=== PATIENT | female | born 1960 | race Caucasian/White ===

== ENCOUNTER 2023-07-31 13:15 | Outpatient (OUT) | payer OTHER, SELFPAY | END 2023-07-31 13:16 | disposition home or self-care (01) | LOC: LAB 13:20 | PROVIDERS: PCP Family Medicine; Visit Provider Family Medicine | DX: Z51.81 Encounter for therapeutic drug level monitoring (principal) | CPT/HCPCS: 36415; 80165 ==

== ENCOUNTER 2023-10-20 09:46 | Outpatient (OUT) | payer OTHER, SELFPAY ==
--- NOTE | 2023-10-20 09:54 | VEIN_ITS ---
Patient Name: EMMA ROE MR#: [id number] : 1960 Exam Date: 10/20/2023 Ordering Doctor: DR DELL CARR M.D. RADIOLOGY REPORT PROCEDURE: VC EXT VENOUS REFLUX ANNA MARIE LMTD COMPARISON: None. INDICATIONS: Pain due to varicose veins of bilateral legs I83.813 TECHNIQUE: Duplex imaging of the lower extremity to assess the deep and superficial venous system for the presence of deep or superficial venous incompetence and to document the location and severity of disease. The study includes evaluation of the great saphenous vein (GSV), anterior accessory saphenous vein (AASV) and small saphenous vein (SSV). Patient scanned in reverse Trendelenburg and standing. FINDINGS: RIGHT LOWER EXTREMITY: Saphenofemoral Junction Reflux: Yes 8.6mm 1.4 sec GSV: Diam (mm) Reflux/ Time (sec) Proximal Thigh 5.9 Yes 0.9 Mid Thigh 2.7 Yes 1.0 Distal Thigh 3.8 Yes 2.0 Prox Calf 2.7 Yes 0.4 Mid Calf 0.9 Yes 0.6 Saphenopopliteal Junction Reflux: 1.7mm No SSV: Proximal Calf 2.1 Yes 0.4 Mid Calf 2.8 Yes 0.5 AASV: Not present Thrombi: No acute or chronic thrombus. Compressibility: Normal. Flow: Mild deep venous reflux. Preforator: Mid lateral lower leg 3.4 mm with 4.6s reflux. Tech Note: Posterior accessory GSV prox thigh measures 6.2 mm with 1.4s reflux. Incompetent varicose vein off of accessory vein posterior proximal thigh measures 6.0 mm with 4.2s reflux. Varicose vein proximal lateral lower leg measures 4.3 mm with 4.6s reflux. Varicose vein distal lateral thigh measures 4.2 mm with 4.4s reflux. LEFT LOWER EXTREMITY: Saphenofemoral Junction Reflux: Yes 7.1 mm 0.8 sec GSV: Diam (mm) Reflux/Time (sec) Proximal Thigh 2.9 Yes 1.8 Mid Thigh 2.5 Yes 1.7 Distal Thigh 3.2 Yes 1.5 Prox Calf 2.9 Yes 4.9 Mid Calf 1.8 Yes 0.6 Saphenopopliteal Junction Relux: 1.2 mm Yes 0.8 SSV: Proximal Calf 2.8 No Mid Calf N/A AASV: Proximal Thigh 2.8 Yes 0.5 Mid Thigh 1.8 Yes 0.6 Distal Thigh Thrombi: Chronic thrombus in SSV from prox to distal lower leg approximately 5.0 cm from popliteal. Compressibility: Non compressible SSV. Flow: Mild deep venous relux. Core Stacker: Distal medial lower leg 2.7 mm with 3.4s reflux. Tech Note: No significant varicose veins. CONCLUSION: 1. Duplicated right great saphenous vein , both great saphenous veins demonstrate moderate venous insufficiency with dilatation and saphenofemoral junction reflux 2. Severe venous reflux left great saphenous vein with saphenofemoral junction dilatation and reflux 3. Bilateral incompetent varicose veins right greater than left Dictated by: Dell Carr MD on 10/20/2023 at 11:08 Approved by: Dell Carr MD on 10/20/2023 at 11:13
--- NOTE | 2023-10-20 09:54 | VEIN_ITS ---
Patient Name: EMMA ROE MR#: [id number] : 1960 Exam Date: 10/20/2023 Ordering Doctor: DR DELL CARR M.D. RADIOLOGY REPORT PROCEDURE: [facility] - OFFICE VISIT INITIAL COMPARISON: None. PROGRESS NOTES: 63-year-old female who presents with a 38 year history of lower extremity pain swelling and varicose veins which began with her 1st . Patient's symptoms have progressively gotten worse resulting in leg swelling muscle cramps, right significantly worse than left. The patient describes the pain as aching and heaviness rating the pain as a 4 on a scale of 1-10. Patient's symptoms are exacerbated by prolonged sitting and standing and are partially relieved by rest, exercise, leg elevation, support stockings and over the counter Tylenol. The patient has a medical history significant for spontaneous right leg thrombophlebitis in 2020. The patient has had previous treatments in [place] approximately 20 years ago with sclerotherapy. The patient has worn compression stockings for approximately 15 years. The patient is now retired but does exercise by walking 2-3 miles every day. The patient denies any signs and symptoms to suggest arterial ischemia. The patient describes a family history significant for high cholesterol and hypertension in her father, Parkinson's stroke in her mother. Varicose veins in her mother, sister and paternal grandmother. . The patient has never smoked. No illicit drug use. Patient does not drink alcohol. Past medical history significant for anxiety, depression, hip pain, back pain, mitral valve prolapse. The patient does have a history of superficial right leg thrombophlebitis but no deep vein thrombus or pulmonary embolus. See separate history and physical for medication list. No recent treatment for varicose or spider veins. Nursing notes were reviewed. After history and physical exam I discussed at length the pathophysiology of venous hypertension and possible treatments, therapies and strategies available. We discussed at length the importance of elevating the lower extremities above the level of the heart, increased physical activity and compression stocking use. We discussed surgical interventions including ligation and stripping and phlebectomy. Discussed intravenous laser ablation micro foam chemical ablation and injection sclerotherapy. Risks benefits and alternatives were discussed. The patient's questions were answered Ultrasound venous reflux study performed the same day was discussed at length with the patient. The report demonstrates duplication of the right great saphenous vein at the takeoff with venous insufficiency dilatation and saphenofemoral junction reflux in both right great saphenous veins. Severe left great saphenous vein reflux without dilatation however there is left saphenofemoral junction reflux. Bilateral incompetent varicose veins, right greater than left. Mild bilateral deep vein reflux PHYSICAL EXAM: The right leg demonstrates moderate diffuse varicose reticular and spider veins most significant along the posterior thigh, lateral thigh, lateral knee and lateral lower leg. Mild subcutaneous edema below the leg. No active ulceration . Minimal hemosiderin stain The left leg demonstrates few scattered varicose veins. Moderate reticular and spider veins. No subcutaneous edema, active ulceration or hemosiderin staining Both thighs, legs and feet were symmetrically warm to the touch. Good posterior tibial and dorsalis pedis pulses were present bilaterally. VEIN/VC Facility EST Comprehensive IMPRESSION: 1. 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 Moderate right and mild left lower extremity incompetent varicose veins 3. Mild right lower extremity subcutaneous edema and hemosiderin staining 4. No definite flow significant arterial disease 5. CEAP: C4a, Ep, As, Pr PLAN: 1. Endovenous laser ablation both right great saphenous veins and left great saphenous vein 2. Micro foam chemical ablation of incompetent varicose veins 3. Long-term use of the thigh or knee high 20-30 compression stockings 4. Elevated legs and continued physical activity for symptomatic relief Nurse notes, history and physical were reviewed and confirmed, see attached forms. The nurse was present throughout the physical exam and consultation Dictated by: Dell Carr MD on 10/20/2023 at 12:26 Approved by: Dell Carr MD on 10/20/2023 at 12:33
== END 2023-10-20 09:47 | disposition home or self-care (01) ==
LOC: VC 09:47
PROVIDERS: PCP Radiology Diagnostic Radiology; Visit Provider Radiology Diagnostic Radiology
DX: I83.813 Varicose veins of bilateral lower extremities with pain (principal)
CPT/HCPCS: 93970; G0463

== ENCOUNTER 2023-10-21 13:20 | Outpatient (OUT) | payer OTHER, SELFPAY ==
--- OUTSIDE RECORDS SUMMARY | 2023-10-21 13:24 | XMS_ITS | CCD ---
Author Organization [facility] Care Team Providers Care Office Assistant Receptionist Name Role Phone Jessica Oneil Unavailable Dat Bautista Consulting Unavailable VISCI, DR TERESA Attending Unavailable VISCI, DR TERESA Admitting Unavailable ONEIL, DR JESSICA Rosales Primary Care Unavailable VISCI, DR TERESA Consulting Unavailable ONEIL, DR JESSICA Rosales Attending Unavailable ONEIL, DR JESSICA Rosales Consulting Unavailable ONEIL, DR JESSICA Rosales Primary Care Unavailable ONEIL, DR JESSICA Rosales Admitting Unavailable VAISHNAVISHILOH PEDROZA Attending Unavailab le BRII LA Attending Unavailable VAISHNAVI-SHILOH SMITH Attending Unavailab le VAISHNAVI-NOSSESHILOH Cabrera Attending Unavailab le Allergies Allergy Classification Reported Allergen(s) Allergy Type Date of Onset Reaction(s) Facility (1 source) FLUoxetine Drug Allergy 03-07-20 14 [facility] Repository (1 source) Oxytetracycline Drug Allergy 03-07-20 14 [facility] Repository (4 sources) FLUoxetine Drug Allergy Comment:[employer] Other (4 sources) venlafaxine Drug Allergy Comment:[employer] Other (4 sources) Allergies Reconciled Propensity to adverse reactions 03-15-20 21 Unknown [facility] Other Medications Current Medications Medication Drug Class(es) Dates Sig (Normalized) Sig (Original) ALPRAZolam 0.25 mg oral tablet (5 sources) Benzodiazepine take 1 tablet by mouth every twelve hours ARIPiprazole 20 mg oral tablet (10 sources) Atypical Antipsychotic take 1 tablet by mouth every twenty-four hours take 1 tablet by mouth every twe nty-four hours calcium carbonate 1250 mg or al tablet (5 sources) take 1 tablet by mouth every twe lve hours take 1 tablet by mouth every twe lve hours Calcium 500 MG 1 tablet with meals Orally Twice a day Active ciprofloxacin 3 mg/ml ophtha lmic solution (4 sources) Quinolone Antimicrobial Start: 01-24-2023 Start: 01-24-2023 Ciprofloxacin HCl 0.3 % 1 application into the lower eyelid of affected eye Ophthalmic tid for 5 day(s) Jan, Active montelukast 10 mg oral table t (5 sources) Leukotriene Receptor Antagonist take 1 tablet by mouth once daily Multi Adult Gummies - (5 sources) Multi Adult Vitaly ies - as directed Orally Active divalproex sodium 500 mg delayed release oral tablet (5 sources) Mood Stabilizer, Anti-epileptic Agent take 1 tablet by mouth every twenty-four hours Problems Problem Classification Problem Date Documented Da te Episodic/Chronic Other aftercare (1 source) Encounter for therapeutic drug level monitoring Episodic Other connective tissue disease (4 sources) Pain in right foot; Translations: [Pain in right foot] Episodic Other ear and sense organ disorders (4 sources) Impacted cerumen; Translations: [Impacted cerumen, unspecified ear] Episodic Other non-traumatic joint disorders (4 sources) Arthralgia of the pelvic region and thigh; Translations: [Pain in unspecified hip] Episodic Other nutritional; endocrine; and metabolic disorders (4 sources) Body mass index 25-29 - overweight; Translations: [Body mass index (BMI) 28.0-28.9, adult] Episodic Other nutritional; endocrine; and metabolic disorders (4 sources) Overweight; Translations: [Overweight] Episodic Other screening for suspected conditions (not mental disorders or infectious disease) (4 sources) Encounter for screening mammogram for malignant neoplasm of breast; Translations: [ENC SCR MAMMO MALIG NEOPLASM BREAST] Onset: 10-14-2022 Episodic Other upper respiratory disease (4 sources) Seasonal allergic rhinitis; Translations: [Other seasonal allergic rhinitis] Chronic Residual codes; unclassified (1 source) Family history of malignant neoplasm of breast; Translations: [FAMILY HX MALIG NEOPLASM OF BREAST] Onset: 10-17-2022 Episodic Residual codes; unclassified (1 source) Family history of malignant neoplasm of trachea, bronchus and lung; Translations: [FAM HX MALIG NEOPLSM TRACH BRON LNG] Onset: 10-17-2022 Episodic Spondylosis; intervertebral disc disorders; other back problems (4 sources) Backache; Translations: [Dorsalgia, unspecified] Episodic Superficial injury; contusion (2 sources) Corneal abrasion; Translations: [Corneal abrasion, right] Episodic Varicose veins of lower extremity (4 sources) Varicose veins of bilateral lower limbs; Translations: [Asymptomatic varicose veins of bilateral lower extremities] Episodic Results Test Name Value Interpretation Reference Range Facility MG MAMM SCREEN 3D ANNA MARIE CADon 10-14-2022 MG MAMM SCREEN 3D ANNA MARIE CAD Patient: EMMA ROE Exam Date: 10/14/2022 : 1960 Gender:F Ordering : DR BRII LA Admission #: [id number] Family : DR JESSICA ONEIL M.D. Order #: [id number] CLICK HERE TO VIEW EXAM RADIOLOGY REPORT PROCEDURE: MAMMOGRAM SCREENING 3D BILATERAL CAD COMPARISON: MG MAMM SCREEN 3D ANNA MARIE CAD, 10/09/2021. MG MAMM SCREEN ANNA MARIE W CAD, 05/05/2020. MG MAMM SCREEN ANNA MARIE W CAD, 04/22/2019. DIGITIZED_MAMMO, 08/11/2008. INDICATIONS: Screening mammography Calculator Name NCI Breast Cancer Risk Assessment Tool 5 Year Breast Cancer Risk 1.30% Lifetime Breast Cancer Risk 6.40% Personal Breast Cancer No Personal Ovarian Cancer No Treatments None Family Cancers Grandmother-paternal with breast cancer at age 70; Aunt-maternal with lung cancer at age 70. LOCATION: [facility] BREAST COMPOSITION: Heterogeneously dense,which may obscure small masses. FINDINGS: DIAGNOSTIC CATEGORY 1--NEGATIVE. RIGHT BREAST: No significant suspicious finding. No significant change has occurred. LEFT BREAST: No significant suspicious finding. No significant change has occurred. RECOMMENDATIONS: ROUTINE MAMMOGRAM AND CLINICAL EVALUATION IN 12 MONTHS. PLEASE NOTE: A NORMAL MAMMOGRAM DOES NOT EXCLUDE THE POSSIBILITY OF BREAST CANCER. A CLINICALLY SUSPICIOUS PALPABLE LUMP SHOULD BE BIOPSIED. Dictated by: Dat Bautista M.D. on 10/14/2022 at 12:58 Approved by: Dat Bautista M.D. on 10/14/2022 at 13:11 Normal [facility] CBC AUTO DIFFon 07-11-2022 BASO # 0.0 103/ul Normal 0.0-0.1 [facility] Comment on above: Performed By: #### C BC #### [facility] [address] [place] [address] Dr. Oskar Devine Basophils/100 WBC (Bld) 0.8 % Normal 0.2-2.0 [facility] Comment on above: Performed By: #### C BC #### [facility] [address] [place] [address] Dr. Oskar Devine EO # 0.1 103/ul Normal 0.0-0.7 [facility] Comment on above: Performed By: #### C BC #### [facility] [address] [place] [address] Dr. Oskar Devine Eosinophils/100 WBC (Bld) 1.8 % Normal 0.9-7.0 [facility] Comment on above: Performed By: #### C BC #### [facility] [address] [place] [address] Dr. Oskar Devine Erythrocyte distribution width (RBC) [Ratio] 14.2 % Normal 11.0-15.0 [facility] Comment on above: Performed By: #### C BC #### [facility] [address] [place] [address] Dr. Oskar Devine Hematocrit (Bld) [Volume fraction] 44.4 % Normal 36.0-48.0 [facility] Comment on above: Performed By: #### C BC #### [facility] [address] [place] [address] Dr. Oskar Devine Hemoglobin (Bld) [Mass/Vol] 13.4 g/dL Normal 12.0-16.0 [facility] Comment on above: Performed By: #### C BC #### [facility] [address] [place] [address] Dr. Oskar Devine IG # 0.01 10e3/ul Normal 0.00-0.03 [facility] Comment on above: Performed By: #### C BC #### [facility] [address] [place] [address] Dr. Oskar Devine IG % 0.2 % Normal 0.0-0.5 [facility] Comment on above: Performed By: #### C BC #### [facility] [address] [place] [address] Dr. Oskar Devine LYMPH # 2.5 103/ul Normal 1.2-3.8 [facility] Comment on above: Performed By: #### C BC #### [facility] [address] [place] [address] Dr. Oskar Devine Lymphocytes/100 WBC (Bld) 49.9 % Normal 20.5-60.0 [facility] Comment on above: Performed By: #### C BC #### [facility] [address] [place] [address] Dr. Oskar Devine MANUAL DIFF REQ NO Normal [facility] Comment on above: Performed By: #### C BC #### [facility] [address] [place] [address] Dr. Oskra Devine MCH (RBC) [Entitic mass] 29.0 pg Normal 26.7-34.0 [facility] Comment on above: Performed By: #### C BC #### [facility] [address] [place] [address] Dr. Oskar Devine MCHC (RBC) [Mass/Vol] 30.2 g/dL Normal 29.9-35.2 [facility] Comment on above: Performed By: #### C BC #### [facility] [address] [place] [address] Dr. Oskar Devine MCV (RBC) [Entitic vol] 96.1 fL Normal 81.0-99.0 [facility] Comment on above: Performed By: #### C BC #### [facility] [address] [place] [address] Dr. Oskar Devine MONO # 0.4 103/ul Normal 0.3-0.8 [facility] Comment on above: Performed By: #### C BC #### [facility] [address] [place] [address] Dr. Oskar Devine Monocytes/100 WBC (Bld) 7.3 % Normal 1.7-12.0 [facility] Comment on above: Performed By: #### C BC #### [facility] [address] [place] [address] Dr. Oskar Devine NEUT # 2.0 103/ul Normal 1.4-6.5 [facility] Comment on above: Performed By: #### C BC #### [facility] [address] [place] [address] Dr. Oskar Devine Neutrophils/100 WBC (Bld) 40.0 % Critically low 43.0-75.0 [facility] Comment on above: Performed By: #### C BC #### [facility] [address] [place] [address] Dr. Oskar Devine Platelet mean volume (Bld) [Entitic vol] 11.1 fL Normal 9.5-13.5 [facility] Comment on above: Performed By: #### C BC #### [facility] [address] [place] [address] Dr. Oskar Devine PLT 211 103/ul Normal 150-450 [facility] Comment on above: Performed By: #### C BC #### [facility] [address] [place] [address] Dr. Oskar Devine RBC 4.62 106/ul Normal 4.20-5.40 [facility] Comment on above: Performed By: #### C BC #### [facility] [address] [place] [address] Dr. Oskar Devine WBC 5.1 103/ul Normal 4.0-11.0 [facility] Comment on above: Performed By: #### C BC #### [facility] [address] [place] [address] Dr. Oskar Devine LIPID PROFILEon 07-11-2022 CHOL-HDL RATIO NORM SEE BELOW Normal [facility] Comment on above: Result Comment: 3.3 - 4.4 LOW RISK 4.4 - 7.1 AVERAGE RISK 7.1 - 11.0 MODERATE RISK >11.0 HIGH RISK Performed By: #### C MP, LIPID, TSH #### [facility] [address] [place] [address] Dr. Oskar Devine Cholesterol [Mass/Vol] 249 mg/dL Critically high <=200 [facility] Comment on above: Performed By: #### C MP, LIPID, TSH #### [facility] [address] [address] [address] Oskar Devine Cholesterol in HDL [Mass/Vol] 54 mg/dL Normal 40-60 [facility] Comment on above: Performed By: #### C MP, LIPID, TSH #### [facility] [address] [address] [address] Oskar Devine Cholesterol in LDL [Mass/Vol] 166.8 mg/dL Normal [facility] Comment on above: Performed By: #### C MP, LIPID, TSH #### [facility] [address] [address] [address] Oskar Devine Cholesterol.total/Ch olesterol in HDL [Mass ratio] 4.6 {ratio} Normal [facility] Comment on above: Performed By: #### C MP, LIPID, TSH #### [facility] [address] [address] [address] Oskar Devine HDL NORMAL > or = 60 mg/dl - LO W CARDIOVASCULAR RISK <40 mg/dl - HIGH CARDIOVASCULAR RISK Normal [facility] Comment on above: Performed By: #### C MP, LIPID, TSH #### [facility] [address] [address] [address] Oskar Devine LDL CALC NORMAL SEE BELOW Normal [facility] Comment on above: Result Comment: <100 mg/dl OPTIMAL 100 - 129 mg/dl NEAR OR ABOVE OPTIMAL 130 - 159 mg/dl BORDERLINE HIGH 160 - 189 mg/dl HIGH >190 mg/dl VERY HIGH Performed By: #### C MP, LIPID, TSH #### [facility] [address] [address] [address] Oskar Devine Triglyceride [Mass/Vol] 141 mg/dL Normal <=150 [facility] Comment on above: Performed By: #### C MP, LIPID, TSH #### [facility] [address] [address] [address] Oskar Devine VLDL CALC 28.2 mg/dL Normal [facility] Comment on above: Performed By: #### C MP, LIPID, TSH #### [facility] [address] [address] [address] Oskar Devine PROF 14(COMP METB)on 023 Albumin [Mass/Vol] 3.7 g/dL Normal 3.4-5.0 [facility] Comment on above: Performed By: #### C MP, LIPID, TSH #### [facility] [address] [address] [address] Oskar Devine Albumin/Globulin [Mass ratio] 1.1 {ratio} Normal [facility] Comment on above: Performed By: #### C MP, LIPID, TSH #### [facility] [address] [address] [address] Oskar Devine ALP [Catalytic activity/Vol] 59 U/L Normal 46-116 [facility] Comment on above: Performed By: #### C MP, LIPID, TSH #### [facility] [address] [address] [address] Oskar Devine ALT [Catalytic activity/Vol] 23 U/L Normal 14-59 [facility] Comment on above: Performed By: #### C MP, LIPID, TSH #### [facility] [address] [address] [address] Oskar Devine Anion gap [Moles/Vol] 10.9 mmol/L Normal [facility] Comment on above: Performed By: #### C MP, LIPID, TSH #### [facility] [address] [address] [address] Oskar Devine AST [Catalytic activity/Vol] 20 U/L Normal 15-37 [facility] Comment on above: Performed By: #### C MP, LIPID, TSH #### [facility] [address] [address] [address] Oskar Devine Bilirubin [Mass/Vol] 0.6 mg/dL Normal 0.2-1.0 [facility] Comment on above: Performed By: #### C MP, LIPID, TSH #### [facility] [address] [address] [address] Oskar Devine Calcium [Mass/Vol] 9.2 mg/dL Normal 8.5-10.1 [facility] Comment on above: Performed By: #### C MP, LIPID, TSH #### [facility] [address] [address] [address] Oskar Devine Chloride [Moles/Vol] 104 mmol/L Normal 98-107 [facility] Comment on above: Performed By: #### C MP, LIPID, TSH #### [facility] [address] [address] [address] Oskar Devine CO2 [Moles/Vol] 33.4 mmol/L Critically high 21.0-32.0 [facility] Comment on above: Performed By: #### C MP, LIPID, TSH #### [facility] [address] [address] [address] Oskar Devine Creatinine [Mass/Vol] 0.75 mg/dL Normal 0.55-1.02 [facility] Comment on above: Performed By: #### C MP, LIPID, TSH #### [facility] [address] [place] [address] Dr. Oskar Devine EGFR-AF LEBANESE >60 Normal >=60 [facility] Comment on above: Performed By: #### C MP, LIPID, TSH #### [facility] [address] [place] [address] Dr. Oskar Devine EGFR-NON AF LEBANESE >60 Normal >=60 [facility] Comment on above: Performed By: #### C MP, LIPID, TSH #### [facility] [address] [place] [address] Dr. Oskar Devine Globulin (S) [Mass/Vol] 3.4 g/dL Normal [facility] Comment on above: Performed By: #### C MP, LIPID, TSH #### [facility] [address] [address] [address] Oskar Devine Glucose [Mass/Vol] 95 mg/dL Normal 74-106 [facility] Comment on above: Performed By: #### C MP, LIPID, TSH #### [facility] [address] [place] [address] Dr. Oskar Devine Potassium [Moles/Vol] 4.3 mmol/L Normal 3.5-5.1 [facility] Comment on above: Performed By: #### C MP, LIPID, TSH #### [facility] [address] [address] [address] Oskar Devine Protein [Mass/Vol] 7.1 g/dL Normal 6.4-8.2 [facility] Comment on above: Performed By: #### C MP, LIPID, TSH #### [facility] [address] [address] [address] Oskar Devine Sodium [Moles/Vol] 144 mmol/L Normal 136-145 [facility] Comment on above: Performed By: #### C MP, LIPID, TSH #### [facility] [address] [address] [address] Oskar Devine Urea nitrogen [Mass/Vol] 17.0 mg/dL Normal 7.0-18.0 [facility] Comment on above: Performed By: #### C MP, LIPID, TSH #### [facility] [address] [address] [address] Oskar Devine Urea nitrogen/Creatinine [Mass ratio] 22.7 mg/mg Normal [facility] Comment on above: Performed By: #### C MP, LIPID, TSH #### [facility] [address] [address] [address] Oskar Devine TSHon 07-11-2022 TSH 1.679 uIU/mL Normal 0.358-3.740 [facility] Comment on above: Performed By: #### C MP, LIPID, TSH #### [facility] [address] [address] [address] Oskar Devine Coding Summary.on 07-30-2021 Coding Summary. CD:[id number] Gh 0bWw+PGhlYWQ+HL0ZGDFmA 04zkOQhfO8VX9fZIP3OZLE UUFJVXX0HEA3wgSL4XBvzA 2VybiAv SbezlQStTY61TKe5IYG4jJ enUJvufD1noZHlS1z8KiJv LG10nS91MGdpORImUwZ8Wt ZpbjsgbWFy S4klLbMcdJYtOxm+PHRhYm xlIHdpZHRoPScxMDAlJyBz iAosNB8uQo3mAMTfTNHhyC xhcHNlOiBj q6hfMUBsPWdwWV5urApwU1 EyxTF8YZMgy6n0Ua71rRX+ ZFQyWQS4dMbhZOwrr650Vf Dgi0hgAJP9 xGAuFHugQMI4O28xz0O1QT KaRWStRZE1oFW3pL8ogEyl xqdgE9QwmVJsDdS3PPU6uQ DhtM4fwFwy jsygnG2bBkq+M80HLR5AJF HKRS6NAix0W6RaAnusqXH+ CK60FQJeUN01eUCdnVYyf2 cfxWk8GhWi JBWiUWS8yRprWFgzw5GlOH PjY25jxUZsh1Y0GRXduYkj kIMgTvPiqSC1pC1gVDozgp gvu9rycdeb Vbnfh8euxe76uR59N81nOD kxUZEzJHG0YXHdNHPzjVmv xm7xcY4iRr2+OHovx6kdg9 kizLb4SnQv FKVoyeBhrCpmMPV9b9OdBy 72K8QpqMvli2OxPcz2tp92 jSTdp6R2uNS2OZpvTJYciZ 9mSMmmMsX5 PRXcPuNcnX86iLYuNTqxAd 4zyApohLfwNT0kZRLmlznm LUTwkZ2cRGBxfJNjoPgcRJ 4wNTBpbjtm z264PcVbAAB2DKJcbQGdK4 RqsW6cPgBiDKHaOSMjL4Le eLPiXAhfL468JRlaYdP6HZ UnzbTvK8Kg VPKktBjdTvP9m8O6Kg3Ll6 FskzdeGZY5OZojVMEmSsJ7 XpSqUhM4Q6UqDon0VILafY zuKC2oM7Ss JTSohrydkoohkOP3BTIqAS VhmT37qAPbWOuaVo1pe6A5 o850KBNqTMPpeJ15Xi6nbD ogMTBwdCBU nX9enxfqy9affxwdJxYbXL YdCIz9VXl8NPSyzKfcAsDm JWV5RzQ1OON2bQXbwB6juM uypnoqhD0s Oyc+O99wzB7oVNH5HFJ8om ewERVfycUsEX41VC47X8Qx PjwvdGFibGU+PGRpdiBzdH wvLF3tThQm o9gay2JpAKgiI0PjUMUsXY clKfq2TPEdSWG9oPO1lQ7d RMJyWIoul9S1cRQ3D6Ttad Cksv1bn0qb SMFyBXcrH27npWNvo7C1AX WmmVW4YBKouFjfTfGmbD91 Oyc+PLPeiXduy0ScNmjme7 gex8wwiBr4 QsXhNWYrpvZxbNyfZBG0d7 UeBf25S44xQOqpLMRoELJf IUQkIIClqRfiev6kzF0gJn 8+PGNvbCB3 kKH4cD6lYIFoBdR5DAjxO2 83RqSkwNQfYerid6kds0ta lCe1OsRzOUGpoeVglJewZO Z8i3HhLf90 L25fUAujUZWbPAScZREmOG YtxHtexp2ejE3mTx0+PC9j o0kouk27fN78fIY+PHRkIH F8pXuwXHjy IDOauW5uQMxkWfJ6LSEsTn BtsW40rWOxHUqiHz8vqBvd aFasBP9cDYNhndnap741Tv Mjc4qvERWv jUGxFGvpQXF0A53pa5C1UU ZgUUVvZYX9rSF2wG3gmTka bjogbGVmdDsgdmVydGljYW hjRAjeK687 IHRvcDsnPlBhdGllbnQgTm DjTLr7G5ThDtk1MMHmlRga RP7ngXJyCGhfNc8smRnfpO kzOD6dIJWw jqqai819FmEiw7mtINTtaO FqJEchCKH0A80nw0H8NMQh ACEtBVP6wFN8dF6ypZalic ogbGVmdDsg icYsjQohFSlyJDxqK537PT RvcDsnPkJpcnRoIERhdGU6 EL95UW14xIGkp7L9bRK1L9 BhZGRpbmct xgptqDE6ETDwTBJkpV28Tx 3caQynUp6aGLOzMPG3QIHc pOIjW2CeqQ3kYpPjOCVeLL LsL7WxlOPg DUrcQ398FPikMcS4DRPrez PaH8ZkMBItwJvgTwL1s6V4 Sg5DR4N2FC01KB00kTFqp2 K7oZP4P7Mo OXHarbodydnurWX4EWIgHP ZrsE97Ny6yuGbrKn1uCWKh GQR7KCXwmCIcI6IibD0yRh AjMDAwMDAw V7GvoALcNMstC027RYniHo G0KELkeoHfV9YqRKNrhCvg FoX6c2C6Zm2ILNa4LI96EH 25bLEbo1Q2 iNK9F5UvOJJiapqekobgnG V8XTXmBCFrdQ97Zk8qmQkd Mq1hKSXyNXG2XVSmxYLrG0 EgpY6lWeXt MQJuDCDoR6VniHTeDKlgC6 39TCecRtF4XZCpjsFhX6Wf UTCdoAqsZqD7g7X6Ma1GAC GdIA26GAZ0 oCT9TV11OT14E7PjUdbgcT FibGU+PHRhYmxlIHdpZHRo NMlvFZJwQjHjsCloWM3zRi 9yZGVyLWNv cIihvTUkZbKuw8tySODcNQ wvKD2brIeaS7MajNT6LXCy k6o6Kk32N06iF6CaxEW+PG DnqUB8eQQ2 xY2wCoVvMoY3GMmeM531Qm ImyZBqPltyh0pih3rhdGv5 LjM5OWXzehFqcZyhWCD4n7 GyIy61B49h IHdpZHRoPSIxNSUiIHZhbG opus3tlB6pLx0+PGNvbCB3 zVL6oW1nAbMlNzK9EZudS9 49InRvcCIv Vysch2thr3ktsRw9XfEeBE LczrSiuUbkBNY0b8YxVl94 G6JhyQldi6PaQjd5du55iW Uju4S7aYK9 M8HhLAHyhathvAHvlCztQC 9zSRWiywilMQCryS7wAWFu J2b3LjInErB9CDidR8Voql N6ZYFadWPx NSbcRQU6C02la0N5EPMjAC GbGEL2tFX8eP4bkSkdiybg bGVmdDsgdmVydGljYWwtYW hgJ675ZNTg rBroRTAmqW8kKFQktNOkeI azRW8eOQMyfszlEhYZHIBB RkVSLCBERUJPUkEgQTwvdG Q+PHRkIHN0 uYhjYTchBJNcpS7aNLVaD0 e4FlIkQzG8YZxqS1MtQXSy flyzDm52eK9kVpOhFmO7ZS phL3AbcwL1 WLBuqVEmFAgaMFU0B28sr4 I6QOFiFEIvOLM1oMA6gP7p bGlnbjogbGVmdDsgdmVydG ljYWwtYWxp T415WGGxpAxiNeAdEwU1Fx N1YfF4W2ZgMmg7INItfWhs DC1wmPPgFSoxRb3kwMmstF ynJD2hJRVf xhguRMZftC2zBDKqwGLuuM qsNR5sCTHfqbeqp265ArIw UUK5GLBekJFiB9WvfO6qXi AjMDAwMDAw V4WzeNFqNBerX732LGckHz N9ECYioqWoZ4WbNAIueTux QwN4b8K3Gn50ZSLCLJJtlz wvdGQ+PHRk KOP9yQwdBIhaTCAcyK0yLK GgC5o8RyLcAdV4GLmoW8Mu BIQxernjFm38xP7vViLtBr O8BOotM1Ro cmU4VBXftFAfBRgoJYW7F9 1pe2U6SGIyUJBuDSP2eHP8 nT6coNgmkkoojBCznUijib VydGljYWwt FLkzP746QYVtvIcaNhPmpI FsZTwvdGQ+NNYnQUS9tTyj JZaeWUZnzD5bMMXrI8g3Sr MwZwZ6HHkm Y4OcFAPdjxlnWb48lO8mHe ExNaF9ABcwD2XjpsR2OXQc vNOhNTlgOSK4K65iz7U8RK MwMDAwMDA7 bSS9jE9oqGtbifmjhLMmlS lvtkPjsJekRMkhUBdgQ910 IRUytDjaNa17jVZntPlyph L7K2CsIiwl dHI+PY98ZSHrTU94iQVubD Yio2vdmUq4IcMrPCBlGGH7 gNteDPkms3PeXERtW00lcT Ozj7I5MYJz fStreTYcJvOljUU8gY5mBS toaikla6bhfnqnPkssx1qx ez64dB86B31hPZpmCQGbBW IzMCUiIHZh dQekoa8hnR9bRy3+PGNvbC S1xJC3eT0hIjThQeA0FFtn Z795NnDwmQZlMprhw6qul7 zdpPn7JiFe GPFhywRrdWilWJM7x7UwQg 06J96pBJauBWGdCLPgBTEv WTKwfTqzze5xpZ8qIr6+PC 1do3mjxa38 bM68qIE+PKJtDYZ2jYvbGM wkVQIldK1iAZyzQyG3OAZm ZiWiiB26yOQwIAzbTx2ueP ymhFiyDE1l PZMytcehr861FpVwd0xlNV GyiYElVXroULO4D51vq6N7 OTLaWCVtWCT8oPB2hB7yzY lnbjogbGVm dDsgdmVydGljYWwtYWxpZ2 55TDUyzLxhSjXevNOvO2zl feFJBK3cNvoqbXZ+PHRkIH D1mDpgOJvr ZVUrlH1qZOIdM9q5MhMvUy C5ASwtX5JfrqQ2AORkvKJs RFAotTGYzM7dkurgs5fvcg ogIzAwMDAw OZv6CGx9NQTvkZihWyQfWW Q7ZoX8FFA8yEHpmR8khCuu adivuR7gSzt+RklOOjwvdG Q+PHRkIHN0 vBvmYMllBCUlrH9oZOOzC6 x1WgQvHoD6DHruF2UvjsU8 ZWQrrZHiTFUorJBZpA8acr dvk3hwutdp AhPxIBNmBLo6CQm5PXEgtD ktDrEyIHT5PnS6IDO9uGGs lC1hoKmvzutnsL4oJma+TV JOOjwvdGQ+ CFVjJIH3fXozXRmrEXZqwA 4bYECzM4c8DpIoQbT2XPko S8IzvqE1BXBhpYVoHNVufZ WUeB3gczbd c0tsfuqiIjDdBJQjOZj7DU p1TNQqtXdrZsMrCAH6GfR8 STW6bTRnoR2knJllabpjbJ 9wOyc+UGF5 GXC6FR20NA31I7NzIpccjW FibGU+PHRhYmxlIHdpZHRo DUnbUTEtVuKezIkoTD9qMt 9yZGVyLWNv bGxh (more content not included)... Normal [facility] Consent for Treatmenton Consent for Treatment [id number]#[id number] 0CD:127 Normal [facility] Heart and Vascular Office/Cl inic Noteon 07-25-2021 Heart and Vascular Office/Clinic Note Chief Complaint 3 month follow up Venous US History of Present Illness This is a 61-year-old lady with history of below-knee DVT and superficial thrombophlebitis. She completed at least 3 months of Xarelto. She is doing well. Repeat ultrasound shows no evidence of reflux in the veins and no DVT. She is feeling good . I discussed with her strategies to stay active and prevent DVT in the future. Her hypercoagulability testing is negative. Review of Systems ROS - Clinical Support Cardiopulmonary Symptoms: None General Symptoms: None Pain Symptoms: No Constitutional: no fever, no chills, no sweats, no weakness Skin: no Jaundice, no rash, no lesions, nopetechiae ENMT: no ear pain, no sore throat, no congestion, no hoarseness Respiratory: no shortness of breath, no cough, no orthopnea, no wheezing Cardiovascular: no chest pain, no palpitations, no edema Gastrointestinal: no nausea, no vomiting, no diarrhea, no GI bleeding Genitourinary: no dysuria, no hematuria, no discharge, no pain Musculoskeletal: no back pain, no trauma Neurologic: no headache, no dizziness, no numbness, no weakness Psychiatric: no sleeping problems, no irritability, no mood swings/depression. Heme/Lymph: no bleeding tendency, no bruising tendency, no petechiae, no swollen nodes Allergy/Immunologic: no seasonal allergies, no food allergies, no recurrent infections, no impaired immunity Additional ROS info: Except as noted in the above Review of Systems and in the History of Present Illness all other systems have been reviewed and are negative or noncontributory. Physical Exam Vitals & Measurements HR: 64(Peripheral) RR: 16 BP: 116/80 SpO2: 100% HT: 157.0 cm HT: 157 cm WT: 69.5 kg WT: 69.5 kg BMI: 28.2 General: alert, no acute distress Skin: warm, dry Head: no trauma, normocephalic Neck: Trachea midline, no adenopathy, no tenderness Eye: normal conjunctiva, sclera clear Cardiovascular: regular rate and rhythm, normal peripheral perfusion Respiratory: Lungs CTA, respirations non labored Chest wall: no deformity. Gastrointestinal: soft, non distended, no tenderness, no guarding. Back: No tenderness, Normal ROM, Normal alignment. Extremities: no edema,no deformity, no trauma Neurological: oriented x 4, LOC appropriate for age, motor strength equal & normal bilaterally, sensation equal & normal bilaterally, speech normal Psychiatric: cooperative, affect appropriate for age, normal judgement, normal psychiatric thoughts. Assessment/Plan 1. DVT (deep venous thrombosis) (I82.409: Acute embolism and thrombosis of unspecified deep veins of unspecified lower extremity) I discussed with her that she can stop anticoagulation and use compression stockings. Encourage her to stay active and walk. I also encouraged her to avoid sitting in 1 position for times. 2. Superficial thrombophlebitis (I80.9: Phlebitis and thrombophlebitis of unspecified site) I discussed with her that she can stop anticoagulation and use compression stockings. Encourage her to stay active and walk. I also encouraged her to avoid sitting in 1 position for times. Follow-up No qualifying data available Problem List/Past Medical History Ongoing No qualifying data Historical No qualifying data Medications Abilify 20 mg oral tablet Abilify [address] 500 mg Tab-EC Tylenol 325 mg Tab, 325 mg= 1 tab(s), Oral, q4hr, PRN Xarelto 20 mg oral tablet, 20 mg, Oral, Daily Allergies Effexor XR (Unknown) PROzac (Unknown) Social History Alcohol Current, 1-2 times per week, 06/04/2021 Tobacco Never (less than 100 in lifetime) Tobacco Use:., 06/04/2021 [facility] Comment on above: Result Comment: Elec tronically Signed By: Ihsan SCHUMACHER, Teresa Kitchen\.br\Date and Time Signed: 07/25/21 10:08 EST Progress Note-Nurseon 2021 Progress Note-Nurse [id number]#1. 00CD:127 [facility] Coding Summary.on 07-20-2021 Coding Summary. CD:[id number] Gh 0bWw+PGhlYWQ+HJ9HTRTjP 87jaNWhyM0TR2yKMA2MVBP VHADFMC0NLX5egNK2WSeqD 2VybiAv UxjpyOCnRG19XRn1WFH1uG utIOcxbA1rnLMoK7i6BiKp CQ35kP96KZqjSLHwPxH8Kg ZpbjsgbWFy L3rsLkTseCCrYsp+PHRhYm xlIHdpZHRoPScxMDAlJyBz xHiyQT1dHd0vBRXaFAYoyB xhcHNlOiBj j6zmYQSpWPrrLL2gfWepO5 FxwLF8NGGzs7d0Cs15sDT+ VTYkPAQ8vLlhJCkwd913Oc Idd6gcADB9 dIXiRDcmDSZ8T64up0W0IA UuKAAkZXG0hEB9kB8wwAoz dcvnT2BhlDGlQpR2SDA5rD FvdM1vhKzp owvwdD1qXrf+P44NPR4CAF LWHE4UQhr6G7QdPnzckMW+ PM01FPSlPR89pJXqtZWrf8 lefLq2PsKy KIVlIVV5kCnnQIzht7IkIP EiX03zyZRho7T5HNPedWhb zPFuTeSzjOC0rP9bOBdbwr kpa9zopizu Ltdmd1fbgn00bZ05C41uEA maAQWkQBI3UDWoGCImbNof dj9hyD9lUu3+XBqez5fdl8 aewGe7HxPe SKEtdmFfxHeuDFE4g9BpTf 02E6ZlxTuhl1YyOdl1do56 dBJdw3U4pLE0NFhlZOPqgU 0oEKqhSsY4 OGRpUkUifC24lCHvTJcpNj 3heParrZdqFL5lYSFccree HUMqyM1dSCQdbMEndDnmIE 4wNTBpbjtm n655JyApQVI0NSGtvQJiB6 YjzD8aPpZnNYIeSIWwP0Ks oPYnHHvmC903SCffTkC6IB DspxGnI2Ym PFCmjYijCqP5r4E8Og0Pv0 XaxcjuVJN1DEanNMCmYyK6 TtDyZsC2G1LeGki5IWFkfK qzAI6eK4Ek CZKbljlkoaxxeZD4OTHdZS PbxW63oQQxTUlnEm2xh9U6 g041LPRiAXXklX09Wq6bmL ogMTBwdCBU lV6aabmgz4ltkhnuQuTtAN TgEUo2CQl4QCHfwQtvRrUq GST1WkK6PIM7oOEfjX6exN afykwrvX9w Oyc+D82lsO3rYFC4SRU7gg vkMVTdtjMiTH33AK21Q3De PjwvdGFibGU+PGRpdiBzdH bxWH3uNeWz u1bij6YoBMdpD5RzDZHmPA ifDso0MHFpTXB4dBO4dM8m KVIgEXvbv6D0nGY7G5Turv Nxqx9zk1yx GWFkEFnoY93guVZam3F7FO IahTU8DLUmyZodPiYajZ98 Oyc+NMCjeWklq4FtIwnds1 ztw0ghkDl5 LyMvRPMjfeEdzEdfKEG4j6 FtYb45W50dFLoaJQQaQYSb VRQsSWCffVjyas6qfI8hHx 8+PGNvbCB3 pWD0hY9pZKFtZcD9HBvoS4 34EiTikSGqAbkmc9lzi6lv aSe1ZbXvFXEhsgImnOquII J1x7EzCq95 G53wAMgsTFPyKMKsAVLrBL ZzjXsgbg2eyF3uBv3+PC9j b6gydn85oR95iEY+PHRkIH J5fWkjDPep NBZiyB5jEQywNzG9DPWgEk JovO58kVEvHXhwSv0xwKjk rXymAE3kLKFnxpwyo375Ca Vab6qzHDMl pMFkGGojSSE8P53vn5L9LP KmIWDeNAD2iHE8tB9qzPpl bjogbGVmdDsgdmVydGljYW gcLGbgY968 IHRvcDsnPlBhdGllbnQgTm BgNBw6L7TpHih5UGHklEow MX5zrPOdPOgyBb1vcUjvzR kbQO1jFFTj hkqhq121LqJxf9wbDOGgzH QlKCxeRSV1A32jj1G7BPEx YAUqAUY6gBW9kG4opVrbkp ogbGVmdDsg dqXujYekGSlwSJxaH927RD RvcDsnPkJpcnRoIERhdGU6 TD71QM96oCSvf6K5eMC7T7 BhZGRpbmct tapsiEW0QLGcSOXypY14Kr 3bhQoyJt5uYQPsCBM3PUQn aIVvO1FguZ8vXrLqRJKaJU MxA3IorCSb CYxhE889KFtfLpX4COPgql CeB1EiNWIhyQqtTkK8p5H9 Qe1MS1A2NY21RP13sXFlf9 V5mSN3Q9Ux NPMlcmnbhmztcCX0JYJsWS BvrT48Vo5fxQkdOf8nZDPv CCQ4HQSonEZtE2GwsE3mYn AjMDAwMDAw Q4AbdLByZNgaO787HSwxQs B4WZNdcqGsB7HzCOQumNhx KtJ3n0S4Ac1JSQl7DU37CR 93jGEuy6T5 zJG0J6BnEOSawenesuxpyG N4EHIyXBKszQ50Tn3taCct Fz8rIHFxNXY0JHTosWDfF7 TucD9eIcJo XEXwUQNbX4ZkgUFhOGbcL6 59DNevErN7PGFryjCsQ5Ts CDAzoZcaPlM9p6F9Mu0TLZ HpVV55LAX9 rZT7GF22IH17H1GyNmxgkW FibGU+PHRhYmxlIHdpZHRo KJsuVGUbBcWycDdtUF1aQu 9yZGVyLWNv vJetgXJmOsPzs1zaPHDnCN lqRS3glLlrK6YaeGL9WTDf y8z3Od60S31pU8MbiDE+PG ZhbQR1cSW3 aQ3rOiTeQhB2KEtoZ787Kh OlkRPbPwatj8lbs2hwpYk7 NuU7PVRnreJlcBbpIJF7y6 JsRl02R75i IHdpZHRoPSIxNSUiIHZhbG lxhu5fuJ1dRa7+PGNvbCB3 vXA1uW2qBkXlJjR4ZUfiI2 49InRvcCIv Nzvgf6tht6kdiQx3SmGzUC EarsPxkCroJIU9i6BgCw21 B8AeoClul9JiIpd6ni65mP Kyz2K1pPJ0 H4YrJUTweavbdFLymGhuAQ 9vUHSfrxbbMDPeuS7eYINs C7x9JxGmWfB2XPmjD7Eaqs V5LOSmiMZm GGldSGJ3H07mb7I7FOJaKG TfIZO5eEF3eE7luSpvojym bGVmdDsgdmVydGljYWwtYW ahW070OKFm dYhjEWWgrZ8qHIAiaYNliF jjQN5rGGHhuyruZdGIHYTD RkVSLCBERUJPUkEgQTwvdG Q+PHRkIHN0 lHhdIPfnUHCzxY0lZWYaL4 h1HaUjFdF5KCwiA6ZcKKSr yrtaXr85tY1tPmViYoB3UF scA3XtaiL2 YSCizFMuNPxeZRN0N86am9 L0FNKdZMDgVHH6bGN1fH1m bGlnbjogbGVmdDsgdmVydG ljYWwtYWxp O798OGMbmXkpExXwDbP1Qx Z4FtQ5W5HuQzi2YIMnjOee CY5dgJEuNPhtBp4pgPlcsM tyKT5eBXXl ascpQLHrrE3cNODdlMAnfY fmRS8zUBIeuwdti012OsIy EWL3ULFdcCXhB1ZemY8gYy AjMDAwMDAw K0MquDXzYNgbT032RBqxBy B0ZDPqfnJiF7YlHZLjjEec BjP1v8Z4Dh00PIKVQXAzoq wvdGQ+PHRk MEE7nElmUJeuFYYsaB6hOV TmC1s6LoQnBpA8BXktU7Gq UZKfsuopOz11aU5vOxLtFy L0XYonU3Yj bpL5LXQrxTAyUYltVHN2C9 6xn8X2SKUwANFnPVR8tEF0 iU1qjLdunictsDJysXjhwl VydGljYWwt WLjvV228ARNzhUgvCjNggU FsZTwvdGQ+OPZpZMP7lFcj SKfpIZIkgB4tIMEqP3k2Rm XtJhY4HFfa Y6FnLUGnzkqiPr01lI7bSx ZrDiW7MBsaY3BytgV2UJTf cYVgADuaAVE5D43fm7Z5ZS MwMDAwMDA7 mPP8dJ8nwHphznrwbKCvxT vxnjBlrTqqWWauUQumX640 AVSocBpbIb74jVVtcUnomc I1Z6HtGpro dHI+AF77KMYcHN15lMCmnT Znu0eibVm6MfBaUPCyCLA1 bNufADnks7GyOOEjO00ahF Xpv2A2RTNv oWiwhACvDrChfYY1dB0kOJ zqlllti7noiygsJlymz4dn lw50sQ09Z74pMQjaVBXnBZ IzMCUiIHZh cVzrbl7wxA1cRa9+PGNvbC F5zHA4yA6cTpRqRvX0APny W804ZdTidNBaRltci5dsv8 ulgRl9UgAj BPUuxzMmsPpwGLS9g2OvAl 58X79bQLijKIInCYDkYIEv FBTdoVqsai7puF3sCr3+PC 0jj2pomx59 kT00lAT+WCZjNQI6mUvoWY sdXSEjmP2aGOngKtR1UBQa MvPwoE11mZOmRZtvGe6paK bugNjdBQ5j HTHmeobgu517OjQhn5vcVD OkpLRcCIdbLTJ5Z79ry6C7 AWWmMLZbOHV9aYC2xB1ldC lnbjogbGVm dDsgdmVydGljYWwtYWxpZ2 68XJSphUzvBuPynVVhE1ps puDGNB8fJzdxuCU+PHRkIH X5aZtxGSnh XDSkgX6oPBXbX1w6NsYsZm A0MEjtK3WghvZ8OCThyGDr INJeqHWGjG8epqhci5ammy ogIzAwMDAw WIq6CAt0NDHiqSyuRjUvWU Z6SpM5CBH7nYQhcK2hzMqr rvnppZ0qAdd+RklOOjwvdG Q+PHRkIHN0 qQwpHObqOEFzsH8nYPThO6 p0CmXwPtA2KJreH9YaifT3 WNMlzCMpNYKtnUTOnN9bho dij8erdqce DrCiOWBkPGr7SSe1EUJqmK jrTiFoHFS7PfC5DZB9fMRx tR9ghItvpwofgT8nAil+TV JOOjwvdGQ+ NMGvWJN3iBxxBFqwKHYsiO 9gXBWhT3v1LmRzWlS8SGey D4UbvdO3RYGuwPLfVLNkuB BUlG8fhfmo a7xyydzxWnCzSFOrGEl7DE v8NTNgeIfiJwGdJKW4CrP7 EBS6aFUqlA2rbHfrvjyruG 9wOyc+UGF5 VYL0UR37XU28D5CgSjbdmC FibGU+PHRhYmxlIHdpZHRo SNulIBJoRqTxaWzzSL7oYo 9yZGVyLWNv bGxh (more content not included)... Normal [facility] Consent for Treatmenton Consent for Treatment [id number]#1.0 0CD:127 Normal [facility] RAD - MISCon 07-18-2021 RAD - MISC [id number]#1. 00CD:127 Normal [facility] RAD - Ultrasound Impressiono n 07-18-2021 RAD - Ultrasound Impression [id number]#1. 00CD:127 Normal [facility] US LE Venous Duplex Insuffic iency Bilaton 07-18-2021 US LE Venous Duplex Insufficiency Bilat Exam Date/Time: 07/18/2021 10:37 EST Reason for Exam: Acute embolism and thrombosis of unspecified deep veins of unspecified lower extremity;Other (please specify) Report IMPRESSION: RIGHT LEG-DEEP VEINS. NEGATIVE FOR DEEP VENOUS THROMBOSIS. RIGHT LEG-SUPERFICIAL VEINS. GREATER SAPHENOUS VEIN AND SMALL SAPHENOUS VEIN NEGATIVE FOR VALVULAR INCOMPETENCY. LEFT LEG-DEEP VEINS. NEGATIVE FOR DEEP VENOUS THROMBOSIS. LEFT LEG SUPERFICIAL VEINS. GREATER SAPHENOUS VEIN AND SMALL SAPHENOUS VEIN NEGATIVE FOR VALVULAR INCOMPETENCY. CLINICAL HISTORY: Acute embolism and thrombosis of unspecified deep veins of unspecified lower extremity. COMMENT: On the right, the greater saphenous vein, common femoral vein, femoral vein, deep femoral vein, and popliteal vein demonstrate spontaneous phasic venous flow with augmentation, competence, non-pulsatility, and compressibility every 2 cm. The posterior tibial and peroneal right deep calf veins compress. On the left, the greater saphenous vein, common femoral vein, femoral vein, deep femoral vein, and popliteal vein demonstrate spontaneous phasic venous flow with augmentation, competence, non-pulsatility, and compressibility every 2 cm. The posterior tibial and peroneal left deep calf veins compress. The right and left greater saphenous and small saphenous vein measurements are detailed below. FINAL REPORT Dictated: 07/18/2021 2:07 pm Chalino Gonzalez M.D. Signed (Electronic Signature): 07/18/2021 2:07 pm Signed by: Chalino Gonzalez M.D. Transcribed by: ESMER Technologist: NI, Technical Comments Patient Position Erect CFV Reflux (sec): None. DFV Reflux (sec): None. FV Prox Reflux (sec): None. FV Mid Reflux (sec): None. FV Dist Reflux (sec): None. Pop V Reflux (sec): None. Right Greater Saphenous: Saphenofemoral Junction (at/near): Diameter 0.5 Depth: Intrafascial Reflux (sec): None. Technical Comments Prox thigh: Diameter 0.2 Depth: Intrafascial Reflux (sec): None. Mid thigh: Diameter 0.3 Depth: Intrafascial Reflux (sec): None. Distal thigh: Diameter 0.4 Depth: Intrafascial Reflux (sec): None. At Knee Diameter 0.3 Depth: Intrafascial Reflux (sec): None. Proximal lower leg: Diameter 0.2 Depth: Intrafascial Reflux (sec): None. Mid lower leg: Diameter 0.2 Depth: Intrafascial Reflux (sec): None. Accessory Saphenous: Diameter none Right Small Saphenous: Connects to: Distal Thigh Junction/Proximal Calf Diameter 0.2 Depth: Intrafascial Reflux (sec): None. Mid calf: Diameter .0.2 Depth: Intrafascial Reflux (sec): None. Patient Position Erect CFV Reflux (sec): None. DFV Reflux (sec): None. FV Prox Reflux (sec): None. FV Mid Reflux (sec): None. FV Dist Reflux (sec): None. Pop V Reflux (sec): None. Left Greater Saphenous: Saphenofemoral Junction (at/near): Diameter 0.5 Depth: Intrafascial Reflux (sec): None. Prox thigh: Diameter 0.3 Depth: Intrafascial Reflux (sec): None. Mid thigh: Diameter 0.3 Depth: Intrafascial Reflux (sec): None. Distal thigh: Diameter 0.3 Depth: Intrafascial Reflux (sec): None. At Knee Diameter 0.3 Depth: Intrafascial Reflux (sec): None. Proximal lower leg: Diameter 0.2 Depth: Intrafascial Reflux (sec): None. Mid lower leg: Diameter 0.2 Depth: Intrafascial Reflux (sec): None. Accessory Saphenous: Diameter none Left Small Saphenous: Connects to: Distal Thigh Junction/Proximal Calf Diameter 0.2 Depth: Intrafascial Reflux (sec): None. Mid calf: Diameter 0.2 Depth: Intrafascial Reflux (sec): None. Normal [facility] WILLIAM ABS Ig G,M,Aon 2 WILLIAM IgG <9 Invalid Interpretation Code [facility] Comment on above: Performed By: #### 2 [id number], [id number], [id number], [id number], 4836209, 0871910, 35608200, 26600685, 38922479, 22404553, 89999439, 10082405, 6017001, 20012693, 58461518, 85126577, 32835593, 1782799, 72846390, 83720358, [id number] ####[facility] [id number] [place] [address] WILLIAM IgM 11 Invalid Interpretation Code [facility] Comment on above: Performed By: #### 2 [id number], [id number], [id number], 7619094, 50338724, 0098709, 1516500, 44336013, 76835999, 79590266, 48105124, 66229975, 13210924, 5403924, 33147072, 49438971, 10967117, 36248897, 8593074, 13678326, 66485987, 8870159 ####[facility] [id number] [place] [address] Prescriptions/Work Noteson 0 07-04-2021 Prescriptions/Work Notes [id number]#1. 00CD:127 Normal [facility] Formson 06-28-2021 Forms [id number]#1. 00CD:127 Normal [facility] Coding Summary.on 06-06-2021 Coding Summary. CD:[id number] Gh 0bWw+PGhlYWQ+OH8YWJCcB 59amTNdsC0AS2xKIX2LGSQ KSIGCMG0IWT5wwTH7LBmaP 2VybiAv ImxcoYNiIS61KWp7GLN2fO pfHIlvtA6kaKXiD8w5RqNb EU95nI35ZFwdVXCuYmU3Js ZpbjsgbWFy U6pdThZacHSsKds+PHRhYm xlIHdpZHRoPScxMDAlJyBz fIowBT9sQl4xPDFzZDJkuF xhcHNlOiBj t7mpQUCxSWjuJZ6xoXrtS3 MixRD7MTQon3s3Mh30qEX+ KIDoUBZ0eFirHWlyj244Ob Rgb6doYJE4 bPYiUQfbLXS0W20xm4I8IK DjCUNfXMW6hZG7bW4teDtm huqwI4TabIYbPxZ9ECY8dI XetD8lkEeq wopgnZ6rVqb+A94DHW7BBY FSZI1DWer6Y6LzCfbtzRW+ RI08UWCiBA40xDKqdVTey5 ggiHv5LnUt UEOhVKY7xQggWHeed0NiBW KmV61gdFUnu5X6GGOykCqz hGWrWpVrmVW6vA8tDKnimv tfc0ldfdpe Dmzpd2lfnz66gF78A93pCD acLAYePKS2TPWhSRPriLpv pe6dfW1uNt6+BOeie4bxr7 oawYn9UfTj IXJbpmUhkCdjGBB5e4YyQs 35F0LytNlbl8NzDip9wj29 yGKpq9V7dGG1AAapGPWziJ 3bIWrjXlN4 WASlYdHhwV68vNZcMZydRh 8pySxhhOmoHU3iYXJhiibf HOYqpF7tPLUdjYCylYbfLK 4wNTBpbjtm d104LbBfAMA7LWMqvGQzB1 UsdW6sYaWfIDXtXHWuJ6Fv fNLmGVpxR650EMgoSbQ3DJ VyfcQlQ6Hd GGIuaOcuBmF4a3H9Tb7Ek5 HkchuwQRM5ROamLKVdPrGe TrPoQtS8E2FcLwx7SICzpC udAI7lR4Ga OQLhdydfjuoqkJH7FEOoQH WhtM94oUEkLOnlUh1qe0H1 t026NHDkKJIyqM32Zi7yxG ogMTBwdCBU kH3zihffx3iyfblcSgCsOJ EdZHs8CHj6YSXixNzpEjOz TQQ4PoS1GNZ4nCXlxO0xwN axbvonuX4u Oyc+L99myG5uVWX7RYA8vb rlGGKdymUoUQ97IU05Z5Ks PjwvdGFibGU+PGRpdiBzdH alVO1pReOh o9xmz3IwNDbeF3LzBKShVK unJjk8NGIaDEO1fSA8fV0x TUZtHQhaf6E0kED6J2Vxdc Tnga4wp9pc ABRwCNnbI78obZOzy3J5RG BdiDE0GSAdcZdkJiHpwF68 Oyc+VMEjaPreh0MoAynht3 xvk6cnuYi4 WcCxGPRmteWhlBvuGLG6i2 IrFy92J24pVLsqKNXsGFEz XKExZVDklQsekl0qoP5iUc 8+PGNvbCB3 tBF2vA7hSYHqOkB5IFflT9 53OoIyuNYtKmrpf2fmx3rj eBw0CgYyWWZfvnVrxPhlFC Y4g3EnQz74 M34xCTxqLVQeZHBvGIMbXF HqiSrfzn4whL7oBa6+PC9j b4gsuu30sD82vZM+PHRkIH V7mIhoHJpd FGFrqY8hOXrmYgB7AFLgTt OthU37cUIpDMwxEq5ouRfv hCzvHD3hYOVitslcy601Jz Qlz4xnEPQl bLArPVccBRL8E00zz6D9BK IrBUBlMER7cEB7sK0vvTyh bjogbGVmdDsgdmVydGljYW seFKdmL705 IHRvcDsnPlBhdGllbnQgTm PhBVl3D6QtZgq6QDOoqHll XI4tyYZcFQpcNp9jdMkfuB vxYM4dEPQz upsmn368BmDct4jdLOVdiO GkMRriGUB3A84ku0N5UGYl YCYrUPT5jOW3jU7buKpwvf ogbGVmdDsg nnDpcUwyRXozWDhsN262KC RvcDsnPkJpcnRoIERhdGU6 NR87WP57qNXmr7O4uWY9H4 BhZGRpbmct tkcxpEZ9KCTpXOSaoU60Hd 6rfUhgXd7zPNMtLUF7WYTo dFRsD8TsmL0sGiOwJXRxFH MpA3NgzUDb AKmbJ193BDhcCgA3XAWtmg GgU7YgVRWcxPdzLkA8t9J4 Pq3PO2I8WY22MF19bSHsu1 J3cQM4T6Ka MNXttsdpbdaclIH8ACBkFB KemL61Dj3rbQqjPf6dOMPt BXZ0KREvhJQpV2VyqB7mDm AjMDAwMDAw P8EgyZFhHLkvC862OKfwFx S8YOInksCbH0OkIIYyrZwo FkB9b7E2Dv9PTWd1NW67UZ 13mSDyi7O6 uXT9P4KqQHOovyjqzxwbfP U7NKTgCYGdhX67Ht0geOpk Xh3rZEAuSUC0MATekHWsX8 YddO0gVwVp KCVtXZXoL0MttUAfCEudW1 18BIzrAgO7TMXxsgBvD4No YEPflRveJpR3k4Q2Ch8DUC KcHD71CGS7 tRY7XA65OC57K0CiVnadiP FibGU+PHRhYmxlIHdpZHRo VFgaHYVfAxTrpNvoKR8uJr 9yZGVyLWNv wDjwrYPhDiFtq8mmJTHgDC aaGC2mdGueE4TvoJW2UEHd u6r8Zw24Y05nS8CcaXW+PG UzzGN3jVT8 vC7jNfBjOyF4UDwgW725Xb ObtOIwDufot2uzj0aacNx4 GyN9WFLxxpXqxVjxWJB0r1 OvKv01K38h IHdpZHRoPSIxNSUiIHZhbG jjfy4xtH1bHy7+PGNvbCB3 qDJ8bR4fYzIdYbY1SNziU8 49InRvcCIv Wbtjd8gws3dywFw0MgAiGK BwtrDthMzeDZL6b5RoAp37 S0DudEulm3AjDwi3gd25vP Flo5M4yBI9 G1DvGIKvgmovxOJkeFprEL 1vMRIptytgXCDnzP4vGYCs Y4u6QtKmWoA7VDzoR5Gpwb Z5GCRyxVLg QVrhSQW8M31wr7Y0XPWxGS WjHRK6zRJ5rJ9wpSqcmypf bGVmdDsgdmVydGljYWwtYW ymH640FZMx oPolEPKwyG3kADPdiJZxpX dnNY1pFHClpmqhAmYRFWDP RkVSLCBERUJPUkEgQTwvdG Q+PHRkIHN0 rOvwGBpwVOTybF0eGRWnK9 e4EtCyFgE6LLywG2CzIWZe hmjgAl19gN3rZaLrMxP3QF jgF9TuszJ0 WNGahYMqEZphKQE3H12yo5 D3QBAxDVMcOXZ9cXE3wN9i bGlnbjogbGVmdDsgdmVydG ljYWwtYWxp R007KSQzsTygDeKgIwH5Jw X7QwV0Y1ZcVwe9AOAlcAbo DN4akEEjQCizRs9stPiwpA umAH6iGYBt hlpkAXPhpI9uZQAlyZAqmM tuAV6zROSdlzcsf613GeLi NSM2NVBvvEPzR8QbpR4vCf AjMDAwMDAw G4ZkpZJtOIbiS311HHyoZb C6ASKbssBeF2TdVQYexFoz JtS6d0Z5Mi00GQGRBXXwsj wvdGQ+PHRk ABQ8nSktJDjoMYGhiW3kXQ HnF5d5YjJkAwG5EViaE7Aq KNKwlzwcHb28sT3iJmNgOy P5CNofQ5Uo mbX8MDTifYGiHIeqTKK4L9 8vx6R7VYByRFGxUGI7jNB2 cP0rfGzjjqxccWVugOzfan VydGljYWwt ANxwR586HNFueZobYpKsfD FsZTwvdGQ+AOCaGRJ7sJdf LWlkNRSsnT8xKUUpR6x6Jd WjGrI0OYla J8HbQECimewoNi38cC6bLs KcOgF3AFgbK4YrsnI2CECh bIMfLOyiBAY3A96wk1C1MM MwMDAwMDA7 zVD2dK9yrCjmbjkcaIAgbR roslHgcFttGYnhSJarS084 SGVvkTybGd88yZVqzMuogh M1Q7PyHvix dHI+YE23XFIlNR98vGZjxO Yxp6eszRk2OoTmFHIwBXW5 nDhqZEdzi3OwHKHcM60rzC Yms5N0EEIf vHokhYByBmWxtCM2aN9nMW uufjqra8fzreecBrnkx7eb ty71uG67B56hYFvpMVZgJM IzMCUiIHZh eQwupz7vqZ0oMz9+PGNvbC U0cIK6mK4rPlSpYuJ7TDsm R278FmKrgYLfUpgpi6umy5 vucBq7NmRb WHQwexOqcVrgXRX2i6ZoGn 87D75dFGqiEHNlDRGaNQZc TZMhlRvlwu9hyQ3aXf1+PC 4lh2acah63 qX34lXR+ZIEzJSE6xHhxIZ aqWQItkI1fGMpgKgN6ZFWb PjGqsJ08cUQoVIlfOj8byL gtrIwqYQ3r TSZcrngdn168IwPgd8ctGA PoxJWdAEibMSF2W54ar2A6 OVKjVOUwLQU5kJF8nA2bvU lnbjogbGVm dDsgdmVydGljYWwtYWxpZ2 12OBDxkGoiJeXxzQAmL2vt foCBDO0vJclyuPH+PHRkIH I3yVmpTFbv MPWylP2oGJEbJ8h8VnUaMi K8PBrqU5WetmA0ZRMddSWu HCDuhWTAdY4mlahlj1bmpz ogIzAwMDAw FGh7DPl2ZUXxfVkiIqRgJD G4CuU2HAX3dOXkbJ4bvEom zkbktF5xOvu+RklOOjwvdG Q+PHRkIHN0 kZlmDYtoUTSntO5mBTUyQ9 n8MhPmHdO5GEanT0BhxbK4 SKOteRAyKQHioQSPxV8pgb khg0fdclgg MkQzAUWqCWn6YZr1VCUbsQ iuAzCuJWJ9MfU0KHC4sMZa fB9qzPxsninfbS6vAzq+TV JOOjwvdGQ+ ZOFxYEB7wXhrTBqjIJUwwS 8cEXOtX8h0ApDnUhD3OOfl M5EvcfS1XEPnvDUwJRPzyY QXjY3pouck y3gobnboBrKiTPQuSBn6CD m4KXEsbAvgCvJrFVC5ZtM2 IJD5pOVweC5iaJcxizbtvR 9wOyc+UGF5 KOR2WS89JH11E5QnLeaclM FibGU+PHRhYmxlIHdpZHRo IOnpBFEqBhMocKgpHF8nZt 9yZGVyLWNv bGxh (more content not included)... Normal [facility] Progress Note-Nurseon 2020 Progress Note-Nurse [id number]#1. 00CD:127 Normal [facility] Consent for Treatmenton 05-17 Consent for Treatment [id number]#1.0 0CD:127 Normal [facility] Heart and Vascular Office/Cl inic Noteon 06-04-2021 Heart and Vascular Office/Clinic Note Chief Complaint Follow up Bloodwork - hypercoagulability testing History of Present Illness 61 F with varicose veins and DVT presented today to review her hypercoagulable testing. Her testing is unremarkable for any of the tested hypercoagulable disorders. Review of Systems ROS - Clinical Support Cardiopulmonary Symptoms: None General Symptoms: None Pain Symptoms: No Physical Exam Vitals & Measurements HR: 75(Peripheral) BP: 120/83 SpO2: 99% HT: 157 cm HT: 157.0 cm WT: 68.7 kg WT: 68.7 kg BMI: 27.87 NAD AOX3 unlabored breathing atraumatic head supple neck Assessment/Plan 61F with DVT and negative hypercoagulable testing 1. DVT of lower limb, acute (I82.409: Acute embolism and thrombosis of unspecified deep veins of unspecified lower extremity) cont AC f/u with Dr. Champagne for her varicose veins disorder Follow-up No qualifying data available Problem List/Past Medical History Ongoing No qualifying data Historical No qualifying data Medications Abilify 20 mg oral tablet Abilify [address] 500 mg Tab-EC Eliquis 5 mg oral tablet, 5 mg= 1 tab(s), Oral, BID Tylenol 325 mg Tab, 325 mg= 1 tab(s), Oral, q4hr, PRN Allergies Effexor XR (Unknown) PROzac (Unknown) Social History Alcohol Current, 1-2 times per week, 06/04/2021 Tobacco Never (less than 100 in lifetime) Tobacco Use:., 06/04/2021 [facility] Comment on above: Result Comment: Elec tronically Signed By: Stephani SCHUMACHER, Annemarie Blum.br\Date and Time Signed: 06/04/21 09:48 EST [facility] 05-03-2021 [facility] [id number]#1. 00CD:127 [facility] Coding Summary.on 04-30-2021 Coding Summary. CD:[id number] Gh 0bWw+PGhlYWQ+LI1RUVVcT 84seFAynE5ZS0fOZJ3OPBT WDBUXCU6PLE5xkWL9IGgsK 2VybiAv WscpcTMjML22BPb8EZU1oS rtUStgrD6paLFrG0o4MjDc TM39wL76UEtdJUTqRbA1Dk ZpbjsgbWFy T7paZxUwhGVpZoq+PHRhYm xlIHdpZHRoPScxMDAlJyBz tCdaTO3iTd6qEHUfSVMoqK xhcHNlOiBj q9bvBOUvAWmaGZ5bcNpiS1 IfqVO7XTCho0q4Zj64kJZ+ CXRfSKB8cXzzASalf919Dh Ema0zxCMB6 nMYiNOdoNZX7R43ll0U3EN ZpUUEoJNA9jST3gD4dvDhh ebrwK2AxdOGrLfU5DUD1sC YhnV8niUst fnpldX5vGeb+F20VFE2RFM IORC0FGse6C8ByDvbexDD+ XB22HUEcXJ02cTHepARvc4 oyqCh0SiXg DXZmMCV7jXsnERivv3UmEC WhF55uyMEpc7B3QSAuhTfo xZWbKuJqsNO8cE5vMHbzib ipq4tedrca Keekp9ljpm76vE52S01wQC aaTHSrCCA3WUTiKFWwnUbj jt0yqN4mFy7+WWdbi7dhv8 dehQl1EkKo GCLumuHcjVdlZLQ1k6TsRn 95Z0YpbUxup0KeYhv2js99 tAFut5M0sST2WApdNNGgnE 8dZHofEpZ1 URKzUhTqpW22fWDoQSqrMb 1jrOnjmRvtHK8pZRWsvlsj FASjtB2vMYRsdLOrrRydFO 4wNTBpbjtm d742VoAfHLQ0UBKvmHUzQ0 ZwjR2cHeXaMLCrURCoE4Rk dPDlFYefM079RBsiGrC2UK TgkrIhA4Qm TYDxcRacZuO1h2H4Tm2Hs3 GorgoeJQC3ANozYYYgKoM3 LmYyNgV5J0EjJkj9MHDfpF lvCL8zF6Iy KDEjjojsaqjlmPM4IVXoCY LzcU98lCXoTQzrUk9af1M0 u727ZEEdSPCeaR80Bp9fnU ogMTBwdCBU bY6agphhh6pphohiWiQoOX EbQCc8HJu0XHSccAtmBtNp LRJ0ThF0TJH0pPCqaB3wpE kqzlyomO2l Oyc+B21aoH7hEKT3EGC1bg msYQVdjmXyKG45IK78T9Fr PjwvdGFibGU+PGRpdiBzdH klEP0tEnKo o5nvh4DvIUomP8HdDHZkSP zdOlq0FJHfIQD1pGX0lT2w ETRgWGits7Y3zFG2D3Ftfd Uttv3yz3hh EYQwDGxqO58yeBEem5C2MW AkgKI2UDPjgNhfCjFnyU89 Oyc+ZBCmhNnac7XnJqfbq3 gse2mwmLi5 XnHgPVNoujSwwGcaEQX8n6 ZpFh10M19fRBpgKNNqMTOp SMDjSXYidOqymz8jmK4zWt 8+PGNvbCB3 nFV6dG8bCQCpOuC9ESvpO8 31NwMvfVOsImmqo9fdt7bl nWd5JiFtEQJhhbSwlFjaTI A5q0RkOg84 W29gUAbyLXBwTRTeONSqNY QhlLfiwp6tyV1kTu5+PC9j k1dyhq17kS87vAB+PHRkIH G5fXnjWLtt BLShcW4pKSzhKuY6MTBzIt KrdL24zBAgTQwyYj0wjZyi gTsyYD9dMALmpoozx028Fi Oud1thNYFf lUAlBPmtZLM1A35og4C8XM CpBDOxDAZ6aMP9kA3sqLbq bjogbGVmdDsgdmVydGljYW etXKafU593 IHRvcDsnPlBhdGllbnQgTm BhMHb3Z4DhXvs4LTZzfEsf ZH6ymXHhMFxaUt4kdClgpR pcUR9tYPYj rwksu248NkPuc4bkAXTndB XzQHukSHE0Z75yg8C4EHDd VLWuGQB1mJZ8yC5gyXsyzc ogbGVmdDsg edDtaQtpXNkoKPqcB151IN RvcDsnPkJpcnRoIERhdGU6 PZ39AS72mYAdu0Q7qJW9G2 BhZGRpbmct ojvpiMT7SIXjBESblM81Rg 5cuBbxNz4dHKYyJYS5LSBc nWJhG7XevU4jOcBcTHZiFM KvY4MhnGDx MLpiS040OUyeVkE6QKWgkl KgX1MxCFRpzXlcLgD4c7B4 Xs5DD6P4TF03ER25hHVzv8 D3fZW9J9Ki QHEiigyokjiodKY2TVYeZT KuhK53Cc6nrHiqLm1kEXQu CIX3TACqaLAnD1VmeT8uLo AjMDAwMDAw P6LnlMYgSYqrI588SIogEz H7BDTxwqWjN5LtYWHhfWxx ZvC8u6E8Eh8ODTb0AO98VS 00zTCmi5F8 aVY5H8PmPFIkwfprfmzqrA T7QVLoEQVhwU98Sf6cxGmp Da6hRBByTDY9XGTtkSEvW2 QmrD4kIwIj XGGyIRHbQ9JnvYOtGEgbP3 49EHmoTuC0ZOZpnsEpX6Yg AITglRsjEzJ3l1H2Hd1TAI FhXK37XRN7 tYX2ON67QZ38T4JzJnmcfY FibGU+PHRhYmxlIHdpZHRo IZutXHFgRaHzvSgzVY6oNe 9yZGVyLWNv dHzigQRsBmMat2kqJXXqXA ooFZ7bnCbnW8OhuAO5FDDb z4g1Ps20Z98mQ6AcoRL+PG OvwVQ7tDU4 iT1eMkBuYeS0EMxuE247Oo CozKPhNqcje3euj9xkkEj0 DeM1NIFbagYooYmuLLD0s0 CuRh13N94d IHdpZHRoPSIxNSUiIHZhbG mrxm2irW0cZv4+PGNvbCB3 dFV9jC5nYuTrOhJ9PBebF6 49InRvcCIv Fetjk1nhg8qzePp9IcZeNF XtgpUnhGdsUKY7m2QeXv91 Z2NxdLuin7PkGgi5vr60jS Lgy5G0gOY1 E9HyWRDggrngtRYfjFetYP 0rECAzlestZDLztD8eEQKy G0p9VmOwFsC0HTabJ7Pkdf T2PPWeuOZv EWejAJH9J31mp0I8SDJoXI OlPXU2oUF6pE6qgQfuzerp bGVmdDsgdmVydGljYWwtYW wyF271MZIc xLiaYJUyvF2gXJBnyQFmqM jiMM1eDEWvvyciLqJLOTLF RkVSLCBERUJPUkEgQTwvdG Q+PHRkIHN0 yNebFKecGJQyzC5mLDFhG9 i0BqWgBjB4IMrsG8KhJSLi gwgwEu97bZ3mWyToBhE1XR pbQ8ThddH5 XQPxiVIwEKkdVEZ5Y74fk2 Z6UIFoSPXeDJR2kJC5lB7x bGlnbjogbGVmdDsgdmVydG ljYWwtYWxp R959XXOnmVluUrXbRpD8Rj P5NaA5V5FgQbx8APOtnPra UN2twBFeYKdtEv3lvJjzpO mfTT4qKZGw wopoLKDmaJ1vOWWpnVCeuV clHU8zKAEvpofkt717FdKj SDQ4WCUboTYzV1GdzE5uUq AjMDAwMDAw Z6TcsOCeBOxkY055QPunYo T2XRPstoQhC2FsPGInvKpy IaX6w6M4Ob42RGDNQVNrpz wvdGQ+PHRk POZ1gRucTUguPGTvrP3wFE OoR1a2AjYxRmK4SBatM9Zd ZBSfykkpWa07dV7gLoLaDw F2ZPbwI5Xl baT5MOYwbRQhQXcwBMF8X7 9yv2L8CVZlPUDyDOK7tTT4 fO3jeBuvzfaulNFhyInahd VydGljYWwt RCuvA256DCHwsDbuOhKceU FsZTwvdGQ+RSQtCIE3jTmq TWewNIQepV8vQZUoD0c8Eo WvLeJ0RQly C3NjQMJtpamfGp57bK8gIp QeXbC3FBkfM9PcgzI8ZKUw bEFsQHjcXCG0T18pm6W0GB MwMDAwMDA7 cKO9aS8ohEkhfpcxgTFecB fwhbZqtLkxFBpqQAcdM114 SAJtxLmbBu92qBXphSjyda K8G7KxBgwk dHI+TV16UFPjLR75tSLoyU Amg9gvwKs1XaCeAVNnONZ5 hRnkAEywr1CvKLAbJ18mpK Urx5U9AZTe gRbzdLJhXxWteIH2xH2kOV yciimvd6rpdzdiFhyhm0ws lv61kJ42E18vKDbeTVIjPS IzMCUiIHZh vRxmzu7ntL6hBy9+PGNvbC Q2oSV1nO4xIwUiHrM1QInk J862EwUvdIRyVahoi1djh4 siuVh4BqZb IZLrehZnsAewOSK5w0EeVc 33W33lHVgiNUAwOOCcNWDq KNBzePggbh8boD6jEu5+PC 8af4iamw44 mN39xEN+PEUjSKD6iJyvUC yvARTlnE5wPSalRsT1LTOu RtYonM44nBUiORiaCa1rfU evnTomDU9p UNUekxtvc805IpFxb9ygKX YvaGWvCBgcVFH4J06zg9A8 EXLlHOTmVXH4aXK4cX5mhI lnbjogbGVm dDsgdmVydGljYWwtYWxpZ2 39KJOnhEryRzZypNWjI4ek okVPHE5pGsyweOD+PHRkIH B6xDmwUIrv ELVddG1sEIIiT0v4JaLvHv G4FEhnU9MsnvK8LDDyaDXe VQYrsQNQnJ0gfpxlv6wjpy ogIzAwMDAw QPr0YVl3YBLejXmkAtIzUQ U1CgE5ECK0jPWqqO3heBrf sulnlD7yDfh+RklOOjwvdG Q+PHRkIHN0 xMggPYqzOIRcjB2vAFDsC7 t8HfAcGpW2QGatW4JhebL0 WQJsiLQmRGPdzGFOdM7ptj zvv8kohprm QhByWXFaIMo8EZk0SQDhgE drLuJvPOM3RbD8PWQ5vQDn lO9xxMbpwyfhrZ8fTxo+TV JOOjwvdGQ+ EKBxVEJ8wCjyCBfbYJFvhJ 0hMXRuD5w1AaUvNnH4VYhx Z9YjsyB9OVEesLVwRQNeyF QWuK3cplyi h0rjzkowPyDmLWZzDJi7IB b1OPMlqTddSuEhNGJ4RjO8 MOY4pHGggF5aiIhwcnmdvO 9wOyc+UGF5 LXW6VD94HS91G8GjMclyuQ FibGU+PHRhYmxlIHdpZHRo XHmfTOOfKrDcaRxyKG2nKe 9yZGVyLWNv bGxh (more content not included)... Normal [facility] .VIPER VENOM MIXING STUDYon 04-28-2021 dRVVT w 1:1 PNP Coag (PPP) [Time] 41.5 second(s) High 0.0-40.4 [facility] Comment on above: Result Comment: Perf ormed at: [facility] [address] [id number] MD Manpreet Hidalgo Performed By: #### 2 [id number], 6135056, 851119722, 31515834, 5976346, 26500988, 5204811, 1993956, 32829432, 12306774, 71619366, 76451793, 96735706, 91450491, 4635774, 57863448, 87464977, 13697468, 34338569, 9633473, 35607704, 53999842, 7872450 ####[facility] [address] [place] [address] WILLIAM ABS Ig G,M,Aon 11-13-202 1 Cardiolipin IgA IA Qn (S) <9 Invalid Interpretation Code 0-11 [facility] Comment on above: Result Comment: Nega tive: <12 Indeterminate: 12 - 20 Low-Med Positive: >20 - 80 High Positive: >80 Performed at: [facility] [id number] PhD Yelitza Fink Performed By: #### 2 501474438, 7284841, 183719325, 13392935, 0823088, 07344826, 6254546, 6919584, 17025238, 47386167, 08621585, 27303091, 06096673, 26236258, 7746243, 24473922, 26504942, 60555640, 93610733, 4776254, 12983430, 61528740, 8737741 ####[facility] [address] [place] [address] AT IIIon 04-28-2021 Antithrombin actual/normal Chromogenic method (PPP) [Rel catalytic activity/Vol] 126 % Invalid Interpretation Code 75-135 [facility] Comment on above: Result Comment: Dire ct Xa inhibitor anticoagulants such as rivaroxaban, apixaban and edoxaban will lead to spuriously elevated antithrombin activity levels possibly masking a deficiency. Performed By: #### 2 349999079, 1554805, 883802511, 86533797, 4215226, 34938283, 6770143, 6361038, 83194916, 17498341, 83761221, 32036320, 60948270, 42760787, 7202801, 74169072, 50374847, 89867973, 84150313, 3709976, 62022640, 52662039, 3899238 ####[address] [place] [address] Antithrombin Ag actual/normal IA (PPP) [Relative mass conc] 110 % Invalid Interpretation Code 72-124 [facility] Comment on above: Result Comment: This test was developed and its performance characteristics determined by [employer]. It has not been cleared or approved by the Food and Drug Administration. Performed at: [facility] [id number] MD Manpreet Hidalgo Performed By: #### 2 259757779, 2297603, 571788868, 17068691, 4943054, 80114698, 0932426, 9501717, 52618377, 84283785, 67333082, 30921356, 99298365, 71860919, 2074773, 87510925, 91003384, 89044112, 58397094, 0680213, 47782737, 53952792, 8527979 ####[facility] [address] [place] [address] Antiphospholipid Syndromeon 04-28-2021 aPTT Coag (PPP) [Time] 24.9 second(s) Invalid Interpretation Code 22.9-30.2 [facility] Comment on above: Performed By: #### 2 780662552, 0887505, 927215594, 75959447, 7653363, 72697793, 0380900, 4078395, 68590598, 79202966, 37159949, 54184858, 84287998, 96116801, 6016755, 34932942, 37894196, 49330385, 85311240, 4242841, 22495841, 65725442, 8966432 ####[facility] [address] [place] [address] aPTT W excess hexagonal phase phospholipid Coag (PPP) [Time] 0 second(s) Invalid Interpretation Code 0-11 [facility] Comment on above: Performed By: #### 2 931038463, 2010123, 991386677, 55194746, 8617823, 67789331, 2977793, 0378980, 30500488, 90393052, 42195567, 36907600, 96023028, 63343275, 3092860, 38138811, 76453085, 76850002, 61609035, 3186936, 41872932, 71700247, 1479436 ####[facility] [address] [place] [address] Beta 2 glycoprotein 1 IgG Qn (S) <9 Invalid Interpretation Code 0-20 [facility] Comment on above: Result Comment: The reference interval reflects a 3SD or 99th percentile interval, which is thought to represent a potentially clinically significant result in accordance with the International Consensus Statement on the classification criteria for definitive antiphospholipid syndrome (APS). J Thromb Haem 2006;4:295-306. Performed By: #### 2 620526804, 0094895, 517191807, 56286472, 2689833, 83155336, 2216792, 9798699, 95889846, 44516979, 35236997, 20434358, 78620293, 23771651, 3556981, 63023836, 09040393, 06779967, 13534091, 7286425, 23163438, 30830319, 9294081 ####[facility] [address] [place] [address] Beta 2 glycoprotein 1 IgM Qn (S) <9 Invalid Interpretation Code 0-32 [facility] Comment on above: Result Comment: The reference interval reflects a 3SD or 99th percentile interval, which is thought to represent a potentially clinically significant result in accordance with the International Consensus Statement on the classification criteria for definitive antiphospholipid syndrome (APS). J Thromb Haem 2006;4:295-306. Performed By: #### 2 045805470, 0076837, 832994453, 41741454, 2949299, 37019578, 5105638, 5215448, 56524126, 84110857, 95598698, 29078902, 90235726, 46101108, 6001903, 11282363, 68868299, 34237412, 92430803, 9319358, 35573921, 30623481, 7673819 ####[facility] [address] [place] [address] Cardiolipin IgG IA Qn (S) <9 Invalid Interpretation Code 0-14 [facility] Comment on above: Result Comment: Nega tive: <15 Indeterminate: 15 - 20 Low-Med Positive: >20 - 80 High Positive: >80 Performed By: #### 2 376901649, 4974290, 463263909, 44383954, 9343990, 25728299, 0926870, 8043919, 33892987, 76287822, 89155990, 18795761, 10151741, 01653546, 8664518, 01976708, 43255466, 12369903, 62377470, 5064643, 23996133, 80861433, 7367512 ####[facility] [address] [place] [address] Cardiolipin IgM IA Qn (S) 11 MPL unit/mL Invalid Interpretation Code 0-12 [facility] Comment on above: Result Comment: Nega tive: <13 Indeterminate: 13 - 20 Low-Med Positive: >20 - 80 High Positive: >80 Performed By: #### 2 232390340, 7038704, 185497415, 78302582, 8742485, 08517604, 2182453, 0833452, 85423019, 86505035, 50030624, 32704204, 88160797, 73744787, 5481235, 62482261, 94564482, 05197018, 71906439, 7171689, 99583126, 99158359, 2716894 ####[facility] [address] [place] [address] INR Coag (PPP) [Relative time] 1.0 {INR} Invalid Interpretation Code 0.9-1.2 [facility] Comment on above: Result Comment: Refe rence interval is for non-anticoagulated patients. Suggested INR therapeutic range for Vitamin K antagonist therapy: Standard Dose (moderate intensity therapeutic range): 2.0 - 3.0 Higher intensity therapeutic range 2.5 - 3.5 Performed By: #### 2 540990492, 0078263, 896451251, 27903313, 5839317, 45573991, 1379116, 4559138, 15708004, 07908884, 87563643, 05499507, 46605358, 11631237, 4085775, 49508157, 16156210, 04631916, 28652837, 6421623, 26738160, 01815723, 0691421 ####[address] [place] [address] Pathologist interpretation (Unsp spec) [Interp] Comment Invalid Interpretation Code [facility] Comment on above: Result Comment: Plea se refer to the Coag Studies Interp Report. Performed at: [facility] [address] [id number] MD Manpreet Hidalgo Performed at: [facility] [id number] PhD Yelitza Fink Performed By: #### 2 041082690, 0856117, 125508421, 30938522, 4139932, 00588991, 4677174, 1388974, 71436768, 07525480, 12261100, 83410848, 37910868, 91811558, 4224791, 77236648, 96935904, 49080004, 20843240, 5200089, 16213722, 29644763, 3455245 ####[address] [place] [address] PT Coag (PPP) [Time] 10.7 second(s) Invalid Interpretation Code 9.1-12.0 [facility] Comment on above: Performed By: #### 2 203091534, 3481484, 262311593, 27520954, 7936294, 33587792, 8120756, 7393564, 86207367, 71536344, 44471610, 34448722, 30663734, 21650585, 9644143, 82287474, 64819106, 24313286, 67637264, 5630012, 84997677, 74239099, 0818785 ####[address] [place] [address] Thrombin time Coag (PPP) [Time] 18.8 second(s) Invalid Interpretation Code 0.0-23.0 [facility] Comment on above: Performed By: #### 2 496540993, 0935098, 349385699, 58194642, 2046816, 61132887, 9427810, 0834891, 54296135, 91648566, 99021675, 80491029, 07208780, 20565368, 5977604, 90427714, 30867373, 40034072, 42567911, 4703503, 30431783, 94430023, 6148565 ####[facility] [address] [place] [address] Factor II Activityon 021 Prothrombin activity actual/normal Coag (PPP) [Relative time] 118 % Invalid Interpretation Code 50-154 [facility] Comment on above: Result Comment: Perf ormed at: [facility] [address] [id number] MD Manpreet Hidalgo Performed By: #### 2 779668222, 1966865, 176155266, 69761761, 1934989, 98646030, 0232390, 7320081, 44828816, 53026455, 75779235, 13857179, 82570937, 66343923, 5882557, 42961621, 85970113, 22754327, 16491396, 9515802, 98220429, 46299999, 5463718 ####[facility] [address] [place] [address] Factor II, DNA Analysison F2 gene targeted mutation analysis [employer] (Bld/Tiss) Comment Invalid Interpretation Code [facility] Comment on above: Result Comment: NEGA TIVE No mutation identified. Comment: A point mutation ([id number]) in the factor II (prothrombin) gene is the second most common cause of inherited thrombophilia. The incidence of this mutation in the [place] population is about 2% and in the population it is approximately 0.5%. This mutation is rare in the and population. Being heterozygous for a prothrombin mutation increases the risk for developing venous thrombosis about 2 to 3 times above the general population risk. Being homozygous for the prothrombin gene mutation increases the relative risk for venous thrombosis further, although it is not yet known how much further the risk is increased. In women heterozygous for the prothrombin gene mutation, the use of estrogen containing oral contraceptives increases the relative risk of venous thrombosis about 16 times and the risk of developing cerebral thrombosis is also significantly increased. In the prothrombin gene mutation increases risk for venous thrombosis and may increase risk for stillbirth, placental abruption, pre-eclampsia and growth restriction. If the patient possesses two or more congenital or acquired thrombophilic risk factors, the risk for thrombosis may rise to more than the sum of the risk ratios for the individual mutations. This assay detects only the prothrombin F94095H mutation and does not measure genetic abnormalities elsewhere in the genome. Other thrombotic risk factors may be pursued through systematic clinical laboratory analysis. These factors include the R506Q (Leiden) mutation in the Factor V gene, plasma homocysteine levels, as well as testing for deficiencies of antithrombin III, protein C and protein S. Genetic Counselors are available for health care providers to discuss results at [phone] Methodology: DNA analysis of the Factor II gene was performed by PCR amplification followed by restriction analysis. The diagnostic sensitivity is >99% for both. All the tests must be combined with clinical information for the most accurate interpretation. Molecular-based testing is highly accurate, but as in any laboratory test, diagnostic errors may occur. This test was developed and its performance characteristics determined by [employer]. It has not been cleared or approved by the Food and Drug Administration. Braydent SR, et al. Blood. 1996; 88:7509-6261. Isael EA. Circulation. 2004; 110:e15-e18. Dione I, et al. Arterioscler Thromb Vasc Biol. 1999; 19:700-703. Corinna Marmolejo, PhD, [employer]AC[employer] Mile Hopper, PhD, [employer] Nino Fischer, PhD, [employer] Jose D Bernard, PhD, [employer] Fiona Arreola, PhD, [employer] Carri Escobar, PhD, FACMG Performed at: [facility] [address] [facility], [place] [phone] [facility] Aileen Curtis Performed By: #### 2 022789885, 6184073, 858974192, 40265475, 9462622, 45613980, 0837906, 8166351, 85375861, 78292190, 94106956, 60008786, 01617826, 67668625, 8761185, 65044690, 72192459, 34712491, 69218198, 7428630, 22116566, 17847663, 3281225 ####[facility] [address] [place] [address] Factor IX Activityon Coagulation factor IX activity actual/normal Coag (PPP) [Relative time] 95 % Invalid Interpretation Code 60-530 [facility] Comment on above: Result Comment: Perf ormed at: [facility] [address] [id number] MD Manpreet Hidalgo Performed By: #### 2 755269820, 9903123, 648259518, 48397919, 5367207, 24844621, 4324560, 2386510, 33008056, 09362376, 72651413, 78047035, 12462525, 22609588, 8543530, 53726212, 87653024, 51450218, 39798978, 5936019, 85228479, 54325403, 8076657 ####[facility] [address] [place] [address] Factor V Leidenon 04-28-2021 F5 gene targeted mutation analysis [employer] (Bld/Tiss) Comment Invalid Interpretation Code [facility] Comment on above: Result Comment: Resu lt: Negative (no mutation found) Factor V Leiden is a specific mutation (R506Q) in the factor V gene that is associated with an increased risk of venous thrombosis. Factor V Leiden is more resistant to inactivation by activated protein C. As a result, factor V persists in the circulation leading to a mild hyper- coagulable state. The Leiden mutation accounts for 90% - 95% of APC resistance. Factor V Leiden has been reported in patients with deep vein thrombosis, pulmonary embolus, central retinal vein occlusion, cerebral sinus thrombosis and hepatic vein thrombosis. Other risk factors to be considered in the workup for venous thrombosis include the L36698K mutation in the factor II (prothrombin) gene, protein S and C deficiency, and antithrombin deficiencies. Anticardiolipin antibody and lupus anticoagulant analysis may be appropriate for certain patients, as well as homocysteine levels. Contact your local [facility] for information on how to order additional testing if desired. Genetic counselors are available for health care providers to discuss results at [phone] Methodology: DNA analysis of the Factor V gene was performed by allele-specific PCR. The diagnostic sensitivity and specificity is >99% for both. Molecular-based testing is highly accurate, but as in any laboratory test, diagnostic errors may occur. All test results must be combined with clinical information for the most accurate interpretation. This test was developed and its performance characteristics determined by [facility]. It has not been cleared or approved by the Food and Drug Administration. References: Kaylynn Cabrera (1996). Clin Lab Med 16:169-186. Corinna Marmolejo, PhD, [employer]AC[employer] Mile Hopper, PhD, [employer] Nino Fischer, PhD, [employer] Jose D Bernard, PhD, [employer] Fiona Arreola, PhD, [employer] Carri Escobar, PhD, FACMG Performed at: [facility] [address] [facility], [place] [id number] [facility] Aileen Curtis Performed By: #### 2 313884949, 2638255, 167612165, 32200238, 1302924, 14832900, 7151598, 7231537, 02199492, 48666741, 63722194, 93644096, 11391588, 09017292, 3656825, 47407288, 99353461, 71968332, 37330389, 8454196, 10997063, 65225544, 2356401 ####[address] [place] [address] Factor VII Activityon 2020 Coagulation factor VII activity actual/normal Coag (PPP) [Relative time] 124 % Invalid Interpretation Code 51-186 [facility] Comment on above: Result Comment: Perf ormed at: [address] [id number] [id number] MD Manpreet Hidalgo Performed By: #### 2 668030687, 0310448, 807057844, 23986345, 9136034, 55045564, 6077340, 4291714, 43820216, 05812097, 71325703, 39101511, 55766581, 82206272, 0502729, 87353023, 31660540, 26777819, 50031702, 2657726, 97339410, 53001885, 7610241 ####[facility] [address] [place] [address] Factor VIII Activityon 04-28 Coagulation factor VIII activity actual/normal Coag (PPP) [Relative time] 140 % Invalid Interpretation Code 56-140 [facility] Comment on above: Result Comment: Perf ormed at: [address] [id number] [id number] MD Manpreet Hidalgo Performed By: #### 2 441366412, 7761430, 421856453, 06600608, 5905401, 12272859, 7715754, 4342557, 29612115, 09095170, 51829760, 48873894, 63849677, 02725340, 6254164, 79531760, 22248116, 38705915, 94045014, 4500664, 30355372, 56375303, 9819239 ####[facility] [address] [place] [address] Factor XI Activityon 021 Coagulation factor XI activity actual/normal Coag (PPP) [Relative time] 112 % Invalid Interpretation Code 60-150 [facility] Comment on above: Result Comment: Perf ormed at: [address] [id number] [id number] MD Manpreet Hidalgo Performed By: #### 2 217632408, 1546172, 243082420, 76667195, 8490043, 92831262, 9990349, 6994811, 27910096, 79472040, 25288580, 87318230, 23078414, 51872370, 0474689, 05906523, 54001448, 00610128, 40901426, 7093771, 85707226, 35556774, 5909578 ####[facility] [address] [place] [address] Homocyst(e)ine, P/son 2020 Homocysteine [Moles/Vol] 7.2 mcmol/mL Invalid Interpretation Code 0.0-14.5 [facility] Comment on above: Result Comment: Perf ormed at: [address] [id number] [id number] PhD Yelitza Fink Performed By: #### 2 071846011, 1758023, 140814896, 36619022, 7906723, 48816775, 3546382, 9167211, 47951614, 79576536, 40425119, 53858024, 23963151, 16481178, 9092940, 53078531, 63784872, 52808628, 01923977, 5311307, 38626189, 39684802, 7814921 ####[facility] [address] [place] [address] Lupus Anticoagon 04-28-2021 Lupus anticoagulant two screening tests W Reflex Coag (PPP) [Interp] Comment: Invalid Interpretation Code [facility] Comment on above: Result Comment: No l upus anticoagulant was detected. These results are consistent with specific inhibitors to one or more common pathway factors (X, V, II or fibrinogen). The extended thrombin time corrected on addition of a heparin neutralizer, consistent with the presence of heparin in the sample. Heparin acts as a non-specific inhibitor. Performed at: [address] [id number] [id number] MD Manpreet Hidalgo Performed By: #### 2 699710348, 3146600, 116910027, 09903461, 9251222, 28595752, 3397886, 6288086, 93657199, 46037717, 40305484, 80331757, 61266281, 32210527, 0875919, 32040013, 98779797, 59194454, 48810336, 7645734, 36555486, 92441056, 6646876 ####[facility] [address] [place] [address] aPTT.lupus sensitive Coag (PPP) [Time] 31.8 second(s) Invalid Interpretation Code 0.0-51.9 [facility] Comment on above: Performed By: #### 2 154273569, 0013388, 679495398, 27484040, 1001719, 09163198, 1977980, 1687459, 70683296, 18739657, 34494832, 05866055, 87475078, 63624036, 5365974, 79121421, 61557526, 86640761, 00380703, 3191353, 36960070, 49511785, 7219414 ####[facility] [address] [place] [address] dRVVT Coag (PPP) [Time] 48.9 second(s) High 0.0-47.0 [facility] Comment on above: Result Comment: Perf ormed at: [facility] [id number] [id number] MD Manpreet Hidalgo Performed By: #### 2 803024857, 7538629, 799875447, 93770089, 3745625, 60124358, 6891669, 0538801, 47067890, 41573011, 49861230, 45305070, 36427141, 45769343, 9709900, 95437989, 02771169, 20133306, 76298385, 1798563, 32055806, 71159373, 3571388 ####[facility] [address] [place] [address] Protein C Antigenon 04-28-20 21 Protein C Ag actual/normal IA (PPP) [Relative mass conc] 115 % Invalid Interpretation Code 60-150 [facility] Comment on above: Result Comment: Perf ormed at: [facility] [address] [place], [place] [id number] MD Manpreet Hidalgo Performed By: #### 2 306762123, 4940278, 953909994, 14769850, 4781394, 79691840, 9670533, 7847350, 79135162, 02992252, 76773886, 18637791, 42612320, 63228218, 8634879, 71997215, 15918915, 84541406, 47455119, 1264108, 05316759, 49250894, 9621215 ####[address] [place] [address] Protein S-antigenon 04-28-20 21 Protein S Ag actual/normal IA (PPP) [Relative mass conc] 117 % Invalid Interpretation Code 60-150 [facility] Comment on above: Result Comment: This test was developed and its performance characteristics determined by [employer] [facility] [employer]. It has not been cleared or approved by the Food and Drug Administration. Performed By: #### 2 [id number], [id number], [id number], 23514245, 4868727, 81001035, 3597608, 4765094, 28820703, 54630259, 13843557, 69739337, 45650813, 77495712, 3236271, 96819729, 30317539, 43015924, 24653282, 2521847, 70738537, 10840593, 3609846 ####[address] [place] [address] Protein S Free Ag actual/normal IA (PPP) [Relative mass conc] 135 % Invalid Interpretation Code 61-136 [facility] Comment on above: Result Comment: Perf ormed at: [facility] [address] [id number] MD Manpreet Hidalgo Performed By: #### 2 [id number], [id number], [id number], 21876429, 5165211, 71373432, 2603808, 6176866, 98569699, 01972586, 58649767, 38625852, 58648259, 66277492, 0185181, 95783857, 21512976, 63592058, 84839001, 1433687, 17352021, 91888334, 4241705 ####[facility] [address] [place] [address] dRVVT CONFIRMon 04-28-2021 dRVVT/dRVVT.excess phospholipid Coag (PPP) [Ratio] 1.2 ratio Invalid Interpretation Code 0.8-1.2 [facility] Comment on above: Result Comment: Perf ormed at: [facility] [id number] MD Manpreet Hidalgo Performed By: #### 2 [id number], 2990566, 007426164, 08181377, 8984591, 47877695, 9948066, 7585420, 73610518, 27892217, 20962387, 35750686, 29823909, 99555426, 3387395, 55367136, 98631963, 79477039, 27241593, 5235734, 88951214, 80610990, 3901854 ####[facility] [address] [place] [address] Orders Officeon 04-26-2021 Orders Office [id number]#1. 00CD:127 Normal [facility] Progress Note-Nurseon 2020 Progress Note-Nurse [id number] 04 [id number]#1. 00CD:127 Normal [facility] Coding Summary.on 04-25-2021 Coding Summary. CD:[id number] Gh 0bWw+PGhlYWQ+UF3FOLZvG 48ouSPfgJ9SX4hEKD5OHHJ BEOWWCL9PPQ9ozKY9MIigC 2VybiAv AhfisFEsWP30BLw6VPD2hF bkTWajiT5epQSvJ7a1ViKm UM34tA23YFpaGBMlQdA1Wo ZpbjsgbWFy T0jnMjAugZYwOoq+PHRhYm xlIHdpZHRoPScxMDAlJyBz pTuwKE4kQl4vQQAfEENibT xhcHNlOiBj l9skGXOsLTplNI3vcGsmJ7 ChiWP2FIWfd3u9Qg08xRY+ YOEfRJB3nJkcZYdbq514Kq Zyl6wuRMK2 eSRhTUhfLIV8R18xh7T6KQ CqIMBlDOH7jKP7hE9lnFyd jbvcS2EmfQDfPiO2SJW9hI RnoP6mtLga waaokK2zLfw+L38YBP0OUA YXCK9OCda8D2GmLypezJN+ FW87IRYaME32dPScbFDyz7 bmkSe7MxFo BCVnEWQ5xVgxDLegw5LuXN HzT54suNEuh7A2FTFayStn sTTrBpIucCO0zB6uDTodru myf2cibdhr Ddvxy6fvyw12pR48W71sOJ hkIMMcVOE0CFBzCGNdoQkc ze4bkY3oSp1+XLmku5gaz3 ytlLp9VxZn DPDgqxJelNcdCPC1a1CbOv 42S6BovCgxx1UpHpq0th29 xYWcz5V7rRJ8DXdhCPYmzJ 6mCLspIzE4 EHLzZcCrlF12xQWiJQpgVr 4foOpbkShsWB2wLMXujzom TVLriX5tZQUcvWVwbQhuJX 4wNTBpbjtm p001TaEuKYE5ZCSksATrL4 MopZ2uCxLePODbXUUyJ6Ab bJAeEEvxJ588ROjfXiX3ZE JxflLzE6Uw CTKgvTczRqS4b0M8Iv6Tu3 BgtnymQCQ8UBnyMOHaKuSx OcBrCzR8H6FvSto8GNFkfB hsQR2nM1Fg PQYymhzfbhtmyCG3XTHsCV BozQ41lEKpXPdlJe8gz2H2 v289YUSlBHEaaA29Gw9aoD ogMTBwdCBU kP6qvmtfg2gndwxxCuXhPL PmCXu6EIz7WFCjiVadSsTn HXH5WbI8JMZ9mNPjgT7enK kpguclcD0g Oyc+V72szD4nYHF8JZU2pz twFIAvuaNdBX37GK74E4Uo PjwvdGFibGU+PGRpdiBzdH viVY3iAkMj r0kcq8FaWCrvQ3AyKEGnVA alNwh8MVSlKAN1rPC7bU0x OHFtLOcnv2J8iNX1M6Neyb Mhnv2fq9zq TCFoWOcfY14zbLHyf6Y6XL IwfUD6UAZmpKrkZaKusK53 Oyc+HHSfpIfqw2BnStubf7 fyn3nkdVu5 NyVyVWForkZhhGwvIMV6d4 BfZc99O20oMEhkTLLlUNGn BIMaYXAigUkjuk5oeI5iUu 8+PGNvbCB3 lTA7jQ9xLYPrGsX9DZweB1 42NvNmsXRyRkexw4gow6cv gBp7AlSgUVLfcuSiaYzhGT U5x5KjCm49 W43tSAxqCWDzQBCtSRUxHG IhmTctsc5zaA0iFl9+PC9j c7kwnm08wX28vWX+PHRkIH C8fVkyMDyd LXGabF0uSIeoCtS5QKVcFa ZfoE09yWQoFPalMq3coNps lHysRY7gMZWxfcjmq221Ip Eow3xqTJBr fYCdMSrtAEC4K81mg0Q6NO LsYDNcGUO0uTD1sL8xxJtu bjogbGVmdDsgdmVydGljYW eiYBllG245 IHRvcDsnPlBhdGllbnQgTm KdQIo7C1QyLkr9ZLGnkMnr FM3noPNsLSzbOf9dhHlzwV jcOZ9zQILe bmfbj758RzHlg7owMSYjgX McUTuzTEH7Y33yp2T6JOQb XOEcTTL3aWW6rL0nlBzwnl ogbGVmdDsg vkZktZenQYoxCGfdD621AK RvcDsnPkJpcnRoIERhdGU6 SN41KY48mHGvk4A1eKZ3E6 BhZGRpbmct izffsHL6PYLhFLNqjC48Ne 7beGxvAw2vVRSnIOT6OEEt tSObO3AbdN0yLyNwZBNlFI WpE5BboSSs XIoqZ769LVslErR5TIYymc WbU4UwZNTduAdeTwF3r5I2 Oi2YZ2E9CY38VD07jZNqk7 A2jNR9E5Fa DSBzziiozlggqXN6XDUwOC IsxF12Dm1feTayYn5oLXFw LNX8IKZekCZgH9FngO1aFh AjMDAwMDAw P2IpxCAbGUxtU532BHynLv U0LHHoxvVrU8AwDSFvoQfl EiQ3d3J9Eb9TILt4SJ99NZ 83qTMmi0U5 pTD6A2EnLXZbxonqstrvfK T2XHRmRFNubE07By0qzPek Ww2aLRShXUY5PIBhvUQcV3 OscC0rXvDi NCEhTEWgQ6SelWWtCJvlN7 57KUbfEhV5BPFbxwTuL4Xa DHEitMqtGxF2q9P6Xl8MFL AyQL62AEI8 dQG8BH00KC09U7MnLvgleB FibGU+PHRhYmxlIHdpZHRo YWboOBAuVhNixYwkUP6mMf 9yZGVyLWNv gStroQLjAzVgp4ioSVPpLP cyMY0nkAgjX6DavIW8MPWl a9d1Pp77O15iE8EohPD+PG IfnMB1hDD4 dU9hSsSiNtP1MBrhI918Rp RjbSHxLapfw4huh7ipyMf8 QcV3MLPnygOtaFsmTQH3u7 HlQk55T88x IHdpZHRoPSIxNSUiIHZhbG vjuq0cfY9eCy1+PGNvbCB3 oWN0cB0uTeBpAbV8CUhqS4 49InRvcCIv Jjktv1vva6guhKs1VcUtOF DjqnNooTthLTM1a1IuOh28 W8TgyXhle0GkKbj8nt47qJ Lrv0U5dCA4 G2HdOJEwxjchzTTqjRcvAN 7cNILymajgNTZabW8fGRNt Y1i6NyIpPoG6HStiL5Eoxu I4DVObbQRo CMxeOSV0O26bz4M6DOVmFK FxPGI2nMW9eU2wjOoyvfgc bGVmdDsgdmVydGljYWwtYW rjK495TNAb mObjNLOojS4lSOIlrLRmyQ nmVD4tWTWdfrezErVTHGJW RkVSLCBERUJPUkEgQTwvdG Q+PHRkIHN0 mHrcXFlvKGXcfJ6wVTSmN7 y2BdFfJqI9UNwyV0HbQECf ocepHl96dT0iGdNiBhS9PM onD3XnvvR5 XFWpfPKuETzyIDQ5F29dr0 O1FGQpUSHvRHD1lYC5bQ5j bGlnbjogbGVmdDsgdmVydG ljYWwtYWxp Y503CQXelCmkUyDnGfG4Ho C8XbJ2S1UmCkd4WNXnsZzm UO4ptQOkKBauIt9jfPctwW kuWR2tXSVf wyelJYTtlH2sOIFrjDFvqD bjOS0pHQMtkrocf041VyHh NGG6OMDqrVMtK6XawX9kNz AjMDAwMDAw J6RvfOMmQOvpI661OTxpGl K8GHPilpUfY8AqDLZzoDzm SxD0v5B5Uv43RYNDGNLslq wvdGQ+PHRk IXJ9hWgnIYppGLHygH7jRA TcN2n4KwQxPxR3HAxkW1Vi TGBaippvTu94wM0wMeHxNg J2KHlzO5Ob tcD5KDPxoUXhWQkbLMK5M7 0nk3I8RLLjCAXvMRK3qOP7 vC9odQmzuuqqiAPwaOhcpq VydGljYWwt JQshM279GFUvaAlqVgGynC FsZTwvdGQ+DUYiGDN4iVcr BKpbDDHfgQ5dRCRnA0m9Ec NkAhZ8TWon S9VnFMDqyopzIi79nK2uXy MqCzG3KUilL7ValsM0AKJa aZTvNAusISO0C73nv5S3ZH MwMDAwMDA7 aWX5uQ8rtDrhtzytwBSbiC rjrtLavRzdMKjrQBzuT582 BEHvoZbzYv58nWKnrSmdtm P4D3VtFuza dHI+FB24BOZgJC39aPYilB Pgq5nvcIc5IoNeKZYjJAQ6 gWtyJQcsu0WtGZGvA28huW Dzs5T5PGIy dTqjyYVvBpVlkQJ7bI9mFJ dvzqahw4zqcjjdSzrrp4zg jx07aD68G01sDOgsSYOjXW IzMCUiIHZh uItiix6oiZ6zDh4+PGNvbC B7jZK2fO9sDfJlYvX4FRji R511HeQiuMLsAzero7qfu9 iwcKq9EbDd CESoseAiaIbnGOZ0t8QhYh 11Y04eZOcxTHRrHEQkIYMv GQJphTlahg5okE9vSl0+PC 4pm7yzlc58 rH78pPT+HSIeGUL5wObpTE xvCXCriL1oGTkqOrI6FDNg IaNdaO22gECwMSpqWz7liK iatBjyIC0l VFQvdfbii714LzEkj6stMW MtpAQpZCqjRXW6X65mo9E7 RULdTUWxLER0mUG1bR2nbZ lnbjogbGVm dDsgdmVydGljYWwtYWxpZ2 31UIJleAklRyYhgXTrU5tp ftOMOB9cOvyzlGF+PHRkIH P0lMgmXYtn QFMeqZ4eZXFcY7d2CxZlSq K0NZlwE6AjanI2TALfdTIx UUTteQBIoI3tzqijr1gohy ogIzAwMDAw RZb4GXb4ZBVrvVslIqZqFX J9GvW6WBQ1aSZobI6tqKmf xzhuuF6eMjg+RklOOjwvdG Q+PHRkIHN0 uUulUYmiQXLefO2yCIPtC6 q2PwNdTkU8NWqwW6IknjZ2 YZTwxKNbGQZnuLZYqY8mmq lqe1zzxltf QsRxITJoFPv1YCf9OPPfdF ebJgGnFKQ6AnZ6SUT9eXTf fO6fgKgilspewU4cQwj+TV JOOjwvdGQ+ OTZlYUS3kEfjPCtlOGMzwJ 2gXFJaI8q3CfAjQsW1LNnm V3LdjoH2DZNbaXZyYPPuzY GEnM9zxyln l4kgroxvDtJoACRrWCb8ST n8JHQudVzwPuRuDDS2NoH0 OID8oEAndS8auMnkhdoqdH 9wOyc+UGF5 BEF8YJ18QK87S6YpCvxrhN FibGU+PHRhYmxlIHdpZHRo EVgaWJQhPrIglUdiMG2eHv 9yZGVyLWNv bGxh (more content not included)... Normal [facility] Outside EDon 04-25-2021 Outside ED [id number]#1.0 0CD:127 Normal [facility] Outside Radiologyon 04-25-20 21 Outside Radiology [id number]#1.0 0CD:127 Normal [facility] Auto Diffon 04-23-2021 Basophils/100 WBC (Bld) 0.7 % Normal 0.0-2.0 [facility] Comment on above: Order Comment: Order Added by Discern Expert. Performed By: #### 2 [id number], 1811198, 114834900, 37803918, 2362726, 72815667, 4406274, 4749661, 49226291, 44546652, 50691132, 23578285, 99053092, 63768823, 1318567, 48277519, 60842666, 75635596, 86655292, 9984042, 04899027, 56901634, 4371201 ####[address] [address] Basophils/Leukocytes Auto (Bld) [Pure # fraction] 0.0 E9/L Normal 0.0-0.2 [facility] Comment on above: Order Comment: Order Added by Discern Expert. Performed By: #### 2 [id number], 7881551, 303596633, 20272639, 7889459, 29977480, 4888383, 6404781, 25074105, 08773696, 56837755, 67264957, 19338591, 97280683, 5183286, 44641148, 60883012, 69760628, 92118502, 7554952, 32588338, 50228090, 8330788 ####[facility] [address] [place] [address] Eosinophils/100 WBC (Bld) 0.9 % Normal 0.0-8.0 [facility] Comment on above: Order Comment: Order Added by Discern Expert. Performed By: #### 2 [id number], 6348456, 929949589, 17812589, 9091236, 41231839, 6249822, 2167378, 79376449, 56813142, 30474087, 46204882, 39421698, 65940653, 4092434, 45290062, 42734850, 40233762, 36957056, 4667770, 75166140, 64818075, 7309859 ####[address] [place] [address] Eosinophils/Leukocyt es Auto (Bld) [Pure # fraction] 0.1 E9/L Normal 0.0-0.5 [facility] Comment on above: Order Comment: Order Added by Discern Expert. Performed By: #### 2 444147268, 2497181, 006073309, 94951192, 4529392, 53199887, 7832813, 1425477, 28184291, 37431808, 48354533, 99853618, 73567041, 44957519, 1075858, 19868661, 45461982, 11488933, 50679456, 9580443, 20577313, 48286998, 7323591 ####[address] [place] [address] Lymphocytes/100 WBC (Bld) 39.7 % Normal 14.0-50.0 [facility] Comment on above: Order Comment: Order Added by Discern Expert. Performed By: #### 2 310674882, 0849154, 255916647, 38485734, 5307808, 57576287, 1594714, 6928793, 24207760, 74004702, 65563714, 76975321, 81327534, 91393372, 0213897, 51368499, 88219506, 42128937, 27213332, 9566763, 50140507, 56547929, 3324485 ####[facility] [address] [place] [address] Lymphocytes/Leukocyt es Auto (Bld) [Pure # fraction] 2.3 E9/L Normal 1.0-4.0 [facility] Comment on above: Order Comment: Order Added by Discern Expert. Performed By: #### 2 312229025, 6823848, 751897928, 20212399, 3573604, 76335539, 0697604, 6396611, 67144354, 47369394, 14638825, 63027458, 48041847, 17310435, 4827282, 65604992, 04073856, 07242197, 77796182, 2296626, 17760694, 20136868, 6017602 ####[address] [place] [address] Monocytes/100 WBC (Bld) 3.1 % Low 4.0-14.0 [facility] Comment on above: Order Comment: Order Added by Discern Expert. Performed By: #### 2 012371956, 2416965, 142233509, 18718228, 7236122, 02395628, 0794522, 8776735, 00039686, 02372687, 23448146, 67167701, 23643546, 66150433, 1436142, 47358904, 04450953, 90703758, 11277191, 0161065, 79524686, 02715924, 0802046 ####[address] [place] [address] Monocytes/Leukocytes Auto (Bld) [Pure # fraction] 0.2 E9/L Normal 0.2-1.0 [facility] Comment on above: Order Comment: Order Added by Discern Expert. Performed By: #### 2 798947648, 2553181, 848625742, 57285148, 9909761, 48750550, 1272564, 9835074, 85385798, 02917117, 00692401, 71751664, 33074924, 63710197, 2326993, 45636852, 29534182, 68033947, 23601899, 7348912, 90241943, 19066267, 6731956 ####[facility] [address] [place] [address] Neutrophils/100 WBC (Bld) 55.6 % Normal 36.0-75.0 [facility] Comment on above: Order Comment: Order Added by Discern Expert. Performed By: #### 2 675585166, 2618692, 500643972, 14517653, 0248433, 13918418, 8736788, 8989129, 79491038, 60965297, 39216919, 23958689, 84450601, 45106893, 1864489, 05565694, 80552097, 98006278, 75152983, 5585505, 10536385, 88912221, 5914623 ####[address] [place] [address] Neutrophils/Leukocyt es Auto (Bld) [Pure # fraction] 3.2 E9/L Normal 2.0-7.5 [facility] Comment on above: Order Comment: Order Added by Discern Expert. Performed By: #### 2 415019649, 3456566, 080980898, 59192380, 7043770, 83009287, 5408785, 3393970, 45242494, 37358265, 02957912, 81182571, 77123338, 20510324, 8787781, 80904191, 09660032, 32155627, 34765387, 5002087, 82300804, 90137527, 5897401 ####[address] [place] [address] CBC w/ Auto Diffon 1 Erythrocyte distribution width (RBC) [Ratio] 13.0 % Normal 10.9-14.2 [facility] Comment on above: Performed By: #### 2 097977460, 4428916, 673463323, 99465977, 1881528, 22015673, 8180867, 4225584, 34811476, 51031382, 07051524, 16736113, 80253326, 27600029, 7165470, 83673051, 38002776, 56784565, 55235490, 6092523, 13268477, 68546052, 9400058 ####[facility] [address] [place] [address] Hematocrit (Bld) [Volume fraction] 40.4 % Normal 34.0-46.0 [facility] Comment on above: Performed By: #### 2 688386556, 9370213, 935198953, 43455268, 1424417, 34104669, 9473975, 5140205, 62128150, 04753334, 73558033, 79753013, 53752991, 16790422, 2914951, 04736779, 45222517, 79376326, 26883798, 6219416, 98208753, 20086968, 9719038 ####[facility] [address] [place] [address] Hemoglobin (Bld) [Mass/Vol] 13.3 g/dL Normal 12.0-16.0 [facility] Comment on above: Performed By: #### 2 246695191, 7651151, 202308855, 68520918, 7970300, 22487454, 2814438, 4019180, 99157846, 13151320, 19161103, 67476792, 46901921, 53310537, 8442042, 80961030, 03296002, 28708369, 72326597, 5705695, 96516166, 62809956, 6103828 ####[address] [place] [address] MCH (RBC) [Entitic mass] 29.4 pg Normal 27.0-34.0 [facility] Comment on above: Performed By: #### 2 731481891, 2218860, 944353145, 22479726, 3061127, 30936131, 8846589, 9012717, 56444810, 95869621, 62284521, 64571658, 13944764, 69719500, 6006618, 57015801, 94842320, 83661302, 36951963, 6935788, 19551110, 80056193, 5623814 ####[facility] [address] [place] [address] MCHC (RBC) [Mass/Vol] 32.8 g/dL Normal 31.4-36.0 [facility] Comment on above: Performed By: #### 2 347563982, 3258638, 072842412, 21819993, 3792912, 27777987, 3309873, 1400350, 41419271, 73696834, 85176750, 88273995, 08510510, 85934306, 7635476, 91116891, 08443029, 55524624, 64632459, 0640666, 70363189, 16564492, 9911087 ####[address] [address] MCV (RBC) [Entitic vol] 89.5 fL Normal 80.0-100.0 [facility] Comment on above: Performed By: #### 2 382742130, 9351226, 652088188, 21093577, 0896542, 26824686, 4674185, 1213129, 35182928, 83676359, 29626688, 52486105, 56178867, 07651577, 4293161, 20870629, 53536308, 88925945, 60094733, 7495025, 21531238, 80674471, 7929679 ####[facility] [address] [place] [address] Platelet mean volume (Bld) [Entitic vol] 8.9 fL Normal 6.4-10.8 [facility] Comment on above: Performed By: #### 2 935925161, 7200058, 037422753, 67283648, 4518946, 90224683, 2729391, 5187424, 23160671, 24474922, 26742007, 63686203, 27101968, 36263795, 2388362, 80194462, 50899601, 34954930, 64201407, 4901952, 63099235, 65574257, 6456306 ####[address] [place] [address] Platelets (Bld) [#/Vol] 229.0 E9/L Normal 150.0-500.0 [facility] Comment on above: Performed By: #### 2 495097127, 4994157, 280156143, 06827883, 6949763, 53762931, 6238713, 6842085, 81433315, 72695525, 87098649, 96858686, 22937615, 79195141, 6188169, 28757388, 29295158, 08225757, 72213767, 8566068, 40351226, 30800316, 3017670 ####[address] [address] RBC (Bld) [#/Vol] 4.5 E12/L Normal 4.3-5.9 [facility] Comment on above: Performed By: #### 2 162705473, 5741395, 551981028, 83465153, 7078748, 14048007, 2134634, 6007135, 99952802, 33720903, 71577957, 36998137, 85817618, 36456897, 7502752, 28552883, 19885997, 08111404, 16744559, 9265663, 04792459, 15237315, 0516832 ####[address] [place] [address] WBC corrected for nucl RBC Auto (Bld) [#/Vol] 5.8 E9/L Normal 4.0-11.0 [facility] Comment on above: Performed By: #### 2 591976046, 7001781, 069309772, 86442084, 1806138, 90111103, 2649712, 0804435, 97689546, 70528378, 74547307, 21790931, 41872419, 44265818, 1128190, 89496778, 22198028, 17099571, 07108513, 8312253, 35716305, 31973894, 7386268 ####[facility] [address] [place] [address] CMPon 04-23-2021 Albumin [Mass/Vol] 4.1 g/dL Normal 3.3-5.0 [facility] Comment on above: Performed By: #### 2 474290994, 4333597, 774832079, 48225434, 8086197, 34575610, 0055054, 9306010, 36521730, 00174733, 77800263, 40799684, 69898764, 54023681, 8434346, 42519544, 08077667, 39887335, 47770381, 9314782, 74067467, 64356379, 8861745 ####[facility] [address] [place] [address] Albumin/Globulin (S) [Mass conc ratio] 1.4 Normal 1.1-2.2 [facility] Comment on above: Performed By: #### 2 228637793, 4360000, 739475670, 89407255, 5377375, 47999718, 6513631, 5179186, 92113405, 08529888, 07884902, 34232529, 13973966, 41337981, 1818074, 70041196, 36987346, 30476973, 46205831, 2627444, 09170933, 76468247, 6416403 ####[address] [place] [address] ALP [Catalytic activity/Vol] 44 Int._Unit/L Normal 21-98 [facility] Comment on above: Performed By: #### 2 461098482, 9899156, 138570106, 07778616, 6842369, 86902861, 8872367, 3030683, 34807984, 58824699, 45075509, 83840422, 94271280, 56721205, 1825419, 43969609, 44627923, 98139470, 17212240, 9429401, 27063377, 43818652, 9328515 ####[address] [place] [address] ALT No additional P-5'-P [Catalytic activity/Vol] 16 Int._Unit/L Normal 6-46 [facility] Comment on above: Performed By: #### 2 935801392, 1482341, 050649191, 66366733, 4899820, 93912093, 1704211, 4349909, 08772076, 04047168, 07960926, 56136762, 39998490, 96386737, 2168747, 04284837, 04943959, 63701011, 43199224, 2256869, 75522191, 79486074, 5935320 ####[address] [address] Anion gap [Moles/Vol] 14 mmol/L Normal 6-16 [facility] Comment on above: Performed By: #### 2 036783231, 6292412, 999662612, 58881104, 1941021, 69256842, 4036136, 6740947, 49217083, 76480007, 35198383, 29726122, 43589370, 84903500, 2289044, 79678616, 72722221, 52106703, 83432272, 0677666, 90390671, 99015478, 0493919 ####[address] [place] [address] AST [Catalytic activity/Vol] 23 Int._Unit/L Normal 5-43 [facility] Comment on above: Performed By: #### 2 634213219, 3005516, 481114786, 37418693, 3675291, 69588720, 5680907, 1359252, 44040140, 06948833, 49418756, 08167380, 13533950, 51506659, 0117784, 36182156, 48231465, 44857757, 06264881, 8274322, 99531882, 51341724, 4636735 ####[address] [place] [address] Bilirubin [Mass/Vol] 0.9 mg/dL Normal 0.0-1.1 [facility] Comment on above: Performed By: #### 2 [id number], 0761951, 363183980, 83591237, 8712718, 39775836, 3625690, 0237381, 56015572, 21971129, 47078980, 75073403, 44377156, 91545200, 3525767, 69599062, 39663271, 26445729, 69470196, 6779699, 89250477, 36759009, 9841807 ####[address] [address] Calcium [Mass/Vol] 9.3 mg/dL Normal 8.9-11.1 [facility] Comment on above: Performed By: #### 2 [id number], 7616249, 761713758, 82443211, 1797147, 51339825, 6302982, 1175185, 02731187, 51632565, 58370017, 07886574, 74154305, 33178758, 5204179, 64927567, 08833400, 96347282, 00939984, 7740145, 32775865, 46834961, 0864774 ####[facility] [address] [place] [address] Chloride [Moles/Vol] 98 mmol/L Low 101-111 [facility] Comment on above: Performed By: #### 2 [id number], 0301475, 136186635, 10504496, 9808754, 62082575, 8446734, 5685129, 82246795, 81875320, 79220283, 83266560, 63520891, 72643864, 5479990, 64748872, 29654122, 89880865, 28026894, 4393560, 18962975, 99553130, 3008649 ####[address] [place] [address] CO2 [Moles/Vol] 27 mmol/L Normal 21-31 [facility] Comment on above: Performed By: #### 2 [id number], 7964264, 919869134, 73337988, 3800320, 05752557, 0416186, 6495179, 78031824, 22464863, 51239459, 03987286, 56963586, 14036176, 7015771, 39781217, 47670792, 28768802, 03647610, 2310304, 91075391, 71037913, 1413575 ####[facility] [address] [place] [address] Creatinine [Mass/Vol] 0.8 mg/dL Normal 0.5-1.3 [facility] Comment on above: Performed By: #### 2 [id number], 8364853, 194598359, 00475881, 8513334, 08468789, 6407336, 7646779, 09226333, 63720014, 79214551, 15386825, 59026484, 61054987, 6526007, 40235617, 17742559, 87962812, 33930517, 2754783, 11401673, 03903164, 4837429 ####[facility] [address] [place] [address] Globulin (S) [Mass/Vol] 3.0 g/dL Normal 1.4-4.0 [facility] Comment on above: Performed By: #### 2 171446950, 3323441, 091203936, 98512637, 5281623, 16636458, 0127246, 2271028, 30320321, 80546262, 28127819, 62378737, 59555893, 40350962, 9845286, 18227910, 32857915, 76186294, 64702211, 4799382, 52713820, 96520406, 3636491 ####[facility] [address] [place] [address] Glucose [Mass/Vol] 187 mg/dL Normal 55-199 [facility] Comment on above: Result Comment: If t his glucose result represents a fasting glucose, interpretation should refer to the following reference range: 55-99 mg/dL Performed By: #### 2 701503237, 9845191, 334774004, 05362912, 4966321, 41781294, 6868608, 2391149, 33922305, 37088849, 13375290, 77526708, 45474022, 05666534, 1249105, 79314219, 85612760, 42222991, 81596931, 5385518, 05144778, 96381398, 4338819 ####[facility] [address] [place] [address] Potassium [Moles/Vol] 3.4 mmol/L Low 3.5-5.3 [facility] Comment on above: Performed By: #### 2 853112558, 5450435, 599734421, 49510024, 7323804, 05474888, 4021966, 5101776, 62120719, 97846835, 79841819, 40328480, 08427023, 35188082, 5044813, 72746118, 85806306, 33441190, 65377797, 7097911, 61870838, 45667111, 9206603 ####[facility] [address] [place] [address] Protein [Mass/Vol] 7.1 g/dL Normal 6.0-7.8 [facility] Comment on above: Performed By: #### 2 858869688, 8438346, 367747859, 52526948, 4861586, 63623019, 2838359, 0663257, 61187984, 53026192, 94957080, 13017713, 14847766, 77822228, 1386425, 70611178, 93634740, 19707919, 04272019, 1470645, 30215604, 35078978, 0297025 ####[facility] [address] [place] [address] Sodium [Moles/Vol] 136 mmol/L Normal 135-145 [facility] Comment on above: Performed By: #### 2 958830667, 6427198, 533262988, 06587948, 0592208, 73196904, 2599986, 5668051, 53972483, 47021717, 22495622, 09970232, 50518803, 98763464, 7844772, 74634187, 91226117, 08433050, 64101937, 2200506, 16966335, 10512434, 2195007 ####[facility] [address] [place] [address] Urea nitrogen [Mass/Vol] 10 mg/dL Normal 5-21 [facility] Comment on above: Performed By: #### 2 294535868, 5101620, 626192034, 66940387, 7867088, 28666442, 7857413, 6877675, 23356827, 99451092, 10162734, 05655190, 54618658, 26669483, 0956308, 35140952, 70079332, 82080311, 98851575, 4526596, 74437922, 44639305, 6837693 ####[facility] [place] [address] Urea nitrogen/Creatinine [Mass ratio] 12 No Units Normal 10-20 [facility] Comment on above: Performed By: #### 2 154978693, 4691471, 409219659, 09420664, 2648486, 70015128, 5902444, 6426205, 42613581, 08281030, 49378949, 37436219, 39517963, 25128824, 0025357, 21964359, 01673105, 56283919, 06892880, 3059660, 65922469, 55423494, 7801126 ####[facility] [address] [place] [address] Consent for Treatmenton 11- Consent for Treatment [id number] 0CD:127 Normal [facility] Consent for Treatment [id number] 0CD:127 Normal [facility] Fibrinogenon 04-23-2021 Fibrinogen Coag (PPP) [Mass/Vol] 266 mg/dL Normal 200-393 [facility] Comment on above: Performed By: #### 2 426480670, 5291850, 208064915, 40561571, 8755331, 81277050, 5017573, 9392923, 64654960, 73957576, 77033598, 15163780, 86533530, 73666996, 2634719, 29640690, 00286909, 03602667, 22876836, 6416713, 61552827, 03202893, 7646491 ####[facility] [address] [place] [address] Heart and Vascular Office/Cl inic Noteon 04-23-2021 Heart and Vascular Office/Clinic Note History of Present Illness This is a 61-year-old lady with history of bilateral lower extremity varicose veins worse on the right side. She was initially having appointment with us for the varicose veins and pain. She then developed below-knee DVT and superficial thrombophlebitis. She is on Eliquis 5 mg twice daily. She uses compression therapy. Never had hypercoagulability testing. She never had a venous duplex ultrasound recently. Review of Systems Constitutional: no fever, no chills, no sweats, no weakness Skin: no Jaundice, no rash, no lesions, nopetechiae ENMT: no ear pain, no sore throat, no congestion, no hoarseness Respiratory: no shortness of breath, no cough, no orthopnea, no wheezing Cardiovascular: no chest pain, no palpitations, no edema Gastrointestinal: no nausea, no vomiting, no diarrhea, no GI bleeding Genitourinary: no dysuria, no hematuria, no discharge, no pain Musculoskeletal: no back pain, no trauma Neurologic: no headache, no dizziness, no numbness, no weakness Psychiatric: no sleeping problems, no irritability, no mood swings/depression. Heme/Lymph: no bleeding tendency, no bruising tendency, no petechiae, no swollen nodes Allergy/Immunologic: no seasonal allergies, no food allergies, no recurrent infections, no impaired immunity Additional ROS info: Except as noted in the above Review of Systems and in the History of Present Illness all other systems have been reviewed and are negative or noncontributory. Physical Exam General: alert, no acute distress Skin: warm, dry Head: no trauma, normocephalic Neck: Trachea midline, no adenopathy, no tenderness Eye: normal conjunctiva, sclera clear Cardiovascular: regular rate and rhythm, normal peripheral perfusion Respiratory: Lungs CTA, respirations non labored Chest wall: no deformity. Gastrointestinal: soft, non distended, no tenderness, no guarding. Back: No tenderness, Normal ROM, Normal alignment. Extremities: no edema,no deformity, no trauma Neurological: oriented x 4, LOC appropriate for age, motor strength equal & normal bilaterally, sensation equal & normal bilaterally, speech normal Psychiatric: cooperative, affect appropriate for age, normal judgement, normal psychiatric thoughts. Assessment/Plan 1. DVT of lower limb, acute (I82.409: Acute embolism and thrombosis of unspecified deep veins of unspecified lower extremity) We recommend continue Eliquis for 3 months. We recommend venous reflux ultrasound compression therapy. I also recommend hypercoagulability testing. 2. Varicose vein of leg (I83.90: Asymptomatic varicose veins of unspecified lower extremity) We recommend continue Eliquis for 3 months. We recommend venous reflux ultrasound compression therapy. I also recommend hypercoagulability testing. 3. Superficial thrombosis of leg (I82.819: Embolism and thrombosis of superficial veins of unspecified lower extremity) We recommend continue Eliquis for 3 months. We recommend venous reflux ultrasound compression therapy. I also recommend hypercoagulability testing. Follow-up No qualifying data available Problem List/Past Medical History Ongoing No qualifying data Historical No qualifying data Medications No active medications Allergies No active allergies Normal [facility] Comment on above: Result Comment: Elec tronically Signed By: Ihsan SCHUMACHER, Teresa FOlga\.br\Date and Time Signed: 04/23/21 12:14 EST LDHon 04-23-2021 LDH [Catalytic activity/Vol] 153 Int._Unit/L Normal 93-218 [facility] Comment on above: Performed By: #### 2 [id number], 7348074, [id number], 94256534, 0358317, 47134158, 8570334, 4232081, 58429760, 91629001, 61607074, 82498840, 24125134, 79920943, 1300502, 54253431, 01304259, 93890842, 15703246, 9126263, 46738602, 09837763, 0492937 ####[facility] [address] [place] [address] PT & PTTon 04-23-2021 aPTT Coag (PPP) [Time] 34.5 second(s) Normal 25.1-36.5 [facility] Comment on above: Result Comment: Hepa rin therapeutic range (represented by Anti-Factor Xa activity of 0.2 - 0.4 U/mL) corresponds to PTT of 56.6 - 109.0 sec. Performed By: #### 2 [id number], 9588590, 854809231, 01166363, 2280722, 89935349, 7662318, 7256148, 31100382, 85054305, 10931539, 85066182, 14131041, 14160051, 4031045, 12991846, 86808715, 89005464, 75670041, 9218351, 67307940, 51808191, 6399477 ####[facility] [address] [place] [address] INR Coag (PPP) [Relative time] 1.1 {INR} Invalid Interpretation Code [facility] Comment on above: Result Comment: INR results are specifically intended to assess patients stabilized on long-term Anticoagulation therapy suggested INR?s ?Less Intensive Anticoagulation? 2.0 ? 3.0 Conventional Range 3.0 ? 4.5 Performed By: #### 2 [id number], 9145928, 824615118, 16934340, 1233023, 89694519, 4388814, 6157142, 38012709, 00024612, 33256238, 01376924, 92876559, 34252823, 3349484, 88377707, 84784772, 34083525, 85924171, 1964529, 50452482, 73174142, 3917682 ####[facility] [address] [place] [address] PT Coag (PPP) [Time] 12.6 second(s) Normal 10.2-12.9 [facility] Comment on above: Performed By: #### 2 [id number], 2031280, 781959194, 51471679, 7402618, 71554589, 0532438, 1195691, 64653528, 75016854, 04516685, 04854552, 40062448, 01071748, 1354261, 10340558, 88402104, 91849929, 70258491, 5175433, 80429126, 38999881, 8999955 ####[facility] [address] [place] [address] eGFRon 04-23-2021 GFR/1.73 sq M.predicted among blacks MDRD (S/P/Bld) [Vol rate/Area] mL/min/{1.73_m2} Normal >=59 [facility] Comment on above: Order Comment: Order added by Discern Expert. Result Comment: eGFR is race adjusted. AA=. Performed By: #### 2 [id number], 4039465, 589366525, 18593403, 3905476, 60812057, 8583744, 6459313, 64051584, 96065157, 49155851, 82536912, 38895499, 08835049, 5969056, 56811503, 32083461, 17658944, 38685899, 3698100, 81435075, 56442408, 8037149 ####[facility] [address] [place] [address] GFR/1.73 sq M.predicted among non-blacks MDRD (S/P/Bld) [Vol rate/Area] mL/min/{1.73_m2} Normal >=59 [facility] Comment on above: Order Comment: Order added by Discern Expert. Result Comment: Dry Cell Sealer jessica kidney disease could be indicated at eGFR's of less than 60 mL/min/1.73m2. Kidney failure is indicated at less than 15 mL/min/1.73m2. Performed By: #### 2 [id number], 6732354, 362247460, 91358758, 6683613, 00235113, 5781561, 9718745, 64746343, 92621758, 71788316, 86977254, 13257271, 28146973, 2197865, 85805929, 42986814, 41762835, 22070801, 4152736, 71165407, 96196981, 3792293 ####[facility] [address] [place] [address] Vital Signs Date Time Vital Sign Value Performing Clinician Facility 07-09-2022 10:30-0500 Body height 158.75 cm Jessica Oneil Other [facility] Other 07-09-2022 10:30-0500 Body mass index (BMI) [Ratio] 28.43 kg/m2 Jessica Oneil Other [facility] Other 07-09-2022 10:30-0500 Body weight 71.67 kg Jessica Oneil Other [facility] Other 07-09-2022 10:30-0500 Diastolic blood pressure 84 mm[Hg] Jessica Oneil Other [facility] Other 07-09-2022 10:30-0500 SaO2% (BldA) [Mass fraction] 98 % Jessica Oneil Other [facility] Other 07-09-2022 10:30-0500 Systolic blood pressure 126 mm[Hg] Jessica Oneil Other [facility] Other Encounters Encounter Date Encounter Type Care Provider Facility Start: 09-08-2023 End: 09-08-2023 ambulatory SHILOH M VAISHNAVI-NOSSEK Not Available Start: 07-17-2023 End: 07-17-2023 ambulatory Jessica Oneil Other [facility] Start: 07-17-2023 Telephone encounter Jessica Oneil [facility] Start: 07-10-2023 End: 07-10-2023 ambulatory Jessica Oneil Other [facility] Other Start: 07-10-2023 Encounter for genera l adult medical examination without abnormal findings Jessica Oneil [facility] Start: 07-10-2023 Periodic preventive med est patient 40-64yrs Jessica Oneil [facility] Start: 06-26-2023 End: 06-26-2023 ambulatory BRII Argueta NIKKII Not Available Start: 06-25-2023 End: 06-25-2023 ambulatory SHILOH M VAISHNAVI-NOSSEK Not Available Start: 04-30-2023 End: 04-30-2023 ambulatory SHILOH M VAISHNAVI-NOSSEK Not Available Start: 02-25-2023 End: 02-25-2023 ambulatory Jessica Oneil Other [facility] Other Start: 02-25-2023 Telephone encounter Jessica Oneil [facility] Start: 01-24-2023 End: 01-24-2023 ambulatory Jessica Oneil Other [facility] Other Start: 01-24-2023 Telephone encounter Jessica Oneil [facility] Start: 10-14-2022 End: 10-15-2022 ambulatory Dat Jarrettjosé miguel Facility:[facility] Start: 07-12-2022 Encounter for genera l adult medical examination without abnormal findings DR JESSICA ONEIL [facility] Start: 07-11-2022 End: 07-12-[address] JESSICA ONEIL Facility:[facility] Start: 07-11-2022 End: 07-12-2022 Encounter for general adult medical examination without abnormal findings DR JESSICA ONEIL Facility:[facility] Start: 07-09-2022 End: 07-09-2022 ambulatory Jessica Oneil Other [facility] Other Start: 07-09-2022 Encounter for genera l adult medical examination without abnormal findings Jessica Oneil [facility] Start: 07-09-2022 Periodic preventive med est patient 40-64yrs Jessica Oneil [facility] Immunizations Immunization Date Immunization Notes Care Provider Cash juárez 02-14-2013 tetanus toxoid, reduced diphtheria toxoid, and acellular pertussis vaccine, adsorbed Jessica Oneil Other [facility] Other Payers Date Payer Category Payer Unknown [id number] 2022 Medicaid [id number] 2018 Unknown [id number] 1960 Unknown [id number] 2.16.84 [id number] 1960 Unknown [id number] 2.16.84 [id number] 1960 Unknown [id number] 2.16.84 [id number] 1960 Unknown [id number] 2.16.84 [id number] 1960 Unknown [id number] 2.16.84 [id number] 1960 Unknown [id number]. [id number] Social History Date Type Detail Facility Unknown if ever smoked [facility] Other Sex Assigned At Sex Assigned At Bir th [facility] Other Evaluation note 07-17-2023 Note Date & Type Note Facility 07-17-2023 Evaluation note Encounter Date Diagnosis Assessment Notes Jul, Medication monitoring encounter (ICD-10 - Z51.81) [facility] Other Evaluation note 07-10-2023 Note Date & Type Note Facility 07-10-2023 Evaluation note Encounter Date Diagnosis Assessment Notes Jun, Well adult exam (ICD-10 - Z00.00) We have discussed the necessity of following up with PCP regularly as well as specialists, as needed. Discussed F/U with dentistry and optometry at least yearly. Discussed all preventative measures/ cancer screenings as applicable to this patient. Emphasized the importance of a reduced fat, low carb diet to promote heart health and controlled blood sugars. Reviewed social history and ensured patient is safe within the home today. Pt denies any abuse of alcohol, nicotine, caffeine or recreational drugs. I have ensured patient is of stable mental and physical health today. We have discussed appropriate F/U schedule as well as blood work and vaccinations that apply. All questions answered and patient is sent home pleased, without concerns. [facility] Other Evaluation note 07-09-2022 Note Date & Type Note Facility 07-09-2022 Evaluation note Encounter Date Diagnosis Assessment Notes Jun, Wellness examination (ICD-10 - Z00.00) Discussed weight related to possibly her medications. We will check yearly wellness labs. Encouraged exercise for physical and mental health. She continues to follow with [facility] for women's health. [facility] Other Evaluation note Note Date & Type Note Facility Evaluation note No Information [facility] [employer] Other History general Narrative - Reported Note Date & Type Note Facility History general Narrative - Reported Type Medical History Bi polar/ Medical History anxiety/depression Surgical History Oopherectomy Lf. 2004 Surgical History 1985 Surgical History Vein surgery 1985 [facility] Other History general Narrative - Reported Note Date & Type Note Facility History general Narrative - Reported Type Medical History Bi polar/ Medical History anxiety/depression Medical History hyperlipidemia Medical History anxiety Medical History depression Surgical History Oopherectomy Lf. 2004 Surgical History oophorectomy Surgical History 1984 Surgical History cyst removal Surgical History Vein surgery 1985 Surgical History wisdom teeth Hospitalization History see above [facility] Other Summary Purpose Family History No Family History Records FoundNo Family History Records FoundNo Family History Records Found Advance Directives No Advanced Directives Records FoundNo Advanced Directives Records FoundNo Advanced Directives Records Found Additional Source Comments INFORMATION SOURCE (unrecogn ized section and content) DATE CREATED AUTHOR 09/10/2021 [facility] DATE CREATED AUTHOR AUTHOR'S ORGANIZ ATION [facility]/18/2022 [facility] DATE CREATED AUTHOR AUTHOR'S ORGANIZ ATION 09/09/2023 [facility] EPIC REASON FOR VISIT (unrecogniz ed section and content) [facility] FOR RECORDS PERTAINING TO PATIENTS WHO ARE OR HAVE BEEN ENROLLED IN A CHEMICAL DEPENDENCY/SUBSTANCEABUSE PROGRAM, SOME INFORMATION MAY BE OMITTED. This clinical summary was aggregated from multiple sources. Caution should be exercised in using it in the provision of clinical care. This summary normalizes information from multiple sources, and as a consequence, information in this document may materially change the coding, format and clinical context of patient data. In addition, data may be omitted in some cases. CLINICAL DECISIONS SHOULD BE BASED ON THE PRIMARY CLINICAL RECORDS. [employer] provides no warranty or guarantee of the accuracy or completeness of information in this document.
--- NOTE | 2023-10-21 13:26 | MM_ITS ---
Patient Name: EMMA ROE MR#: [id number] : 1960 Exam Date: 10/21/2023 Ordering Doctor: DR BRII LA RADIOLOGY REPORT PROCEDURE: MM TOMOSYNTHESIS SCREENING BI COMPARISON: MG MAMM SCREEN 3D ANNA MARIE CAD, 10/14/2022. MG MAMM SCREEN 3D ANNA MARIE CAD, 10/09/2021. MG MAMM SCREEN ANNA MARIE W CAD, 05/05/2020. MG MAMM ANNA MARIE SCRN W CAD DIG, 02/10/2013. INDICATIONS: Screening Calculator Name NCI Breast Cancer Risk Assessment Tool 5 Year Breast Cancer Risk 1.40% Lifetime Breast Cancer Risk 6.20% Personal Breast Cancer No Personal Ovarian Cancer No Treatments None Family Cancers Grandmother-paternal with breast cancer at age 70; Aunt-maternal with lung cancer at age 70. LOCATION: [facility] BREAST COMPOSITION: The breasts are heterogeneously dense,which may obscure small masses. FINDINGS: DIAGNOSTIC CATEGORY 1--NEGATIVE. RIGHT BREAST: No significant suspicious finding. No significant change has occurred. LEFT BREAST: No significant suspicious finding. No significant change has occurred. RECOMMENDATIONS: ROUTINE MAMMOGRAM AND CLINICAL EVALUATION IN 12 MONTHS. PLEASE NOTE: A NORMAL MAMMOGRAM DOES NOT EXCLUDE THE POSSIBILITY OF BREAST CANCER. A CLINICALLY SUSPICIOUS PALPABLE LUMP SHOULD BE BIOPSIED. Dictated by: Dat Bautista M.D. on 10/21/2023 at 16:23 Approved by: Dat Bautista M.D. on 10/21/2023 at 16:29
== END 2023-10-21 13:21 | disposition home or self-care (01) ==
LOC: MAMMO 13:20
PROVIDERS: PCP Family Medicine; Visit Provider Obstetrics & Gynecology
DX: Z12.31 Encounter for screening mammogram for malignant neoplasm of breast (principal); Z80.3 Family history of malignant neoplasm of breast; Z80.1 Family history of malignant neoplasm of trachea, bronchus and lung
CPT/HCPCS: 77063; 77067

== ENCOUNTER 2024-06-26 09:04 | Emergency (ER) | payer OTHER, SELFPAY ==
[2024-06-26 09:11] VITALS: BP 153/97; PULSE 66; TEMP 36.7; O2SAT 96; BMI 27.8
--- NOTE | 2024-06-26 09:23 | US_ITS ---
[facility] [place] [id number] Patient Name: EMMA ROE MRN: [id number] date: 1960 Sex: F Assigned Patient Location: ER Current Patient Location: ED.MAIN Accession/Order Number: [id number] Exam Date: 06/26/2024 09:30 Report Date: 06/26/2024 10:10 At the request of: VIVI RHODES Procedure: US venous doppler LE RT EXAMINATION: US venous doppler LE RT HISTORY: pain, hx DVT COMPARISON: No relevant comparison available. FINDINGS: REGION: Right lower extremity THROMBI: None. COMPRESSIBILITY: Normal compressibility. FLOW: Normal waveform and antegrade flow between 5 and 20 cm/s. OTHER: None. US/US venous doppler LE RT IMPRESSION: 1. No deep vein thrombus within the right lower extremity. Electronically authenticated by: NESHA WEISS Date: 06/26/2024 10:10
--- NOTE | 2024-06-26 09:27 | ED.EXTPRO1 ---
HPI - Extremity Problem General Chief complaint: Extremity Problem, Nontraumatic Stated complaint: LOWER EXTREMITY PAIN Time Seen by Provider: 06/26/24 09:19 Mode of arrival: walk-in History of Present Illness HPI Narrative: 64-year-old female presents to the emergency department for pain in her right leg. It is in the calf and behind her right knee. She has a history of DVT and came off of blood thinners a few years ago. She also saw a vascular surgeon who told her she needed to have a procedure but she did not have it done. No injury or chest pain or shortness of breath. It started hurting again a few days ago, perhaps a week. Related Data Home Medications ?Medication ?Instructions ?Recorded ?Confirmed aripiprazole 20 mg tablet 20 mg PO DAILY 06/26/24 06/26/24 rosuvastatin 20 mg tablet 20 mg PO DAILY 06/26/24 06/26/24 Previous Rx's ?Medication ?Instructions ?Recorded acetaminophen 300 mg-codeine 30 mg 1 tab PO Q6H PRN pain 5 days #20 06/26/24 tablet tabs Allergies Allergy/AdvReac Type Severity Reaction Status Date / Time No Known Drug Allergies Allergy Verified 06/26/24 09:10 Review of Systems ROS Narrative A ten point review of systems is negative except as noted above. PFSH PFSH Social History Little interest or pleasure in doing things: not at all Feeling down, depressed, or hopeless: not at all Exam Narrative Exam Narrative: Nurses note and vital signs reviewed and patient is not hypoxic. General: The patient appears well and in no apparent distress. Patient is resting comfortably on cart. Skin: Warm, dry, no pallor noted. There is no rash noted. Head: Normocephalic, atraumatic Eye: Normal conjunctiva, no drainage Ears, Nose, Mouth, and Throat: oral mucosa is moist. Nares patent. Cardiovascular: Regular Rate and Rhythm; numerous varicosities noted in both legs, more so on the right than the left. Respiratory: Patient is in no distress, no accessory muscle use Back: non-tender, no CVA tenderness bilaterally to percussion. GI: Soft and nontender Musculoskeletal: The patient has no evidence of calf tenderness, no pitting edema, symmetrical pulses noted bilaterally Neurological: A&O, normal speech Psychiatric: Cooperative Constitutional Vital Signs, click to edit/add: Last Vital Signs Temp 98.1 F 06/26/24 09:11 Pulse 66 06/26/24 09:11 Resp 18 06/26/24 09:11 BP 153/97 H 06/26/24 09:11 Pulse Ox 96 06/26/24 09:11 O2 Del Method Room Air 06/26/24 09:11 Course Vital Signs Vital signs: Vital Signs Temperature 98.1 F 06/26/24 09:11 Pulse Rate 66 06/26/24 09:11 Respiratory Rate 18 06/26/24 09:11 Blood Pressure 153/97 H 06/26/24 09:11 Pulse Oximetry 96 06/26/24 09:11 Oxygen Delivery Method Room Air 06/26/24 09:11 Temperature 98.1 F 06/26/24 09:11 Pulse Rate 66 06/26/24 09:11 Respiratory Rate 18 06/26/24 09:11 Blood Pressure 153/97 H 06/26/24 09:11 Pulse Oximetry 96 06/26/24 09:11 Oxygen Delivery Method Room Air 06/26/24 09:11 MDM - Extremity (Nontraumatic) MDM Narrative Medical decision making narrative: No DVT is identified. She is provided pain medication and referral to vascular surgeon. Treatment diagnosis and follow-up were discussed with the patient and her . Differential Diagnosis Differential diagnosis: Likely other (DVT, superficial thrombophlebitis, varicose veins) Discharge Plan Discharge Chief Complaint: Extremity Problem, Nontraumatic Clinical Impression: Leg pain, right, Varicose veins of both lower extremities Patient Disposition: Home, Self-Care Time of Disposition Decision: 09:57 Condition: Good Mode of Transportation: Private Vehicle Prescriptions / Home Meds: New acetaminophen-codeine 300-30 mg tablet 1 tab PO Q6H PRN (Reason: pain) 5 Days Qty: 20 0RF No Action rosuvastatin 20 mg tablet 20 mg PO DAILY aripiprazole 20 mg tablet 20 mg PO DAILY Print Language: Georgian Instructions: Leg Pain (ED) Referrals: Jessica Rollins MD [Primary Care Provider] - 1 week Teresa Champagne MD [Physician] - 1 week
[2024-06-26 10:06] VITALS: BP 136/88; PULSE 82; O2SAT 98
--- OUTSIDE RECORDS SUMMARY | 2024-06-26 10:17 | XMS_ITS | CCD ---
Author Organization [facility] Care Team Providers Care Hydroponics Grower Name Role Phone Jessica Oneil Unavailable Dat Bautista Consulting Unavailable VISCI, DR TERESA Attending Unavailable VISCI, DR TERESA Admitting Unavailable ONEIL, DR JESSICA Rosales Primary Care Unavailable VISCI, DR TERESA Consulting Unavailable ONEIL, DR JESSICA Rosales Attending Unavailable ONEIL, DR JESSICA Rosales Consulting Unavailable ONEIL, DR JESSICA Rosales Primary Care Unavailable ONEIL, DR JESSICA Rosales Admitting Unavailable DEE DEE-NOSSEK, SHILOH Chaudhary Attending Unavailab le VISCI, DANNY Argueta Attending Unavailable DEE DEE-NOSSEKSHILOH Attending Unavailab le DEE DEE-NOSSEK, SHILOH Chaudhary Attending Unavailab le VISCI, DANNY Argueta Attending Unavailable DEE DEE-NOSSEK, SHILOH Chaudhary Attending Unavailab le DEE DEE-NOSSEK, SHILOH Chaudhary Attending Unavailab Jessica Ryan MD Primary Care Provider [phone] Community, Outreach Attending Unavailable Community, Outreach Admitting Unavailable Jessica Oneil Primary Care Unavailable Allergies Allergy Classification Reported Allergen(s) Allergy Type Date of Onset Reaction(s) Facility (1 source) FLUoxetine Drug Allergy 03-07-20 14 [facility] Repository (1 source) Oxytetracycline Drug Allergy 03-07-20 14 [facility] Repository (10 sources) FLUoxetine Drug Allergy 10-15-19 23 Unknown [facility] Healthcare (4 sources) venlafaxine Drug Allergy Comment:[facility] Other (4 sources) Allergies Reconciled Propensity to adverse reactions 03-15-20 21 Unknown [facility] Other (6 sources) venlafaxine Drug Allergy 10-15-19 23 Unknown [facility] Healthcare (1 source) FLUoxetine Drug Allergy 04-12-20 24 [facility] Repository (1 source) venlafaxine Drug Allergy 04-12-20 [facility] Repository Medications Current Medications Medication Drug Class(es) Dates Sig (Normalized) Sig (Original) ALPRAZolam 0.25 mg oral tablet (11 sources) Benzodiazepine Start: 06-25-2023 take 1 tablet by mouth once daily as needed for anxiety ALPRAZolam (Xanax) 0.25 MG tablet Indications: Generalized anxiety disorder (CMS/HCC) Take 1 tablet (0.25 mg) by mouth Daily as needed for anxiety (1 tablet as needed PRN for severe anxiety) 30 tablet 06/25/2023 Active take 1 tablet by mouth every twe lve hours ARIPiprazole 20 mg oral tablet (18 sources) Atypical Antipsychotic Start: 11-17-2023 End: 02-18-2024 take 1 tablet by mouth once daily ARIPiprazole (Abilify) 20 MG tablet Indications: Mixed Bipolar Affective Disorder Take 1 tablet (20 mg) by mouth Daily 90 tablet 1 02/18/2024 Active take 1 tablet by mouth every twe nty-four hours take 1 tablet by mouth every twe nty-four hours calcium carbonate 1250 mg or al tablet (5 sources) take 1 tablet by mouth every twe lve hours take 1 tablet by mouth every twe lve hours Calcium 500 MG 1 tablet with meals Orally Twice a day Active Sekaocl-Fauvfdqpnz-Osqtgtw D (CALCIUM/D3 ADULT GUMMIES PO) (6 sources) take 1000 mg by mouth once daily Tpelylr-Iejqkzkehw-Flcrbcn D (CALCIUM/D3 ADULT GUMMIES PO) Take 1,000 mg by mouth Daily Active ciprofloxacin 3 mg/ml ophthalmic solution (4 sources) Quinolone Antimicrobial Sta rt: 3 Start: 01-24-2023 Ciprofloxacin HCl 0.3 % 1 application into the lower eyelid of affected eye Ophthalmic tid for 5 day(s) Jan, Active estradiol 0.1 mg/ml vaginal cream (6 sources) Estrogen Start: 06-26-2023 End: 06-25-2024 estradiol (Estrace) 0.1 MG/GM vaginal cream Indications: Vaginal atrophy Insert 1 g into the vagina 2 (two) times a week 42.5 g 1 06/26/2023 06/25/2024 Active fluticasone furoate 0.0275 mg/actuat metered dose nasal spray (6 sources) Corticosteroid take 2 spray(s) nasal route in the morning fluticasone (Flonase Sensimist) 27.5 MCG/SPRAY nasal spray Administer 2 sprays into each nostril in the morning. Active metroNIDAZOLE 0.01 mg/mg topical gel (6 sources) Nitroimidazole Antimicrobial Start: 07-10-2023 metroNIDAZOLE (Metrogel) 1 % gel apply topically to affected area once a day 07/10/2023 Active montelukast 10 mg oral tablet (11 sources) Leukotriene Receptor Antagonist montelukast (Singulair) 10 MG tablet Take 10 mg by mouth if needed. Active Multi Adult Gummies - (5 sources) Multi Adult Vitaly ies - as directed Orally Active Multiple Vitamins-Minerals (Multivitamin Gummies Adult) chewable tablet (6 sources) Multiple Vitamins-Minerals (Multivitamin Gummies Adult) chewable tablet as directed Orally Active rosuvastatin calcium 20 mg oral tablet (2 sources) HMG-CoA Reductase Inhibitor take 1 tablet by mouth once daily rosuvastatin (Crestor) 20 MG tablet Take 20 mg by mouth Daily Active 24 hr divalproex sodium 500 mg extended release oral tablet (13 sources) Mood Stabilizer, Anti-epileptic Agent Start: End: 024 take 1 tablet by mouth once daily divalproex (Depakote ER) 500 MG 24 hr tablet Indications: Schizoaffective disorder, bipolar type (CMS/HCC) Take 1 tablet (500 mg) by mouth Daily 90 tablet 02/18/2024 05/18/2024 Active take 1 tablet by mouth every twe nty-four hours Problems Active Problems Problem Classification Problem Date Documented Date Episodic/Chronic Anxiety disorders (10 sources) Generalized anxiety disorder; Translations: [Generalized anxiety disorder] Onset: 10-14-2022 10-14-2022 Chronic Other aftercare (1 source) Encounter for therapeutic [...] NEOPLSM TRACH BRON LNG] Onset: 10-17-2022 Episodic Schizophrenia and other psychotic disorders (10 sources) Schizoaffective disorder, bipolar type; Translations: [Schizoaffective disorder, bipolar type] Onset: 10-14-2022 10-14-2022 Chronic Spondylosis; intervertebral disc disorders; other back problems (4 sources) Backache; Translations: [Dorsalgia, unspecified] Episodic Superficial injury; contusion (2 sources) Corneal abrasion; Translations: [Corneal abrasion, right] Episodic Varicose veins of lower extremity (4 sources) Varicose veins of bilateral lower limbs; Translations: [Asymptomatic varicose veins of bilateral lower extremities] Episodic Past or Other Problems Problem Classification Problem Date Documented Da te Episodic/Chronic Other aftercare (6 sources) H/O: high risk medication; Translations: [Other senior living (current) drug therapy] Onset: 10-14-2022 10-14-2022 Episodic Other aftercare (2 sources) Taking high risk medication; Translations: [Other senior living (current) drug therapy] 02-18-2024 Episodic Results Test Name Value Interpretation Reference Range Facility [facility] mahin jordan 05-19-2024 [facility] [place] [address] Ultrasound Report Signed Patient: Emma Gonzáles MR#: [id number] : 1960 Acct:[id number] Age/Sex: 64 / F ADM Date: 05/18/24 Loc: Room: Type: DEP REF Attending Dr: Lucio Schwartz Ordering Provider: LUCIO SCHWARTZ Date of Service: 05/18/24 /[facility] carotid: [facility]CRE[facility] Screening carotid duplex examination Indication for study: [facility] PROCEDURE: Color-flow duplex scanning is used to interrogate the extracranial carotid arterial system bilaterally. The right internal carotid artery shows a highest peak systolic velocity of 76 with an end-diastolic velocity of 27 cm/s. Velocities of the right common carotid artery are normal. The peak systolic velocity ratios 1.0. Left internal carotid artery shows a highest peak systolic velocity of 97 with an end-diastolic velocity of 36 cm/s. Velocities of the left common carotid artery are normal. The peak systolic velocity ratios 1.13. /[facility] carotid IMPRESSION: No hemodynamically significant stenosis is seen in either extracranial internal carotid artery. Impression dictated by: Troy Giordano M.D.05/19/2024 3:34 PM [facility]: Belem Ruiz Transcribed By: CAROL 05/19/24 1534 Dictated By: Troy Giordano MD 05/19/24 1533 Signed By: 05/19/24 1534 Normal [facility] MG MAMM SCREEN 3D ANNA MARIE CADon 10-14-2022 MG MAMM SCREEN 3D ANNA MARIE CAD Patient: EMMA GONZÁLES Exam Date: 10/14/2022 : 1960 Gender:F Ordering : DR DANNY LA Admission #: [id number] Family : DR JESSICA ONEIL M.D. Order #: [id number] CLICK HERE TO VIEW EXAM RADIOLOGY REPORT [...] 07-11-2022 BASO # 0.0 103/ul Normal 0.0-0.[address] [facility] Comment on above: Performed By: #### C BC #### [facility] [address] [place] [address] Dr. Oskar Devine Basophils/100 WBC (Bld) 0.8 % Normal 0.2-2.[address] [facility] Comment on above: Performed By: #### C BC #### [facility] [address] [place] [address] Dr. Oskar Devine EO # 0.1 103/ul Normal 0.0-0.[address] [facility] Comment on above: Performed By: #### C BC #### [facility] [address] [place] [address] Dr. Oskar Devine Eosinophils/100 WBC (Bld) 1.8 % Normal 0.9-7.[address] [facility] Comment on above: Performed By: #### C BC #### [facility] [address] [place] [address] Dr. Oskar Devine Erythrocyte distribution width (RBC) [Ratio] 14.2 % Normal 11.0-15.[address] [facility] Comment on above: Performed By: #### C BC #### [facility] [address] [place] [address] Dr. Oskar Devine Hematocrit (Bld) [Volume fraction] 44.4 % Normal 36.0-48.[address] [facility] Comment on above: Performed By: #### C BC #### [facility] [address] [place] [address] Dr. Oskar Devine Hemoglobin (Bld) [Mass/Vol] 13.4 g/dL Normal 12.0-16.[address] [facility] Comment on above: Performed By: #### C BC #### [facility] [address] [place] [address] Dr. Oskar Devine IG # 0.01 10e3/ul Normal 0.00-0.[address] [facility] Comment on above: Performed By: #### C BC #### [facility] [address] [place] [address] Dr. Oskar Devine IG % 0.2 % Normal 0.0-0.[address] [facility] Comment on above: Performed By: #### C BC #### [facility] [address] [place] [address] Dr. Oskar Devine LYMPH # 2.5 103/ul Normal 1.2-3.[address] [facility] Comment on above: Performed By: #### C BC #### [facility] [address] [place] [address] Dr. Oskar Devine Lymphocytes/100 WBC (Bld) 49.9 % Normal 20.5-60.[address] [facility] Comment on above: Performed By: #### C BC #### [facility] [address] [place] [address] Dr. Oskar Devine MANUAL DIFF REQ NO Normal [facility] Comment on above: Performed By: #### C BC #### [facility] [address] [place] [address] Dr. Oskar Devine MCH (RBC) [Entitic mass] 29.0 pg Normal 26.7-34.[address] [facility] Comment on above: Performed By: #### C BC #### [facility] [address] [place] [address] Dr. Oskar Devine MCHC (RBC) [Mass/Vol] 30.2 g/dL Normal 29.9-35.[address] [facility] Comment on above: Performed By: #### C BC #### [facility] [address] [address] [address] Oskar Devine MCV (RBC) [Entitic vol] 96.1 fL Normal 81.0-99.[address] [facility] Comment on above: Performed By: #### C BC #### [facility] [address] [address] [address] Oskar Devine MONO # 0.4 103/ul Normal 0.3-0.[address] [facility] Comment on above: Performed By: #### C BC #### [facility] [address] [place] [address] Dr. Oskar Devine Monocytes/100 WBC (Bld) 7.3 % Normal 1.7-12.[address] [facility] Comment on above: Performed By: #### C BC #### [facility] [address] [place] [address] Dr. Oskar Devine NEUT # 2.0 103/ul Normal 1.4-6.[address] [facility] Comment on above: Performed By: #### C BC #### [facility] [address] [place] [address] Dr. Oskar Devine Neutrophils/100 WBC (Bld) 40.0 % Critically low 43.0-75.[address] [facility] Comment on above: Performed By: #### C BC #### [facility] [address] [place] [address] Dr. Oskar Devine Platelet mean volume (Bld) [Entitic vol] 11.1 fL Normal 9.5-13.[address] [facility] Comment on above: Performed By: #### C BC #### [facility] [address] [place] [address] Dr. Oskar Devine PLT 211 103/ul Normal 150-450 [facility] Comment on above: Performed By: #### C BC #### [facility] [address] [place] [address] Dr. Oskar Devine RBC 4.62 106/ul Normal 4.20-5.[address] [facility] Comment on above: Performed By: #### C BC #### [facility] [address] [address] [address] Oskar Devine WBC 5.1 103/ul Normal 4.0-11.[address] [facility] Comment on above: Performed By: #### C BC #### [facility] [address] [address] [address] Oskar Devine LIPID PROFILEon 07-11-2022 CHOL-HDL RATIO NORM SEE BELOW Normal [facility] Comment on above: Result Comment: 3.3 - 4.4 LOW RISK 4.4 - 7.1 AVERAGE RISK 7.1 - 11.0 MODERATE RISK >11.0 HIGH RISK Performed By: #### C MP, LIPID, TSH #### [facility] [address] [place] [address] Dr. Oskar Devine Cholesterol [Mass/Vol] 249 mg/dL Critically high <=[address] [facility] Comment on above: Performed By: #### C MP, LIPID, TSH #### [facility] [address] [place] [address] Dr. Oskar Devine Cholesterol in HDL [Mass/Vol] 54 mg/dL Normal 40-[address] [facility] Comment on above: Performed By: #### C MP, LIPID, TSH #### [facility] [address] [place] [address] Dr. Oskar Devine Cholesterol in LDL [Mass/Vol] 166.8 mg/dL Normal [facility] Comment on above: Performed By: #### C MP, LIPID, TSH #### [facility] [address] [place] [address] Dr. Oskar Devine Cholesterol.total/Ch olesterol in HDL [Mass ratio] 4.6 {ratio} Normal [facility] Comment on above: Performed By: #### C MP, LIPID, TSH #### [facility] [address] [place] [address] Dr. Oskar Devine HDL NORMAL > or = 60 mg/dl - LO W CARDIOVASCULAR RISK <40 mg/dl - HIGH CARDIOVASCULAR RISK Normal [facility] Comment on above: Performed By: #### C MP, LIPID, TSH #### [facility] [address] [address] [address] Oskar Devine LDL CALC NORMAL SEE BELOW Normal [facility] Comment on above: Result Comment: <100 mg/dl OPTIMAL 100 - 129 mg/dl NEAR OR ABOVE OPTIMAL 130 - 159 mg/dl BORDERLINE HIGH 160 - 189 mg/dl HIGH >190 mg/dl VERY HIGH Performed By: #### C MP, LIPID, TSH #### [facility] [address] [address] [address] Oskar Devine Triglyceride [Mass/Vol] 141 mg/dL Normal <=[address] [facility] Comment on above: Performed By: #### C MP, LIPID, TSH #### [facility] [address] [address] [address] Oskar Devine VLDL CALC 28.2 mg/dL Normal [facility] Comment on above: Performed By: #### C MP, LIPID, TSH #### [facility] [address] [address] [address] Oskar Devine PROF 14(COMP METB)on 023 Albumin [Mass/Vol] 3.7 g/dL Normal 3.4-5.0 [facility] Comment on above: Performed By: #### C MP, LIPID, TSH #### [facility] [address] [place] [address] Dr. Oskar Devine Albumin/Globulin [Mass ratio] 1.1 {ratio} Normal [facility] Comment on above: Performed By: #### C MP, LIPID, TSH #### [facility] [address] [address] [address] Oskar Devine ALP [Catalytic activity/Vol] 59 U/L Normal 46-116 [facility] Comment on above: Performed By: #### C MP, LIPID, TSH #### [facility] [address] [place] [address] Dr. Oskar Devine ALT [Catalytic activity/Vol] 23 U/L Normal 14-[address] [facility] Comment on above: Performed By: #### C MP, LIPID, TSH #### [facility] [address] [place] [address] Dr. Oskar Devine Anion gap [Moles/Vol] 10.9 mmol/L Normal [facility] Comment on above: Performed By: #### C MP, LIPID, TSH #### [facility] [address] [place] [address] Dr. Oskar Devine AST [Catalytic activity/Vol] 20 U/L Normal 15-[address] [facility] Comment on above: Performed By: #### C MP, LIPID, TSH #### [facility] [address] [place] [address] Dr. Oskar Devine Bilirubin [Mass/Vol] 0.6 mg/dL Normal 0.2-1.[address] [facility] Comment on above: Performed By: #### C MP, LIPID, TSH #### [facility] [address] [place] [address] Dr. Oskar Devine Calcium [Mass/Vol] 9.2 mg/dL Normal 8.5-10.1 [facility] Comment on above: Performed By: #### C MP, LIPID, TSH #### [facility] [address] [place] [address] Dr. Oskar Devine Chloride [Moles/Vol] 104 mmol/L Normal 98-107 [facility] Comment on above: Performed By: #### C MP, LIPID, TSH #### [facility] [address] [place] [address] Dr. Oskar Devine CO2 [Moles/Vol] 33.4 mmol/L Critically high 21.0-32.[address] [facility] Comment on above: Performed By: #### C MP, LIPID, TSH #### [facility] [address] [place] [address] Dr. Oskar Devien Creatinine [Mass/Vol] 0.75 mg/dL Normal 0.55-1.[address] [facility] Comment on above: Performed By: #### C MP, LIPID, TSH #### [facility] [address] [place] [address] Dr. Oskar Devine EGFR-AF AFGHAN >60 Normal >=60 [facility] Comment on above: Performed By: #### C MP, LIPID, TSH #### [facility] [address] [place] [address] Dr. Oskar Devine EGFR-NON AF AFGHAN >60 Normal >=[address] [facility] Comment on above: Performed By: #### C MP, LIPID, TSH #### [facility] [address] [place] [address] Dr. Oskar Devine Globulin (S) [Mass/Vol] 3.4 g/dL Normal [facility] Comment on above: Performed By: #### C MP, LIPID, TSH #### [facility] [address] [place] [address] Dr. Oskar Devine Glucose [Mass/Vol] 95 mg/dL Normal 74-[address] [facility] Comment on above: Performed By: #### C MP, LIPID, TSH #### [facility] [address] [place] [address] Dr. Oskar Devine Potassium [Moles/Vol] 4.3 mmol/L Normal 3.5-5.[address] [facility] Comment on above: Performed By: #### C MP, LIPID, TSH #### [facility] [address] [place] [address] Dr. Oskar Devine Protein [Mass/Vol] 7.1 g/dL Normal 6.4-8.[address] [facility] Comment on above: Performed By: #### C MP, LIPID, TSH #### [facility] [address] [place] [address] Dr. Oskar Devine Sodium [Moles/Vol] 144 mmol/L Normal 136-[address] [facility] Comment on above: Performed By: #### C MP, LIPID, TSH #### [facility] [address] [place] [address] Dr. Oskar Devine Urea nitrogen [Mass/Vol] 17.0 mg/dL Normal 7.0-18.0 [facility] Comment on above: Performed By: #### C MP, LIPID, TSH #### [facility] [address] [place] [address] Dr. Oskar Devine Urea nitrogen/Creatinine [Mass ratio] 22.7 mg/mg Normal [facility] Comment on above: Performed By: #### C MP, LIPID, TSH #### [facility] [address] [place], [place] [address] Dr. Oskar Devine TSHon 07-11-2022 TSH 1.679 uIU/mL Normal 0.358-3.740 [facility] Comment on above: Performed By: #### C MP, LIPID, TSH #### [facility] [address] [place], [place] [address] Dr. Oskar Devine Coding Summary.on 07-30-2021 Coding Summary. CD:[id number] Gh 0bWw+PGhlYWQ+CA5MBJAeA 91swPFgkY8XG8pWIE5FSRP ADWLWRV0GXQ3uqAY2RZmtI 2VybiAv EqetyGZpKS96UDd5EHN2gU xlNZyurP7haRXpD7q1PdMf OO60hX76VSvfRNKbLyB5Ql ZpbjsgbWFy P0yjUtUzgTZeRkf+PHRhYm xlIHdpZHRoPScxMDAlJyBz gUepXI9iBw0wLELsYJVbnW xhcHNlOiBj z8avZPAyKGpfMM1rbEnrR2 XbqNX4FOTej8u2Ds03uNK+ WBEhJBX1hYyzMOkgz364Mz Fth1dkCDL1 nSIfMRnqVYR5G89ty4Y7RQ EvXDLeEBK8mFH6xM5yrCaw txyyT2SckXLeQcN1DQG7vK DniD9unHgv xeljlW1vTto+S32CGX3KWM VPYN4LEev2B7ScFuuumVK+ FG13ZVYaUF45eMIulZNnv7 qynYd8DgDt FBNnNPI3oGtfTGqbd5ZsDD DnR36ruGSax7Q6IQXpqUdm yVYlHvHixYJ3mY8bCDfjag fzg0einoet Rtqiv7qhwj53mK91H67pXE tbFWXoICY3GAQtRGCgpVkh mo0ugG5sWq4+ZHewh1ltc7 olbLu4VpDd EOGgtgIpvZxmCDD5f6EsQa 04F3UitHftn9OeHdx4go96 mMZto8T4sWK9UEwsKYRngL 9yUPchVdW9 XNGjCiRzeN27kQYjLFxuNc 9xmSpvxLzqMD1wEETacqje IBLyaR4kNDNhuROndCacJO 4wNTBpbjtm y116RkCpLSE5KMZnvOSrZ2 LfiD5eAzHyTGPyPFLqQ2Fn dQNxFNzlX115TJimPqB5HS KxzzMdK1Bm GUOrxYosCwC8x6L4Gm0Fq5 MenoorWLP2UJxjCLYwXuF2 EeCwXrA3Z5OdZho6LOWlkY xvKW2pA1Tn ZTDggyrwuorecLQ0YCYmVI XxgQ38bUEgNBlaIr7jn7A8 k542ARXfJRWrhL22Mn1dcX ogMTBwdCBU dP5kirrzw1qxfapwDmQjKJ PtKCg2KEx3GRDbqCvkNoRt EUD5XvB6FYK6qHXylS1qgG ekbaploQ8n Oyc+G48kdP3pREF6JBT9gp acIYHhguAxBV50JA08J8Zv PjwvdGFibGU+PGRpdiBzdH fuYF6xUsQi h9ges4XmBChfO4KmHODlNY ibWue6WUBuTXW6oGJ3sE0j IWXhNHfkt3P1nDW2A3Htss Yvsx4yl3eo MUVfELqfL98rtYVjx8J2OX TtaDN5AHHbwQwdCaWxcL34 Oyc+PDIyzWezh6TmAnzjd7 pzx3hqtFw6 CuMoWTGvsqGwxXpmOUM9g0 NyIo99P78aVUrnEQJfTLRl RUIlDOLoqEynmt5ioC1xUt 8+PGNvbCB3 xMV3aS1zMOArRyD1AAybU6 48RkXofXShXmhyt0fub4ro kLl5YbAeLJEkjhGziIkhMH R6x6AyCn78 E35vKVuqMSOyGJNiRVXdPV FjrDynob2nwK9wJk4+PC9j l5ypgm35oY43sDQ+PHRkIH C0hHujBLki TABrjD5mQGkzClQ6HYYwOy OznY73lYCwBKeiFx2kqDbr pMocCX1zDDQfdijsp235Qw Ngc4laVMCv bRVaTSmmSKZ8K38fw0W8SC DgVCWbYIU0kXQ7nJ8iaEhc bjogbGVmdDsgdmVydGljYW uaWSgpL506 IHRvcDsnPlBhdGllbnQgTm JkDPt9I7TaMvg6CGNmoCbc BI1xvLCbAVqzQs2vvKeuqS haSO7aMZUb bqfii579YgKoo0dsFHTfaQ YwBHxmEVU8R83fm9M7RRXw PUPfCFG4aDS9hK1jgWtobz ogbGVmdDsg chQjuPhaTMamWPcsT326LD RvcDsnPkJpcnRoIERhdGU6 OE18YW65kCGdw3D3nOI0E5 BhZGRpbmct eyubbMU4ENEgQKUohL25Ur 1gxKowHi9nWESdOPP1ULUq mWMdC6UhkU1bFvXwMPGaNU GxJ4VikWYe XKgiD660VRazEnS0FNFcna SpG5WdLVPtrWzjCfR2f9Y1 [id number] P3uCG5T9Si SGNjdfhxbobbkVC6HFZuKW XnrN23Wt8vnOfcZw8vIUXn GID8HYSlrREtW7EnuR7pYd AjMDAwMDAw T2KnxVCkLUgsF239CYwuBc O8XBFkpaSlP9NaSJFyhOcg CkT8g4R9Ua0NLXg2FK30KT 19qFYgb7M7 zLV2F7BqOUJscinandmciH T5LNNkZSXszM84Bt7mzHti Zm9fYCLoEWX8QICzcCYiV1 HnxD3rRxGh GPRaYMPjV6ZyiGQaEZghD2 08MPwvWxW0TJEifjGnV4Eq LFCkwOovBaX0o4A1Li7ZOV MlBZ77EYX2 hVJ7NZ88FE76O2ZqSkzpoN FibGU+PHRhYmxlIHdpZHRo TIzkRTUeGzEacIgiQN8zNh 9yZGVyLWNv wBwlfNTbKdNjn4upRLWdYX icZR9zmWnoZ8AplIV2UQVz r3c2Qv41D78uC4HwxRV+PG UxwIP6eQW0 nT8sDwLdCvB2LLkiX718Bk JtaCYyUexwe5qgz8kecCu1 YlZ1EWZhpiMyvCqeINA9u9 HiGi78W03m IHdpZHRoPSIxNSUiIHZhbG nknl8llP6qUn1+PGNvbCB3 vCB9iR5kZnRoJtK7LSrdL6 49InRvcCIv Kvxzx8tej6vsrMz8XsLsRO WlkpXbqNngRHJ9s4YjJe99 K4AhtLhwf4VyIfl0tm49oL Zyh6A1sRH4 C0XkVSOzorklkCUmcGmbCH 6hEQGbfqnaECWerX3sTKVu B2h2QaTiMhB1WXdxF7Qoqm H5KDNygUZo WPosFEV3Q74gt8W0KNReYL TnRPM4aRG7yZ7mqNxrwbbw bGVmdDsgdmVydGljYWwtYW vhM825GVMl fNozSVXbrR0oGSYtpKRboO fdWT7sXSTmikcaMrQHJHAW RkVSLCBERUJPUkEgQTwvdG Q+PHRkIHN0 iBxuISkaEGSqxH8oUDGmS6 g6GcHjWfX1YWqqY1ZzNKJn bflgGt25sS7bKfJgTmK1BK roR7DsmlU3 FXDhjTZzZMnlSEB3F91hb2 A2AGIlXGKpDDX4nPM1cK2o bGlnbjogbGVmdDsgdmVydG ljYWwtYWxp U536UCUacCahYnIdIsU5Yd L0SbF7G2YgBca3UCFmhXoi TQ6uuDHhMKwwOr1ldFehqY mcLZ6aBJYq cmyjBKAgoR1iFMGqkQXwkD oiUU7uTABtvkrvk375IsUz BNA1EISnrNVfY9OgpD0vIk AjMDAwMDAw Q5YmrQPsTHxnX041GIrlWu B2SJUdqnKnN7VcDIHmtBmm BzN5k8Z1Pq62JRNBJXPjqe wvdGQ+PHRk UUZ8oMfnKPmbIIRfzQ5zOX BbZ7p7LaXbYwJ2MDmzR7Ws HHZzqwkjZp75oG7kUmMiCv A8UScnU5Kn ooV7TNBlbJRsJAozYHG1S3 2vg5X1SDAzYZOvJTD2wGI2 oF3hdXkemftjmOCohFaqjf VydGljYWwt HOtyH372XCQnjDivOjEzxU FsZTwvdGQ+AVEqGEF3yKnn MOyeJOSkzP2lXFSeI4f6Op EmByK9MDnn S2SqJQTxtstpTf51kM9zBt OtCeA0TRvzM1NshmC3WIIc dPWkOSdaUZC7T28ry3F5II MwMDAwMDA7 tYQ8mK0fbRtirerloKWtfH lcqzUurOvcUBajCOqvW319 GLNydLwpLs67dKGjwPswhn D1E2OfDrgn dHI+PQ27SNKgJZ29vQEyrA Pkb4tahSb5GcGlCKGcHDQ0 zRyyKRmti0NtIUFvC32sfF Unr3Q8SLFp eOdanVVqTiHjuWG9kB8rRJ oolnnmk1rpeyrqXgeer9lw iv79nA49C88nETumAPCcRO IzMCUiIHZh oPxlck3fjX6nAh9+PGNvbC D0xTQ7tY7sMdYwYuN0SNri K682JiKfhMRlCylgp4cxc2 jtlUx5DaVo EZZqvzErgJybEKB9i2BzEo 09T20cVPrnKFGyVEMgLQWz BMKmlOcjer3gvS4vXa4+PC 4ht0fhjd30 zO84dBB+RRMrOMZ6eBahDB asFLSipJ2zVHytIgE3QYIo GdSsuP93bHYvJImqRn3zvA vhxZkfPG0v EEUgkodjj574QmNsv4jgBH WleHLqFUwlRJL6N17um0W6 OHOgNOZuRDP4gHU0vE3vmO lnbjogbGVm dDsgdmVydGljYWwtYWxpZ2 39HAEanCjzVgVrzWJrW9hq jqHWKY7cUdheqIP+PHRkIH I2bLoyOFny QDRduG7dNAHlN3f5RpWcJv J5IDiuF2QnuyO0YAKjmMYn NQYrqZZNaZ6lgtint2dgvx ogIzAwMDAw TJm1QOu6UIBujUepTlDbJS F0MhA4THA0xUWizH4gvJps fogvyD3zNpm+RklOOjwvdG Q+PHRkIHN0 mDafRGdaXBLayP3hQYFhN3 d8YqXmNbI3HMjkB6FjpnQ0 WDXwpHVlSTZpbTYXaW9zpu mqx3kpfvag PuSbQYNaZOg1SOc4GSHedX beQxVoRZR5EpH8TCJ9mVZh eM6vaVxzoqoefO0eOzp+TV JOOjwvdGQ+ PNSjKEC2yLmgKBkdRDQlwV 2bHVXgO4u5GbSrTaB8BPiu V5WqnaX6ULWpoECgOOHcdG UTpY5uklyx i3rxfdtrXoWzJAVsSBq3RR y5EHEgfFrzMpJmAZW6FnD4 DIO9fLGokT2xdTlvslxmjC 9wOyc+UGF5 HBF0FD58BK06X9BxMmectA FibGU+PHRhYmxlIHdpZHRo EPvxSTSeIkYwiRtzOU0iQx 9yZGVyLWNv bGxh (more content not included)... Normal [facility] Consent for Treatmenton Consent for Treatment [id number]#1.0 0CD:127 Normal [facility] Office/Cl inic Noteon [...] than 100 in lifetime) Tobacco Use:., 06/04/2021 [facility] Comment on above: Result Comment: Elec tronically Signed By: Ihsan SCHUMACHER, Teresa Kitchen\.br\Date and Time Signed: 07/25/21 10:08 EST Progress Note-Nurseon 2021 Progress Note-Nurse [id number]#1. 00CD:127 [facility] Coding Summary.on 07-20-2021 Coding Summary. CD:[id number] Gh 0bWw+PGhlYWQ+KB3VFTYmP 68zmAHmiO7TB3mCNH6GMPF RQXQGXT1CKV5erCX6YXgvQ 2VybiAv VmwdmFEvJF73WJt1CSK0zG ejNIlfpW2xuQJaH3x5CqDm ZQ57mA94AYzvWKLeGpK0Rt ZpbjsgbWFy T1dsLuImeMOjPkh+PHRhYm xlIHdpZHRoPScxMDAlJyBz sNtkNT3hRf1oBDEoPFRyaT xhcHNlOiBj e3dgKEOqGAlwYO0ufGmwI9 BnnQW0YFHug3z5Py83jCO+ TFJwWWB8yOgnMLxog780Sc Bsv2chRVX9 aYClWHpnILV9P90ev4A7AA EoFOAdUPC1yYX5vD7nnZbv uzvbU6DbwSUiGyX6GIZ6lO PuyW4pcWwv xsbdoA1aBqp+C62YXC8DPH MYOR0GOnq7P2RgMhrnvXK+ SQ26VUFlZR44vLPesUIdx5 zilSd8EkFk KRLdEVR4oKboOMegy9GiYE OrG10kvVLzh0E8MKXbsVqo jNVpGfRdbIR5nQ5yXAidvu rra8dmzxbx Wnoig1viqs23dF79L36nRK ocJJDoPDP1KSYpNNAvbFxl qo8czH7hEe3+VXepi5ndm9 xbnLl4OlZe FICrhpQwtPcmKQE6s9AiMi 77E8YoqHxfz8EpIfj2xh91 xVWsv5S7nVQ1VZeiQZQxkR 4uXUneTpE7 PNLaWcAhuF74sWMeMDkvTa 1lvZfxwGpiGL2dETAwdtix NKLfjQ8oNQQoqRZykNoiML 4wNTBpbjtm e039PlAgBAS1XULqmEYiL8 XukF0aXcYwQJXcHZFeN8Uy mPJvZCscF296GAahQkV3FT TgjgQrR6Ym STJfjTxeQtM1c2F2Iw7Qm9 WwgdsiRXF1KFbsSAQrQzT3 XpQsOtI0W7StDlj8DIWapK kcKR3mU4Gm PEUvyehmqwtptIW9ELPwWQ BvdN01qBSnVMtlLa9yg7G2 g526ROPhGKAuxZ30Dw0dzU ogMTBwdCBU vU7rssdub2fammgrAzMwMY TlEIu1WGc5HSRswKcwKfKn TMX9AcZ1OBZ5kIUnuR8yjP uqmhjeqR8v Oyc+H88qrD4eECL2CTJ5ou hmNHGwgdFvQJ73SW32J2Ih PjwvdGFibGU+PGRpdiBzdH tcPC1iRhSm q4guh5OcLEndS2DeIIOiIT tqVhf0UZBxAJH7eQM1nG2v HBQuQSfzw1J2nVF6V8Hirp Imxk4aa1cz UFQzNIssB95lrFIpl2R0XV PpiBZ4ISFegJhwNaQfsL24 Oyc+WLDcjZuad3HxEvcvt3 ccb0svcQi7 TkOxHBWgxiZsoNgoFDW4b6 HoYe07S56cBAkgXQXeGTDc EESdVJIfyXzpuf1acB5hYb 8+PGNvbCB3 tBN7kA1sWUOdMuC3UOmdM7 02FfGyhQHrXdduf3kct3vb aSv1ScZeTVDshhJylKgzMP O1f9JjOm80 R59sQQhrUTOwVVAsVWIcGH WcwPwkbt2ruU9aLl7+PC9j i3wthz66lG55oSK+PHRkIH X7xKqhBBvn INEhgL0pHCqwEmC1TXLfIb SoaU71gVGwZLbcBp5lnSdn fBebQU5dPVUvgdugh613Ze Eqw2jyIXPj sEBgGVozSKE9Z66qu6N3HQ KbWVXkVVP4kOA8jC5tnIoc bjogbGVmdDsgdmVydGljYW clJOxfD322 IHRvcDsnPlBhdGllbnQgTm WiCFh6V0NlItt2VVLkaJmh WS9ivFWmTVlrEv9hnLzvjZ mxYD0bIJDp huvqy199SaWgw6gzKQIelL PeRSekPNX6X91wh3Z0CFPd YRWeDJL6ePV3uG7xdSpxhm ogbGVmdDsg ooRknSsjVSevOHnvZ891KI RvcDsnPkJpcnRoIERhdGU6 VZ78UE19dGHew6I6sKS3C5 BhZGRpbmct ygyjpXQ0DZJqLYBpoN48Ck 9zzWdpUi0oWWFpQFK7JEHs pUSdI3EmlG6nTpXhRTFbTP FhW0LohWWc KHutB267DFwaLfA4KNNrbh GjV6CwMVMwaHonBtW2n3I6 Al3EN2I4PE96AB38yDVri5 W3wSL1S9Uv HGLxjoqdpoztkPU8GXQhDP XzlP13Fe9pvIknOc3sOXLv SZR8MRVovRHtA7IbqT6gKo AjMDAwMDAw H3NphCFyGXpkW590DQioOq I0MRXjtlRtG8MwGRXptClq HlC3d4S5Ga2HPJe1CB90IM 15bEQpb8H7 tZV8W4YaAONsfzfipqijhY Y7EVSdETHmoI06Zb4jhNnf Mv2hGKReKOG1SIKbjIVyT7 DpmF2pWvOz AJQmJDAfG6BkvLHeHJhqA6 96DBqgNlL4RFMfluZjU5Vb VJGvbAifQjS6x3J0Vn9ZCU YrHZ21EKI2 dCE5AP47TR53K1KdEpreuZ FibGU+PHRhYmxlIHdpZHRo QSpnAYCdLbHkmEcfBQ2qTl 9yZGVyLWNv mVamfNAvBmXwy4trGGVeCM idTX0xqHvuQ0SvkOL1DBMs u4v0Iq24M26mL7GkfQA+PG ZwfJR0iRN8 yH0rIxLaAiS8TCsoS369Pc UmfHXaWdpeg1lor0jzpOj2 DtU1FPJabgVprKwiGFA9a8 OoAe77N58l IHdpZHRoPSIxNSUiIHZhbG zcld3xrU5tZu6+PGNvbCB3 oKB2vT8mSaTsUlU6PYobJ6 49InRvcCIv Inoty7uzu5cljAi3WzCnQV RxemVbaIztRWH1l7ByUj46 S9MqwMexe3BsQis6jz92nF Whr6G7eTX6 G2SgEWAhyugxiHNjiNoiPU 6xURVuhrqgPMThyL3hJMFj Z4q6GeQpLqW0PFcoE7Fodv B5KEVodDTx KAqpUYG3Y38cf2C3PDSaZG ZhUJH6hCL0kJ6huJxweppp bGVmdDsgdmVydGljYWwtYW cbW715EZBx qLufYGMmhO5pPCMmlMTlvJ ziWE1wBLNiyvmzHsVUENXY RkVSLCBERUJPUkEgQTwvdG Q+PHRkIHN0 cDcoOHowIONfoX2gEJIcX2 h4PoXwLiS1BMuwD9RpVDYk jzbcSy35wL3aHxHgXhX5XE fyU8BcsaX2 LKKqwFNwJVyjFBV8L05vc1 C3PYEuVJMxZCK5mLA8cU0o bGlnbjogbGVmdDsgdmVydG ljYWwtYWxp N024DLQnyWdcZyUiPtX9Gv D9MoW8T3YzDyw2TOXhdRdy IU7tmABeVCppJg5gnKwqeZ hqSD2kVZVc ioxrLWEhpQ2oRFWakQRrsS zbFW7tXIMzrdhng942ZxDx CNF6UUGceIBgD0BeyK0yQg AjMDAwMDAw N1ZgnWAqUOmiG657DAuqWe Z6OADvcnSkT2GyOWMmcHrh EpS7h6J0Tb70NEVGEVZeua wvdGQ+PHRk HLJ4lKdiLWvtBUOjeW0tLW TsW2g8EvBmYaT6GPheE3Zd PZPqxoccNd55rD4mEzSuRl H1RLhvJ3Uj qdT9ZYNywBXhFJjnBEL8Y8 8ev8C0SKKnSYZaIVT7aNV9 yQ5ocVjdjesjzYWbqDfsoi VydGljYWwt UUjwG502MEObmUsvRdTaoB FsZTwvdGQ+GILbIRN7jGse JYbqTUZvjU3lAUQrP8x7Hy EyUfW1MWrh K8FsOCEytutbKz47tW9zOv EsLrT4BUwwS2ZkifK5ZCSc mGSmEBhpQAE8J12qs6J3YK MwMDAwMDA7 wLV3yU7aoVgibmmabKIowX lrfxAvpNmcYVjaTGwhW020 MEOpzZrfKw65zPNsuAthyq V9J6DkNmag dHI+GM93NNGcFW42lAKnuG Wtw1bcqYh4JfDfLWCjENG0 pKyfCLcqa0YvGQLvP96wqG Seh9Y4VJBw dLncrXVlRyWzvMN2nF3oZO uyztiuj3zbvugsCcbbw4pn hm95nY02U94fGYfjFDWdJM IzMCUiIHZh tZctfd8khL1uJy2+PGNvbC K1mFE3bS5eGxEiNgI5EJth L213FuJbaJDqWgajf2iye8 buzZv0OwHr QDPjafFepDxvWMG4q2PoHd 23R48sLDwqVJLnFGPmETTt RZRgeVixcc8ifK7cMp8+PC 0cr8mfzq00 pG83tMO+FORbBRV2mBvcBC iyGUGviD2cIRwzXgI4SRDs IjCxrM42gWEbQHcvCo9cjC qwtYdyBW1v OPAkveojs617NkVgl5yoWM IhwWDmIRalBGX5A31qg7J0 RLDyRIHiHTY8aQM7jJ8lrG lnbjogbGVm dDsgdmVydGljYWwtYWxpZ2 21UAJwlXqzUuAjdQDyH9ik jaHCGF4tZofzkBX+PHRkIH L7iUkbLUai RCYoaX4sQEEfV9a6DmQiUp G4AOtwS2CipwG4YTMmdCKl ELJghSOYaW8bvvrbg3jfky ogIzAwMDAw ZYg9EUa9NERnuEapDzXqZR T4WiU7UGF8pPRuuN2jxAbl ifriwF2xEcv+RklOOjwvdG Q+PHRkIHN0 sGugFBwrAUEoaR9rEHOuB3 b3PdFfIsQ8XXatZ0VcbiA9 ERYnlFVtFTDgsXHGbJ6wyt mkz0fkguay PwAmTABaQWh9XQp7MNXmpF wjJtNdVYI1SvV2VZS7xEZu mN7mnLuzmnvhkU0nLpp+TV JOOjwvdGQ+ ASJxRGE3lAczQYmgYLAmrR 6hWKBgK1h1VmFdSfH8ZGrv D5DvnwQ2DPFrjHOxTISqlL RLbA2cmhoj c2vuoxluIhRqWWVlMTj7SE k7MHThuPesNcSfYJJ5OtX7 GTY1bPQkyV3yoOjhollyhO 9wOyc+UGF5 JUF5JH58UI94G8TgCqhqfE FibGU+PHRhYmxlIHdpZHRo MXziOPNuKvFzvPjlUB5iBe 9yZGVyLWNv bGxh (more content not included)... Normal [facility] Consent for Treatmenton Consent for Treatment [id number]#1.0 0CD:127 Normal [facility] RAD - MISCon 07-18-2021 RAD - MISC [id number]#1. 00CD:127 Normal [facility] RAD - Ultrasound Impressiono n 07-18-2021 RAD - Ultrasound Impression [id number]#1. 00CD:127 Normal [facility] US LE Venous Duplex Insuffic iency [...] 0.2 Depth: Intrafascial Reflux (sec): None. Normal [facility] WILLIAM ABS Ig G,M,Aon 2 WILLIAM IgG <9 Invalid Interpretation Code [facility] Comment on above: Performed By: #### 2 [id number], 3672899, 469932805, 97011030, 5406336, 71755008, 0047580, 2132319, 32455072, 10578082, 13486989, 14335498, 29962116, 52768800, 3337586, 02164216, 02764437, 58679433, 55981163, 7573420, 11563580, 13786630, 8900611 ####[facility] [address] [id number] WILLIAM IgM 11 Invalid Interpretation Code [facility] Comment on above: Performed By: #### 2 [id number], 9317433, 153715820, 24410458, 0504172, 58841328, 3266017, 0526735, 23208467, 61963034, 88350102, 79904501, 83579492, 92067001, 0851324, 83166869, 92783408, 94866587, 29570980, 9233411, 10395733, 89170053, 1339621 ####[facility] [address] [place] [address] Prescriptions/Work Noteson 0 07-04-2021 Prescriptions/Work Notes [id number]#1. 00CD:127 Normal [facility] Formson 06-28-2021 Forms [id number]#1. 00CD:127 Normal [facility] Coding Summary.on 06-06-2021 Coding Summary. CD:[id number] Gh 0bWw+PGhlYWQ+WA9TPJFgE 47plTOlrI5ES0fLFC6CMXY UPXUYRY2NNA2pfMW4EUkfW 2VybiAv AkhblIGhEM07FWc8NER9eU ynFKibtV2ziTSuO4h1XhVy KP29nN38VWlnXIFeLsV8Au ZpbjsgbWFy W7anRiMmdGGyOgc+PHRhYm xlIHdpZHRoPScxMDAlJyBz cTogLV6oZs8pJVQfWASmsH xhcHNlOiBj o6tcPATrZOqoMX7muErwC1 CsrTL7AOAvm7f2Qi78sUD+ HZWyFIB8yGnzMPhfz702Td Iyo9suVGI5 jPOoMPyjEOA4C65gl5Q3YE GvISBvYUO7zLD4tY9xsUpa jkbjT1XmtGDdKbI0AEO7kC OcfW3vcEvi unqelB2fDer+A13SXM6HGW HUCL2LNkf5G1UbNuackCZ+ XU81HJKkEG21mEJewYRag9 soxTj4TaLs WXFoVBW5rRrzGGrix4OzRS ZsE84tsYHbn1F9FXDesIbb nEMqLrFgxUX9lH0vINlzmt ynj6hsnnyj Qrmww8weaa05nI64I45zFG mhYMSdUNC0HEQnHJTucBxu fy9qaM6zWu6+YCelq7myy4 dpuHc1QiJr RIYiquEcbTplNDR3t8WrDf 88F5GetCjpc7CbKgx6kq69 mTAtx3P0lES8MIxoDPSqmY 3nLGsgPkF2 FEFmOhDrzE69hDOoVBeeEq 8qaRjalNqpOK2jBWNghjgd KDKbrY0mIFDvkXWsnNwaJY 4wNTBpbjtm t453KiAsPOO6KOTrqNZvV0 NweO0kYyLzBMJlIXHqZ7Fp lNTeBVquG719JTkhKpU0YV SajdDaE3Hl ADWzbEzpXoM2h2C0Kx7Du3 UhjtfcABF7GJweQEUdTlXe SrOeXaR4I0AyTef0TNGjbC flEP5aW8Uv PZXvtoomyrpanUM5TYXjRS VcjK73gNSfZOhaLf1iy3K2 e495DXYdHUUptL39Zc6bpJ ogMTBwdCBU qT0yhfnxg4wfukmnZpDqTV DjPVa8AYf3KKDguWmyDcZt PZZ6EuU8ECF3qFJyyI2hdM osognqjK3l Oyc+X66dsH1mBSW3IMK6ds hvIJDvioHzAG14NX19A9Qa PjwvdGFibGU+PGRpdiBzdH obCP7eAiKw m2dur1OxGUefX5KuYWPdUW goPuf4FHKtZRS3jAX8zR4n BETxXWtqw5S1gRL8R9Wbjt Itmm4yf7lu ILYcNAptE96lvJMmi4D7FH RnkTH7SHXszYotAaCzkL48 Oyc+LJYduPupj7UvUvyxo8 jao3fyvCn3 FxBjDOCkyeGagXpiWPJ7d4 ZoCt25I20pMNvgNDPkOWPi LMXfCZKjjAjvcd3kfG8yXz 8+PGNvbCB3 kUR6yH0lIMXaIaM0UAfpQ9 98AbRbhURoUijxy3zds9zy wIa2AoPeNPIowoXlmPzjHE G2a3RpUz94 R21wIHrcXYSwILWaUJYpVQ LbaGtsok9hbY2fBz1+PC9j a5ssfp13tT31iOA+PHRkIH B4rStqREmk UBRsoH3uCQbqCrX9OQVnQv DpmI34bOYfCAsnOx8ftLem aDjsCL4jINGgvjkyo896Kk Izj6srECKw sNPxNVyfNHF0A40ls1M7EN InCRFpNXD9pIJ1tP5mrQbw bjogbGVmdDsgdmVydGljYW unWEykZ784 IHRvcDsnPlBhdGllbnQgTm LgGAk1C6WbEus2VAXsmKmr FL0ugQHnFJbcDz2vuTsxbF sjWB5wXGJg qetma758ExQaf1muPLZbqO LwCNjoLWL3U24yb0G4EHFq ZSXiVPP8bFT9mI0fpHhdex ogbGVmdDsg ppLusVvtLRvkAUigH659AJ RvcDsnPkJpcnRoIERhdGU6 CI86NX23lNAij8K7sCM0E9 BhZGRpbmct tnktgHV1TXFjUETwmE98Oq 5siFehVx2aQMStAZI4NVCw mRAwM7MfoE7oOfYhALRpZE XlE1WbcZAr BGkiA529LIivKhR7TLUsuz MpU5SqEWCbgEocWjO4d4U9 Aa5ZP9L2VS63YO43wPZgz1 U6kKN0D7Ax KWXpnqgjbwjvfQY8QQZlHG UdsA24Ps8rjJgiZm7vNIAz COQ7CEZxcCPhC5UsdS7yTc AjMDAwMDAw Q0IltJGqPCawE064EIxsMm N8TSKqgoMgZ4OaHBSkaLsh UzZ6a5M5Fg8VKOy9VV30TR 36tZIgx2V9 qWK4K6MhZAZwxfzhqofgqQ B8KLWsRWQcoM51Ss2pyVap Hc3hNLOyOTL3ESYftZZbA6 RmfN2nVfAu YVSlPCHyB9MurSBhBZbkE0 53TDuvOiD2NFYggkBsK3St KZNmhUgzJiR2l1R9Hr7KKL VdSE32NMG3 xTB8UW83JX04U4AhTpoobR FibGU+PHRhYmxlIHdpZHRo ZXdqBHBwMqNvwIusVV0xQr 9yZGVyLWNv vJmyiDVaSqEul4woPSGhDR avNX4qyRzkH9ZlqWM5QTQc d3x7Ab27G06uK9DzfWY+PG NznWO4iOB8 jV5jJhRdGkN7TKbjD366Hz FgvKQpOvtul3fba6fgcSb6 ZfR1XMBhddVlxYnvNHT2n5 OfCx70W73o IHdpZHRoPSIxNSUiIHZhbG qhoa3auF5hFp1+PGNvbCB3 kPM5uH9wXyPdAmK7UKfyK6 49InRvcCIv Hetsx1cjp0ecfLx8EiKcHD YpeiAktEosOAX3n9MaXs38 D8JdmHmjs3ReXfj5ox56mG Mxe8Z9rQW4 O2DxQNQyyautcKRehSxhIN 3bHOQmotytYTBjsZ1lRUSf R9w0WrXmFaF3ZYwxX6Ldpf T5MTQkcRYw QEzmYGX7Z31qi4A2YAGzQQ NoCBJ2oGL0gD6rsLuvlyza bGVmdDsgdmVydGljYWwtYW cmT009RNYx qTbpTPEelI1jIKQekEMsgY pwIF9oQHUjosuzAaHNGDAV RkVSLCBERUJPUkEgQTwvdG Q+PHRkIHN0 wYzrWClhSYGrtF3zSZKrD5 k2CqKnIoL2ZPgwE4JxJTCm lmnpHu20xS7cOnUeUgS1IA hrT4XeufA3 MUDefSSoGFbkNLV8Q02yq9 P1VSNxSHQqIIX3bHR0iW3z bGlnbjogbGVmdDsgdmVydG ljYWwtYWxp T680TURqvBevMiUzJlQ3Vq A7CoM1P7JjGxy7IRAgcZnb TR9gkULbTGzmXw7bqGmngL ueAP1xQKGq mtjgDYCmvV1qNRMqxVQuoV pqKQ7qFXBrdugne561ReDg ZND1CBDfyKPoS5KtbP9xCh AjMDAwMDAw Z8XdvSObXQtlW567VAraUb U9KQRwktAcF3KdDCTigAwq KzC5z1F0Nj77UGOKQFWhxr wvdGQ+PHRk ZJO5iSnlJFweCWEokV4lJT FuG7f9DuWsPqX7HTzaB7Ey NNMcfflpLi94qS1lBjIaVk N2QQvsG0Gb sgF8TWVqvYTlZTtkRRK7C4 6kx5T2RPXgENRuDZZ2mFL1 sB4agNyrxhkyxNRbuOvukr VydGljYWwt FIxgF500EULlvQtrFaBnrH FsZTwvdGQ+UAEkKTK5cRwl DHnpYIZgmW9eNVTvP8r2Gd HqOhF5GXkf Z7QdWHRflweqWm94iB5wYz OrDcZ0VLwtH6NmrmB5KISb kGMaETmhWGP8W93rc7I0TY MwMDAwMDA7 qYT3dX5pbNcdkrkbyDRboZ movoYnnDrhTAtxUZwgB605 AIYvmQomEs25xAOkwEfvwq Q9Q5FkEuho dHI+SW12BQFpHJ49xNOdnI Zzi0lmnTk9ZkEwJWJyVFU3 kKdjYAgab1HnTVZkL78adT Lvl1O5KZSa iDfzhKBrKdQfoGX6hT8gTZ myzfljj9eykmriQgiyn8pw xg31hG13S46rJMavGAFtBN IzMCUiIHZh jXfzmq9fuO5fZm3+PGNvbC U5aQQ3wP2nUhWeCuL9FQqe D544AiXciTVsXmjyu1qxq3 neiUs5UlRq PIHronWasEgdWIO0z7GcPa 34C16bTTucGNBxDUPvFUFn DRQyfKkscv7xbM3vOw3+PC 7gb0yqhr14 wL72pXE+LGCySCA9qRpsWH hqXPAkpZ1pNAjkDrD8TEHx DwOeiM42pJJnQQzgBv9pzQ scyBwqEM8f COQxsrpjp669GzGrn8xyHG QtkHDjXZuqLMX8Q28qj5W0 RHXvVGTfWZA8mUS1fH4ogD lnbjogbGVm dDsgdmVydGljYWwtYWxpZ2 36XWBbiKadAyDrpSNdC2uw kpOTHE9rAfzwaGY+PHRkIH T0gDibZNto YHBpwM5hWTGbB5n8XiAiGx S1NWbrD7LdjwX2AJYqqODp ICLtwJAGxA3jedqsp3hvay ogIzAwMDAw ECk3PUa6ZLQysCqsDlQsTV E7SlR9GIL7lVRdkB0vwTvk nttmfZ4xKue+RklOOjwvdG Q+PHRkIHN0 xPmiXKuhKGChbA3eSAIcE2 w2CvXwNiR1UPtzG2VrmlY5 GXWyhKYjLOBnjZQIoZ5gza mcy8rpvnkq GfEsCZFzVEu6UBg7ZOOqxN mhQwNhNNU9GwW2STE6jBCd vB6ypZidparqpE2wQwq+TV JOOjwvdGQ+ YGYkQBH8hSwiWWtpCZCtvP 6kVUEyY5a2AnLgTyD6YBfg Y2MfueX3GCBknLXaEUWghW CNhV4ntant c7hnsrrrFvGbDTWuBGf6VL z0SGXkhGryXoMhUSR6PaR0 FVV9fIHdwH4zxWjdbkdwuL 9wOyc+UGF5 BNF1KB84CZ76J3SqMveybH FibGU+PHRhYmxlIHdpZHRo DJglNGKyMwJyhXjjAH9iHt 9yZGVyLWNv bGxh (more content not included)... Normal [facility] Progress Note-Nurseon 2020 Progress Note-Nurse [id number]#1. 00CD:127 Normal [facility] Consent for Treatmenton 05-17 Consent for Treatment [id number]#1.0 0CD:127 Normal [facility] Office/Cl inic Noteon [...] than 100 in lifetime) Tobacco Use:., 06/04/2021 [facility] Comment on above: Result Comment: Elec tronically Signed By: Stephani SCHUMACHER, Annemarie Webb\.br\Date and Time Signed: 06/04/21 09:48 EST [facility] 05-03-2021 [facility] [id number]#1. 00CD:127 [facility] Coding Summary.on 04-30-2021 Coding Summary. CD:[id number] Gh 0bWw+PGhlYWQ+IA6ADKOdJ 41guDTohY9LN3sYBI6GMQK EKSGFCI4YWU7bbOQ0DKlpU 2VybiAv GdncwHLyEH34UNm2IDB6qE clCOztoR9ldILaC1w6ByJe RE03vC87XYgpSOIiMaK9Fs ZpbjsgbWFy J3vvZjMffMYcKvp+PHRhYm xlIHdpZHRoPScxMDAlJyBz kIrpAV4qDc0dBKSaXRXxaD xhcHNlOiBj m0cnQPDrBEoqRJ7luVsiP4 DcjWK2VCDwa4t0Qn63iAZ+ GOAlMKT2qPllYAfmp770Hf Rvf1ojLUJ2 yWFlLSrqMUI0T70wg9Q2WE WmWBXkPKP4gGO3fN7ztMav ccnfC5IwnADsXyR8YER2bQ WtlE4alWlp mqvnrJ1wNun+Q67OED6TPG ABNY9XBok6E9IoJzcpvXR+ HQ88PJIdMJ15zNHiqYDma7 xqqGp0YgRk GQVkGSV1aDfdIQlpi4HmQC AdV89nbIYiq5I0VVLwiXpw fMHoTxCbdLD9qO5aNThuhq fgx5wfyplb Ciprv8cxry98nY89D39lUZ cqJAHpQYG7CJRwTCPknOlb cx7boK2mCw2+IVoth5tyh4 linZf9IoYa LNPwemSyjEblDWZ7m7BoPs 31Q0WdxPfao5ZzVrx6lz41 kBUje8A4gGE5JXbvHQOyeF 6sBRlzCmA6 JCZxCfVzdS26pSTtINqhKe 1epVuawZaaRX7pDNAjiewf GWNiwI6lGLAbhFEzoNirAC 4wNTBpbjtm p838PwBaVJR2SHHvbCPfF4 GksA0uPzHyVSIrGPFdY4Ej fDIwXCxyV627AYyhFcO9TX RhuhDnS2To ELRxwTvdArE7g5V0Ai1Ft6 FrhtqbENW6LXifUURkEuU3 SjQuQvR5I3JaJgo5PJZmpF pyTM5fZ6Gl IFEdgutndgqqoQL4GHMsUF IvuS87qDWqPYulBz0xu1D2 b827ANKhPDXtsU45To7uwN ogMTBwdCBU jW5erijqc0kkvjqjTyTbKV IpOLh8LNz2UUSxcJqzTfFi BOX8NmA2RVN0kYXxdI3eeL peoyvrnS5j Oyc+L50ijU8tTWO0VRN0yj rhSHNdbbJzLH12WE34O4Qc PjwvdGFibGU+PGRpdiBzdH nzXW5uZcTg l2egr4IzQRxfS6MtYUFdEY tdNoo3GXQdXTD0gDW9vB9v BBHnQWhch8K6zGO5Z1Wwgk Esgl2gp6xx SJVuJWnxE00fgPYfk7G8IR QemHO5AUBtjHclLjIwbA74 Oyc+BUXxiRgyp0PeVawep5 jbl7jbkTn8 FjKxIIDkfvNagLvgQZG9n4 AqZy69R66aRRhuYJRcLGOy JCErZCLxlTztcp9miC1eLc 8+PGNvbCB3 gRT1aU8qATJzNsS5MPlrW0 83OqGibBMjAzmnm5byc5dx jOz4UmJrHXEilzTjrHueGV S6j6XiEj19 P79mXQqlRIAeEPBvQZMwRN DkgPxhck8dmS3gXa2+PC9j i4ifbv72pR53gDW+PHRkIH A5xDamLFdb EGCuqG4tAVqxHmH3RDQwVo SjoG28aKPkHTpcIx5jqLly cDjbRA5mUAUyunmya314Tf Wiq4fzNEMu vEAcORheUMC6G68aa8U6LX LrZNHdWNS4bTL7hZ0gjQoj bjogbGVmdDsgdmVydGljYW vbXDyuO145 IHRvcDsnPlBhdGllbnQgTm UoIPa2S1YwUfd7ZVDkdJgp KY4zdNCrXPjjHn8vtRswpJ voQV1yHFUu yprim294PuUvh0rgZKXwdU WxWPivCVU5R56yy5S4YIMa XYOmWLJ3qTT2eQ2ltHvahx ogbGVmdDsg mdOcbNhwQPzgNMpgU230UE RvcDsnPkJpcnRoIERhdGU6 OL74MW57hXAom3B0nHX1O2 BhZGRpbmct mweciKI5WLAhVPOeoC09Ph 3tpXqlIt4yQREnBEQ2GDNn iGVuK8JxcZ7fSqNaYIKqJG VeI9GvwKSh HNpkC594NSywCpT7RBQckj GiI9PgOIBhoHoeFeS9s6B2 Uj7OT5P2YO46LR33rUZaf2 F6mIT9Z8Le RZIgbcgcabuzaDR3XGTaXY HkbK63Bc8aqXwvPs4kAAPf TFD0QIKhuRLzV9BksV8sDw AjMDAwMDAw C8UaiEWuTFwwT756PWsyLb N2PLLueoZnA9GyKKRndWri DkN1g6K8Px8TPEt7BB19XM 76oZDnp5S8 cKD5L8VuPINyyzujgzaqjC Q7URYlLEQhcD66Hy9glLfc Ez2rWDRzMQE6QALygXStD1 CnwN3uTsIu XNKsKOClR8GiqZGcQWrhA9 07SHvhQfQ9IKNpocOrI6Fv AGSbaWakVkA9s3T1Xj7MNU XyKO81KWQ2 tNP3OI71OT47A1SiPbbynU FibGU+PHRhYmxlIHdpZHRo VFhhGNFyRjZmdTegFT0lHp 9yZGVyLWNv mFdegVOwZaEuf3cbXZTlBI zxFE0ppLuqK9CpbGL4XJRz j6b0Us82Y31dD4VmcSX+PG FezCH0uMU4 hV3cGnRrUlD1WYzqI610Jq VtbORcXupjb5taw0ulsGi3 BwX5DFOsqsIacOegMOO7c1 XgSq77D51o IHdpZHRoPSIxNSUiIHZhbG viwq0toA2wLe9+PGNvbCB3 fGZ2sD1gHsIjOqX5GOefU3 49InRvcCIv Vqhtj4uai6mbnFi2GeOkKX ZkzaUnaFbfNZK9f6XaYm36 I1BroJzgv6MnMho2hn55zV Pug9Q9uSK9 W0LoPVWdsnfrfWRuhYesMW 5dQIUkhaegQSPtxH6yXGZi L8u9ZoJmEaO9BWcwO6Nduy T0IJUiaKHp YYkdAPC4I19vk6U5IXCsIN FzDSY8zJU7yF3yfEqgrmtm bGVmdDsgdmVydGljYWwtYW frO365ZRRi wDicRMMmpQ5tROBxbNHefC eaGK2yFBJttcrjPyTYNDJU RkVSLCBERUJPUkEgQTwvdG Q+PHRkIHN0 hIaiXNnnUXQdpW0tFHXrW5 n2LwPoSzN0TTocO0DaXKNn onlnSt34aZ9gUiLrTcV5HG djO3CbwnC3 MQPfqAAcHQkrTKH9R49jt9 S8XCEhOOScUSI5jMZ7dL2h bGlnbjogbGVmdDsgdmVydG ljYWwtYWxp S110LWBccMctGnDgMrQ8Fj T2LkZ4Q5ZrTmj8OATncPiw HX0ktJEuROobYx1bgLudkB beIY2iVVHh hypgLMKoaR5qHKKtaUJnoE ryJO0pHOVlesirn627AaYi QGY1OVDmpXCxY0SepP5bOj AjMDAwMDAw S7SyuDGgFGnfW980MAdnRs U2IDJbwhQhJ2CoXNKifNck NcD8k4H7Oq26PUUYWGUcfc wvdGQ+PHRk XEG8rSfyOEcyZNDthT7iQE BlO2o5GtFeRsR6XNriR5Fe CXYmnvhjZy21oA9iWmXnKc M7XNtaJ3Ox xpY7TMQqfTYqENhkKDK9C8 4wq1S5NLOcPECkTFE3dDM5 xS2jaWvubnpyyOVmiRyuok VydGljYWwt BAjhF473NNSzrFyyQcEdzV FsZTwvdGQ+GNPvRNS2sFpk XJezZCLwcJ2xJBIjI1l2Su OnFnM8ZBbx I5SnKJUntpqmDk56fZ2hYb MlKpX3PGugT5VsybB8YBGz sZMgZIssUVV5I08qe4Z4YM MwMDAwMDA7 yAY5eM6nuGnkmtqhiCPiaN ppcxUghKhhSOavAAotD097 UGAtdQeuOx63dWYyyRqert D0H7QeGvkg dHI+FB41FQIwXJ46xXUnpQ Bzr8xwjNb9SuYtGCRdXGV5 hBfsKYqbq8QvCNNlF06pkO Sgs1Q4SNNz zUgpcSHpGsMdwJT5rV7vHG kmaogta6oqxbrwAtwwr5kb as48wP42M29sIOjeTSGyMK IzMCUiIHZh jKwsav9puL9iZs1+PGNvbC G0ePV6wW0iQaOiIlC1DYwe K174GhNbhLWvNyqtc4xud8 wtuDv1LpKh DTUtzxOmzZxkTOL3i4GhQk 50T47gFDzeUJKpSAVqMXNr LFRsmVjgzx4icQ1vWw5+PC 9ig0mhsg37 vS19gPA+JDLlBEN9tDpoAL cyULAyzX9fMLyxNxJ2LKYm PgUvdQ09uPAsFXqgAx7tjT ldwCkqLJ2x OJIlnkzjh346FrVpm9wpNG TwbQXlQZwiFBR6A11kq7N7 IWShVQFbZEH0wZO3rK0xwQ lnbjogbGVm dDsgdmVydGljYWwtYWxpZ2 98VABhvFrmXoWmhXOwV3ws ziWXJF6dNpdqkEL+PHRkIH J7uDwgLBpi KLYgwF5tWMDcV2f2OqUkSb L1VXnzG6TuonJ5UXBtbBHm VKFbqQHCaR9ghiudr6rujq ogIzAwMDAw GYt1LTp1COLylYbjPdAyZU P3BaO4PME4qHIfqO0rwJtb jwjwoX5vZnk+RklOOjwvdG Q+PHRkIHN0 fGymWRpeQTUikH0mKBFlK6 l6MnBxBzO2SAguA7JpzkU1 SZVjlHMpVIDncWCJgC2mtj nnr5yxcikg LsFxLVQlUTs2EMl4JWRtyJ lmHuTrBZK1WuL7UCA6oDGl sQ2whNwhxhlxdH6hPjd+TV JOOjwvdGQ+ SGPmFTO5wHryBAosKIAvpP 8mKFXcV1p7RpJyQeW8VBho Z9XbdpQ4BWEdeHDuVAXqyJ KSxM8cnpdm i0yvkvxoTbTbXQFoAQp3DA a2OVXhwIftBhBvHRH0EpJ7 CBG2nUUtyV8ubEkvaxpprD 9wOyc+UGF5 EJC6IE08UH71X9EzEbokwR FibGU+PHRhYmxlIHdpZHRo MQbzWPZeYmGvfWguWN8zGd 9yZGVyLWNv bGxh (more content not included)... [facility] .VIPER VENOM MIXING STUDYon 04-28-2021 dRVVT w 1:1 PNP Coag (PPP) [Time] 41.5 second(s) High 0.0-40.4 [facility] Comment on above: Result Comment: Perf ormed at: [facility] [id number] MD Manpreet Hidalgo Performed By: #### 2 [id number], 5878942, [id number], 65784234, 6415951, 29712979, 6429044, 6297405, 87485756, 48326233, 20519542, 08919017, 18678494, 18440815, 9684781, 28738547, 92097866, 48250635, 57775740, 5470954, 02188345, 77661818, 1197290 ####[facility] [address] [place] [address] WILLIAM ABS Ig G,M,Aon 1 Cardiolipin IgA IA Qn (S) <9 Invalid Interpretation Code 0-11 [facility] Comment on above: Result Comment: Nega tive: <12 Indeterminate: 12 - 20 Low-Med Positive: >20 - 80 High Positive: >80 Performed at: [facility] [id number] PhD Yelitza Fink Performed By: #### 2 [id number], 2727567, 245322005, 16659612, 4514084, 67288038, 8044322, 2577490, 37321840, 13044573, 53486976, 54918759, 16241560, 85477638, 5584942, 60763102, 73442019, 40580596, 63434661, 8089360, 71780517, 28806815, 5850524 ####[facility] [address] [place] [address] AT IIIon 04-28-2021 Antithrombin actual/normal Chromogenic method (PPP) [Rel catalytic activity/Vol] 126 % Invalid Interpretation Code 75-135 [facility] Comment on above: Result Comment: Dire ct Xa inhibitor anticoagulants such as rivaroxaban, apixaban and edoxaban will lead to spuriously elevated antithrombin activity levels possibly masking a deficiency. Performed By: #### 2 [id number], 2023167, 210096482, 19964257, 5986759, 89053503, 0610794, 5305396, 20885700, 51393959, 85160690, 64645332, 74812284, 29306786, 2723696, 22631158, 33914946, 03831099, 65567611, 8749481, 95221795, 62895971, 4689039 ####[facility] [address] [place] [address] Antithrombin Ag actual/normal IA (PPP) [Relative mass conc] 110 % Invalid Interpretation Code 72-124 [facility] Comment on above: Result Comment: This test was developed and its performance characteristics determined by [employer]. It has not been cleared or approved by the Food and Drug Administration. Performed at: [address] [id number] MD Manpreet Hidalgo Performed By: #### 2 [id number], 6214958, 789663151, 32333099, 8019846, 10259161, 9129070, 1694756, 74356172, 43179922, 23683925, 09385624, 68726653, 17575408, 1133643, 58563785, 70421950, 59245674, 35069884, 4454238, 81489523, 15099312, 1681039 ####[facility] [address] [place] [address] Antiphospholipid Syndromeon 04-28-2021 aPTT Coag (PPP) [Time] 24.9 second(s) Invalid Interpretation Code 22.9-30.2 [facility] Comment on above: Performed By: #### 2 [id number], 4172746, 612049136, 43403744, 4674354, 02494742, 9799291, 1979477, 42966651, 75292991, 13616776, 05067904, 48568239, 22744145, 6000456, 99127142, 92521155, 31697463, 55116453, 5830056, 25227550, 70667642, 9778438 ####[facility] [address] [place] [address] aPTT W excess hexagonal phase phospholipid Coag (PPP) [Time] 0 second(s) Invalid Interpretation Code 0-11 [facility] Comment on above: Performed By: #### 2 [id number], 1321925, 546977090, 19508671, 8016536, 13957270, 0501137, 7425996, 11271054, 02523020, 76283174, 76974474, 86912672, 37922821, 6407183, 53539997, 06083158, 26158356, 71091531, 8417667, 47803043, 38662701, 3349760 ####[facility] [address] [place] [address] Beta 2 glycoprotein 1 IgG Qn (S) <9 Invalid Interpretation Code 0-20 [facility] Comment on above: Result Comment: The reference interval reflects a 3SD or 99th percentile interval, which is thought to represent a potentially clinically significant result in accordance with the International Consensus Statement on the classification criteria for definitive antiphospholipid syndrome (APS). J Thromb Haem 2006;4:295-306. Performed By: #### 2 226551938, 6343636, 757176642, 61256578, 0956642, 27615437, 6992893, 9273219, 40181276, 79600598, 63239995, 73841121, 52073512, 85039896, 2022365, 90856263, 10898946, 80435654, 92419460, 0636394, 49937656, 61258820, 2313010 ####[facility] [address] [place] [address] Beta 2 glycoprotein 1 IgM Qn (S) <9 Invalid Interpretation Code 0-32 [facility] Comment on above: Result Comment: The reference interval reflects a 3SD or 99th percentile interval, which is thought to represent a potentially clinically significant result in accordance with the International Consensus Statement on the classification criteria for definitive antiphospholipid syndrome (APS). J Thromb Haem 2006;4:295-306. Performed By: #### 2 676408024, 2867723, 076053504, 84736110, 8304140, 87957274, 8334427, 5377206, 87665786, 17817778, 93307759, 20676368, 84293948, 75212756, 1735904, 43486811, 26796949, 53281213, 85594838, 0945250, 09582712, 28466065, 9473023 ####[facility] [address] [place] [address] Cardiolipin IgG IA Qn (S) <9 Invalid Interpretation Code 0-14 [facility] Comment on above: Result Comment: Nega tive: <15 Indeterminate: 15 - 20 Low-Med Positive: >20 - 80 High Positive: >80 Performed By: #### 2 580677328, 6505148, 689665413, 98110311, 8982602, 82154318, 4747182, 5106688, 45995095, 36420993, 88642378, 90569295, 87364014, 78237246, 2066672, 80728548, 23031238, 63086815, 95348260, 2446959, 73921453, 82153230, 3516332 ####[facility] [address] [place] [address] Cardiolipin IgM IA Qn (S) 11 MPL unit/mL Invalid Interpretation Code 0-12 [facility] Comment on above: Result Comment: Nega tive: <13 Indeterminate: 13 - 20 Low-Med Positive: >20 - 80 High Positive: >80 Performed By: #### 2 390315000, 4080488, 556450298, 47006906, 3635332, 02272104, 5519228, 7219294, 44280547, 45370874, 40176671, 34723601, 07326994, 18091168, 6155361, 04576822, 16386977, 96306051, 38121613, 3598053, 06459857, 08125281, 2619438 ####[facility] [address] [place] [address] INR Coag (PPP) [Relative time] 1.0 {INR} Invalid Interpretation Code 0.9-1.2 [facility] Comment on above: Result Comment: Refe rence interval is for non-anticoagulated patients. Suggested INR therapeutic range for Vitamin K antagonist therapy: Standard Dose (moderate intensity therapeutic range): 2.0 - 3.0 Higher intensity therapeutic range 2.5 - 3.5 Performed By: #### 2 355503963, 1279387, 050067768, 70885233, 0342747, 06613858, 2925584, 7397557, 10939317, 73525095, 73365778, 68570927, 95879283, 82349408, 3518488, 60526250, 93286114, 89753606, 96121237, 4242363, 64919889, 77998927, 9896721 ####[facility] [address] [place] [address] Pathologist interpretation (Unsp spec) [Interp] Comment Invalid Interpretation Code [facility] Comment on above: Result Comment: Plea se refer to the Coag Studies Interp Report. Performed at: [facility] [address] [place], [place] [id number] [phone] MD Manpreet Hidalgo Performed at: [facility] [place] [address] [place], [place] [id number] PhD Yelitza Fink Performed By: #### 2 979512563, 2974450, 603053829, 82691444, 6074103, 54640169, 7714729, 7559305, 07210805, 65804354, 53648748, 26134463, 26744475, 88144988, 5066853, 67827743, 24835242, 12014935, 01203216, 4093674, 10822698, 77312573, 7443691 ####[facility] [address] [place] [address] PT Coag (PPP) [Time] 10.7 second(s) Invalid Interpretation Code 9.1-12.0 [facility] Comment on above: Performed By: #### 2 551744585, 2881546, 257223862, 32447421, 4006730, 40571516, 6891541, 5376294, 50744464, 57781668, 72137619, 09802489, 99601434, 01829872, 8913977, 53078912, 34884745, 45407186, 71769065, 2416952, 08234249, 80503705, 2786495 ####[address] [place] [address] Thrombin time Coag (PPP) [Time] 18.8 second(s) Invalid Interpretation Code 0.0-23.0 [facility] Comment on above: Performed By: #### 2 214182581, 3877634, 510758110, 73076187, 4601186, 30506239, 8912020, 5471537, 23146588, 58412220, 00825531, 03735440, 61171986, 93968551, 6805755, 53404034, 39356144, 68562351, 48859585, 7942684, 17780911, 82025535, 6470956 ####[address] [place] [address] Factor II Activityon 021 Prothrombin activity actual/normal Coag (PPP) [Relative time] 118 % Invalid Interpretation Code 50-154 [facility] Comment on above: Result Comment: Perf ormed at: [facility] [address] [id number] [phone] MD Manpreet Hidalgo Performed By: #### 2 783636505, 8105736, 796274444, 69737818, 0620525, 96736416, 0388059, 5805703, 78991496, 73003595, 00915394, 97311491, 49667204, 15514087, 7940991, 04856197, 27816155, 20415871, 37779648, 2196315, 63933366, 46123554, 8111594 ####[facility] [address] [place] [address] Factor II, DNA Analysison F2 gene targeted mutation analysis [facility] (Bld/Tiss) Comment Invalid Interpretation Code [facility] Comment on above: Result Comment: NEGA TIVE No mutation identified. Comment: A point mutation (Q76189H) in the factor II (prothrombin) gene is [...] mutations. This assay detects only the prothrombin B95263S mutation and does not measure genetic abnormalities [...] health care providers to discuss results at [phone] Methodology: DNA analysis of the Factor II gene was performed by PCR amplification followed by restriction analysis. The diagnostic sensitivity is >99% for both. All the tests must be combined with clinical information for the most accurate interpretation. Molecular-based testing is highly accurate, but as in any laboratory test, diagnostic errors may occur. This test was developed and its performance characteristics determined by [facility]. It has not been cleared or approved by the Food and Drug Administration. Poort SR, et al. Blood. 1996; 88:3368-4798. Isael HERNANDEZ. Circulation. 2004; 110:e15-e18. Dione I, et al. Arterioscler Thromb Vasc Biol. 1999; 19:700-703. Corinna Marmolejo, PhD, FAC Mile Hopper, PhD, [facility] Nino Fischer, PhD, FAC Jose D Bernard, PhD, FAC Fiona Arreola, PhD, FAC Carri Escobar, PhD, [facility] Performed at: [facility] [address] [facility], [place] [id number] [facility] Aileen Curtis Performed By: #### 2 120049218, 3976042, 886433997, 06351864, 7885094, 72846109, 2850010, 1573232, 89482120, 94790435, 25873382, 86830399, 01964493, 24661533, 4647110, 13886564, 38027490, 40425802, 85188210, 0880550, 86319812, 74772839, 5777337 ####[facility] [address] [place] [address] Factor IX Activityon 021 Coagulation factor IX activity actual/normal Coag (PPP) [Relative time] 95 % Invalid Interpretation Code 60-404 [facility] Comment on above: Result Comment: [facility] [address] [place], [place] [phone] MD Manpreet Hidalgo Performed By: #### 2 447208579, 5200772, 666226587, 14001371, 3502197, 09264101, 1364946, 9166777, 91155876, 69696698, 82094493, 23209552, 94141332, 75199209, 1790816, 04536822, 39759076, 03636415, 04984506, 6650420, 92687392, 27532453, 8050332 ####[facility] [address] [place] [address] Factor V Leidenon 04-28-2021 F5 gene targeted mutation analysis [facility] (Bld/Tiss) Comment Invalid Interpretation Code [facility] Comment on above: Result Comment: Resu [...] the workup for venous thrombosis include the L12496S mutation in the factor II (prothrombin) gene, protein S and C deficiency, and antithrombin deficiencies. Anticardiolipin antibody and lupus anticoagulant analysis may be appropriate for certain patients, as well as homocysteine levels. Contact your local [facility] for information on how to order additional testing if desired. Genetic counselors are available for health care providers to discuss results at [phone] Methodology: DNA analysis of the Factor V gene was performed by allele-specific PCR. The diagnostic sensitivity and specificity is >99% for both. Molecular-based testing is highly accurate, but as in any laboratory test, diagnostic errors may occur. All test results must be combined with clinical information for the most accurate interpretation. This test was developed and its performance characteristics determined by [facility]. It has not been cleared or approved by the Food and Drug Administration. References: Kaylynn Cabrera (1996). Clin Lab Med 16:169-186. Corinna Marmolejo, PhD, FACMG Mile Hopper, PhD, [facility]MG Nino Fischer, PhD, [facility]ACMG Jose D Bernard, PhD, [facility] Fiona Arreola, PhD, FACMG Carri Escobar, PhD, FACMG Performed at: [facility] [address] [facility], [place] [id number] [facility] Aileen Curtis Performed By: #### 2 870920901, 3793364, 776262543, 80978838, 5509212, 03447392, 6931890, 6565946, 22602115, 84464094, 62066937, 77720049, 17578384, 64401228, 6610659, 13265139, 82574066, 39772599, 77214889, 4844891, 53426817, 04951147, 6912285 ####[address] [place] [address] Factor VII Activityon 2020 Coagulation factor VII activity actual/normal Coag (PPP) [Relative time] 124 % Invalid Interpretation Code 51-186 [facility] Comment on above: Result Comment: Perf ormed at: [facility] [address] [place], [place] [id number] MD Manpreet Hidalgo Performed By: #### 2 698531596, 5095314, 857920368, 01327189, 0554119, 20494337, 3108744, 0642883, 79094455, 12196926, 84986725, 06706028, 22132530, 20530151, 0367906, 13151390, 44221212, 13948399, 23971831, 8545915, 22636393, 71993094, 7465971 ####[facility] [address] [place] [address] Factor VIII Activityon 04-28 Coagulation factor VIII activity actual/normal Coag (PPP) [Relative time] 140 % Invalid Interpretation Code 56-140 [facility] Comment on above: Result Comment: Perf ormed at: [facility] [id number] MD Manpreet Hidalgo Performed By: #### 2 974234050, 0555482, 422135906, 42755369, 1661815, 29508047, 6705342, 1556461, 62446235, 08663984, 92445870, 22068160, 71364031, 37300188, 8458578, 01821699, 53178203, 80659546, 63910555, 8071535, 80483621, 31807953, 1715340 ####[facility] [address] [place] [address] Factor XI Activityon 021 Coagulation factor XI activity actual/normal Coag (PPP) [Relative time] 112 % Invalid Interpretation Code 60-150 [facility] Comment on above: Result Comment: Perf ormed at: [facility] [id number] MD Manpreet Hidalgo Performed By: #### 2 629526524, 4807174, 739087576, 62418515, 9201712, 21549925, 5567926, 7241809, 11823131, 99430856, 93652501, 92347097, 10690951, 37344353, 2280810, 50975257, 63345263, 03777377, 23276592, 7096460, 61334812, 33523245, 1721981 ####[facility] [address] [place] [address] Homocyst(e)ine, P/son 2020 Homocysteine [Moles/Vol] 7.2 mcmol/mL Invalid Interpretation Code 0.0-14.5 [facility] Comment on above: Result Comment: [facility] [address] [place], [place] [id number] PhD Yelitza Fink Performed By: #### 2 046024431, 6146429, 136854821, 59252163, 4900158, 96772207, 2759493, 7856729, 48389683, 18863575, 52706337, 17809801, 02397020, 57387762, 6444854, 16119466, 83857260, 68976050, 09130584, 4545147, 38182934, 18527372, 3422747 ####[facility] [address] [place] [address] Lupus Anticoagon 04-28-2021 Lupus anticoagulant two screening tests W Reflex Coag (PPP) [Interp] Comment: Invalid Interpretation Code [facility] Comment on above: Result Comment: No l upus anticoagulant was detected. These results are consistent with specific inhibitors to one or more common pathway factors (X, V, II or fibrinogen). The extended thrombin time corrected on addition of a heparin neutralizer, consistent with the presence of heparin in the sample. Heparin acts as a non-specific inhibitor. Performed at: [address] [id number] [id number] MD Manpreet Hidalgo Performed By: #### 2 703501163, 6008211, 449328012, 76550626, 6201830, 54712344, 1332299, 0947902, 72233594, 34189195, 07286272, 66800634, 47055467, 68243686, 8280266, 25789790, 05806703, 37889408, 42553439, 5932796, 07067628, 50419126, 7155832 ####[facility] [address] [place] [address] aPTT.lupus sensitive Coag (PPP) [Time] 31.8 second(s) Invalid Interpretation Code 0.0-51.9 [facility] Comment on above: Performed By: #### 2 145477314, 8645302, 827573202, 73568571, 4490883, 31833367, 5398006, 8666978, 03472546, 98235631, 67658780, 76880858, 81982185, 27133356, 6746664, 87940337, 16833697, 46867475, 99336289, 7372856, 96890605, 84755121, 0626136 ####[address] [place] [address] dRVVT Coag (PPP) [Time] 48.9 second(s) High 0.0-47.0 [facility] Comment on above: Result Comment: Perf ormed at: [facility] [id number] [id number] MD Manpreet Hidalgo Performed By: #### 2 000956721, 6867245, 518480553, 68499700, 5876169, 09678095, 3541427, 1646306, 48116861, 02061640, 68733572, 03057495, 98193406, 01175568, 6209820, 21280853, 29663836, 74735195, 41431793, 8557786, 19593571, 60787717, 2096886 ####[address] [place] [address] Protein C Antigenon 04-28-20 21 Protein C Ag actual/normal IA (PPP) [Relative mass conc] 115 % Invalid Interpretation Code 60-150 [facility] Comment on above: Result Comment: Perf ormed at: [facility] [id number] [id number] MD Manpreet Hidalgo Performed By: #### 2 827206688, 6438693, 191434096, 31756014, 0129720, 23054044, 4148111, 9897420, 91485395, 04733055, 16668355, 67801612, 24934334, 06780422, 6963608, 86736215, 69439558, 47228310, 36966665, 4715212, 77112675, 42463156, 5090516 ####[address] [place] [address] Protein S-antigenon 11-13-20 21 Protein S Ag actual/normal IA (PPP) [Relative mass conc] 117 % Invalid Interpretation Code 60-150 [facility] Comment on above: Result Comment: This test was developed and its performance characteristics determined by [employer]. It has not been cleared or approved by the Food and Drug Administration. Performed By: #### 2 317541162, 3259975, 665829230, 45147531, 8581248, 09156466, 5957688, 8473859, 36098126, 83625261, 99482184, 09995724, 80216977, 76657046, 6782526, 84642835, 77307396, 39135440, 82982208, 6370046, 33370367, 32113718, 4146387 ####[facility] [address] [place] [address] Protein S Free Ag actual/normal IA (PPP) [Relative mass conc] 135 % Invalid Interpretation Code 61-136 [facility] Comment on above: Result Comment: Perf ormed at: [facility] [id number] [phone] MD Manpreet Hidalgo Performed By: #### 2 428550382, 6050720, 751125683, 68483519, 9198874, 61747969, 3252626, 6037848, 69067141, 25552341, 48609676, 18512049, 40129075, 39103581, 8375609, 08675425, 57837764, 35814355, 77735300, 6445203, 51736618, 37085410, 2450161 ####[facility] [address] [place] [address] dRVVT CONFIRMon 04-28-2021 dRVVT/dRVVT.excess phospholipid Coag (PPP) [Ratio] 1.2 ratio Invalid Interpretation Code 0.8-1.2 [facility] Comment on above: Result Comment: Perf ormed at: [facility] [address] [id number] [phone] MD Manpreet Hidalgo Performed By: #### 2 183798581, 0765421, 208481958, 57221495, 7399151, 37106051, 2865157, 7284901, 08879068, 01522867, 81994918, 52152019, 94296648, 68164716, 0554697, 63914233, 73863986, 93346659, 99797000, 2396683, 50879260, 06100135, 9524430 ####[facility] [address] [place] [address] Orders Officeon 04-26-2021 Orders Office [id number]#1. 00CD:127 Normal [facility] Progress Note-Nurseon 2020 Progress Note-Nurse [id number]#1. 00CD:127 Normal [facility] Coding Summary.on 04-25-2021 Coding Summary. CD:[id number]:[id number] Gh 0bWw+PGhlYWQ+OW2RRACuV 10ocJBxmD0WN5iPHE9WGCR QMBXUGD1ATA1dpLR0GOsmG 2VybiAv IgsnbUJlSH12UKb0IOG3mK izWDgwgD4jbFHiI2x9MlAf HK41sU94ZLzwLOTlRtI9Wp ZpbjsgbWFy B1trWmCogVXxYgu+PHRhYm xlIHdpZHRoPScxMDAlJyBz oAdcRE0pNg3cVNAkZDMuqF xhcHNlOiBj n0ioUWXmTOolRM2ovWdqV3 LnlUH0XFYpk6p9Xu31iNP+ SYGeWIN7tSceGBglw218Oo Wxh9kkIYB6 gAJjLVoqRQZ8Z25uc8D7NY EcZNHnCPZ8tHD3eU6dnUzc gzrfL1GfmVXuJwP2QWF4nP DmzE1xkBqr mlqwoY4wZek+V00SPO4EKJ NAJW2SBdw9I9EvKufyjXF+ PQ41BSNjTB39zGWlxXNan1 zxrOa5AwFh ICKoMVY6kQvsRVkyp7WmEJ ReL62lvHTkr1V2RJOdoZpe rCZuEtCieBI2aZ2dYXmyly akl6rwrskp Yoakt6rbkj19aH03P70qLR vbTFUcNEH2HGHzANNbtZlf xe6qhU7pZy8+UCtih2lax0 nfjDv1KhEn MLCxlxSozWcoDIG0h5YzHi 44N6QjcRwme5YbSil5jj01 dHAnv4I5lTZ9XJhfMBJksF 0rUSegOgO5 OHUwFmUahX98oVZwGWoqHh 6zoCabvMsiYX1mRBMcymrm AWLfdL5xIVMsdTZaeVzvJM 4wNTBpbjtm m302NrHfCMY5LFSkvOPrR8 HkeP4pLmJpMUEvWWVjK2Vp dFQiSHawC681XVrdHvT4CX HkxhGtS4Tr EUVwqEoaSxP4t4V1Qm1Wz2 DfigdvHHA2NMigLFUvEnNw HgXeAaZ3W0NzBva0MXBylS gmLE6aD6Sn QRRugegwmgomhCA0MFAmHP EbsP73eMLwOBiyWg2ly0Z2 k613CCVaEDHxyP28Pg3msM ogMTBwdCBU vA4anockt4yguaisCmHxSM WhORq3JIe1LERjmJxhNjZm UKM1SuF3SSW7sHJkmH5vfU qowtebkD6b Oyc+A25iqV8rLZK0RQO1gv ncKCXsgsPxSS36QT41Z3Ka PjwvdGFibGU+PGRpdiBzdH egSZ2oElVs b5gpz2YvCHzfH9AaSHNbNH oxDzi5HNAlRKO7zKK4hV3m OWMgKBvpj3D9yGB9B3Ojdq Hepw6dg5gn MAQlWMpgS78kiXGjy1N2RC HmxPG7WAVsjAnmLbFhmH30 Oyc+KWDwsUdut2SbMygkk3 sax9tlpOs5 EhWyPOPyouKprOonTPI7x5 OtEs25I04wRUneFRCsPBDq GQBkTRPozBowva9cfD4jNz 8+PGNvbCB3 vQF7hC1aUUNgIdR7ESgtE5 06YnJgtNMvVugck8ovy5cc bHr1BqNzEVLwboGowWwgWX O9b4XlSw73 Q07fLMcoWPCuHYUqLZLnLB UmfHmumj4ioM0rHx4+PC9j o2ivep35dR17qWR+PHRkIH G6bVwlSKnn TWBrvM7mFPiyDxX9EXThUy LsrT82rEMjEJydIn0qfYxv oPbcPD6oPTNpiveiw243Ko Xkx9mfLSFi nNPdTKovPGN2T05ym5L8IB XcDBNmNIW3vKE6cQ5hjVkp bjogbGVmdDsgdmVydGljYW nqXNvrA218 IHRvcDsnPlBhdGllbnQgTm InSEj7U5ZaRwy4MHXxzLch BN7yxELbLPncTq6gzGeesP wnHP6zLMOl xzuoj465GvPgx4pzJDHwhV RzQYhxBGD0D07nv0G1NDXc ZOQuKZL2fLA3yB4tiUjedg ogbGVmdDsg txMclUinYJmvYNmlU866UO RvcDsnPkJpcnRoIERhdGU6 YY83SN17zSFmn2U2kTO7H3 BhZGRpbmct vhdkkOK0LDSdRSIxhO98Lk 7pxMwzJu0eOUOhYYB4ZZMk gKWnI4KzmR2fQcXcDZMhYQ PsO1FtfDBv QRbuT405NBiwGrU9RQXkhg WxW0NxNMKzgXidVuZ3y0F3 Qz4WC4D3RR47UD36fMCwx8 W3uFU9J5Fa WLGtwcbmkhaqiLA3QIFqSU BzbK68Vs1wkAsmLk1uAZPu OMN3XUQnzPFjO8FbcT7yJv AjMDAwMDAw X6PrlKWcMRtmD071APfiXf C0TYJucdRnX5SpCSSekOec IyW4u4U7Mw9MIHk7WD68AF 58eXBll0G9 hLU4J4EdDKDsssxxmowzdX X4FIVmWKSkoB93Rz3ayZwy Yl3bGPFuLHI0ATRtcCVuT8 QsrA2aJuWw DDEyIFSaO4EtrYAgILxyX6 31FSszJnO0RIDkkvGvY9On AKXfnUrnFjC6p8A3Yf0UNX YoPL90BLF8 bAF0EU34AG99J9AtDyxavO FibGU+PHRhYmxlIHdpZHRo BVlzGHKhOhOsoMohMN4bOg 9yZGVyLWNv nYongGDiMtYcg4feJMGkDX vjQD0osAriC1CrtQV8QYDg l0f3Tz71R76lP6HzdIN+PG MuyGG6gEC4 dI9xMfLiVfL2NPhkI603By HtyLJiDhhhs1yzb6ebrPx1 LoF9IAYlnbRgdLbtLJW5f3 ZuMt19A22d IHdpZHRoPSIxNSUiIHZhbG ozxs1rqD0cRp3+PGNvbCB3 fYX3gQ0cCzFjYiM8CRsvW6 49InRvcCIv Xfulj6coi9xtmIm7MvKwGG LnyeCaaMcnOBX3n8XxQt68 Y5TzpUziu5WoQwu4ld76sR Xea1Z3tWR6 W2FkFKEiqgdimBYcrCpkHY 8dLGYhtvhnMHJbnR9yICZd X3f8RhRsMdU5BVamR1Mcno E4FFGavUQu XFgrMRS8E12yu0C5WQKzYM CkWDE0iWB8jR9lrOtjkjoi bGVmdDsgdmVydGljYWwtYW imS967ZRTg zMpbHRBepD8dFQKjsHGpsG oaTW7nXPHllakvKvGWEIKS RkVSLCBERUJPUkEgQTwvdG Q+PHRkIHN0 dObsGDbtZPDlkS5uJWHmY3 u3OcDqOqK6BSvxJ0FlELAe rygnKj12lH3iPwWnBlV6NX loV1GcyoS0 GXZnaUTsPNebOKB2V46tu6 L6LTEsLSXbIQW0qZA6fO4h bGlnbjogbGVmdDsgdmVydG ljYWwtYWxp O751ELPxkMgiXtAeJiR1Gj Q8SkR3B9ClVtd8LXIuoPzn PN1aoWBoVTsiZt9xtUrwfZ ojKB7xYZIf gbcqWAShbO1cDJQuoNTbsL jaFL0lHKBdeenun801GkGq DNA2AIEvgCKqE6IhxP3xEr AjMDAwMDAw G4TwgMErCNrwS973YJsaVk H8WICgnkBuN1UzCBCdgYea LzO8q6V8Ig52EYLPKFVpmg wvdGQ+PHRk BIB7jHrlKXvpHNCdsZ8yKJ IwK5i5AhBhIkA9JRonJ8Ee WINusvfmUd54wC0xKtPtNj V4ZSxgZ9Sv boG6CRRykBSpRLakRVG0C0 0zs1H2WAVpUXLqGRW2oWD9 wY6rmQuxsrjfeHUkyWjrjw VydGljYWwt ZLimX185MHAqnDqsEcTkgL FsZTwvdGQ+CFPjQKN1rZvb DUpdVPNzuH2cLIQqX4m2Yq ItUeK6WAte T3ZrQWDyuqarAz55sN2kVp VoQyI9PKnvB5IkbmR8RJVo aIUnDEeiKWF6N73op9W0CC MwMDAwMDA7 vAI3oQ4uhScorthfmZMftB rkluKnmUldCAnxZNusQ980 IKFvdVqmXd34qVPvhJfuok Q7L0AsNtxl dHI+WI48LVRzLI39bNKqmU Sty8luxBj1WkDcFVNwYFK3 cHjpXTcdp4CbLXPhM63oyN Efh1U0DTSl yTysgIDnGfQanWV9lR7dXH cshuglv1bnlcblSdtfg4di tk80zT18H26gUWroTKUhIZ IzMCUiIHZh fScljj3qlM8oCy9+PGNvbC I3xJK8tV7qEfYnXcW9EIab U651PyQssBSbZtsve4xxp9 nixNl9RwYw ADVnqmIpuXvrJYF2x5WcQe 62I12bBYrsNEPnRFBgJDHo UQVrpQccwe1kdV4gEm5+PC 4ow3ppyq89 uT10mLQ+QMDlHUQ7xTfmCY huEKUqpE1mGTrlOgO2LJRo GkPtiV85sQKwAPzcIp0skD ouhAxhZD6p WGOdxyzyo912KwMcv5gmAK DxeHClNLgoWYE1S34et9W8 JYTbOZEmGUB7nOQ1vU9jbF lnbjogbGVm dDsgdmVydGljYWwtYWxpZ2 74ECCqcJrgMqHenYOeJ4eg omIGTM5zVuekqDT+PHRkIH F5nQxuQOnc CALipH3tXLGqH2f2VxDtCc W7SAatH7UdyoE4MYXtgEVg XXKqcKXEpD4hxnwtb3zolf ogIzAwMDAw MSm0NCz5JNOelGroNeHiDC K8YkE3ROC6sECibF4puYgk ztfecA2cGhj+RklOOjwvdG Q+PHRkIHN0 vKysLBrlWTKbhS5iVYEpV7 f5RyQjDgR7JZrxL3ScskC9 HLYlbENxJCFnlEFVvC4qdz hih1llcunc KeEiRKZnBKg9PPc6NHEpxX ytLdOxIOR6JcM6NDC3eJKf xU1qmNajcfakhT8uYmh+TV JOOjwvdGQ+ LBKcLSM6oSqrLCqaVWNxbJ 1rECGbR8d5QmWuPuM2AVya W3BkkfA7LJGnhAUxENWkxI WQfO2smmvz j0sqohvuImGzETOcPBn3VS j9ENVemEqxCuUqRKN2IdI5 ZKZ7gBPxzA4rtNlatevviK 9wOyc+UGF5 XNE6ZZ69FI54K8CyAriemH FibGU+PHRhYmxlIHdpZHRo HXzyQCSyAbKjtQruFM5dXh 9yZGVyLWNv bGxh (more content not included)... Normal [facility] Outside EDon 04-25-2021 Outside ED [id number]#1.0 0CD:127 Normal [facility] Outside Radiologyon 04-25-20 21 Outside Radiology [id number]#1.0 0CD:127 Normal [facility] Auto Diffon 04-23-2021 Basophils/100 WBC (Bld) 0.7 % Normal 0.0-2.0 [facility] Comment on above: Order Comment: Order Added by Discern Expert. Performed By: #### 2 [id number], [id number], [id number], 48423892, 1591490, 01218185, 8208060, 5993830, 09275657, 35133365, 67781556, 93577056, 34644027, 40761669, 5709354, 23576517, 94798585, 05968439, 13429813, 2271808, 11203325, 63047659, 9482661 ####[facility] [address] [place] [address] Basophils/Leukocytes Auto (Bld) [Pure # fraction] 0.0 E9/L Normal 0.0-0.2 [facility] Comment on above: Order Comment: Order Added by Discern Expert. Performed By: #### 2 [id number], 6037793, 834514926, 65523717, 2827142, 62064310, 6384824, 5523693, 60666453, 95761697, 92338307, 10178322, 49086082, 63295979, 6849901, 20272735, 94964464, 65670573, 68377825, 7470311, 34088991, 45661983, 0525518 ####[facility] [address] [place] [address] Eosinophils/100 WBC (Bld) 0.9 % Normal 0.0-8.0 [facility] Comment on above: Order Comment: Order Added by Discern Expert. Performed By: #### 2 [id number], 9389734, 355121396, 38291520, 1639735, 46555400, 6381427, 2260272, 09073465, 58513771, 15035973, 22772771, 12127974, 51722653, 3553777, 69871855, 12826505, 13997829, 12179036, 6615026, 70621706, 76232603, 6031358 ####[facility] [address] [place] [address] Eosinophils/Leukocyt es Auto (Bld) [Pure # fraction] 0.1 E9/L Normal 0.0-0.5 [facility] Comment on above: Order Comment: Order Added by Discern Expert. Performed By: #### 2 [id number], 6876164, 004376830, 97923886, 8119576, 23830778, 1289655, 2204194, 64438059, 60940233, 66322254, 18335237, 57649384, 82892807, 0145741, 69426028, 77407482, 62758247, 48181635, 4002039, 73706401, 91063956, 1507880 ####[facility] [address] [place] [address] Lymphocytes/100 WBC (Bld) 39.7 % Normal 14.0-50.0 [facility] Comment on above: Order Comment: Order Added by Lois Expert. Performed By: #### 2 [id number], 1861297, 491163870, 46944545, 3805341, 54312190, 9553437, 6544319, 98210797, 38125396, 87887350, 71463028, 99077403, 92675469, 2487399, 22577245, 02980996, 38876637, 73814716, 3040052, 01461596, 21313022, 3088876 ####[address] [place] [address] Lymphocytes/Leukocyt es Auto (Bld) [Pure # fraction] 2.3 E9/L Normal 1.0-4.0 [facility] Comment on above: Order Comment: Order Added by Discern Expert. Performed By: #### 2 966410469, 1414607, 578936002, 26306695, 4073512, 78035668, 8958286, 5962092, 39293441, 68119050, 15973824, 21495812, 26575265, 32983420, 3629487, 36081566, 07088156, 60302944, 65262725, 2167294, 27552320, 76481575, 3044287 ####[address] [place] [address] Monocytes/100 WBC (Bld) 3.1 % Low 4.0-14.0 [facility] Comment on above: Order Comment: Order Added by Discern Expert. Performed By: #### 2 522158666, 8841246, 035501767, 41553422, 5009561, 75066931, 8765708, 8625938, 75950936, 27710886, 57527238, 16364742, 09884332, 38496343, 8262210, 26682298, 13104862, 17676027, 96876660, 0612420, 20886714, 51742194, 7330203 ####[facility] [address] [place] [address] Monocytes/Leukocytes Auto (Bld) [Pure # fraction] 0.2 E9/L Normal 0.2-1.0 [facility] Comment on above: Order Comment: Order Added by Discern Expert. Performed By: #### 2 909263513, 3515103, 418692454, 26102296, 2818646, 62475878, 7025943, 6011080, 43042587, 92470853, 42920671, 43024279, 14138636, 00385740, 5499894, 90401071, 33439850, 37818206, 94510935, 5309358, 29511979, 21884235, 7366300 ####[facility] [address] [place] [address] Neutrophils/100 WBC (Bld) 55.6 % Normal 36.0-75.0 [facility] Comment on above: Order Comment: Order Added by Discern Expert. Performed By: #### 2 [id number], 9883250, 444774146, 17066836, 5357404, 34161402, 0287612, 1307469, 59354876, 21204053, 20778141, 08456071, 57480749, 68352398, 9733581, 32943670, 50233079, 26467225, 91772296, 6986570, 11720200, 10615649, 4098393 ####[address] [place] [address] Neutrophils/Leukocyt es Auto (Bld) [Pure # fraction] 3.2 E9/L Normal 2.0-7.5 [facility] Comment on above: Order Comment: Order Added by Discern Expert. Performed By: #### 2 484806546, 9985449, 422695113, 78024668, 6357693, 25598815, 8687889, 0690705, 24279323, 36176207, 01782970, 31692548, 97268122, 19717741, 5104856, 36836427, 99816280, 69119639, 92108944, 6537301, 62852520, 85176513, 7733827 ####[address] [place] [address] CBC w/ Auto Diffon Erythrocyte distribution width (RBC) [Ratio] 13.0 % Normal 10.9-14.2 [facility] Comment on above: Performed By: #### 2 658781144, 8099596, 618504613, 86407096, 8901247, 92772068, 6717616, 8515188, 28015284, 34892012, 21520648, 65412202, 70907367, 65634105, 5523471, 53274340, 94491525, 50476194, 59996961, 8286670, 57339880, 21058160, 2376767 ####[address] [place] [address] Hematocrit (Bld) [Volume fraction] 40.4 % Normal 34.0-46.0 [facility] Comment on above: Performed By: #### 2 688107922, 6069685, 221591813, 58057904, 0519782, 71770822, 1938854, 9255184, 35861012, 69099843, 84604432, 33253028, 94299601, 00400549, 9073038, 36273949, 08137167, 08947871, 27990167, 0984925, 60577917, 99044041, 2628767 ####[address] [place] [address] Hemoglobin (Bld) [Mass/Vol] 13.3 g/dL Normal 12.0-16.0 [facility] Comment on above: Performed By: #### 2 410390738, 2886676, 888406726, 31251717, 8650846, 72889853, 2835846, 9098073, 42344156, 01546989, 86623686, 91153142, 56631150, 21939314, 6464382, 25094120, 80655134, 53078496, 49270222, 6995704, 74677197, 05007515, 0823852 ####[address] [place] [address] MCH (RBC) [Entitic mass] 29.4 pg Normal 27.0-34.0 [facility] Comment on above: Performed By: #### 2 346074262, 5879125, 384080918, 15965477, 0434851, 96418001, 7397840, 3962901, 14608556, 47351244, 08077952, 78229172, 57021905, 81995375, 3078485, 86271876, 58922304, 36852049, 18027427, 8586640, 89240695, 69984840, 4556504 ####[address] [place] [address] MCHC (RBC) [Mass/Vol] 32.8 g/dL Normal 31.4-36.0 [facility] Comment on above: Performed By: #### 2 850913793, 7327383, 892311668, 23925386, 5789936, 45957305, 7811091, 4808926, 69748710, 25576276, 42768854, 81384903, 91776131, 06498018, 4416043, 28397957, 21104449, 26978295, 82481189, 3247758, 04111589, 09093627, 7007686 ####[address] [place] [address] MCV (RBC) [Entitic vol] 89.5 fL Normal 80.0-100.0 [facility] Comment on above: Performed By: #### 2 718181871, 5768975, 929585499, 32690277, 0924136, 98637133, 0475834, 8881498, 38886486, 74209634, 26424948, 68397109, 09050608, 52867472, 3035387, 39018713, 89115547, 13366338, 33179433, 0529989, 45940202, 58367921, 3582008 ####[address] [place] [address] Platelet mean volume (Bld) [Entitic vol] 8.9 fL Normal 6.4-10.8 [facility] Comment on above: Performed By: #### 2 002923058, 3434323, 336584330, 54299581, 1615403, 17602179, 1132564, 9184661, 70457567, 63812925, 85744193, 64154527, 08927430, 22206316, 9777963, 42021748, 03908640, 21046201, 14935826, 2960184, 55792916, 11120293, 2867000 ####[address] [address] Platelets (Bld) [#/Vol] 229.0 E9/L Normal 150.0-500.0 [facility] Comment on above: Performed By: #### 2 138062236, 5350083, 227148012, 59570254, 2715258, 49976216, 2256572, 2262570, 23876169, 57097763, 35248866, 90484731, 67527990, 56265270, 4576082, 01382200, 14980659, 74468910, 80775706, 8508624, 76393740, 66352585, 2860721 ####[facility] [address] [place] [address] RBC (Bld) [#/Vol] 4.5 E12/L Normal 4.3-5.9 [facility] Comment on above: Performed By: #### 2 916535699, 3209358, 356502160, 65860711, 5206204, 28708914, 5854109, 7744788, 35421378, 44521084, 58689269, 49313305, 82676993, 85046126, 8866892, 44756010, 79655154, 00112151, 32492692, 8553795, 28686103, 23699241, 6751621 ####[address] [place] [address] WBC corrected for nucl RBC Auto (Bld) [#/Vol] 5.8 E9/L Normal 4.0-11.0 [facility] Comment on above: Performed By: #### 2 003699665, 3707204, 643268390, 26501727, 8674182, 39075056, 1819864, 2190444, 37525194, 50140993, 12239772, 42166946, 40505283, 62578093, 2908985, 34459785, 99233664, 93889890, 62435331, 3475856, 73464192, 83210462, 9089365 ####[address] [place] [address] CMPon 04-23-2021 Albumin [Mass/Vol] 4.1 g/dL Normal 3.3-5.0 [facility] Comment on above: Performed By: #### 2 588900086, 8872750, 583454739, 21749675, 1993819, 04385936, 1983291, 2636530, 75111490, 89871776, 89325878, 07411973, 31715547, 51844307, 3489850, 51554026, 91490731, 12367690, 68653654, 6977936, 14045946, 42873666, 3980251 ####[address] [place] [address] Albumin/Globulin (S) [Mass conc ratio] 1.4 Normal 1.1-2.2 [facility] Comment on above: Performed By: #### 2 491837182, 5037127, 828295332, 74241002, 5838014, 78847075, 9396176, 3531954, 45535361, 66799849, 58873546, 95041493, 49942509, 06326046, 0609588, 40498277, 15149469, 34474304, 20860730, 7818158, 82597816, 05026944, 9913699 ####[address] [place] [address] ALP [Catalytic activity/Vol] 44 Int._Unit/L Normal 21-98 [facility] Comment on above: Performed By: #### 2 754756526, 5227427, 125234672, 36248384, 7800691, 89293092, 5783079, 4483084, 05334058, 51990685, 15025550, 98918479, 19792405, 80772184, 3988419, 55996022, 58716281, 04946639, 76732390, 4507858, 51745049, 65405416, 5390212 ####[address] [address] ALT No additional P-5'-P [Catalytic activity/Vol] 16 Int._Unit/L Normal 6-46 [facility] Comment on above: Performed By: #### 2 508456210, 1450118, 715846715, 89568695, 8630322, 47898191, 2361918, 2924272, 70096154, 40840392, 24501090, 61021327, 27195873, 98929814, 2701338, 12248868, 89117391, 69908644, 51170888, 9735862, 29154284, 65245315, 1375372 ####[address] [place] [address] Anion gap [Moles/Vol] 14 mmol/L Normal 6-16 [facility] Comment on above: Performed By: #### 2 091812455, 3756014, 618682261, 36288444, 9365895, 84723334, 2653136, 7656298, 46168452, 80652980, 53496781, 36937611, 40164001, 88371757, 4673017, 80048647, 60558861, 27564819, 83363905, 0371926, 82350327, 06350646, 3956446 ####[address] [place] [address] AST [Catalytic activity/Vol] 23 Int._Unit/L Normal 5-43 [facility] Comment on above: Performed By: #### 2 682733168, 8369315, 741772058, 48345716, 6829614, 32957058, 6841656, 1751432, 71552675, 05124458, 44670618, 04973350, 17069273, 50775517, 3725418, 27889405, 39987637, 85244360, 53294567, 0249159, 34426849, 87016322, 9134666 ####[address] [place] [address] Bilirubin [Mass/Vol] 0.9 mg/dL Normal 0.0-1.1 [facility] Comment on above: Performed By: #### 2 562955613, 9492702, 766146526, 02998784, 2157977, 59057670, 9372376, 4888919, 94167026, 13217772, 98620584, 97400526, 70485772, 80360967, 0426519, 17976785, 38208509, 63958704, 56547152, 2292302, 06592879, 45059235, 4741890 ####[address] [place] [address] Calcium [Mass/Vol] 9.3 mg/dL Normal 8.9-11.1 [facility] Comment on above: Performed By: #### 2 324293737, 1570589, 712462397, 20945693, 9682429, 67586673, 0037625, 7034385, 45353590, 74599545, 92573085, 34762341, 59218462, 85028098, 0553459, 89265881, 25387145, 35343357, 61243995, 4694293, 34874990, 76862606, 1894807 ####[address] [place] [address] Chloride [Moles/Vol] 98 mmol/L Low 101-111 [facility] Comment on above: Performed By: #### 2 971806452, 1981113, 841444847, 75322382, 5513057, 93363224, 0032199, 4492670, 95938628, 59715250, 99345877, 58624843, 63201893, 55542680, 0513378, 11922817, 71591410, 79408784, 54068171, 1745840, 88428580, 88154819, 3593623 ####[address] [place] [address] CO2 [Moles/Vol] 27 mmol/L Normal 21-31 [facility] Comment on above: Performed By: #### 2 559558522, 7229720, 799017012, 14557850, 1984166, 96874592, 2198428, 5046226, 19655342, 82692882, 35619823, 75912316, 87671306, 75805500, 6636284, 65476781, 30315045, 45959879, 41199086, 7178092, 40652335, 42480443, 4319805 ####[facility] [address] [place] [address] Creatinine [Mass/Vol] 0.8 mg/dL Normal 0.5-1.3 [facility] Comment on above: Performed By: #### 2 499770853, 9772754, 885344073, 01295838, 2775730, 23682542, 9212590, 4285223, 85583275, 18357296, 34649435, 95797291, 89685006, 62492453, 9054605, 90278878, 25647714, 75942091, 16077250, 8046838, 87920600, 71765132, 6877421 ####[facility] [address] [place] [address] Globulin (S) [Mass/Vol] 3.0 g/dL Normal 1.4-4.0 [facility] Comment on above: Performed By: #### 2 229558039, 2499826, 481356102, 94091001, 1992410, 27571419, 9321912, 2295506, 36920554, 26439116, 70871652, 03356410, 95841601, 77444511, 5195170, 95748706, 70350266, 17499278, 13828700, 3011148, 86116079, 04686073, 4934519 ####[address] [place] [address] Glucose [Mass/Vol] 187 mg/dL Normal 55-199 [facility] Comment on above: Result Comment: If t his glucose result represents a fasting glucose, interpretation should refer to the following reference range: 55-99 mg/dL Performed By: #### 2 826542222, 6724037, 745292175, 28292197, 1676326, 53532205, 7056859, 0613529, 93967038, 79174620, 73814433, 07136553, 63246285, 34387945, 4167704, 69026525, 42794588, 70087839, 92541641, 7738668, 61280956, 52570212, 9556410 ####[address] [place] [address] Potassium [Moles/Vol] 3.4 mmol/L Low 3.5-5.3 [facility] Comment on above: Performed By: #### 2 475497265, 3517067, 166134466, 74052133, 5719724, 29077015, 1054972, 9101116, 38567761, 05256742, 92180557, 76841688, 62007331, 31150661, 0820671, 64587069, 12955559, 69122302, 30719019, 5777188, 36273477, 79444543, 2986950 ####[address] [place] [address] Protein [Mass/Vol] 7.1 g/dL Normal 6.0-7.8 [facility] Comment on above: Performed By: #### 2 514491724, 1555377, 107211810, 89546556, 7385897, 88562263, 1143370, 1456697, 32367425, 35741991, 82865755, 36516076, 88493288, 81013946, 1943276, 19752873, 91402830, 19757689, 84553239, 0860889, 59641841, 98163347, 8350344 ####[address] [place] [address] Sodium [Moles/Vol] 136 mmol/L Normal 135-145 [facility] Comment on above: Performed By: #### 2 273778882, 3735495, 683459865, 96757708, 8749091, 76429776, 8420037, 5311216, 40334979, 30809048, 75472121, 68526301, 85828971, 95242380, 7511894, 60510965, 79503477, 42426993, 35402246, 9717339, 34533208, 03978464, 8449958 ####[facility] [address] [place] [address] Urea nitrogen [Mass/Vol] 10 mg/dL Normal 5-21 [facility] Comment on above: Performed By: #### 2 887354244, 7608915, 834510854, 02792051, 1449811, 24513948, 0507845, 1132416, 04930471, 36720673, 88001946, 34163854, 67870467, 36959034, 3668611, 09075597, 54814563, 19701241, 71557657, 6727913, 95032417, 91693823, 6123394 ####[facility] [address] [place] [address] Urea nitrogen/Creatinine [Mass ratio] 12 No Units Normal 10-20 [facility] Comment on above: Performed By: #### 2 486713581, 3926292, 795674646, 53022384, 1171900, 07014818, 6819321, 2774533, 41638936, 64054175, 20695468, 50845104, 44587268, 81625473, 9715334, 12780436, 00026006, 34090336, 46508559, 4202909, 77648000, 44867985, 8518784 ####[address] [place] [address] Consent for Treatmenton Consent for Treatment [id number] 0CD:127 Normal [facility] Consent for Treatment [id number] 0CD:127 Normal [facility] Fibrinogenon 04-23-2021 Fibrinogen Coag (PPP) [Mass/Vol] 266 mg/dL Normal 200-393 [facility] Comment on above: Performed By: #### 2 911125526, 0858466, 942249417, 94150561, 0477857, 00322948, 5251610, 1514769, 87270976, 89492422, 41955598, 53055448, 15182743, 14850704, 9972213, 27142532, 67635605, 65878466, 05025047, 1999404, 98325060, 40346197, 3719940 ####[facility] [address] [place] [address] Heart and Vascular Office/Cl inic Noteon 04-23-2021 [...] active medications Allergies No active allergies Normal [facility] Comment on above: Result Comment: Elec tronically Signed By: Ihsan SCHUMACHER, Teresa Kitchen\.br\Date and Time Signed: 04/23/21 12:14 EST LDHon 04-23-2021 LDH [Catalytic activity/Vol] 153 Int._Unit/L Normal 93-218 [facility] Comment on above: Performed By: #### 2 688883854, 0239439, 331787947, 58354850, 7638737, 65071732, 7858529, 7276749, 76667550, 08574047, 95192845, 78362110, 45628422, 46917233, 3658303, 74617829, 06561343, 38308253, 36250973, 3381751, 72807686, 28192386, 3512294 ####[facility] [address] [place] [address] PT & PTTon 04-23-2021 aPTT Coag (PPP) [Time] 34.5 second(s) Normal 25.1-36.5 [facility] Comment on above: Result Comment: Hepa rin therapeutic range (represented by Anti-Factor Xa activity of 0.2 - 0.4 U/mL) corresponds to PTT of 56.6 - 109.0 sec. Performed By: #### 2 405367244, 0613302, 679665664, 38792492, 7167404, 24220714, 8565691, 4698039, 45735125, 16394250, 62117861, 66428066, 66353919, 17293624, 4959146, 87135469, 21801353, 35700863, 56412645, 6596278, 87488572, 50808878, 7762718 ####[facility] [address] [place] [address] INR Coag (PPP) [Relative time] 1.1 {INR} Invalid Interpretation Code [facility] Comment on above: Result Comment: INR results are specifically intended to assess patients stabilized on long-term Anticoagulation therapy suggested INR?s ?Less Intensive Anticoagulation? 2.0 ? 3.0 Conventional Range 3.0 ? 4.5 Performed By: #### 2 127268278, 5027348, 294222061, 65674238, 9502999, 07682055, 5028528, 6551754, 85737765, 00874985, 35523043, 90405424, 59451217, 48068820, 3358424, 09087724, 41617656, 98402698, 83187718, 2237436, 45877358, 15462750, 9467371 ####[facility] [address] [place] [address] PT Coag (PPP) [Time] 12.6 second(s) Normal 10.2-12.9 [facility] Comment on above: Performed By: #### 2 524694145, 9162667, 175857736, 81600822, 5983113, 52273568, 3426702, 7393607, 30355068, 39854622, 00527084, 09390241, 18409551, 34618485, 6935029, 61712854, 91491207, 85740489, 22332110, 1927259, 77972696, 78967805, 7764242 ####[facility] [address] [place] [address] eGFRon 04-23-2021 GFR/1.73 sq M.predicted among blacks MDRD (S/P/Bld) [Vol rate/Area] mL/min/{1.73_m2} Normal >=59 [facility] Comment on above: Order Comment: Order added by Discern Expert. Result Comment: eGFR is race adjusted. AA=. Performed By: #### 2 221871157, 6529007, 560221868, 98835011, 7256957, 33228130, 4375105, 2173755, 80970264, 46674898, 85895699, 74146736, 42106314, 79056797, 0457307, 75350271, 79153449, 63703900, 91020290, 2864345, 77134654, 06152089, 7498253 ####[facility] [address] [place] [address] GFR/1.73 sq M.predicted among non-blacks MDRD (S/P/Bld) [Vol rate/Area] mL/min/{1.73_m2} Normal >=59 [facility] Comment on above: Order Comment: Order added by Discern Expert. Result Comment: [employer] jessica kidney disease could be indicated at eGFR's of less than 60 mL/min/1.73m2. Kidney failure is indicated at less than 15 mL/min/1.73m2. Performed By: #### 2 958683322, 2292464, 216878760, 95057096, 1819474, 06625587, 7154291, 4196546, 43671452, 88285773, 74719679, 21921010, 34801284, 86393682, 4728846, 91582155, 92418804, 38601306, 27503863, 4159679, 09802489, 46898313, 5201658 ####[facility] [address] [place] [address] Vital Signs Date Time Vital Sign Value Performing Clinician Facility 04-28-2024 12:50-0500 Body mass index (BMI) [Ratio] 27.8 kg/m2 Shiloh Dee Dee-Nossek TECHNICAL ARCHITECT-[employer] Work Phone: [facility] 04-28-2024 12:50-0500 Body weight 68.95 kg Shiloh Dee Dee-Nossek TECHNICAL ARCHITECT-[employer] Work Phone: [facility] 04-28-2024 12:50-0500 Diastolic blood pressure 84 mm[Hg] Shiloh Dee Dee-Nossek TECHNICAL ARCHITECT[employer] Work Phone: [facility] 04-28-2024 12:50-0500 Heart rate 52 /min Shiloh Dee Dee-Nossek TECHNICAL ARCHITECT-[employer] Work Phone: [facility] 04-28-2024 12:50-0500 Systolic blood pressure 112 mm[Hg] Shiloh Dee Dee-Nossek TECHNICAL ARCHITECT-[employer] Work Phone: [facility] 02-18-2024 14:00-0400 Body mass index (BMI) [Ratio] 27.07 kg/m2 Shiloh Dee Dee-Nossek TECHNICAL ARCHITECT-[employer] Work Phone: [facility] 02-18-2024 14:00-0400 Body weight 67.13 kg Shiloh Dee Dee-Nossek TECHNICAL ARCHITECT[employer] Work Phone: [facility] 09-04-2024 14:00-0400 Diastolic blood pressure 82 mm[Hg] Shiloh Funez-Nossek TECHNICAL ARCHITECT-[employer] Work Phone: [facility] 02-18-2024 14:00-0400 Heart rate 51 /min Shiloh Funez-Nossek TECHNICAL ARCHITECT[employer] Work Phone: [facility] 02-18-2024 14:00-0400 Systolic blood pressure 122 mm[Hg] Shiloh Funez-Nossek TECHNICAL ARCHITECT-[employer] Work Phone: [facility] 07-09-2022 10:30-0500 Body height 158.75 cm Jessica Oneil Other [facility] Other 07-09-2022 10:30-0500 Body mass index (BMI) [Ratio] 28.43 kg/m2 Jessica Oneil Other [facility] Other 07-09-2022 10:30-0500 Body weight 71.67 kg Jessica Oneil Other [facility] Other 07-09-2022 10:30-0500 Diastolic blood pressure 84 mm[Hg] Jessica Oneil Other [facility] Other 07-09-2022 10:30-0500 SaO2% (BldA) [Mass fraction] 98 % Jessica Oneil Other [facility] Other 07-09-2022 10:30-0500 Systolic blood pressure 126 mm[Hg] Jessica Oneil Other [facility] Other Encounters Encounter Date Encounter Type Care Provider Facility Start: 05-18-2024 End: 05-18-2024 ambulatory Outreach Community Facility:[facility] Start: 04-28-2024 End: 04-28-2024 Bamboo flowsheet Shiloh Funez-Nossek TECHNICAL ARCHITECT-[employer] Work Phone: [facility] Start: 04-28-2024 End: 04-28-2024 Bamboo flowsheet Shiloh Chaudhary Dee Dee-Nossek TECHNICAL ARCHITECT[employer] Work Phone: [facility] Start: 04-28-2024 End: 04-28-2024 Office outpatient visit 25 minutes Shiloh Chaudhary Dee Dee-Nossek TECHNICAL ARCHITECT[employer] Work Phone: [facility] Comment on above: Schizoaffective diso rder, bipolar type (CMS/HCC); Generalized anxiety disorder (CMS/HCC) Start: 04-28-2024 End: 04-28-2024 ambulatory SHILOH Jet DEE DEE-NOSSEK Not Available Start: 02-18-2024 End: 02-18-2024 Bamboo flowsheet Shiloh Chaudhary Dee Dee-Nossek TECHNICAL ARCHITECT[employer] Work Phone: [facility] Start: 02-18-2024 End: 02-18-2024 Bamboo flowsheet Shiloh Chaudhary Dee Dee-Nossek TECHNICAL ARCHITECT[employer]IATRIST Work Phone: [facility] Start: 02-18-2024 End: 02-18-2024 Office outpatient visit 25 minutes Shiloh Chaudhary Dee Dee-Nossek TECHNICAL ARCHITECT-PRISON PSYCHIATRIST Work Phone: [facility] Comment on above: Generalized anxiety disorder (CMS/HCC); Schizoaffective disorder, bipolar type (CMS/HCC); High risk medication use Start: 02-18-2024 End: 02-18-2024 ambulatory SHILOH Jet DEE DEE-NOSSEK Not Available Start: 12-25-2023 End: 12-25-2023 ambulatory DANNY JORDANI Not Available Start: 11-17-2023 End: 11-17-2023 ambulatory SHILOH Jet DEE DEE-NOSSEK Not Available Start: 09-08-2023 End: 09-08-2023 ambulatory SHILOH Jet DEE DEE-NOSSEK Not Available Start: 07-17-2023 End: 07-17-2023 ambulatory Jessica Oneil [facility] Other Start: 07-17-2023 Telephone encounter Jessica Oneil [facility] Start: 07-10-2023 End: 07-10-2023 ambulatory Jessica Oneil Other [facility] Other Start: 07-10-2023 Encounter for genera l adult medical examination without abnormal findings Jessica Oneil [facility] Start: 07-10-2023 Periodic preventive med est patient 40-64yrs Jessica Oneil [facility] Start: 06-26-2023 End: 06-26-2023 ambulatory DANNY LA Not Available Start: 06-25-2023 End: 06-25-2023 ambulatory SHILOH Chaudhary MARY Not Available Start: 02-25-2023 End: 02-25-2023 ambulatory Jessica Oneil Other [facility] Other Start: 02-25-2023 Telephone encounter Jessica Oneil [facility] Start: 01-24-2023 End: 01-24-2023 ambulatory Jessica Oneil Other [facility] Other Start: 01-24-2023 Telephone encounter Jessica Oneil [facility] Start: 10-14-2022 End: 10-15-2022 ambulatory Dat Bautista Facility:[facility] Start: 07-12-2022 Encounter for genera l adult medical examination without abnormal findings DR JESSICA ONEIL [facility] Start: 07-11-2022 End: 07-12-[address] JESSICA ONEIL Facility:[facility] Start: 07-11-2022 End: 07-12-2022 Encounter for general adult medical examination without abnormal findings DR JESSICA ONEIL Facility:[facility] Start: 07-09-2022 End: 07-09-2022 ambulatory Jessica Oneil Other [facility] Other Start: 07-09-2022 Encounter for genera l adult medical examination without abnormal findings Jessica Oneil [facility] Start: 07-09-2022 Periodic preventive med est patient 40-64yrs Jessica Oneil [facility] Procedures Date Procedure Procedure Detail Performing Clinician Start: 12-25-2023 Microscopic observat ion [Identifier] in Cervix by Cyto stain Shiloh Rouse [facility] Work Phone: Start: 10-21-2023 Mammography Shiloh Alvaro Diaz [facility] Work Phone: Plan of Treatment Date Care Activity Detail Author Start: 12-24-2028 Screening for malign ant neoplasm of cervix [facility] Start: 12-24-2026 Screening for malign ant neoplasm of cervix Pap Smear [facility] Start: 07-17-2026 Screening for malign ant neoplasm of colon [facility] Start: 10-20-2024 Screening for malign ant neoplasm of [facility] [facility] Start: 07-29-2024 End: 07-29-2024 Patient encounter procedure 07/29/2024 1:00 PM EST Office Visit [facility] [address] [facility] [address] [place] [address] Shiloh Rouse, [facility] [address] [facility] [address] [place] [address] [facility] Start: 06-28-2024 End: 06-28-2024 Patient encounter procedure 06/28/2024 9:30 AM EST Office Visit [facility] [address] [place] [id number] Danny La, DO [address] [place] [address] [facility] Start: 04-28-2024 End: 04-28-2024 Patient encounter procedure 04/28/2024 1:00 PM EST Office Visit [facility] [address] [facility] [address] [place] [address] Shiloh Rouse, [facility] [address] [place] [address] [facility] Start: 02-18-2024 End: 02-17-2025 CBC W Auto Differential panel - Blood CBC and differential Lab Routine Schizoaffective disorder, bipolar type (CMS/HCC) High risk medication use Expected: 02/18/2024 (Approximate), Expires: 02/17/2025 [facility] Work Phone: Comment on above: Expected: 02/18/2024 (Approximate), Expires: 02/17/2025 Start: 02-18-2024 End: 02-17-2025 Comprehensive metabolic 2000 panel - Serum or Plasma Comprehensive metabolic panel Lab Routine Schizoaffective disorder, bipolar type (CMS/HCC) High risk medication use Expected: 02/18/2024 (Approximate), Expires: 02/17/2025 [facility] Comment on above: Expected: 02/18/2024 (Approximate), Expires: 02/17/2025 Start: 02-18-2024 End: 02-17-2025 Lipid 1996 panel - Serum or Plasma Lipid panel Lab Routine Schizoaffective disorder, bipolar type (CMS/HCC) High risk medication use Expected: 02/18/2024 (Approximate), Expires: 02/17/2025 [facility] Comment on above: Expected: 02/18/2024 (Approximate), Expires: 02/17/2025 Start: 02-18-2024 End: 02-18-2024 Patient encounter procedure 02/18/2024 2:00 PM EDT Office Visit [facility] [address] [facility] [address] [place] [address] Shiloh Rouse, TECHNICAL ARCHITECT-PRISON PSYCHIATRIST [address] [facility] [address] [place] [address] [facility] Comment on above: Arrived Start: 02-18-2024 End: 02-17-2025 Thyroid panel with tsh Thyroid panel with tsh Lab Routine Schizoaffective disorder, bipolar type (CMS/HCC) High risk medication use Expected: 02/18/2024 (Approximate), Expires: 02/17/2025 [facility] Comment on above: Expected: 02/18/2024 (Approximate), Expires: 02/17/2025 Start: 02-18-2024 End: 09-04-2025 Valproic acid level, total Valproic acid level, total Lab Routine Schizoaffective disorder, bipolar type (CMS/HCC) High risk medication use Expected: 02/18/2024 (Approximate), Expires: 02/17/2025 [facility] Comment on above: Expected: 02/18/2024 (Approximate), Expires: 02/17/2025 Start: 02-15-2024 Influenza vaccination Influenza Vacc ine (#1) [facility] Start: 1960 Screening for malign ant neoplasm of colon [facility] Immunizations Immunization Date Immunization Notes Care Provider Fa mamadouty 04-23-2022 influenza virus vaccine, unspecified formulation Shiloh Rouse TECHNICAL ARCHITECT-PRISON PSYCHIATRIST Work Phone: [facility] 02-14-2013 tetanus toxoid, reduced diphtheria toxoid, and acellular pertussis vaccine, adsorbed Jessica Oneil Other [facility] Other Payers Date Payer Category Payer Self-pay 2023 Private Health Insurance MARTHA GUY [id number] 2023 Unknown [facility]ILIS [place] [facility] [id number] 2023-Present [phone] [address] [id number] 2023 Unknown [id number] 2018 Unknown [id number] 1961 Unknown [id number] [id number]. 2.593 1961 Unknown [id number] [id number]. 2.593 1961 Unknown [id number] [id number]. 2.1259 1961 Unknown [id number] [id number]. 2.1259 1961 Unknown [id number] 2.16.840.1.112474.3.579. 2.1259 1961 Unknown [id number] 2.16.840.1.679193.3.579. 2.1259 1961 Unknown [id number] 2.16.840.1.767192.3.579. 2.1259 1961 Unknown [id number] 2.16.840.1.504547.3.579. 2.1259 1961 Unknown [id number] [id number]. 2.1259 Medicaid [id number] [id number] Unknown [id number] [id number]. 2.531 Social History Date Type Detail Facility Unknown if ever smoked [facility] Other Start: 12-26-2022 End: 02-18-2024 Sex Assigned At [facility] Start: 11-06-2022 Tobacco smoking stat [facility] Never smoked tobacco [facility] Start: 11-06-2022 Tobacco use and exposure Smokeless tobacco non-user [facility] Start: 02-18-2024 End: 04-28-2024 Alcoholic beverage intake Lifetime non-drinker (finding) [facility] Start: 12-26-2022 End: 02-18-2024 History of Social function [facility] How often to you hav e a drink containing alcohol? Never [facility] How many standard drinks containing alcohol do you have on a typical day? Patient does not drink [facility] Start: 11-03-2022 Education 13 [facility] Start: 04-09-2023 Alcohol Comment caffeine: 2-4 cups coffee per day [facility] Start: 1960 Sex assigned at Not on file [facility] Start: 08-28-2022 Gender identity Identifies as female gender (finding) [facility] History of Present illness Narrative 04-28-2024 Shiloh Jet Rouse, TECHNICAL ARCHITECT-PRISON PSYCHIATRIST - 04/28/2024 1:00 PM EST Note Date & Type Note Facility 04-28-2024 History of Presen t illness Narrative Images from the original note were not included. Emma Gonzáles is a 64 y.o. female presents for Medication Management. HPI: Patient is here for medication follow up. Patient has been stable since last appt. Mood is reported as not depressed. Anxiety is under control. Rarely needs xanax. Sleeping 7-8 hours. Medication compliant. No reported side effects. Denies abuse of substances. Medical problems since last visit. She followed up with PCP after her cholesterol was elevated. . Psychosocial stressors include getting ready for holidays. SUBJECTIVE: PAST MEDICAL HISTORY: Past Medical History: Diagnosis Date abnormal pap 05/2022 COLPO 06/27/22- Neg, bx benign ; 06/13/22- LSIL, HPV Neg ; 05/18/2021- Neg, HPV Positive Abnormal Pap smear of cervix Anxiety Cyst rt. ankle Depression (CMS/HCC) DVT (deep venous thrombosis) (CMS/HCC) right leg Endometrial cancer (CMS/HCC) Hyperlipidemia (CMS/HCC) Irregular heartbeat Occasional Mental health problem several hospitalization Plantar fasciitis of right foot Schizoaffective disorder (CMS/HCC) Screening mammogram for breast cancer 10/14/2022 benign ([place]) varicose veins bilateral ALLERGIES: Allergies Allergen Reactions Fluoxetine Unknown Venlafaxine Hcl Unknown SURGICAL HISTORY: Past Surgical History: Procedure Laterality Date SECTION, LOW TRANSVERSE 1985 COLONOSCOPY 2013 repeat in 10 years EXPLORATORY LAPAROTOMY 1994 Laparotomy 1994 SALPINGOOPHORECTOMY Right 2004 Op Lap/ RSO TUBAL LIGATION FAMILY HISTORY: Family History Problem Relation Name Age of Onset Other (parkinsons disease) Mother Not sure Hypertension Mother Not sure Stroke Mother Not sure Diabetes Father Not sure Mental illness Father Not sure Depression Sister Lulu Shoemaker 1 sister No Known Problems Brother No Known Problems Daughter Other (Suicide) Mother's Brother Mental illness Mother's Brother Breast cancer Paternal Grandmother Not sure late in life Cancer Other First spouse SOCIAL HISTORY: Social History Tobacco Use Smoking status: Never Smokeless tobacco: Never Vaping Use Vaping status: Never Used Substance Use Topics Alcohol use: Never Comment: caffeine: 2-4 cups coffee per day Drug use: Never Depression: Not at risk (02/18/2024) PHQ-2 PHQ-2 Score: 0 REVIEW OF SYMPTOMS - MENTAL STATUS EXAM Appearance Appearance: Casual dress, normal grooming and hygiene Attitude Attitude: Cooperative, conversant, engaged, and with good eye contact. Behavior Cooperative, conversant, engaged, and with good eye contact. Speech Normal, clear, regular rate, rhythm and volume Affect full affect appropriate with mood Mood euthymic Thought Process Organized and Clear Thought Content No Suicidal Ideation and No Homicidal ideation Perception No perceptual abnormalities noted Orientation Appropriate to age, Person, Place, and Time Memory/Concentration Short term intact and termite technician intact Insight/Judgement Good OBJECTIVE: Visit Vitals LMP (LMP Unknown) OB Status Postmenopausal Smoking Status Never Lab Results Component Value Date TSH 2.59 04/02/2024 Lab Results Component Value Date GLU 90 04/02/2024 CALCIUM 9.8 04/02/2024 NA 142 04/02/2024 K 4.3 04/02/2024 CO2 32 04/02/2024 CL 102 04/02/2024 BUN 15 04/02/2024 CREATININE 0.82 04/02/2024 Lab Results Component Value Date WBC 4.8 04/02/2024 HGB 14.4 04/02/2024 HCT 43.4 04/02/2024 MCV 87.7 04/02/2024 PLT 222 04/02/2024 Lab Results Component Value Date CHOL 320 (H) 04/02/2024 Lab Results Component Value Date HDL 62 04/02/2024 Lab Results Component Value Date LDLCALC 229 (H) 04/02/2024 Lab Results Component Value Date TRIG 138 04/02/2024 ASSESSMENT AND PLAN: Assessment/Plan Generalized anxiety disorder (CMS/HCC) Schizoaffective disorder, bipolar type (CMS/HCC) Impression. This is a 64year old female who has been a patient of this provider since 2018. Have observed both depressive episodes and manic episodes. Patient mood is stable on current medications. Will monitor q 3months and prn Psych Medication List ARIPiprazole Tablet, 20 MG, TAKE 1 TABLET BY MOUTH EVERY DAY Depakote ER Tablet Extended Release 24 Hour, 500 MG, 1 tablet Orally Once a day, Xanax Tablet, 0.25 MG, 1 tablet, Orally, daily prn severe anxiety-has not needed. Continue abilify to target mood Labs 02/06 Patient was seen Face to Face, Reviewed chart documents and documentation, Visit time 30 min F/U 3 months documented in this encounter [facility] History of Present illness Narrative 02-18-2024 ANUPAM Morrison - 02/18/2024 2:00 PM EDT Note Date & Type Note Facility 02-18-2024 History of Presen t illness Narrative Images from the original note were not included. Emma Gonzáles is a 63 y.o. female presents for Medication Management. HPI: Patient is here for medication follow up. Has been busy with various activities. Prurchased a trailer by the [employer]. I'm doing really good. Patient states may have had a little depression lasting a few weeks triggered by Jan 17 anniversary of Ricks . Mood currently is not depressed. Anxiety is mild. Feels under control. Sleeping well most of time. Medication compliant. No reported side effects. Denies abuse of substances. No Medical problems since last visit. 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 SUBJECTIVE: PAST MEDICAL HISTORY: Past Medical History: Diagnosis Date abnormal pap 05/2022 COLPO 06/27/22- Neg, bx benign ; 06/13/22- LSIL, HPV Neg ; 05/18/2021- Neg, HPV Positive Abnormal Pap smear of cervix Anxiety Cyst rt. ankle Depression (CMS/HCC) DVT (deep venous thrombosis) (CMS/HCC) right leg Endometrial cancer (CMS/HCC) Hyperlipidemia (CMS/HCC) Irregular heartbeat Occasional Mental health problem several hospitalization Plantar fasciitis of right foot Schizoaffective disorder (CMS/HCC) Screening mammogram for breast cancer 10/14/2022 benign ([place]) varicose veins bilateral ALLERGIES: Allergies Allergen Reactions Fluoxetine Unknown Venlafaxine Hcl Unknown SURGICAL HISTORY: Past Surgical History: Procedure Laterality Date SECTION, LOW TRANSVERSE 1985 COLONOSCOPY 2014 repeat in 10 years EXPLORATORY LAPAROTOMY 1995 Laparotomy 1995 SALPINGOOPHORECTOMY Right 2004 Op Lap/ RSO TUBAL LIGATION FAMILY HISTORY: Family History Problem Relation Name Age of Onset Other (parkinsons disease) Mother Not sure Hypertension Mother Not sure Stroke Mother Not sure Diabetes Father Not sure Mental illness Father Not sure Depression Sister Lulu Shoemaker 1 sister No Known Problems Brother No Known Problems Daughter Other (Suicide) Mother's Brother Mental illness Mother's Brother Breast cancer Paternal Grandmother Not sure late in life Cancer Other First spouse SOCIAL HISTORY: Social History Tobacco Use Smoking status: Never Smokeless tobacco: Never Vaping Use Vaping status: Never Used Substance Use Topics Alcohol use: Never Comment: caffeine: 2-4 cups coffee per day Drug use: Never Depression: Not at risk (02/18/2024) PHQ-2 PHQ-2 Score: 0 REVIEW OF SYMPTOMS - MENTAL STATUS EXAM Appearance Appearance: Casual dress, normal grooming and hygiene Attitude Attitude: Cooperative, conversant, engaged, and with good eye contact. Behavior Cooperative, conversant, engaged, and with good eye contact. Speech Normal, clear, regular rate, rhythm and volume Affect full affect appropriate with mood Mood Depressed mild intermittent Thought Process Organized and Clear Thought Content No Suicidal Ideation and No Homicidal ideation Perception No perceptual abnormalities noted Orientation Appropriate to age, Person, Place, and Time Memory/Concentration Short term intact and termite technician intact Insight/Judgement Good OBJECTIVE: Visit Vitals BP 122/82 (BP Location: Right arm, Patient Position: Sitting) Pulse 51 Wt 148 lb LMP (LMP Unknown) BMI 27.07 kg/m OB Status Postmenopausal Smoking Status Never BSA 1.71 m No results found for: TSH Lab Results Component Value Date GLU 90 03/20/2021 CALCIUM 9.5 03/20/2021 NA 144 03/20/2021 K 4.5 03/20/2021 CO2 32 (H) 03/20/2021 BUN 21 03/20/2021 CREATININE 0.9 03/20/2021 Lab Results Component Value Date WBC 3.8 03/20/2021 No results found for: CHOL No results found for: HDL No results found for: LDLCALC No results found for: TRIG ASSESSMENT AND PLAN: Assessment/Plan Assess/Plan SmartLinks: Diagnoses and all orders for this visit: Generalized anxiety disorder (CMS/HCC) Schizoaffective disorder, bipolar type (CMS/HCC) Psych Medication List ARIPiprazole Tablet, 20 MG, TAKE 1 TABLET BY MOUTH EVERY DAY Depakote ER Tablet Extended Release 24 Hour, 500 MG, 1 tablet Orally Once a day, Xanax Tablet, 0.25 MG, 1 tablet, Orally, daily prn severe anxiety-has not needed. Continue abilify to target sx of schizoaffective. Labs ordered including Depakote level. Patient was seen Face to Face, Reviewed chart documents and documentation, Visit time : 32min F/U months documented in this encounter [facility] Evaluation note 07-17-2023 Note Date & Type Note Facility 07-17-2023 Evaluation note Encounter Date Diagnosis Assessment Notes Jul, Medication monitoring encounter (ICD-10 - Z51.81) [facility] Other Evaluation note 07-10-2023 Note Date & [...] patient is sent home pleased, without concerns. [facility] Other Evaluation note 07-09-2022 Note Date & Type Note Facility 07-09-2022 Evaluation note Encounter Date Diagnosis Assessment Notes Jun, Wellness examination (ICD-10 - Z00.00) Discussed weight related to possibly her medications. We will check yearly wellness labs. Encouraged exercise for physical and mental health. She continues to follow with [facility] for women's health. [facility] Other Evaluation note Note Date & Type Note Facility Evaluation note No Information [employer] Other Evaluation note Note Date & Type Note Facility Evaluation note Diagnosis Schizoaffective disorder, bipolar type (CMS/HCC) Schizoaffective disorder, unspecified condition Generalized anxiety disorder (CMS/HCC) Generalized anxiety disorder documented in this encounter [facility] Evaluation note Note Date & Type Note Facility Evaluation note Diagnosis Generalized anxiety disorder (CMS/HCC) Generalized anxiety disorder Schizoaffective disorder, bipolar type (CMS/HCC) Schizoaffective disorder, unspecified condition High risk medication use documented in this encounter [facility] History general Narrative - Reported Note Date & Type Note Facility History general Narrative - Reported Type Medical History Bi polar/ Medical History anxiety/depression Surgical History Oopherectomy Lf. 2004 Surgical History 1985 Surgical History Vein surgery 1985 [facility] Other History general Narrative - Reported Note Date & Type Note Facility History general Narrative - Reported Type Medical History Bi polar/ Medical History anxiety/depression Medical History hyperlipidemia Medical History anxiety Medical History depression Surgical History Oopherectomy Lf. 2004 Surgical History oophorectomy Surgical History 1985 Surgical History cyst removal Surgical History Vein surgery 1985 Surgical History wisdom teeth Hospitalization History see above [facility] Other Summary Purpose Family History No Family History Records FoundNo Family History Records FoundNo Family History Records FoundNo Family History Records Found Advance Directives No Advanced Directives Records FoundNo Advanced Directives Records FoundNo Advanced Directives Records FoundNo Advanced Directives Records Found Additional Source Comments INFORMATION SOURCE (unrecogn ized section and content) DATE CREATED AUTHOR 09/10/2021 Jose Donovan [facility] DATE CREATED AUTHOR AUTHOR'S ORGANIZ ATION 10/18/2022 [facility] DATE CREATED AUTHOR AUTHOR'S ORGANIZ ATION 04/30/2024 [facility] EPIC DATE CREATED AUTHOR AUTHOR'S ORGANIZ ATION 05/19/2024 [facility] REASON FOR VISIT (unrecogniz ed section and content) Reason Comments Med Management Follow-up Care Teams (unrecognized sec tion and content) [employer] Relationship Specialty Start Date End Date Jessica Oneil MD PCP - General Family Medicine 11/06/22 [employer] Relationship Specialty Start Date End Date Jessica Oneil MD PCP - General Family Medicine 11/06/22 [employer] Relationship Specialty Start Date End Date Jessica Oneil MD PCP - General Family Medicine 11/06/22 [employer] Relationship Specialty Start Date End Date Jessica Oneil MD PCP - General Family Medicine 11/06/22 FOR RECORDS PERTAINING TO PATIENTS WHO ARE [...] BE BASED ON THE PRIMARY CLINICAL RECORDS. [facility]. provides no warranty or guarantee of the accuracy or completeness of information in this document.
== END 2024-06-26 10:07 | disposition home or self-care (01) ==
LOC: ER 10:14
PROVIDERS: Emergency Provider Emergency Medicine; PCP Family Medicine
DX: M79.604 Pain in right leg (principal); Z86.718 Personal history of other venous thrombosis and embolism; I83.893 Varicose veins of bilateral lower extremities with other complications
CPT/HCPCS: 93971; 99285

== ENCOUNTER 2024-11-19 09:51 | Outpatient (OUT) | payer OTHER, SELFPAY ==
--- OUTSIDE RECORDS SUMMARY | 2024-11-19 09:53 | XMS_ITS | Encounter Summary ---
Author Organization [facility] Address [address] [place] [address] Care Team Providers Care Audiologist Name Role Phone Jessica Rollins MD Primary Care Provider [phone] Debbie Rouse CHILDCARE AIDE-TRACTOR OPERATOR LASER LEVELING Unavailable Reason for Visit * Reason Comments Med Refill Encounter Details Date Type Department Care Team (Late st Contact Info) Description 07/15/2024 Refill [facility] [address] [facility] [address] [place] [address] Debbie Rouse, CHILDCARE AIDE-TRACTOR OPERATOR LASER LEVELING [address] [place] [address] Schizoaffective disorder, bipolar type (CMS/HCC) Social History Tobacco Use Types Packs/Day Years Used Date Smoking Tobacco: Never Smokeless Tobacco: Never Alcohol Use Standard Drinks/Week Comments Never 0 (1 standard drink = 0.6 oz pure alcohol) caffeine: 2-4 cups coffee per day AUDIT-C Answer Date Recorded Q1: How often do you have a drink containing alcohol? Never 12/26/2022 Q2: How many drinks containi ng alcohol do you have on a typical day when you are drinking? Patient does not drink Q3: How often do you have si x or more drinks on one occasion? Never 12/26/2022 PHQ-2 Answer Date Recorded Patient Health Questionnaire-2 Score 0 04/28/2024 Education Answer Date Recorded What is the highest level of school you have completed or the highest degree you have received? 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 Not on file Not on file Not on file documented as of this encounter Plan of Treatment Upcoming Encounters Date Type Department Care Team (Late st Contact Info) Description 11/24/2024 11:00 AM EDT Office Visit [facility] [address] [place] [address] Debbie Rouse, CHILDCARE AIDE-TRACTOR OPERATOR LASER LEVELING [address] [place] [address] 12/29/2024 11:30 AM EDT Office Visit [facility] [address] [place] [address] Danny Conway, DO [address] [place] [address] 07/06/2025 11:45 AM EST Office Visit [facility] [address] [place] [address] Danny Conway, DO [address] [place] [address] documented as of this encounter Visit Diagnoses Diagnosis Schizoaffective disorder, bipolar type ([facility]) Schizoaffective disorder, unspecified condition documented in this encounter Care Teams Audiologist Relationship Specialty Start Date End Date Jessica Rollins MD PCP - General Family Medicine 11/06/22 Debbie Rouse, CHILDCARE AIDE-TRACTOR OPERATOR LASER LEVELING [address] [place] [address] Nurse Practitioner Psychiatry 07/01/24 documented as of this encounter
--- OUTSIDE RECORDS SUMMARY | 2024-11-19 09:53 | XMS_ITS | Encounter Summary ---
Author Organization [facility] Address [address] [place] [address] Care Team Providers Care Director Video Name Role Phone Jessica Rollins MD Primary Care Provider [phone] Debbie Rouse BOX LINER-PREVENTIVE MAINTENANCE ENGINEER Unavailable Encounter Details Date Type Department Care Team (Late Contact Info) Description 11/03/2022 Abstract [facility] [address] [facility] [address] [place] [address] Debbie Rouse, BOX LINER-PREVENTIVE MAINTENANCE ENGINEER [address] [facility] [address] [place] [address] Social History Tobacco Use Types Packs/Day Years Used Date Smoking Tobacco: Never Tobacco Cessation:Counseling Given: Not Answered Alcohol Use Standard Drinks/Week Comments Never 0 (1 standard drink = 0.6 oz pur e alcohol) caffeine: 1-2 cups per day PHQ-2 Answer Date Recorded Patient Health Questionnaire-2 Score 0 11/06/2022 Education Answer Date Recorded What is the highest level of school you have completed or the highest degree you have received? 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 No / Unsure 11/05/2022 5:21 PM EDT documented as of this encounter Functional Status * Over the past 2 weeks, how often have you been bothered by any of the following problems? Question Answer Date of Assessment Author Little interest or pleasure in doing things Not at all 11/06/2022 1:52 PM EDT [facility] N Feeling down, depressed, or hopeless Not at all 11/06/2022 1:52 PM EDT [facility]na [facility]cantara [facility] N Patient Health Questionnaire -2 Score 0 11/06/2022 1:52 PM EDT [facility]cantara [facility] N documented as of this encounter Plan of Treatment Upcoming Encounters Date Type Department Care Team (Late st Contact Info) Description 11/24/2024 11:00 AM EDT Office Visit [facility] [address] [facility] [address] [place] [address] Debbie Rouse APRN-PREVENTIVE MAINTENANCE ENGINEER [address] [place] [address] 12/29/2024 11:30 AM EDT Office Visit [facility] [address] [place] [phone] Danny Conway, DO [address] [place] [address] 07/06/2025 11:45 AM EST Office Visit [facility] [address] [place] [address] Danny Conway, DO [address] [place] [address] documented as of this encounter Visit Diagnoses Not on filedocumented in this encounter Care Teams Director Video Relationship Specialty Start Date End Date Jessica Rollins MD PCP - General Family Medicine 11/06/22 Debbie Rouse, BOX LINER-PREVENTIVE MAINTENANCE ENGINEER [address] [place] [address] Nurse Practitioner Psychiatry 07/01/24 documented as of this encounter
--- OUTSIDE RECORDS SUMMARY | 2024-11-19 09:53 | XMS_ITS | Encounter Summary ---
Author Organization [facility] Address [address] [place] [address] Care Team Providers Care Ship Cleaner Name Role Phone Jessica Rollins MD Primary Care Provider [phone] Debbie Rouse SUBWAREHOUSE SUPERVISOR-POST DOCTORAL RESEARCHER Unavailable Encounter Details Date Type Department Care Team (Late st Contact Info) Description 11/15/2022 Abstract [facility] [address] [facility] [address] [place] [address] Debbie Rouse, SUBWAREHOUSE SUPERVISOR-POST DOCTORAL RESEARCHER [address] [facility] [address] [place] [address] Social History Tobacco Use Types Packs/Day Years [...] 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 No / Unsure 11/05/2022 5:21 PM EDT documented as of this encounter Plan of Treatment Upcoming Encounters Date Type Department Care Team (Late st Contact Info) Description 11/24/2024 11:00 AM EDT Office Visit [facility] [address] [facility] [address] [place] [address] Debbie Rouse, SUBWAREHOUSE SUPERVISOR-POST DOCTORAL RESEARCHER [address] [facility] [address] [place] [address] 12/29/2024 11:30 AM EDT Office Visit [facility] [address] [place] [phone] Danny Conway, DO [address] [place] [address] 07/06/2025 11:45 AM EST Office Visit [facility] [address] [place] [address] Danny Conway, DO [address] [place] [address] documented as of this encounter Visit Diagnoses Not on filedocumented in this encounter Care Teams Ship Cleaner Relationship Specialty Start Date End Date Jessica Rollins MD PCP - General Family Medicine 11/06/22 Debbie Rouse, SUBWAREHOUSE SUPERVISOR-POST DOCTORAL RESEARCHER [address] [facility] [address] [place] [address] Nurse Practitioner Psychiatry 07/01/24 documented as of this encounter
--- OUTSIDE RECORDS SUMMARY | 2024-11-19 09:53 | XMS_ITS | Encounter Summary ---
Author Organization [facility] Address [address] [place] [address] Care Team Providers Care Wood Craftsman Name Role Phone Jessica Rollins MD Primary Care Provider [phone] Debbie Rouse FARM OPERATIONS MANAGER-TEXTILES PRINTER Unavailable Encounter Details Date Type Department Care Team (Late st Contact Info) Description 10/21/2023 Clinisync Result Encounter [facility] External Department Unsolicited Brii La, DO [address] [facility] [address] [place] [address] Social History Tobacco Use Types Packs/Day Years [...] Date Recorded Patient Health Questionnaire-2 Score 0 09/08/2023 Education Answer Date Recorded What is the [...] 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, [employer], 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 on file Not on file Not on file documented as of this encounter Plan of Treatment Upcoming Encounters Date Type Department Care Team (Late st Contact Info) Description 11/24/2024 11:00 AM EDT Office Visit [facility] [address] [place] [address] Debbie Rouse, FARM OPERATIONS MANAGER-[facility] [address] [place] [address] 12/29/2024 11:30 AM EDT Office Visit [facility] [address] [place] [address] Brii La, DO [address] [place] [address] 07/06/2025 11:45 AM EST Office Visit [facility] [address] [place] [address] Brii La A, DO [address] [place] [address] documented as of this encounter Procedures Procedure Name Priority Date/Time Associated Diagnosis Comments MM TOMOSYNTHESIS SCREENING BI 10/21/2023 4:29 PM EDT documented in this encounter Results * MM TOMOSYNTHESIS SCREENING BI (10/21/2023 4:29 PM EDT) Anatomical Region Laterality Modality Other 10/21/2023 4:29 PM EDT Narrative 10/21/2023 4:30 PM EDT The [address] [address] Mammography Report Signed Patient: EMMA ROE MR#: [id number] : 1960 Acct:[id number] Age/Sex: 63 / F ADM Date: 10/21/23 Loc: MAMMO Attending Dr: BRII LA Ordering Physician: BRII LA Results: Date of Service: 10/21/23 Follow Up: Procedure(s): MM tomosynthesis screening BI Accession Number(s): [id number] cc: Jessica Rollins M.D.; BRII LA Patient Name: EMMA ROE MR#: [id number] : 1960 Exam Date: 10/21/2023 Ordering Doctor: DR BRII LA RADIOLOGY REPORT PROCEDURE: MM TOMOSYNTHESIS SCREENING BI COMPARISON: MG MAMM SCREEN 3D ANNA MARIE CAD, 10/14/2022. MG MAMM SCREEN 3D ANNA MARIE CAD, 10/09/2021. MG MAMM SCREEN ANNA MARIE W CAD, 05/05/2020. MG MAMM ANNA MARIE SCRN W CAD DIG, 02/10/2013. INDICATIONS: Screening Calculator Name NCI Breast Cancer Risk Assessment Tool 5 Year Breast Cancer Risk 1.40% Lifetime Breast Cancer Risk 6.20% Personal Breast Cancer No Personal Ovarian Cancer No Treatments None Family Cancers Grandmother-paternal with breast cancer at age 70; Aunt-maternal with lung cancer at age 70. LOCATION: [facility] BREAST COMPOSITION: The breasts are heterogeneously dense,which may obscure small masses. FINDINGS: DIAGNOSTIC [...] BIOPSIED. Dictated by: Dat Bautista M.D. on 10/21/2023 at 16:23 Approved by: Dat Bautista M.D. on 10/21/2023 at 16:29 Dictated By: Dat Bautista M.D. Signed By: 10/21/23 1630 DD/ 1629 TD/TT: Mailroom Manager: Procedure Note Radiology, Radiologist, - 10/21/2023 The [place] [id number] Mammography Report Signed Patient: EMMA ROE AMR#: [id number] : 1960cct:[id number] Age/Sex: 63 / FADM Date: 10/21/23 Loc: MAMMO Attending Dr: BRII LA Ordering Physician: BRII LAResults: Date of Service: 10/21/23Follow Up: Procedure(s): MM tomosynthesis screening BI Accession Number(s): [id number] cc: Jessica Rollins M.D.; BRII LA Patient Name: EMMA ROE MR#: [id number] : 1960 Exam Date: 10/21/2023 Ordering Doctor: DR BIRI LA RADIOLOGY REPORT PROCEDURE: MM TOMOSYNTHESIS SCREENING BI COMPARISON: MG MAMM SCREEN 3D ANNA MARIE CAD, 10/14/2022. MG MAMM SCREEN 3DBIL CAD, 10/09/2021. MG MAMM SCREEN ANNA MARIE W CAD, 05/05/2020. MG MAMM ANNA MARIE SCRN WCAD DIG, 02/10/2013. INDICATIONS: Screening Calculator Name NCI Breast Cancer Risk Assessment Tool 5 Year Breast Cancer Risk 1.40% Lifetime Breast Cancer Risk 6.20% Personal Breast Cancer No Personal Ovarian Cancer No Treatments None Family Cancers Grandmother-paternal with breast cancer at age 70; Aunt-maternal with lung cancer at age 70. LOCATION: [facility] BREAST COMPOSITION: The breasts are heterogeneously dense,which may obscure small masses. FINDINGS: DIAGNOSTIC CATEGORY 1--NEGATIVE. RIGHT BREAST: No significant suspicious finding. No significant changehas occurred. LEFT BREAST: No significant suspicious finding. No significant changehas occurred. RECOMMENDATIONS: ROUTINE MAMMOGRAM AND CLINICAL EVALUATION IN 12 MONTHS. PLEASE NOTE: A NORMAL MAMMOGRAM DOES NOT EXCLUDE THE POSSIBILITY OFBREAST CANCER. A CLINICALLY SUSPICIOUS PALPABLE LUMP SHOULD BE BIOPSIED. Dictated by: Dat Bautista M.D. on 10/21/2023 at 16:23 Approved by: Dat Bautista M.D. on 10/21/2023 at 16:29 Dictated By: Dat Bautista M.D. Signed By:10/21/23 1630 DD/ 1629 TD/TT: Mailroom Manager: Brii La DO [facility] Final Resul t documented in this encounter Visit Diagnoses Not on filedocumented in this encounter Care Teams Wood Craftsman Relationship Specialty Start Date End Date Jessica Rollins MD PCP - General Family Medicine 11/06/22 Debbie Rouse APRN-TEXTILES PRINTER [address] [address] Nurse Practitioner Psychiatry 07/01/24 documented as of this encounter
--- OUTSIDE RECORDS SUMMARY | 2024-11-19 09:53 | XMS_ITS | Clinical Summary ---
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 Washing Machine Assembler Name Role Phone Jessica Rollins MD Primary Care Provider [phone] Debbie Rouse APRN-[employer] Unavailable Allergies Active Allergy Reactions Criticality Noted Date Comments Fluoxetine Unknown 10/14/2022 Venlafaxine Hcl Unknown 10/14/2022 Medications Multiple Vitamins-Minera ls (Multivitamin Gummies Adult) chewable tablet Acti ve montelukast (Singulair) 10 MG tablet Take 10 mg by mouth if needed Active Calcium-Phospho alberto-Vitamin D (CALCIUM/D3 ADULT GUMMIES PO) Take 1,000 mg by mouth Daily Active metroNIDAZOLE (Metrogel) 1 % gel 4 Active rosuvastatin (Crestor) 20 MG tablet Take 20 mg by mouth Daily Active estradiol (Estrace) 0.1 MG/GM vaginal creamIndication s:Vaginal atrophy Insert 1 g into the vagina 2 (two) times a week 42.5 g 1 5 06/28/19 26 Active ARIPiprazole (Abilify) 5 MG tabletIndicatio ns:Bipolar I disorder, moderate, current or most recent episode depressed, in full remission (CMS/HCC) Take 1 tablet (5 mg) by mouth Daily 30 tablet 1 5 Active divalproex (Depakote ER) 250 MG 24 hr tabletIndicatio ns:Schizoaffect andrew disorder, bipolar type (CMS/HCC) Take 1 tablet (250 mg) by mouth Daily Do not crush, chew, or split. 30 tablet 1 5 Active ALPRAZolam (Xanax) 0.25 MG tabletIndicatio ns:Generalized anxiety disorder (CMS/HCC) Take 1 tablet (0.25 mg) by mouth Daily as needed for anxiety (1 tablet as needed PRN for severe anxiety) 30 tablet 5 11/27/19 25 Active ARIPiprazole (Abilify) 20 MG tabletIndicatio ns:Schizoaffect andrew disorder, bipolar type (CMS/HCC) Take 1 tablet (20 mg) by mouth Daily 90 tablet 5 01/26/20 25 Active ALPRAZolam (Xanax) 0.25 MG tabletIndicatio ns:Generalized anxiety disorder (CMS/HCC) Take 1 tablet (0.25 mg) by mouth Daily as needed for anxiety (1 tablet as needed PRN for severe anxiety) 30 tablet 4 10/28/19 25 Discontinu ed(Reorder ) divalproex (Depakote ER) 500 MG 24 hr tabletIndicatio ns:Schizoaffect andrew disorder, bipolar type (CMS/HCC) Take 1 tablet (500 mg) by mouth Daily 90 tablet 5 10/28/19 25 Discontinu ed(Dose adjustment ) ARIPiprazole (Abilify) 20 MG tabletIndicatio ns:Schizoaffect andrew disorder, bipolar type (CMS/HCC) Take 1 tablet (20 mg) by mouth Daily 90 tablet 5 10/28/19 25 Discontinu ed(Reorder ) Active Problems Problem Noted Date Diagnosed Date Bipolar I disorder, moderate , current or most recent episode depressed, in full remission 09/30/2024 Generalized anxiety disorder 10/14/2022 Schizoaffective disorder, bipolar type 3 Long-term use of high-risk medication 10/14/2022 Encounters Date Type Department Care Team Description 10/27/2024 9:30 AM EDT Office Visit [facility] [address] [place] [address] Dee Dee-Debbie Chaves M, INSURANCE AGENCY SALES MANAGER-[employer] Generalized anxiety disorder (CMS/HCC); Schizoaffective disorder, bipolar type ([facility]) 10/27/2024 Bamboo flowsheet [facility] [address] [place] [address] Debbie Rouse, INSURANCE AGENCY SALES MANAGER-[facility] 10/27/2024 Travel 10/13/2024 9:00 AM EDT Office Visit [facility] [address] [place] [address] Debbie Rouse, [facility] Schizoaffective disorder, bipolar type ([facility]) 10/13/2024 Bamboo flowsheet [facility] [address] [place] [address] Debbie Rouse, INSURANCE AGENCY SALES MANAGER-[facility] 10/13/2024 Travel 09/30/2024 1:00 PM EDT Office Visit [facility] [address] [place] [address] Debbie Rouse, [facility] Bipolar I disorder, moderate, current or most recent episode depressed, in full remission ([facility]) 09/30/2024 Bamboo flowsheet [facility] [address] [place] [address] Debbie Rouse, INSURANCE AGENCY SALES MANAGER-[facility] 09/30/2024 Travel 09/27/2024 Travel from Last 3 Months Family History Medical History Relation Name Comments No Known Problems Brother No Known Problems Daughter Diabetes Father Not sure Mental illness Father Not sure Hypertension Mother Not sure Stroke Mother Not sure parkinsons disease Mother Not sure Mental illness Mother's Brother Suicide Mother's Brother Cancer Other First spouse Breast cancer Paternal Grandmother Not sure late i n life Depression Sister Lulu Shoemaker 1 sister Relation Name Status Comments Brother Daughter Alive 2 Daughters Father Not sure Alive Mother Not sure Mother's Brother Other First spouse 2017 Paternal Grandmother Not sure Sister Lulu Shoemaker Alive 5 sisters Social History Tobacco Use Types Packs/Day Years Used Date Smoking Tobacco: Never Smokeless Tobacco: Never Tobacco Cessation:Counseling Given: Not Answered Alcohol Use Standard Drinks/Week Comments Never 0 (1 standard drink = 0.6 oz pure alcohol) caffeine: 2 cups coffee per day AUDIT-C Answer Date [...] Date Recorded Patient Health Questionnaire-2 Score 0 07/29/2024 Education Answer Date Recorded What is the [...] 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, [employer], 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 Not on file Not on file Not on file Last Filed Vital Signs Vital Sign Reading Time Taken Comments Blood Pressure 106/82 10/27/2024 9:31 AM EDT Pulse 55 10/27/2024 9:31 AM EDT Temperature - - Respiratory Rate - - Oxygen Saturation - - Inhaled Oxygen Concentration - - Weight 71.2 kg (157 lb) 10/27/2024 9:31 AM EDT Height 157.5 cm (5' 2 ) 06/26/2023 10:24 AM EST Body Mass Index 28.72 06/26/2023 10:24 AM EST Plan of Treatment Upcoming Encounters Date Type Department Care Team (Late st Contact Info) Description 11/24/2024 11:00 AM EDT Office Visit [facility] [address] [place] [address] Debbie Rouse, INSURANCE AGENCY SALES MANAGER-[employer] 112 [facility] [address] [place] [address] 12/29/2024 11:30 AM EDT Office Visit [facility] [address] [place] [address] Visci, Danny A, DO [address] [place] [address] 07/06/2025 11:45 AM EST Office Visit [facility] [address] [place] [address] Danny La, DO [address] [place] [address] Health Maintenance Due Date Last Done Comments CT Colonography 1960 Colonoscopy 1960 FIT 1960 FOBT 1960 Sigmoidoscopy 1960 Mammogram 10/20/2024 10/21/2023, 06/2022, 10/09/2021, Additional history exists Influenza Vaccine (Season Ended) 2025 04/23/2022, 03/16/2021, 03/29/2020, Additional history exists Colorectal Cancer Screening 07/17/2026 FIT-DNA 07/17/2026 07/17/2023 Pap Smear 12/24/2026 12/25/2023, 06/16, 12/26/2022, Additional history exists Cervical Cancer Screening 06/28/2029 HPV/Cotest 06/28/2029 06/28/2024, 12/14, 12/26/2022 Procedures Procedure Name Priority Date/Time Associated Diagnosis Comments IGP, APT HPV,RFX 16/18,45 Routine 06/28/2024 12:00 AM EST Screening for malignant neoplasm of cervix LGSIL of cervix of undetermined 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 Screening for HPV (human papillomavirus) THINPREP TIS PAP RFX HPV Routine 12/25/2023 3:25 PM EDT Screening for malignant neoplasm of cervix LGSIL of cervix of undetermined 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 Vaginal atrophy MM TOMOSYNTHESIS SCREENING BI 10/21/2023 4:29 PM EDT LAB COLOGUARD COLON CANCER SCREEN Routine 07/17/2023 6:00 AM EST Colon cancer screening from Last 3 Months or Most Recently Relevant to Health Maintenance Results * IGP, APT HPV,RFX 16/18,45 (06/28/2024 12:00 AM EST) Diagnosis: Comment [facility] Comment: NEGATIVE FOR INTRAEPITHELIAL LESION OR MALIGNANCY. CELLULAR CHANGES ASSOCIATED WITH ATROPHY ARE PRESENT. THIS SPECIMEN WAS RESCREENED PART OF OUR OUTREACH ASSISTANT PROGRAM. Specimen Adequacy: Comment [facility] Comment: Satisfactory for evaluation. Endocervical and/or squamous metaplastic cells (endocervical component) are present. Clinician Provided ICD10: Comment [facility] Comment: Z12.4 R87.612 B97.7 Z11.51 Performed By: Comment [facility] Comment:Fran Pulido, Cytot echnologist (ASC) QC Reviewed By: Comment [facility] Comment:Kaye Fermin, Cytot echnologist ([facility]) Cyto Comments . [facility] Note: Comment [facility] Comment: The Pap smear is a screening test designed to aid in the detection of premalignant and malignant conditions of the uterine cervix. It is not a diagnostic procedure and should not be used as the sole means of detecting cervical cancer. Both false-positive and false-negative reports do occur. Test Methodology: Comment [facility] Comment: This liquid based ThinPrep(R) pap test was screened with the use of an image guided system. HPV Aptima Negative Negative [facility] Comment: This nucleic acid amplification test detects fourteen high-risk HPV types (16,18,31,33,35,39,45,51,52,56,58,59,66,68) without differentiation. Vaginal Fluid 06/28/2024 06/29/2024 Narrative [facility] - 07/01/2024 3:06 PM EST Performed at: - Lab[address] [id number] Aids Counselor: Maru Desai MD, Phone: [phone] Performed at: - [address] [id number] Aids Counselor: Maru Desai MD, Phone: [phone] Specimen Comment: No. of containers..01 ThinPrep Vial us Danny La DO LAB BLOOD ORDERABLES Final Re sult [facility] * THINPREP TIS PAP RFX HPV (12/25/2023 3:25 PM EDT) CLINICAL INFORMATION [facility] Comment:None given LMP [facility] Comment:NONE GIVEN PREV. PAP [facility] Comment:NONE GIVEN PREV. BX [facility] Comment:NONE GIVEN SOURCE [facility] Comment:None given STATEMENT OF ADEQUACY [facility] Comment: Satisfactory for evaluation. Endocervical/transformation zone component present. INTERPRETATION/RESUL T [facility] Comment: Cytology Results: Negative for intraepithelial lesion or malignancy. Atrophic pattern; predominantly parabasal cells COMMENT [facility] Comment: This Pap test has been evaluated with computer assisted technology. [facility] [employer] [facility] Comment: CMB, CT(ASCP) CT Screening Location: [place] [address] REVIEW [facility] [employer] [facility] Comment: BH, CT(ASCP) CT screening location: [place] [address]. (ALWAYS MESSAGE) [facility] Comment: EXPLANATORY NOTE: The Pap is a screening test for cervical cancer. It is not a diagnostic test and is subject to false negative and false positive results. It is most reliable when a satisfactory sample, regularly obtained, is submitted with relevant clinical findings and history, and when the Pap result is evaluated along with historic and current clinical information. Swab 12/25/2023 3:25 PM EDT 12/26/2023 12:26 AM EDT Narrative Resulting Agency Comment Performing Organization Information Site ID: [id number] Name: [facility] Address: [address] [place] [address], [address] [place] [phone] Director: Jaun Muhammad MD us Danny La DO LAB CYTOLOGY ORDERABLES Final Result Performing Organization Address City/[facility]/ZIP Co de Phone Number [facility] * MM TOMOSYNTHESIS SCREENING BI (10/21/2023 4:29 PM EDT) Anatomical Region Laterality Modality Other 10/21/2023 4:29 PM EDT Narrative 10/21/2023 4:30 PM EDT [facility] [address] [place] [address] Mammography Report Signed Patient: EMMA GONZÁLES MR#: [id number] : 1960 Acct:[id number] Age/Sex: 63 / F ADM Date: 10/21/23 Loc: MAMMO Attending Dr: DANNY LA Ordering Physician: DANNY LA Results: Date of Service: 10/21/23 Follow Up: Procedure(s): MM tomosynthesis screening BI Accession Number(s): [id number] cc: Jessica Rollins M.D.; DANNY LA Patient Name: EMMA GONZÁLES MR#: [id number] : 1960 Exam Date: 10/21/2023 Ordering Doctor: DR DANNY LA RADIOLOGY REPORT PROCEDURE: MM TOMOSYNTHESIS SCREENING [...] lung cancer at age 71. LOCATION: [facility] BREAST COMPOSITION: The breasts are heterogeneously [...] Signed By: 10/21/23 1630 DD/ 1629 TD/TT: Hand Flatwork Finisher: Procedure Note Radiology, Radiologist, MD - 10/21/2023 [facility] [place] [id number] Mammography Report Signed Patient: EMMA GONZÁLES AMR#: [id number] : 1960cct:[id number] Age/Sex: 63 / FADM Date: 10/21/23 Loc: MAMMO Attending Dr: DANNY LA Ordering Physician: DANNY LAResults: Date of Service: 10/21/23Follow Up: Procedure(s): MM tomosynthesis screening BI Accession Number(s): [id number] cc: Jessica Rollins M.D.; DANNY LA Patient Name: EMMA GONZÁLES MR#: [id number] : 1960 Exam Date: 10/21/2023 Ordering Doctor: DR DANNY LA RADIOLOGY REPORT PROCEDURE: MM TOMOSYNTHESIS SCREENING [...] lung cancer at age 71. LOCATION: [facility] BREAST COMPOSITION: The breasts are heterogeneously [...] M.D. Signed By:10/21/23 1630 DD/ 1629 TD/TT: Hand Flatwork Finisher: us Danny La DO [facility] Final Resul t * Cologuard?? colon cancer screening (07/17/2023 6:00 AM EST) NONINV COLON CA DNA+OCC BLD SCRN STL-IMP Negative Negative 07/30/2023 9:49 AM EST [facility] (CLIA #:[id number]) Comment: NEGATIVE TEST RESULT. A negative Cologuard result indicates a low likelihood that a colorectal cancer (CRC) or advanced adenoma (adenomatous polyps with more advanced pre-malignant features) is present. The chance that a person with a negative Cologuard test has a colorectal cancer is less than 1 in 1500 (negative predictive value >99.9%) or has an advanced adenoma is less than 5.3% (negative predictive value 94.7%). These data are based on a prospective cross-sectional study of 10,000 individuals at average risk for colorectal cancer who were screened with both Cologuard and colonoscopy. (Kailey Gamble. et al, N Engl J Med 2014;370(14):2090-0865) The normal value (reference range) for this assay is negative. COLOGUARD RE-SCREENING RECOMMENDATION: Periodic colorectal cancer screening is an important part of preventive healthcare for asymptomatic individuals at average risk for colorectal cancer. Following a negative Cologuard result, the [place] [employer] and U.S. Multi-Society Task Force screening guidelines recommend a Cologuard re-screening interval of 3 years. References: [place] [employer] Guideline for Colorectal Cancer Screening: https://www.cancer.org/cancer/vdmzz-hxztgb-itzsgg/ogfbaxqai-uxzrsvvuy-chxepsp/ac s-rec ommendations.html.; Norm ORTEGA, Aashish FERNANDEZ, Marija THURMAN, Colorectal Cancer Screening: Recommendations for Physicians and Patients from the U.S. Multi-Society Task Force on Colorectal Cancer Screening , Am J Gastroenterology 2017; 112:1002-6862. TEST DESCRIPTION: Composite algorithmic analysis of stool DNA-biomarkers with hemoglobin immunoassay. Quantitative values of individual biomarkers are not reportable and are not associated with individual biomarker result reference ranges. Cologuard is intended for colorectal cancer screening of adults of either sex, 45 years or older, who are at average-risk for colorectal cancer (CRC). Cologuard has been approved for use by the U.S. FDA. The performance of Cologuard was established in a cross sectional study of average-risk adults aged 50-84. Cologuard performance in patients ages 45 to 49 years was estimated by sub-group analysis of near-age groups. Colonoscopies performed for a positive result may find as the most clinically significant lesion: colorectal cancer [4.0%], advanced adenoma (including sessile serrated polyps greater than or equal to 1cm diameter) [20%] or non- advanced adenoma [31%]; or no colorectal neoplasia [45%]. These estimates are derived from a prospective cross-sectional screening study of 10,000 individuals at average risk for colorectal cancer who were screened with both Cologuard and colonoscopy. (Kailey Durán al, N Engl J Med 2014;370(14):8665-6437.) Cologuard may produce a false negative or false positive result (no colorectal cancer or precancerous polyp present at colonoscopy follow up). A negative Cologuard test result does not guarantee the absence of CRC or advanced adenoma (pre-cancer). The current Cologuard screening interval is every 3 years. ([place] [employer] and U.S. Multi-Society Task Force). Cologuard performance data in a 10,000 patient pivotal study using colonoscopy as the reference method can be accessed at the following location: www.[employer]/results. Additional description of the Cologuard test process, warnings and precautions can be found at www.cologuard.com. Stool specimen (specimen) 07/17/2023 6:00 AM EST 07/18/2023 12:21 PM EST us Danny La DO LAB MOLECULAR DIAGNOSTICS ORD ERABLES Final Result .[facility] (CLIA #:[id number]) [address] [place] [id number], [facility] (CLIA #:[id number]) [address] [place] [id number] from Last 3 Months or Most Recently Relevant to Health Maintenance Insurance [employer] Care Teams Washing Machine Assembler Relationship Specialty Start Date End Date Jessica Rollins MD PCP - General Family Medicine 11/06/22 Debbie Rouse APRN-[employer]ACHER [employer] [address] [facility] [address] [place] [address] Nurse Practitioner Psychiatry 07/01/24
--- NOTE | 2024-11-19 09:57 | MM_ITS ---
Patient Name: EMMA ROE MR#: [id number] : 1960 Exam Date: 11/19/2024 Ordering Doctor: DR BRII LA RADIOLOGY REPORT PROCEDURE: MM TOMOSYNTHESIS SCREENING BI COMPARISON: MM TOMOSYNTHESIS SCREENING BI, 10/21/2023. MG MAMM SCREEN 3D ANNA MARIE CAD, 10/14/2022. MG MAMM SCREEN 3D ANNA MARIE CAD, 10/09/2021. MG MAMM ANNA MARIE SCRN W CAD DIG, 02/10/2013. INDICATIONS: Screening for malignant neoplasm Calculator Name NCI Breast Cancer Risk Assessment Tool 5 Year Breast Cancer Risk 1.40% Lifetime Breast Cancer Risk 6.00% Personal Breast Cancer No Personal Ovarian Cancer No Treatments None Family Cancers Grandmother-paternal with breast cancer at age 70; Aunt-maternal with lung cancer at age 70. LOCATION: [facility] BREAST COMPOSITION: The breasts are heterogeneously dense,which may obscure small masses. FINDINGS: RIGHT BREAST: No significant suspicious finding. Benign-appearing lymph nodes are noted along the chest wall. Benign-appearing calcifications are present. There are similar focal asymmetries. LEFT BREAST: No significant suspicious finding. Benign-appearing lymph nodes in the along the chest wall appeared DIAGNOSTIC CATEGORY 2--BENIGN FINDING: RECOMMENDATIONS: ROUTINE MAMMOGRAM AND CLINICAL EVALUATION IN 12 MONTHS. PLEASE NOTE: A NORMAL MAMMOGRAM DOES NOT EXCLUDE THE POSSIBILITY OF BREAST CANCER. A CLINICALLY SUSPICIOUS PALPABLE LUMP SHOULD BE BIOPSIED. Dictated by: Lawrence Daugherty MD on 11/19/2024 at 11:51 Approved by: Lawrence Daugherty MD on 11/19/2024 at 11:55
== END 2024-11-19 09:52 | disposition home or self-care (01) ==
LOC: MAMMO 09:51
PROVIDERS: Visit Provider Obstetrics & Gynecology
DX: Z12.31 Encounter for screening mammogram for malignant neoplasm of breast (principal); Z80.3 Family history of malignant neoplasm of breast; Z80.1 Family history of malignant neoplasm of trachea, bronchus and lung
CPT/HCPCS: 77063; 77067

== ENCOUNTER 2024-12-10 14:44 | Outpatient (OUT) | payer OTHER, SELFPAY ==
--- OUTSIDE RECORDS SUMMARY | 2024-12-10 15:01 | XMS_ITS | CCD ---
Author Organization [facility] Care Team Providers Care Technical Project Manager Name Role Phone Jessica Oneil Unavailable Dat Bautista Consulting Unavailable VISCI, DR TERESA Attending Unavailable VISCI, DR TERESA Admitting Unavailable THAD, DR JESSICA Rosales Primary Care Unavailable VISCI, DR TERESA Consulting Unavailable THAD, DR JESSICA Rosales Attending Unavailable THAD, DR JESSICA Rosales Consulting Unavailable THAD, DR JESSICA Rosales Primary Care Unavailable THAD, DR JESSICA Rosales Admitting Unavailable Thad SCHUMACHER, Jessica Primary Care Provider [phone] Community, Outreach Attending Unavailable Community, Outreach Admitting Unavailable Jessica Oneil Primary Care Unavailable JESSICA ONEIL Primary Care Physician Dee Dee-Nossek FIELD OBSERVER-LANGUAGE ARTS TEACHERShiloh Unavailable Kane Champagneamed FOlga Attending Unavailable NONE, XXXX Referring Unavailable Ihsan, Mohamed F. Admitting Unavailable Ihsan, Mohamed F. Admitting Unavailable Ihsan, Mohamed F. Attending Unavailable NONE, XXXX Referring Unavailable Ihsan, Mohamed F. Admitting Unavailable Ihsan, Mohamed FOlga Attending Unavailable Ihsan, Mohamed FOlga Referring Unavailable Jessica Oneil MD Primary Care Provider Jessica Oneil MD Primary Care Provider DEE DEE-NOSSHILOH DAVEY Attending Unavailab le DEE DEE-NOSSEKMAGDALENAA Jet Attending Unavailab le DEE DEE-NOSSEKSHILOH Attending Unavailab le DEE DEE-NOSSEKSHILOH Attending Unavailab le DEE DEE-NOSSEKLIANASHILOH Jet Attending Unavailab le VISCIDANNY Attending Unavailable DEE DEE-NOSSESHILOH Cabrera Attending Unavailab le DEE DEE-NOSSEKSHILOH Attending Unavailab le VISCIDANNY Attending Unavailable Jessica Oneil MD Primary Care Provider [phone] Jessica Oneil MD Attending Provider [phone] Allergies Allergy Classification Reported Allergen(s) Allergy Type Date of Onset Reaction(s) Facility (2 sources) FLUoxetine; Translations: [PROzac] Drug Allergy 4 [facility] Repository (2 sources) Oxytetracycline ; Translations: [Effexor XR] Drug Allergy 4 [facility] Repository (20 sources) FLUoxetine; Translations: [fluoxetine] Drug Allergy 3 Unknown, Unknown (qualifier value) [facility] (8 sources) venlafaxine; Translations: [venlafaxine] Drug Allergy 5 Unknown (qualifier value) [facility] (4 sources) Allergies Reconciled Propensity to adverse reactions 1 Unknown [employer] Other (20 sources) venlafaxine Drug Allergy 3 Unknown [facility] (1 source) FLUoxetine Drug Allergy 4 [facility] Repository (1 source) venlafaxine Drug Allergy 4 [facility] Repository Medications Current Medications Medication Drug Class(es) Dates Sig (Normalized) Sig (Original) acetaminophen 325 mg oral tablet (3 sources) Start: 04-23-2021 take 1 tablet by mouth every four hours as needed for fever Tylenol 325 mg Tab 325 mg = 1 tab(s), Oral, q4hr, PRN for fever, # 60 tab(s), Refills(s) 0 Start Date: 04/23/21 Status: Ordered ALPRAZolam 0.25 mg oral tablet (20 sources) Benzodiazepine Start: 04-12-2024 End: 12-10-2024 take 1 tablet by mouth twice daily as needed Start: 06-25-2023 End: 11-26-2024 take 1 tablet by mouth once daily as needed for anxiety ALPRAZolam (Xanax) 0.25 MG tablet Indications: Generalized anxiety disorder Take 1 tablet (0.25 mg) by mouth Daily as needed for anxiety (1 tablet as needed PRN for severe anxiety) 30 tablet 10/27/2024 Active take 1 tablet by ameena th every twelve hours ARIPiprazole 20 mg oral tablet (20 sources) Atypical Antipsychotic Start: 10-15-2024 Aripipr azole 20 mg tablet Active 25 MG PO Daily October 15, 2024 2:03pm Complies with drug therapy Start: 09-30-2024 End: 12-31-2024 take 1 tablet by mouth once daily ARIPiprazole (Abilify) 5 MG tablet Indications: Bipolar I disorder, moderate, current or most recent episode depressed, in full remission (HCC) Take 1 tablet (5 mg) by mouth Daily 30 tablet 1 12/01/2024 12/31/2024 Active Start: 04-23-2021 End: 01-25-2025 take 1 tablet by mouth once daily ARIPiprazole (Abilify) 20 MG tablet Indications: Schizoaffective disorder, bipolar type (HCC) Take 1 tablet (20 mg) by mouth Daily 90 tablet 10/27/2024 01/25/2025 Active Start: 04-23-2021 Abilify 5 mg T ab Refills(s) 0 Start Date: 04/23/21 Status: Ordered calcium carbonate 1250 mg or al tablet (6 sources) Start: 04-12-2024 take 1 tablet by ameena th twice daily at mealtime take 1 tablet by mouth every twe lve hours take 1 tablet by mouth every twe lve hours Calcium 500 MG 1 tablet with meals Orally Twice a day Active Oowovvx-Xuhmajpxpy-Hhwcyxc D (CALCIUM/D3 ADULT GUMMIES PO) (20 sources) take 1000 mg by mouth once daily Ktxhswu-Sdmeivuulw-Krzhsch D (CALCIUM/D3 ADULT GUMMIES PO) Take 1,000 mg by mouth Daily Active ciprofloxacin 3 mg/ml ophthalmic solution (4 sources) Quinolone Antimicrobial Sta rt: 3 Start: 01-24-2023 Ciprofloxacin HCl 0.3 % 1 application into the lower eyelid of affected eye Ophthalmic tid for 5 day(s) Jan, Active estradiol 0.1 mg/ml vaginal cream (20 sources) Estrogen Start: 06-26-2023 End: 06-28-2025 estradiol (Estrace) 0.1 MG/GM vaginal cream Indications: Vaginal atrophy Insert 1 g into the vagina 2 (two) times a week 42.5 g 1 06/28/2024 06/28/2025 Active fluticasone furoate 0.0275 mg/actuat metered dose nasal spray (16 sources) Corticosteroid End: 10-13-2024 take 2 spray(s) nasal route in the morning fluticasone (Flonase Sensimist) 27.5 MCG/SPRAY nasal spray Administer 2 sprays into each nostril in the morning. 10/13/2024 Discontinued metroNIDAZOLE 0.01 mg/mg topical gel (20 sources) Nitroimidazole Antimicrobial Start: 07-10-2023 metroNIDAZOLE (Metrogel) 1 % gel Daily 07/10/2023 Active Start: 07-10-2023 metroNIDAZOLE (Metrogel) 1 % gel 07/10/2023 Active Multi Adult Gummies - (5 sources) Multi Adult Vitaly ies - as directed Orally Active Multiple Vitamins-Minerals ( Multivitamin Gummies Adult) chewable tablet (20 sources) Multiple Vitamin s-Minerals (Multivitamin Gummies Adult) chewable tablet Active Multiple Vitamin s-Minerals (Multivitamin Gummies Adult) chewable tablet as directed Orally Active Multivitamin (One Daily Multivitamin) tablet (1 source) Start: 04-12-2024 take 1 tablet by mouth once daily Multivitamin (One Daily Multivitamin) tablet Active 1 TAB PO Daily April 12, 2024 12:00am Complies with drug therapy rivaroxaban 20 mg oral tablet (3 sources) Factor Xa Inhibitor Start: 07-04-2021 Xarelto 20 mg oral tablet 20 mg, Oral, Daily, DVT/PE Treatment and CrCl over 30 ml/min: (start AFTER 15 mg dosing x 21 days), # 30 tab(s), Refills(s) 1 Start Date: 07/04/21 Status: Ordered divalproex sodium 250 mg delayed release oral tablet (20 sources) Mood Stabilizer, Anti-epileptic Agent Start: 10-15-2024 take 1 tablet by mouth once Divalproex 250 mg tablet,delayed release (DR/EC) Active 250 MG PO Once October 15, 2024 12:00am Complies with drug therapy Start: 10-13-2024 End: 12-31-2024 take 1 tablet by mouth once daily divalproex (Depakote ER) 250 MG 24 hr tablet Indications: Schizoaffective disorder, bipolar type (HCC) Take 1 tablet (250 mg) by mouth Daily Do not crush, chew, or split. 30 tablet 1 12/01/2024 12/31/2024 Active Start: 07-19-2024 End: 10-27-2024 take 1 tablet by mouth once daily divalproex (Depakote ER) 500 MG 24 hr tablet Indications: Schizoaffective disorder, bipolar type (CMS/HCC) Take 1 tablet (500 mg) by mouth Daily 90 tablet 07/29/2024 10/27/2024 Discontinued (Dose adjustment) Start: 11-17-2023 End: 05-18-2024 take 1 tablet by mouth once daily divalproex (Depakote ER) 500 MG 24 hr tablet Indications: Schizoaffective disorder, bipolar type (CMS/HCC) Take 1 tablet (500 mg) by mouth Daily 90 tablet 02/18/2024 Active Start: 04-23-2021 End: 10-15-2024 take 1 tablet by mouth once daily Completed/Discontinued Medications Medication Drug Class(es) Dates Sig (Normalized) Sig (Original) montelukast 10 mg oral tablet (20 sources) Leukotriene Receptor Antagonist Start: 09-06-2024 End: 12-10-2024 take 1 tablet by mouth once daily in the evening Montelukast (Singulair) 10 mg tablet Discontinued 10 MG PO Every evening September 06, 2024 11:51am December 10, 2024 2:24pm Start: 04-12-2024 End: 04-12-2024 take 1 tablet by mouth once daily rosuvastatin calcium 20 mg oral tablet (20 sources) HMG-CoA Reductase Inhibitor Start: 04-12-2024 End: 10-15-2024 take 1 tablet by mouth once daily Rosuvastatin 20 mg tablet Discontinued 20 MG PO Daily July 15, 2024 4:44pm October 15, 2024 2:02pm Problems Active Problems Problem Classification Problem Date Documented Date Episodic/Chronic Anxiety disorders (20 sources) Generalized anxiety disorder; Translations: [Generalized anxiety disorder] Onset: 10-14-2022 10-14-2022 Chronic Cancer of cervix (2 sources) Cervical intraepithelial neoplasia grade 1; Translations: [Low grade squamous intraepithelial lesion on cytologic smear of cervix (LGSIL)] 06-21-2024 Episodic Cardiac dysrhythmias (1 source) Irregular heart beat; Translations: [Cardiac arrhythmia, unspecified] 06-29-2024 Chronic Disorders of lipid metabolism (3 sources) Mixed hyperlipidemia; Translations: [Mixed hyperlipidemia] 04-20-2024 Chronic Heart valve disorders (2 sources) Mitral valve prolapse; Translations: [Nonrheumatic mitral (valve) prolapse] 06-28-2024 Chronic Immunizations and screening for infectious disease (2 sources) Patient encounter status; Translations: [Encounter for screening for human papillomavirus (HPV)] 06-21-2024 Episodic Malaise and fatigue (2 sources) Fatigue; Translations: [Other fatigue] 12-10-2024 Episodic Menopausal disorders (2 sources) Atrophy of vagina; Translations: [Postmenopausal atrophic vaginitis] 06-21-2024 Chronic Mood disorders (18 sources) Depressed bipolar I disorder in full remission; Translations: [Bipolar disorder, in full remission, most recent episode depressed] Onset: 09-30-2024 09-30-2024 Chronic Other aftercare (1 source) Encounter for therapeutic drug level monitoring Episodic Other connective tissue disease (4 sources) Pain in right foot; Translations: [Pain in right foot] Episodic Other diseases of veins and lymphatics (1 source) Peripheral venous insufficiency; Translations: [Venous insufficiency (chronic) (peripheral)] Onset: 08-16-2024 Episodic Other ear and sense organ disorders [...] conditions (not mental disorders or infectious disease) (8 sources) Encounter for screening mammogram for malignant neoplasm of breast; Translations: [Cancer cervix screening status] Onset: 10-14-2022 Episodic Other upper respiratory disease [...] 10-17-2022 Episodic Schizophrenia and other psychotic disorders (20 sources) Schizoaffective disorder, bipolar type; Translations: [Schizoaffective disorder, bipolar type] Onset: 10-14-2022 10-14-2022 Chronic Spondylosis; intervertebral disc disorders; other back problems (4 sources) Backache; Translations: [Dorsalgia, unspecified] Episodic Superficial injury; contusion (2 sources) Corneal abrasion; Translations: [Corneal abrasion, right] Episodic Varicose veins of lower extremity (10 sources) Varicose veins of bilateral lower limbs; Translations: [Asymptomatic varicose veins of bilateral lower extremities] Onset: 07-12-2024 06-28-2024 Episodic Viral infection (2 sources) Human papilloma virus infection; Translations: [Papillomavirus as the cause of diseases classified elsewhere] 06-21-2024 Episodic Past or Other Problems Problem Classification Problem Date Documented Da te Episodic/Chronic Other aftercare (20 sources) H/O: high risk medication; Translations: [Other correction (current) drug therapy] Onset: 10-14-2022 10-14-2022 Episodic Other aftercare (2 sources) Taking high risk medication; Translations: [Other exterminator termite (current) drug therapy] 02-18-2024 Episodic Results Test Name Value Interpretation Reference Range Facility MM TOMOSYNTHESIS SCREENING B Ion 11-19-2024 [place] [address] Mammography Report Signed Patient: EMMA GONZÁLES MR#: [id number] : 1960 Acct:[id number] Age/Sex: 64 / F ADM Date: 11/19/24 Loc: MAMMO Attending Dr: DANNY LA Ordering Physician: DANNY LA Results: Date of Service: 11/19/24 Follow Up: Procedure(s): MM tomosynthesis screening BI Accession Number(s): [id number] cc: Physician,Non-Staff M.DOlga; DANNY LA Patient Name: EMMA GONZÁLES MR#: [id number] : 1960 Exam Date: 11/19/2024 Ordering Doctor: DR DANNY LA RADIOLOGY REPORT PROCEDURE: MM TOMOSYNTHESIS SCREENING BI COMPARISON: MM TOMOSYNTHESIS SCREENING BI, 10/21/2023. MG MAMM SCREEN 3D ANNA MARIE CAD, 10/14/2022. MG MAMM SCREEN 3D ANNA MARIE CAD, 10/09/2021. MG MAMM ANNA MARIE SCRN W CAD DIG, 02/10/2013. INDICATIONS: Screening for malignant neoplasm Calculator Name NCI Breast Cancer Risk Assessment Tool 5 Year Breast Cancer Risk 1.40% Lifetime Breast Cancer Risk 6.00% Personal Breast Cancer No Personal Ovarian Cancer No Treatments None Family Cancers Grandmother-paternal with breast cancer at age 70; Aunt-maternal with lung cancer at age 70. LOCATION: [facility] BREAST COMPOSITION: The breasts are heterogeneously dense,which may obscure small masses. FINDINGS: RIGHT BREAST: No significant suspicious finding. Benign-appearing lymph nodes are noted along the chest wall. Benign-appearing calcifications are present. There are similar focal asymmetries. LEFT BREAST: No significant suspicious finding. Benign-appearing lymph nodes in the along the chest wall appeared DIAGNOSTIC CATEGORY 2--BENIGN FINDING: RECOMMENDATIONS: ROUTINE MAMMOGRAM AND CLINICAL EVALUATION IN 12 MONTHS. PLEASE NOTE: A NORMAL MAMMOGRAM DOES NOT EXCLUDE THE POSSIBILITY OF BREAST CANCER. A CLINICALLY SUSPICIOUS PALPABLE LUMP SHOULD BE BIOPSIED. Dictated by: Lawrence Daugherty MD on 11/19/2024 at 11:51 Approved by: Lawrence Daugherty MD on 11/19/2024 at 11:55 Dictated By: Lawrence Daugherty M.D. Signed By: 11/19/24 1156 DD/ 1155 TD/TT: Corporate Security Manager: [facility] Radiology, Radiologist, MD - 11/19/2024 [place] [address] Mammography Report Signed Patient: EMMA GONZÁLES MR#: [id number] : 1960 Acct:[id number] Age/Sex: 64 / F ADM Date: 11/19/24 Loc: MAMMO Attending Dr: DANNY LA Ordering Physician: DANNY LA Results: Date of Service: 11/19/24 Follow Up: Procedure(s): MM tomosynthesis screening BI Accession Number(s): [id number] cc: Physician,Non-Staff MNuria; DANNY LA Patient Name: EMMA GONZÁLES MR#: [id number] : 1960 Exam Date: 11/19/2024 Ordering Doctor: DR DANNY LA RADIOLOGY REPORT PROCEDURE: MM TOMOSYNTHESIS SCREENING BI COMPARISON: MM TOMOSYNTHESIS SCREENING BI, 10/21/2023. MG MAMM SCREEN 3D ANNA MARIE CAD, 10/14/2022. MG MAMM SCREEN 3D ANNA MARIE CAD, 10/09/2021. MG MAMM ANNA MARIE SCRN W CAD DIG, 02/10/2013. INDICATIONS: Screening for malignant neoplasm Calculator Name NCI Breast Cancer Risk Assessment Tool 5 Year Breast Cancer Risk 1.40% Lifetime Breast Cancer Risk 6.00% Personal Breast Cancer No Personal Ovarian Cancer No Treatments None Family Cancers Grandmother-paternal with breast cancer at age 70; Aunt-maternal with lung cancer at age 70. LOCATION: [facility] BREAST COMPOSITION: The breasts are heterogeneously dense,which may obscure small masses. FINDINGS: RIGHT BREAST: No significant suspicious finding. Benign-appearing lymph nodes are noted along the chest wall. Benign-appearing calcifications are present. There are similar focal asymmetries. LEFT BREAST: No significant suspicious finding. Benign-appearing lymph nodes in the along the chest wall appeared DIAGNOSTIC CATEGORY 2--BENIGN FINDING: RECOMMENDATIONS: ROUTINE MAMMOGRAM AND CLINICAL EVALUATION IN 12 MONTHS. PLEASE NOTE: A NORMAL MAMMOGRAM DOES NOT EXCLUDE THE POSSIBILITY OF BREAST CANCER. A CLINICALLY SUSPICIOUS PALPABLE LUMP SHOULD BE BIOPSIED. Dictated by: Lawrence Daugherty MD on 11/19/2024 at 11:51 Approved by: Lawrence Daugherty MD on 11/19/2024 at 11:55 Dictated By: Lawrence Daugherty M.D. Signed By: 11/19/24 1156 DD/ 1155 TD/TT: Corporate Security Manager: [facility] [employer] Radiology Study observation (narrative) [facility] MM TOMOSYNTHESIS SCREENING B IOrdered By: Radiologist Radiology on 11-19-2024 [facility] [employer] Work Phone: Heart and Vascular Office/Cl inic Noteon 08-16-2024 Heart and Vascular Office/Clinic Note Heart and Vascular Office/Clinic Note Chief Complaint F/U after testing last OV 07-12-34 History of Present Illness 64 lady with venous insufficiency and leg pain. She uses compression stockings, she feels much better. Venous reflux US showed no evidence of DVT, SVT or reflux. Review of Systems PHQ Score Initial Depression Screen Score: 0 SCORE Constitutional: no fever, no chills, no sweats, [...] noncontributory. Physical Exam Vitals & Measurements HR: 82(Peripheral) RR: 16 BP: 132/74 HT: 62 in HT: 157 cm WT: 72.6 kg WT: 160.055 lb BMI: 29.45 General: alert, no acute distress Skin: warm, [...] normal judgement, normal psychiatric thoughts. Assessment/Plan 1. Venous insufficiency of lower extremity (I87.2: Venous insufficiency (chronic) (peripheral)) No intervention needed at this time. Continue compression stockings leg elevation exercise and weight loss. Follow-up as needed Follow-up No qualifying data available Problem List/Past Medical History Ongoing No qualifying data Historical No qualifying data Medications Abilify 20 mg oral tablet Abilify 5 mg Tab, Not taking Depakote DR 500 mg Tab-EC rosuvastatin 20 mg Tab, 20 mg= 1 tab(s), Oral, Daily Tylenol 325 mg Tab, 325 mg= 1 tab(s), Oral, q4hr, PRN Xarelto 20 mg oral tablet, 20 mg, Oral, Daily, Not taking Allergies Effexor XR (Unknown) PROzac (Unknown) Social History Alcohol Current. Beer, Wine. 1-2 times per week., 07/08/2024 Substance Abuse Never., 07/08/2024 Tobacco Never (less than 100 in lifetime) Tobacco Use:., 07/08/2024 [facility] Comment on above: Result Comment: Elec tronically Signed By: Ihsan SCHUMACHER, Teresa Kitchen\.br\Date and Time Signed: 08/16/24 10:05 EST US Lower Extremity Venous Du plex Insufficiency Bilaton 07-21-2024 US Lower Extremity Venous Duplex Insufficiency Bilat Exam Date/Time: 07/20/2024 10:30 EST Reason for Exam: I83.90;Vascular insufficiency Report IMPRESSION: NO VENOUS THROMBOSIS OR EVIDENCE OF INSUFFICIENCY OF EITHER LOWER EXTREMITY IDENTIFIED. EXAM: US Lower Extremity Venous Duplex Insufficiency Bilat DATE: 07/20/2024 9:49 AM CLINICAL HISTORY: Vascular insufficiency, I83.90. COMPARISON: 08/07/2021. TECHNIQUE: Neal scale, compression, color and waveform Doppler analysis of the deep and superficial venous systems of both lower extremities was performed with augmentation. Spectral Doppler waveforms were evaluated for spontaneity, phasicity and appropriate augmentation. FINDINGS: There is no venous thrombus, significant reflux, venous varicosities, or other significant changes from 08/07/2021 identified abnormal masses, organized fluid collections, or other findings of concern identified within either lower extremity. Ordering Provider: Teresa Champagne FINAL REPORT Dictated: 07/21/2024 8:11 am Darrell Marquez MD Signed (Electronic Signature): 07/21/2024 8:11 am Signed by: Darrell Marquez MD Transcribed by: ESMER Technologist: SILVIO Garcia [facility] Heart and Vascular Office/ inic Noteon 07-12-2024 Heart and Vascular Office/Clinic Note Heart and Vascular Office/Clinic Note Chief Complaint new patient varicase veins with pain. History of Present Illness 64-year-old lady with bilateral lower extremity varicose veins with pain worse on the right side. The pain in the right side is affecting her ability to live her normal lifestyle. She has been using compression stockings regularly. She did not have any recent reflux ultrasound. Of note she had a below-knee DVT in the past and she also had superficial thrombophlebitis in the past. Discussed with her compression stockings leg elevation exercise and venous reflux ultrasound. She probably need ultrasound-guided injection sclerotherapy at least. Review of Systems Constitutional: no fever, no [...] noncontributory. Physical Exam Vitals & Measurements HR: 71(Peripheral) RR: 18 BP: 120/80 SpO2: 96% HT: 62 in HT: 157 cm WT: 72.6 kg WT: 160.055 lb BMI: 29.45 General: alert, no acute distress Skin: warm, [...] normal judgement, normal psychiatric thoughts. Assessment/Plan 1. Varicose veins of calf (I83.90: Asymptomatic varicose veins of unspecified lower extremity) 64-year-old lady with bilateral lower extremity varicose veins with pain worse on the right side. The pain in the right side is affecting her ability to live her normal lifestyle. She has been using compression stockings regularly. She did not have any recent reflux ultrasound. Of note she had a below-knee DVT in the past and she also had superficial thrombophlebitis in the past. Discussed with her compression stockings leg elevation exercise and venous reflux ultrasound. She probably need ultrasound-guided injection sclerotherapy at least. Follow-up No qualifying data available Problem List/Past Medical History Ongoing No qualifying data Historical No qualifying data Medications Abilify 20 mg oral tablet Abilify 5 mg Tab, Not taking Depakote DR 500 mg Tab-EC rosuvastatin 20 mg Tab, 20 mg= 1 tab(s), Oral, Daily Tylenol 325 mg Tab, 325 mg= 1 tab(s), Oral, q4hr, PRN Xarelto 20 mg oral tablet, 20 mg, Oral, Daily, Not taking Allergies Effexor XR (Unknown) PROzac (Unknown) Social History Alcohol Current. Beer, Wine. 1-2 times per week., 07/08/2024 Substance Abuse Never., 07/08/2024 Tobacco Never (less than 100 in lifetime) Tobacco Use:., 07/08/2024 [facility] Comment on above: Result Comment: Elec tronically Signed By: Ihsan SCHUMACHER, Teresa Kitchen\.br\Date and Time Signed: 07/12/24 10:00 EST community outreach mahin jordan 05-19-2024 community outreach [facility] [place] [address] Ultrasound Report Signed Patient: Emma Gonzáles MR#: [id number] : 1960 Acct:[id number] Age/Sex: 64 / F ADM Date: 05/18/24 Loc: Room: Type: DEP REF Attending Dr: Lucio Schwartz Ordering Provider: LUCIO SCHWARTZ Date of Service: 05/18/24 US/[facility] outreach carotid: SCREENING Copies to: [facility] Screening carotid duplex examination Indication for study: [facility] outreach PROCEDURE: Color-flow duplex scanning is used to [...] normal. The peak systolic velocity ratios 1.13. /Critical access hospital carotid IMPRESSION: No hemodynamically significant stenosis is seen in either extracranial internal carotid artery. Impression dictated by: Troy Giordano M.D.05/19/2024 3:34 PM Dictation Location: [place] [address] Tech: Belem Ruiz Transcribed By: CAROL 05/19/24 1534 Dictated By: Troy Giordano MD 05/19/24 1533 Signed By: 05/19/24 1534 Normal [facility] MG MAMM SCREEN 3D ANNA MARIE CADon 10-14-2022 MG MAMM SCREEN 3D ANNA MARIE CAD Patient: EMMA GONZÁLES. Exam Date: 10/14/2022 : 1960 Gender:F Ordering : DR DANNY LA Admission #: [id number] Family : DR JESSICA ONEIL M.D. Order #: [id number] CLICK HERE TO VIEW EXAM RADIOLOGY REPORT [...] lung cancer at age 71. LOCATION: [facility] BREAST COMPOSITION: Heterogeneously dense,which may obscure small [...] M.D. on 10/14/2022 at 13:11 Normal [facility] CBC AUTO DIFFon 07-11-2022 BASO # 0.0 103/ul Normal 0.0-0.1 [facility] Comment on above: Performed By: #### C BC #### [facility] [address] [address] [address] Oskar Devine Basophils/100 WBC (Bld) 0.8 % Normal 0.2-2.0 [facility] Comment on above: Performed By: #### C BC #### [facility] [address] [address] [address] Oskar Devine EO # 0.1 103/ul Normal 0.0-0.7 [facility] Comment on above: Performed By: #### C BC #### [facility] [address] [address] [address] Oskar Devine Eosinophils/100 WBC (Bld) 1.8 % Normal 0.9-7.0 [facility] Comment on above: Performed By: #### C BC #### [facility] [address] [address] [address] Oskar Devine Erythrocyte distribution width (RBC) [Ratio] 14.2 % Normal 11.0-15.0 [facility] Comment on above: Performed By: #### C BC #### [facility] [address] [place] [address] Dr. Oskar Devine Hematocrit (Bld) [Volume fraction] 44.4 % Normal 36.0-48.0 [facility] Comment on above: Performed By: #### C BC #### [facility] [address] [place] [address] Dr. Oskar Devine Hemoglobin (Bld) [Mass/Vol] 13.4 g/dL Normal 12.0-16.0 [facility] Comment on above: Performed By: #### C BC #### [facility] [address] [place] [address] Dr. Oskar Devine IG # 0.01 10e3/ul Normal 0.00-0.03 [facility] Comment on above: Performed By: #### C BC #### [facility] [address] [place] [address] Dr. Oskar Devine IG % 0.2 % Normal 0.0-0.5 [facility] Comment on above: Performed By: #### C BC #### [facility] [address] [place] [address] Dr. Oskar Devine LYMPH # 2.5 103/ul Normal 1.2-3.8 [facility] Comment on above: Performed By: #### C BC #### [facility] [address] [place] [address] Dr. Oskar Devine Lymphocytes/100 WBC (Bld) 49.9 % Normal 20.5-60.0 [facility] Comment on above: Performed By: #### C BC #### [facility] [address] [place] [address] Dr. Oskar Devine MANUAL DIFF REQ NO Normal [facility] Comment on above: Performed By: #### C BC #### [facility] [address] [place] [address] Dr. Oskar Devine MCH (RBC) [Entitic mass] 29.0 pg Normal 26.7-34.0 [facility] Comment on above: Performed By: #### C BC #### [facility] [address] [address] [address] Oskar Devine MCHC (RBC) [Mass/Vol] 30.2 g/dL Normal 29.9-35.2 [facility] Comment on above: Performed By: #### C BC #### [facility] [address] [place] [address] Dr. Oskar Devine MCV (RBC) [Entitic vol] 96.1 fL Normal 81.0-99.0 [facility] Comment on above: Performed By: #### C BC #### [facility] [address] [place] [address] Dr. Oskar Devine MONO # 0.4 103/ul Normal 0.3-0.8 [facility] Comment on above: Performed By: #### C BC #### [facility] [address] [place] [address] Dr. Oskar Devine Monocytes/100 WBC (Bld) 7.3 % Normal 1.7-12.0 [facility] Comment on above: Performed By: #### C BC #### [facility] [address] [place] [address] Dr. Oskar Devine NEUT # 2.0 103/ul Normal 1.4-6.5 [facility] Comment on above: Performed By: #### C BC #### [facility] [address] [place] [address] Dr. Oskar Devine Neutrophils/100 WBC (Bld) 40.0 % Critically low 43.0-75.0 [facility] Comment on above: Performed By: #### C BC #### [facility] [address] [place] [address] Dr. Oskar Devine Platelet mean volume (Bld) [Entitic vol] 11.1 fL Normal 9.5-13.5 [facility] Comment on above: Performed By: #### C BC #### [facility] [address] [place] [address] Dr. Oskar Devine PLT 211 103/ul Normal 150-450 [facility] Comment on above: Performed By: #### C BC #### [facility] [address] [address] [address] Oskar Devine RBC 4.62 106/ul Normal 4.20-5.40 [facility] Comment on above: Performed By: #### C BC #### [facility] [address] [address] [address] Oskar Devine WBC 5.1 103/ul Normal 4.0-11.0 [facility] Comment on above: Performed By: #### C BC #### [facility] [address] [place] [address] Dr. Oskar Devine LIPID PROFILEon 07-11-2022 CHOL-HDL RATIO NORM SEE BELOW Normal [facility] Comment on above: Result Comment: 3.3 - 4.4 LOW RISK 4.4 - 7.1 AVERAGE RISK 7.1 - 11.0 MODERATE RISK >11.0 HIGH RISK Performed By: #### C MP, LIPID, TSH #### [facility] [address] [place] [address] Dr. Oskar Devine Cholesterol [Mass/Vol] 249 mg/dL Critically high <=200 [facility] Comment on above: Performed By: #### C MP, LIPID, TSH #### [facility] [address] [place] [address] Dr. Oskar Devine Cholesterol in HDL [Mass/Vol] 54 mg/dL Normal 40-60 [facility] Comment on above: Performed By: #### C MP, LIPID, TSH #### [facility] [address] [place] [address] Dr. Oskar Devine Cholesterol in LDL [Mass/Vol] 166.8 mg/dL Normal [facility] Comment on above: Performed By: #### C MP, LIPID, TSH #### [facility] [address] [place] [address] Dr. Oskar Devine Cholesterol.total/C holesterol in HDL [Mass ratio] 4.6 {ratio} Normal [facility] Comment on above: Performed By: #### C MP, LIPID, TSH #### [facility] [address] [place] [address] Dr. Oskar Devine HDL NORMAL > or = 60 mg/dl - LO W CARDIOVASCULAR RISK <40 mg/dl - HIGH CARDIOVASCULAR RISK Normal [facility] Comment on above: Performed By: #### C MP, LIPID, TSH #### [facility] [address] [address] [address] Oskar Devine LDL CALC NORMAL SEE BELOW Normal [facility] Comment on above: Result Comment: <100 mg/dl OPTIMAL 100 - 129 mg/dl NEAR OR ABOVE OPTIMAL 130 - 159 mg/dl BORDERLINE HIGH 160 - 189 mg/dl HIGH >190 mg/dl VERY HIGH Performed By: #### C MP, LIPID, TSH #### [facility] [address] [address] [address] Oskar Devine Triglyceride [Mass/Vol] 141 mg/dL Normal <=150 [facility] Comment on above: Performed By: #### C MP, LIPID, TSH #### [facility] [address] [address] [address] Oskar Devine VLDL CALC 28.2 mg/dL Normal [facility] Comment on above: Performed By: #### C MP, LIPID, TSH #### [facility] [address] [address] [address] Oskar Devine PROF 14(COMP METB)on 023 Albumin [Mass/Vol] 3.7 g/dL Normal 3.4-5.0 [facility] Comment on above: Performed By: #### C MP, LIPID, TSH #### [facility] [address] [address] [address] Oskar Devine Albumin/Globulin [Mass ratio] 1.1 {ratio} Normal [facility] Comment on above: Performed By: #### C MP, LIPID, TSH #### [facility] [address] [address] [address] Oskar Devine ALP [Catalytic activity/Vol] 59 U/L Normal 46-116 [facility] Comment on above: Performed By: #### C MP, LIPID, TSH #### [facility] [address] [address] [address] Oskar Devine ALT [Catalytic activity/Vol] 23 U/L Normal 14-59 [facility] Comment on above: Performed By: #### C MP, LIPID, TSH #### [facility] [address] [address] [address] Oskar Devine Anion gap [Moles/Vol] 10.9 mmol/L Normal [facility] Comment on above: Performed By: #### C MP, LIPID, TSH #### [facility] [address] [address] [address] Oskar Devine AST [Catalytic activity/Vol] 20 U/L Normal 15-37 [facility] Comment on above: Performed By: #### C MP, LIPID, TSH #### [facility] [address] [place] [address] Dr. Oskar Devine Bilirubin [Mass/Vol] 0.6 mg/dL Normal 0.2-1.0 [facility] Comment on above: Performed By: #### C MP, LIPID, TSH #### [facility] [address] [place] [address] Dr. Oskar Devine Calcium [Mass/Vol] 9.2 mg/dL Normal 8.5-10.1 [facility] Comment on above: Performed By: #### C MP, LIPID, TSH #### [facility] [address] [place] [address] Dr. Oskar Devine Chloride [Moles/Vol] 104 mmol/L Normal 98-107 [facility] Comment on above: Performed By: #### C MP, LIPID, TSH #### [facility] [address] [place] [address] Dr. Oskar Devine CO2 [Moles/Vol] 33.4 mmol/L Critically high 21.0-32.0 [facility] Comment on above: Performed By: #### C MP, LIPID, TSH #### [facility] [address] [place] [address] Dr. Oskar Devine Creatinine [Mass/Vol] 0.75 mg/dL Normal 0.55-1.02 [facility] Comment on above: Performed By: #### C MP, LIPID, TSH #### [facility] [address] [place] [address] Dr. Oskar Devine EGFR-AF IVORIAN >60 Normal >=60 [facility] Comment on above: Performed By: #### C MP, LIPID, TSH #### [facility] [address] [place] [address] Dr. Oskar Devine EGFR-NON AF IVORIAN >60 Normal >=60 [facility] Comment on above: Performed By: #### C MP, LIPID, TSH #### [facility] [address] [place] [address] Dr. Oskar Devine Globulin (S) [Mass/Vol] 3.4 g/dL Normal [facility] Comment on above: Performed By: #### C MP, LIPID, TSH #### [facility] [address] [place] [address] Dr. Oskar Devine Glucose [Mass/Vol] 95 mg/dL Normal 74-106 [facility] Comment on above: Performed By: #### C MP, LIPID, TSH #### [facility] [address] [place] [address] Dr. Oskar Devine Potassium [Moles/Vol] 4.3 mmol/L Normal 3.5-5.1 [facility] Comment on above: Performed By: #### C MP, LIPID, TSH #### [facility] [address] [place] [address] Dr. Oskar Devine Protein [Mass/Vol] 7.1 g/dL Normal 6.4-8.2 [facility] Comment on above: Performed By: #### C MP, LIPID, TSH #### [facility] [address] [place] [address] Dr. Oskar Devine Sodium [Moles/Vol] 144 mmol/L Normal 136-145 [facility] Comment on above: Performed By: #### C MP, LIPID, TSH #### [facility] [address] [place] [address] Dr. Oskar Devine Urea nitrogen [Mass/Vol] 17.0 mg/dL Normal 7.0-18.0 [facility] Comment on above: Performed By: #### C MP, LIPID, TSH #### [facility] [address] [place] [address] Dr. Oskar Devine Urea nitrogen/Creatinine [Mass ratio] 22.7 mg/mg Normal [facility] Comment on above: Performed By: #### C MP, LIPID, TSH #### [facility] [address] [address] [address] Oskar Devine TSHon 07-11-2022 TSH 1.679 uIU/mL Normal 0.358-3.740 [facility] Comment on above: Performed By: #### C MP, LIPID, TSH #### [facility] [address] [address] [address] Oskar Devine Vital Signs Date Time Vital Sign Value Performing Clinician Facility 12-10-2024 13:59-0400 Body height 157.48 cm Jessica Oneil MD Work Phone: [facility] 12-10-2024 13:59-0400 Body mass index (BMI) [Ratio] 29 kg/m2 Jessica Oneil MD Work Phone: [facility] 12-10-2024 13:59-0400 Body weight 72.12 kg Jessica Oneil MD Work Phone: [facility] 12-10-2024 13:59-0400 Diastolic blood pressure 73 mm[Hg] Jessica Oneil MD Work Phone: [facility] 12-10-2024 13:59-0400 Heart rate 72 /min Jessica Oneil MD Work Phone: [facility] 12-10-2024 13:59-0400 Systolic blood pressure 105 mm[Hg] Jessica Oneil MD Work Phone: [facility] 11-29-2024 15:50-0400 Body mass index (BMI) [Ratio] 28.53 kg/m2 Shiloh Rouse FIELD OBSERVER[employer] TE[employer]ER Work Phone: [facility] 11-29-2024 15:50-0400 Body weight 70.76 kg Shiloh Rouse FIELD OBSERVER-LANG[employer]AGE [employer] TE[employer]ER Work Phone: [facility] 11-29-2024 15:50-0400 Diastolic blood pressure 72 mm[Hg] Shiloh Dee Dee-Nossek FIELD OBSERVER-LANGUAGE [employer] TEACHER Work Phone: [facility] 11-29-2024 15:50-0400 Heart rate 68 /min Shiloh Dee Dee-Nossek FIELD OBSERVER-LANG[employer]AGE [employer] TE[employer]ER Work Phone: [facility] 11-29-2024 15:50-0400 Systolic blood pressure 124 mm[Hg] Shiloh Dee Dee-Nossek FIELD OBSERVER-LANGUAGE [employer] TEACHER Work Phone: [facility] 10-27-2024 09:31-0400 Body mass index (BMI) [Ratio] 28.72 kg/m2 Shiloh Dee Dee-Nossek FIELD OBSERVER-LANGUAGE [employer] TEACHER Work Phone: [facility] 10-27-2024 09:31-0400 Body weight 71.22 kg Shiloh Dee Dee-Nossek FIELD OBSERVER-LANGUAGE [employer] TEACHER Work Phone: [facility] 10-27-2024 09:31-0400 Diastolic blood pressure 82 mm[Hg] Shiloh Dee Dee-Nossek FIELD OBSERVER-LANGUAGE [employer] TEACHER Work Phone: [facility] 10-27-2024 09:31-0400 Heart rate 55 /min Shiloh Dee Dee-Nossek FIELD OBSERVER-LANGUAGE [employer] TE[employer]ER Work Phone: [facility] 10-27-2024 09:31-0400 Systolic blood pressure 106 mm[Hg] Shiloh Dee Dee-Nossek FIELD OBSERVER-LANGUAGE [employer] TEACHER Work Phone: [facility] 10-15-2024 13:32-0400 Body height 157.48 cm Jessica Oneil MD Work Phone: [facility] 10-15-2024 13:32-0400 Body mass index (BMI) [Ratio] 29 kg/m2 Jessica Oneil MD Work Phone: [facility] 10-15-2024 13:32-0400 Body weight 72.12 kg Jessica Oneil MD Work Phone: [facility] 10-15-2024 13:32-0400 Diastolic blood pressure 80 mm[Hg] Jessica Oneil MD Work Phone: [facility] 10-15-2024 13:32-0400 Heart rate 69 /min Jessica Oneil MD Work Phone: [facility] 10-15-2024 13:32-0400 Systolic blood pressure 115 mm[Hg] Jessica Oneil MD Work Phone: [facility] 10-13-2024 09:03-0400 Body mass index (BMI) [Ratio] 29.45 kg/m2 Shiloh Dee Dee-Nossek FIELD OBSERVER-LANG[employer]AGE [employer] TEACHER Work Phone: [facility] 10-13-2024 09:03-0400 Body weight 73.03 kg Shiloh Dee Dee-Nossek FIELD OBSERVER-LANGUAGE [employer] TEACHER Work Phone: [facility] 10-13-2024 09:03-0400 Diastolic blood pressure 88 mm[Hg] Shiloh Dee Dee-Nossek FIELD OBSERVER-LANGUAGE [employer] TEACHER Work Phone: [facility] 10-13-2024 09:03-0400 Heart rate 55 /min Shiloh Dee Dee-Nossek FIELD OBSERVER-LANGUAGE [employer] TEACHER Work Phone: [facility] 10-13-2024 09:03-0400 Systolic blood pressure 126 mm[Hg] Shiloh Dee Dee-Nossek FIELD OBSERVER-LANGUAGE [employer] TEACHER Work Phone: [facility] 09-30-2024 12:45-0400 Body mass index (BMI) [Ratio] 29.45 kg/m2 Shiloh Dee Dee-Nossek FIELD OBSERVER-LANGUAGE [employer] TEACHER Work Phone: [facility] 09-30-2024 12:45-0400 Body weight 73.03 kg Shiloh Dee Dee-Nossek FIELD OBSERVER-LANGUAGE [employer] TEACHER Work Phone: [facility] 09-30-2024 12:45-0400 Diastolic blood pressure 64 mm[Hg] Shiloh Dee Dee-Nossek FIELD OBSERVER-LANGUAGE [employer] TEACHER Work Phone: [facility] 09-30-2024 12:45-0400 Heart rate 69 /min Shiloh Dee Dee-Nossek FIELD OBSERVER-LANGUAGE [employer] TEACHER Work Phone: [facility] 09-30-2024 12:45-0400 Systolic blood pressure 106 mm[Hg] Shiloh Dee Dee-Nossek FIELD OBSERVER-LANGUAGE [employer] TEACHER Work Phone: [facility] 08-16-2024 09:44-0500 Blood Pressure Location Teresa Champagne [facility] 08-16-2024 09:44-0500 Diastolic blood pressure 74 mm[Hg] Teresa Champagne [facility] 08-16-2024 09:44-0500 Heart rate 82 /min Teresa Champagne [facility] 08-16-2024 09:44-0500 Respiratory rate 16 /[facility] 08-16-2024 09:44-0500 Systolic blood pressure 132 mm[Hg] Teresa Champagne [facility] 07-29-2024 12:47-0500 Body mass index (BMI) [Ratio] 28.9 kg/m2 Shiloh Dee Dee-Nossek FIELD OBSERVER-LANG[employer]AGE [employer] TEACHER Work Phone: [facility] 07-29-2024 12:47-0500 Body weight 71.67 kg Shiloh Dee Dee-Nossek FIELD OBSERVER-LANGUAGE [employer] TEACHER Work Phone: [facility] 07-29-2024 12:47-0500 Diastolic blood pressure 80 mm[Hg] Shiloh Dee Dee-Nossek FIELD OBSERVER-LANGUAGE [employer] TEACHER Work Phone: [facility] 07-29-2024 12:47-0500 Heart rate 58 /min Shiloh Dee Dee-Nossek FIELD OBSERVER-LANGUAGE [employer] TEACHER Work Phone: [facility] 07-29-2024 12:47-0500 Systolic blood pressure 118 mm[Hg] Shiloh Dee Dee-Nossek FIELD OBSERVER-LANGUAGE [employer] TEACHER Work Phone: [facility] 07-12-2024 09:27-0500 Blood Pressure Location Teresa Champagne [facility] 07-12-2024 09:27-0500 Diastolic blood pressure 80 mm[Hg] Teresa Champagne [facility] 07-12-2024 09:27-0500 Heart rate 71 /min Teresa Champagne [facility] 07-12-2024 09:27-0500 Respiratory rate 18 /min Teresa Champagne [facility] 07-12-2024 09:27-0500 SaO2% (BldA) [Mass fraction] 96 % Teresa Champagne [facility] 07-12-2024 09:27-0500 Systolic blood pressure 120 mm[Hg] Teresa Champagne [facility] 06-28-2024 10:08-0500 Body mass index (BMI) [Ratio] 28.72 kg/m2 Danny Visci DO Work Phone: [facility] 06-28-2024 10:08-0500 Body weight 71.22 kg Danny Visci DO Work Phone: [facility] 06-28-2024 10:08-0500 Diastolic blood pressure 80 mm[Hg] Danny Visci DO Work Phone: [facility] 06-28-2024 10:08-0500 Systolic blood pressure 126 mm[Hg] Danny Visci DO Work Phone: [facility] 04-28-2024 12:50-0500 Body mass index (BMI) [Ratio] 27.8 kg/m2 Shiloh Dee Dee-Nossek FIELD OBSERVER-LANGUAGE [employer] TEACHER Work Phone: [facility] 04-28-2024 12:50-0500 Body weight 68.95 kg Shiloh Dee Dee-Nossek FIELD OBSERVER-LANGUAGE [employer] TEACHER Work Phone: [facility] 04-28-2024 12:50-0500 Diastolic blood pressure 84 mm[Hg] Shiloh Dee Dee-Nossek FIELD OBSERVER-LANGUAGE [employer] TEACHER Work Phone: [facility] 04-28-2024 12:50-0500 Heart rate 52 /min Shiloh Dee Dee-Nossek FIELD OBSERVER-LANGUAGE [employer] TEACHER Work Phone: [facility] 04-28-2024 12:50-0500 Systolic blood pressure 112 mm[Hg] Shiloh Dee Dee-Nossek FIELD OBSERVER-LANGUAGE [employer]S TEACHER Work Phone: [facility] 02-18-2024 14:00-0400 Body mass index (BMI) [Ratio] 27.07 kg/m2 Shiloh Dee Dee-Nossek FIELD OBSERVER-LANGUAGE [employer]S TEACHER Work Phone: [facility] 02-18-2024 14:00-0400 Body weight 67.13 kg Shiloh Dee Dee-Nossek FIELD OBSERVER-LANGUAGE [employer]S TEACHER Work Phone: [facility] 02-18-2024 14:00-0400 Diastolic blood pressure 82 mm[Hg] Shiloh Dee Dee-Nossek FIELD OBSERVER-LANGUAGE [employer]S TEACHER Work Phone: [facility] 02-18-2024 14:00-0400 Heart rate 51 /min Shiloh Dee Dee-Nossek FIELD OBSERVER-LANGUAGE [employer] TEACHER Work Phone: [facility] 02-18-2024 14:00-0400 Systolic blood pressure 122 mm[Hg] Shiloh Dee Dee-Nossek FIELD OBSERVER-LANGUAGE ARTS TEACHER Work Phone: [facility] 07-09-2022 10:30-0500 Body height 158.75 cm Jessica Oneil Other [employer] Other 07-09-2022 10:30-0500 Body mass index (BMI) [Ratio] 28.43 kg/m2 Jessica Oneil Other [employer] Other 07-09-2022 10:30-0500 Body weight 71.67 kg Jessica Oneil Other [employer] Other 07-09-2022 10:30-0500 Diastolic blood pressure 84 mm[Hg] Jessica Oneil Other [employer] Other 07-09-2022 10:30-0500 SaO2% (BldA) [Mass fraction] 98 % Jessica Oneil Other [employer] Other 07-09-2022 10:30-0500 Systolic blood pressure 126 mm[Hg] Jessica Oneil Other [employer] Other Encounters Encounter Date Encounter Type Care Provider Facility Start: 12-10-2024 End: 12-10-2024 ambulatory Jessica Oneil MD Work Phone: [facility] Work Phone: Start: 12-10-2024 End: 12-10-2024 Patient encounter procedure Jessica Oneil MD -[facility] Work Phone: Start: 12-06-2024 End: 12-06-2024 Telephone encounter Morena Alcantara LPN [facility] Comment on above: Follow-up Start: 12-01-2024 End: 12-01-2024 Refill Shiloh Funez-Nosk FIELD OBSERVER-LANGUAGE [employer]S TEACHER Work Phone: [facility] Comment on above: Bipolar I disorder, moderate, current or most recent episode depressed, in full remission (HCC); Schizoaffective disorder, bipolar type (HCC) Start: 11-29-2024 End: 11-29-2024 Office outpatient visit 40 minutes Shiloh Leivaor-Nossek FIELD OBSERVER-LANGUAGE [employer] TEACHER Work Phone: [facility] Comment on above: Schizoaffective diso rder, bipolar type (HCC); Generalized anxiety disorder ; Long-term use of high-risk medication Start: 11-29-2024 End: 11-29-2024 ambulatory HSILOH LEIVAOR-NOSSEK Not Available Start: 11-29-2024 End: 11-29-2024 Bamboo flowsheet Shiloh Chaudhary Dee Dee-Nossek FIELD OBSERVER-LANGUAGE [employer] TEACHER Work Phone: [facility] Start: 11-29-2024 End: 11-29-2024 Bamboo flowsheet Shiloh Chaudhary Dee Dee-Nossek FIELD OBSERVER-LANGUAGE [employer] TEACHER Work Phone: [facility] Start: 11-19-2024 End: 11-19-2024 Clinisync Result Encounter Danny A Visci DO Work Phone: [facility] Unsolicited Start: 11-19-2024 End: 11-19-2024 Clinisync Result Encounter Danny A Visci DO Work Phone: [facility] Unsolicited Start: 10-27-2024 End: 10-27-2024 Bamboo flowsheet Shiloh Chaudhary Dee Dee-Nossek FIELD OBSERVER-LANGUAGE [employer] TEACHER Work Phone: [facility] Start: 10-27-2024 End: 10-27-2024 Bamboo flowsheet Shiloh Chaudhary Dee Dee-Nossek FIELD OBSERVER-LANGUAGE [employer] TEACHER Work Phone: [facility] Start: 10-27-2024 End: 10-27-2024 Office outpatient visit 25 minutes Shiloh Chaudhary Dee Dee-Nossek FIELD OBSERVER-LANGUAGE [employer] TEACHER Work Phone: [facility] Comment on above: Generalized anxiety disorder (CMS/HCC); Schizoaffective disorder, bipolar type (CMS/HCC) Start: 10-27-2024 End: 10-27-2024 ambulatory SHILOH Chaudhary DEE DEE-NOSSEK Not Available Start: 10-15-2024 End: 10-15-2024 Patient encounter procedure Jessica Oneil MD -[facility] Work Phone: Start: 10-13-2024 End: 10-13-2024 Bamboo flowsheet Shiloh Chaudhary Dee Dee-Nossek FIELD OBSERVER-LANGUAGE [employer]S TEACHER Work Phone: [facility] Start: 10-13-2024 End: 10-13-2024 Bamboo flowsheet Shiloh Chaudhary Dee Dee-Nossek FIELD OBSERVER-LANGUAGE [employer]S TEACHER Work Phone: [facility] Start: 10-13-2024 End: 10-13-2024 Office outpatient visit 25 minutes Shiloh Chaudhary Dee Dee-Nossek FIELD OBSERVER-LANGUAGE [employer]S TEACHER Work Phone: [facility] Comment on above: Schizoaffective diso rder, bipolar type (CMS/HCC) Start: 10-13-2024 End: 10-13-2024 ambulatory SHILOH Jet DEE DEE-NOSSEK Not Available Start: 09-30-2024 End: 09-30-2024 Bamboo flowsheet Shiloh Chaudhary Dee Dee-Nossek FIELD OBSERVER-LANGUAGE [employer]S TEACHER Work Phone: [facility] Start: 09-30-2024 End: 09-30-2024 Bamboo flowsheet Shiloh Chaudhary Dee Dee-Nossek FIELD OBSERVER-LANGUAGE [employer]S TEACHER Work Phone: [facility] Start: 09-30-2024 End: 09-30-2024 Office outpatient visit 25 minutes Shiloh Chaudhary Dee Dee-Nossek FIELD OBSERVER-LANGUAGE ARTS TEACHER Work Phone: [facility] Comment on above: Bipolar I disorder, moderate, current or most recent episode depressed, in full remission (CMS/HCC) Start: 09-30-2024 End: 09-30-2024 ambulatory SHILOH Jet DEE DEE-NOSSEK Not Available Start: 08-16-2024 End: 08-16-2024 ambulatory Teresa Champagne Facility[place] Start: 08-16-2024 End: 08-16-2024 Patient encounter procedure Teresa Champagne [facility] Start: 07-29-2024 End: 07-29-2024 Office outpatient visit 25 minutes Shiloh Jet Dee Dee-Nossek FIELD OBSERVER-LANGUAGE ARTS TEACHER Work Phone: [facility] Comment on above: Schizoaffective diso rder, bipolar type (CMS/HCC) Start: 07-29-2024 End: 07-29-2024 ambulatory SHILOH Jet DEE DEE-NOSSEK Not Available Start: 07-20-2024 End: 07-20-2024 ambulatory Teresa Champagne Facility:[facility] Start: 07-20-2024 End: 07-20-2024 Patient encounter procedure Teresa Champagne [facility] Start: 07-12-2024 End: 07-12-2024 ambulatory Teresa Champagne Facility:[facility] Start: 07-12-2024 End: 07-12-2024 Patient encounter procedure Teresa Champagne [facility] Start: 06-28-2024 End: 06-28-2024 Patient encounter status Danny La DO Work Phone: [facility] Start: 06-28-2024 End: 06-28-2024 Periodic preventive med est patient 40-64yrs Danny Argueta Man DO Work Phone: [facility] Comment on above: Encounter for gyneco logical examination with abnormal finding; Screening for malignant neoplasm of cervix; LGSIL of cervix of undetermined significance; HPV in female; Vaginal atrophy; Encounter for screening mammogram for malignant neoplasm of breast; Screening for HPV (human papillomavirus); Varicose veins of right lower extremity with inflammation; Mitral valve prolapse Start: 06-28-2024 End: 06-28-2024 ambulatory DANNY LA Not Available Start: 05-18-2024 End: 05-18-2024 ambulatory Outreach Community Facility:[facility] Start: 04-28-2024 End: 04-28-2024 Bamboo flowsheet Shiloh Funez-Fionasek FIELD OBSERVER-LANGUAGE ARTS TEACHER Work Phone: [facility] Start: 04-28-2024 End: 04-28-2024 Bamboo flowsheet Shiloh Leivaor-Nossek FIELD OBSERVER-LANGUAGE ARTS TEACHER Work Phone: [facility] Start: 04-28-2024 End: 04-28-2024 Office outpatient visit 25 minutes Shiloh Funez-Nossek FIELD OBSERVER-LANGUAGE ARTS TEACHER Work Phone: [facility] Comment on above: Schizoaffective diso rder, bipolar type (CMS/HCC); Generalized anxiety disorder (CMS/HCC) Start: 04-28-2024 End: 04-28-2024 ambulatory SHILOH Chaudhary DEE DEE-NOSSEK Not Available Start: 02-18-2024 End: 02-18-2024 Bamboo flowsheet Shiloh Chaudhary Dee Dee-Nossek FIELD OBSERVER-LANGUAGE ARTS TEACHER Work Phone: [facility] Start: 02-18-2024 End: 02-18-2024 Bamboo flowsheet Shiloh Chaudhary Dee Dee-Nossek FIELD OBSERVER-LANGUAGE ARTS TEACHER Work Phone: [facility] Start: 02-18-2024 End: 02-18-2024 Office outpatient visit 25 minutes Shiloh Chaudhary Dee Dee-Nossek FIELD OBSERVER-LANGUAGE ARTS TEACHER Work Phone: [facility] Comment on above: Generalized anxiety disorder (CMS/HCC); Schizoaffective disorder, bipolar type (CMS/HCC); High risk medication use Start: 02-18-2024 End: 02-18-2024 ambulatory SHILOH FUNEZ-NOSSEK Not Available Start: 12-25-2023 End: 12-25-2023 ambulatory DANNY LA Not Available Start: 07-17-2023 End: 07-17-2023 ambulatory Jessica Oneil Other [employer] Other Start: 07-17-2023 Telephone encounter Jessica Oneil [facility] Start: 07-10-2023 End: 07-10-2023 ambulatory Jessica Oneil Other [employer] Other Start: 07-10-2023 Encounter for genera l adult medical examination without abnormal findings Jessica Oneil [facility] Start: 07-10-2023 Periodic preventive med est patient 40-64yrs Jessica Oneil [facility] Start: 02-25-2023 End: 02-25-2023 ambulatory Jessica Oneil Other [employer] Other Start: 02-25-2023 Telephone encounter Jessica Oneil [facility] Start: 01-24-2023 End: 01-24-2023 ambulatory Jessica Oneil Other [employer] Other Start: 01-24-2023 Telephone encounter Jessica Oneil [facility] Start: 10-14-2022 End: 10-15-2022 ambulatory Dat Lily Facility:[facility] Start: 07-12-2022 Encounter for genera l adult medical examination without abnormal findings DR JESSICA ONEIL [facility] Start: 07-11-2022 End: 07-12-[address] JESSICA ONEIL Facility:[facility] Start: 07-11-2022 End: 07-12-2022 Encounter for general adult medical examination without abnormal findings DR JESSICA ONEIL Facility:[facility] Start: 07-09-2022 End: 07-09-2022 ambulatory Jessica Oneil Other [employer] Other Start: 07-09-2022 Encounter for genera l adult medical examination without abnormal findings Jessica Oneil [facility] Start: 07-09-2022 Periodic preventive med est patient 40-64yrs Jessica Oneil [facility] Procedures Date Procedure Procedure Detail Performing Clinician Start: 11-19-2024 MM TOMOSYNTHESIS SCR EENING BI Danny A Visci DO Work Phone: Start: 11-19-2024 Mammography Danny Vi sci DO Work Phone: Start: 12-25-2023 Microscopic observat ion [Identifier] in Cervix by Cyto stain Shiloh Funez-Andie FIELD OBSERVERCloudOpt Work Phone: Start: 10-21-2023 Mammography Shiloh harman-Nossesharmin FIELD OBSERVER-BUKA Work Phone: Plan of Treatment Date Care Activity Detail Author Start: 06-28-2029 Screening for malign ant neoplasm of cervix [facility] Start: 12-24-2028 Screening for malign ant neoplasm of cervix [facility] Start: 12-24-2026 Screening for malign ant neoplasm of cervix Pap Smear [facility] Start: 07-17-2026 Screening for malign ant neoplasm of colon [facility] Start: 11-19-2025 Screening for malign ant neoplasm of breast Mammogram [facility] Start: 07-06-2025 End: 07-06-2025 Patient encounter procedure 07/06/2025 11:45 AM EST [facility] [address] [place] [id number] Danny La, DO [address] [place] [address] [facility] Start: 02-14-2025 Influenza vaccination Influenz a Vaccine (Season Ended) [facility] Start: 12-29-2024 End: 12-29-2024 Patient encounter procedure 12/29/2024 11:30 AM EDT Office [address] [facility] [address] [place] [phone] Danny La, DO [address] [place] [address] [facility] Start: 12-14-2024 End: 12-14-2024 Patient encounter procedure 12/14/2024 1:00 PM EDT Office Visit [facility] [address] [place] [address] Shiloh Rouse, FIELD OBSERVER-LANGUAGE ARTS TEACHER [address] [place] [address] [facility] Start: 11-29-2024 End: 11-29-2024 Patient encounter procedure 11/29/2024 4:00 PM EDT Office Visit [facility] [address] [place] [address] Shiloh Rouse, FIELD OBSERVER-LANGUAGE ARTS TEACHER [address] [place] [address] Arrived [facility] Comment on above: Arrived Start: 11-24-2024 End: 11-24-2024 Patient encounter procedure 11/24/2024 11:00 AM EDT Office Visit [facility] [address] [place] [address] Shiloh Rouse, FIELD OBSERVERLANGUAGE ARTS TEACHER [address] [place] [address] [facility] Start: 10-27-2024 End: 10-27-2024 Patient encounter procedure [facility] Comment on above: Arrived Start: 10-20-2024 Screening for malign ant neoplasm of breast Mammogram [facility] Start: 10-13-2024 End: 10-13-2024 Patient encounter procedure [facility] Comment on above: Arrived Start: 09-30-2024 End: 09-30-2024 Patient encounter procedure [facility] Comment on above: Arrived Start: 07-29-2024 End: 07-29-2024 Patient encounter procedure 07/29/2024 1:00 PM EST Office Visit [facility] [address] [place] [address] Shiloh Rouse, [facility]-LANGUAGE ARTS TEACHER [address] [place] [address] [facility] Start: 06-28-2024 End: 08-26-2025 DBT Breast - bilateral screening Bilateral screening mammogram with tomosynthesis Imaging Routine Encounter for screening mammogram for malignant neoplasm of breast Expected: 06/28/2024, Expires: 08/26/2025 [facility] Comment on above: Expected: 06/28/2024 , Expires: 08/26/2025 Start: 06-28-2024 End: 06-28-2024 Patient encounter procedure 06/28/2024 9:30 AM EST Office Visit [facility] [address] [place] [phone] Danny La, DO [address] [place], [place] [phone] [facility] Start: 04-28-2024 End: 04-28-2024 Patient encounter procedure 04/28/2024 1:00 PM EST Office Visit [facility] [address] [place] [phone] Shiloh Rouse, FIELD OBSERVER-LANGUAGE ARTS TEACHER [address] [place] [address] [facility] Start: 02-18-2024 End: 02-17-2025 CBC W Auto Differential panel - Blood CBC and differential Lab Routine Schizoaffective disorder, bipolar type (CMS/HCC) High risk medication use Expected: 02/18/2024 (Approximate), Expires: 02/17/2025 [facility] Work Phone: Comment on above: Expected: 02/18/2024 (Approximate), Expires: 02/17/2025 Start: 02-18-2024 End: 02-17-2025 Comprehensive metabolic 2000 panel - Serum or Plasma Comprehensive metabolic panel Lab Routine Schizoaffective disorder, bipolar type (CMS/HCC) High risk medication use Expected: 02/18/2024 (Approximate), Expires: 02/17/2025 [facility] Comment on above: Expected: 02/18/2024 (Approximate), Expires: 02/17/2025 Start: 02-18-2024 End: 02-17-2025 Lipid 1996 panel - Serum or Plasma Lipid panel Lab Routine Schizoaffective disorder, bipolar type (CMS/HCC) High risk medication use Expected: 02/18/2024 (Approximate), Expires: 02/17/2025 [facility] Comment on above: Expected: 02/18/2024 (Approximate), Expires: 02/17/2025 Start: 02-18-2024 End: 02-18-2024 Patient encounter procedure 02/18/2024 2:00 PM EDT Office Visit [facility] [address] [facility] [address] [place] [phone] Shiloh Rouse, FIELD OBSERVER-LANGUAGE ARTS TEACHER [address] [facility] [address] [place] [address] Arrived [facility] Comment on above: Arrived Start: 02-18-2024 End: 02-17-2025 Thyroid panel with tsh Thyroid panel with tsh Lab Routine Schizoaffective disorder, bipolar type (CMS/HCC) High risk medication use Expected: 02/18/2024 (Approximate), Expires: 02/17/2025 [facility] Comment on above: Expected: 02/18/2024 (Approximate), Expires: 02/17/2025 Start: 02-18-2024 End: 02-17-2025 Valproic acid level, total Valproic acid level, total Lab Routine Schizoaffective disorder, bipolar type (CMS/HCC) High risk medication use Expected: 02/18/2024 (Approximate), Expires: 02/17/2025 [facility] Comment on above: Expected: 02/18/2024 (Approximate), Expires: 02/17/2025 Start: 02-15-2024 Influenza vaccination Influenza Vacc ine (#1) [facility] Start: 1960 Screening for malign ant neoplasm of colon [facility] Comprehensive metabo lic 2000 panel - Serum or Plasma [facility] IGP, APT HPV,RFX 16/18,45 IGP, APT HPV,RFX 16/18,45 Lab Routine Screening for malignant neoplasm of cervix LGSIL of cervix of undetermined 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 Screening for HPV (human papillomavirus) Ordered: 06/28/2024 [facility] Work Phone: Comment on above: Ordered: 06/28/2024 [facility] Immunizations Immunization Date Immunization Notes Care Provider Cash juárez 04-23-2022 influenza virus vaccine, unspecified formulation Shiloh Rouse FIELD OBSERVER-LANGUAGE ARTS TEACHER Work Phone: [facility] 02-14-2013 tetanus toxoid, redu delvin diphtheria toxoid, and acellular pertussis vaccine, adsorbed Jessica Oneil Other [facility] Payers Date Payer Category Payer Medicaid [id number] 2024 Self-pay 2023 Private Health Insurance [id number] 2023 Unknown [facility] [id number] 2023-Present [phone] [address] [place] [address] [id number] 2023 Unknown [id number] 2018 Unknown [id number] 1961 Unknown [id number] 2.16.840.1.700170.3.579. 2.593 1961 Unknown [id number] 2.16.840.1.905614.3.579. 2.593 1961 Unknown [id number] 2.16.840.1.171438.3.579. 2.727 1961 Unknown [id number] 2.16.840.1.178883.3.579. 2.727 1961 Unknown [id number] 2.16.840.1.293891.3.579. 2.727 1961 Unknown [id number] 2.16.840.1.536175.3.579. 2.1259 1961 Unknown [id number] 2.16.840.1.150795.3.579. 2.1259 1961 Unknown [id number] 2.16.840.1.239700.3.579. 2.1259 1961 Unknown [id number] 2.16.840.1.402047.3.579. 2.1259 1961 Unknown [id number] 2.16.840.1.962014.3.579. 2.1259 1961 Unknown [id number] 2.16.840.1.865959.3.579. 2.1259 1961 Unknown [id number] 2.16.840.1.637856.3.579. 2.1259 1961 Unknown [id number] 2.16.840.1.212294.3.579. 2.1259 1961 Unknown [id number] 2.16.840.1.630358.3.579. 2.1259 Unknown [id number] 2.16.840.1.471395.3.579. 2.531 Unknown Regular Insurance [id number] Social History Date Type Detail Facility Unknown if ever smoked [employer] Other Start: 12-26-2022 End: 07-29-2024 Sex Assigned At [facility] Start: 11-06-2022 End: 12-06-2024 Tobacco smoking status CTIS Never smoked tobacco [facility] Start: 11-06-2022 Tobacco use and exposure Smokeless tobacco non-user [facility] Start: 04-28-2024 End: 11-29-2024 Alcoholic beverage intake Lifetime non-drinker (finding) [facility] Start: 12-26-2022 End: 07-29-2024 History of Social function [facility] How often to you hav e a drink containing alcohol? Never [facility] How many standard drinks containing alcohol do you have on a typical day? Patient does not drink [facility] Start: 11-03-2022 Education 13 [facility] Start: 04-09-2023 Alcohol Comment caffeine: 2-4 cups coffee per day [facility] Start: 1960 Sex assigned at Not on file [facility] Start: 08-28-2022 Gender identity Identifies as female gender (finding) [facility] Start: 07-29-2024 Alcohol Comment caffeine: 2 cu ps coffee per day [facility] Sex Female (finding) [facility] Start: 1960 Sex Assigned At Female F [facility] Functional Status Date Assessment Result Facility 08-16-2024 Functional Status N/A [facility] 07-12-2024 Functional Status N/A [facility] Clinical Notes 07-09-2022 to 12-06-2024 Telephone Encounter - Shiloh FunezSabrinaaidanANUPAM - 12/06/2024 12:32 PM EDTTelephone Encounter - Shiloh RouseANUPAM - 12/06/2024 12:32 PM EDT Note Date & Type Note Facility 12-06-2024 Telephone encount er Note Reviewed message. Will assess the need for med adjustment at next visit. [facility] 12-06-2024 Miscellaneous Notes Formattin g of this note might be different from the original. Reviewed message. Will assess the need for med adjustment at next visit. Patient called to give an update as requested. Mary states that she is feeling okay. Denies feeling depressed or down. Doesn't feel adding an antidepressant is needed at this time. She is still tired. Forgot to mention to FF that her mother has thyroid issues. She has an appt this Friday with her PCP to ask for labs. She also made an appt with her counselor for December 16. After speaking with her , will like to hold off on adding another med and will wait to discuss at her next appt on the documented in this encounter [facility] 12-06-2024 Telephone encount er Note Patient called to give an update as requested. Mary states that she is feeling okay. Denies feeling depressed or down. Doesn't feel adding an antidepressant is needed at this time. She is still tired. Forgot to mention to FF that her mother has thyroid issues. She has an appt this Friday with her PCP to ask for labs. She also made an appt with her counselor for December 16. After speaking with her , will like to hold off on adding another med and will wait to discuss at her next appt on the [facility] 12-01-2024 Telephone encount er Note Patient called requesting a refill on Abilify 5mg and Depakote 250mg sent to [facility]. Patient has a follow up scheduled for 12/14. [facility] 12-01-2024 Miscellaneous Notes Formattin g of this note might be different from the original. Patient called requesting a refill on Abilify 5mg and Depakote 250mg sent to [facility]. Patient has a follow up scheduled for 12/14. documented in this encounter [facility] 10-15-2024 Evaluation note Diagnosis Onset Date Resolution Mixed hyperlipidemia acute October 15, 2024 1:18pm Fatigue acute December 10 1:53pm Mixed hyperlipidemia acute December 10, 2024 1:53pm [facility] Work Phone: 1(643) 522-996604-30-2025 History of Present illness Narrative* Shiloh Rouse, RAMAN-LANGUAGE ARTS TEACHER - 10/13/2024 9:00 AM EDT Images from the original note were not included. Emma Gonzáles is a 64 y.o. female presents for Medication Management. HPI: Patient is here for medication follow up. Had been having a little more depression. Last visit she was more depressed. We had increased her Abilify 25mg. Hasn't been able to get in counselor has an appt October 20, 2024. [place] 3 [place]. That helped her mood. Has had family stressors. Brother in law ill with cancer. Mood is reported as mildly sad. Suspects she is thinking about , mom's . Having self doubt about marrying again. Anxiety is mild. Worried about stuff has to do. Sleeping and wakes up at times. Medication compliant. No reported side effects. Denies abuse of substances. Medical problems since last visit. Started walking and this has helped her. Psychosocial stressors: Illness in family, weddings, graduations. Continues to sing at mass. Continues to walk daily. Enjoys being at [employer]. Has supportive family 5 sisters and one brother. SUBJECTIVE: PAST MEDICAL HISTORY: Past Medical History: [...] fasciitis of right foot Schizoaffective disorder (CMS/HCC) Hx of post , Overdosed on sleeping pills Screening mammogram for breast cancer 10/14/2022 benign (Jasmine) varicose veins bilateral ALLERGIES: Allergies Allergen Reactions Fluoxetine Unknown Venlafaxine Hcl Unknown SURGICAL HISTORY: Past Surgical History: Procedure Laterality Date SECTION, LOW TRANSVERSE 1984 COLONOSCOPY 2013 repeat in 10 years EXPLORATORY LAPAROTOMY 1995 Laparotomy 1994 SALPINGOOPHORECTOMY Right 2004 Op Lap/ [...] Drug use: Never Depression: Not at risk (04/28/2024) PHQ-2 PHQ-2 Score: 0 REVIEW OF SYMPTOMS - MENTAL STATUS EXAM Appearance Appearance: Normal grooming and hygiene. Appears stated age. Dressed appropriately for weather. Behavior Calm, cooperative, pleasant. Good posture.. No abnormal movements. Speech Normal, clear, regular rate, rhythm and volume Affect: Sad Appropriate and congruent with mood. Mood is depressed/mild anxiety Thought Process Organized, logical, and goal directed Thought Content Denies suicidal and homicidal ideation Perception Denies auditory and visual hallucinations. No evidence of delusions. Orientation Appropriate to age Memory/Concentration Immediate, recent and remote memory intact Insight/Judgement Good. Able to make reasonable life decisions. OBJECTIVE: Visit Vitals LMP (LMP Unknown) OB [...] TRIG 138 04/02/2024 ASSESSMENT AND PLAN: Assessment/Plan Assess/Plan SmartLinks: Generalized anxiety disorder (CMS/HCC) Bipolar Disorder most recent depressed Hx of psychotic symptoms Impression. This is a 64year old female who has been a patient of this provider since 2018. Have observed both depressive episodes and manic episodes. Patient mood became depressed and abilify was increased. Recommended return to counseling. Will continue to monitor. Psych Medication List To target worsening of depression Increase abilify Tablet, 25 MG, TAKE 1 TABLET BY MOUTH EVERY DAY Melatonin 10mg po every day Xanax Tablet, 0.25 MG, 1 tablet, Orally, daily prn severe anxiety-has not needed. Continue abilify to target mood Decrease depakote 250mg -depakote to help with alexandra -patient continues to feel depressed. Will decrease depakote to see if helps with depression and apathy Labs 02/06 Will be seeing counselor due to worsening of depression Hx of being on wellbutrin, lexapro, and tolerated Patient was seen Face to Face, Reviewed chart documents and documentation, Visit time :35min Follow up: 2 weeks documented in this [facility] [id number] History of Present illness Narrative* Vanessa Garrison - 09/30/2024 1:00 PM EDT Patient states she is experiencing lows . States she feels a little low and it will last a few days then subside. Patient states she has felt this way the last 2 months since last visit. documented in this encounterAl[facility]. [facility] [id number] History of Present illness Narrative* ANUPAM Morrison - 07/29/2024 1:00 PM EST Images from the original note were not included. Emma Gonzáles is a 64 y.o. female presents for Medication Management. HPI: Patient is here for medication follow up. Patient mood has maintained stability since last appt. Mood is reported as not depressed. Anxiety is under control. Sleeping difficulties due to aching with legs. Medication compliant. No reported side effects. Denies abuse of substances. Medical problems since last visit. Having difficulty with varicose veins. Denies Psychosocial stressors. No longer seeing counselor. Talks to chainstitch elastic attacher. SUBJECTIVE: PAST MEDICAL HISTORY: Past Medical History: [...] Drug use: Never Depression: Not at risk (04/28/2024) PHQ-2 PHQ-2 Score: 0 REVIEW OF SYMPTOMS - MENTAL STATUS EXAM Appearance Appearance: Normal grooming and hygiene. Appears stated age. Dressed appropriately for weather. Behavior Calm, cooperative, pleasant. Good posture.. No abnormal movements. Speech Normal, clear, regular rate, rhythm and volume Affect Full range. Stable. Appropriate and congruent with mood. Mood Euthymic Thought Process Organized, logical, and goal directed Thought Content Denies suicidal and homicidal ideation Perception Denies auditory and visual hallucinations. No evidence of delusions. Orientation Appropriate to age Memory/Concentration Immediate, recent and remote memory intact Insight/Judgement Good. Able to make reasonable life decisions. OBJECTIVE: Visit Vitals LMP (LMP Unknown) OB [...] TRIG 138 04/02/2024 ASSESSMENT AND PLAN: Assessment/Plan Assess/Plan SmartLinks: Generalized anxiety disorder (CMS/HCC) Schizoaffective disorder, bipolar [...] MG, 1 tablet Orally Once a day, At next appt consider lowering Depakote as patient concerned about weight. Xanax Tablet, 0.25 MG, 1 tablet, Orally, daily prn severe anxiety-has not needed. Continue abilify to target mood Labs 02/06 Patient was seen Face to Face, Reviewed chart documents and documentation, Visit time : 30min Follow up: 2 months documented in this encounterAlvin [facility]. [facility] Cancer [id number] History of Present illness Narrative* Bettina Mena LPN - 06/28/2024 9:30 AM EST Images from the original note were not included. Danny La, Obstetrics and Gynecology Emma Gonzáles 1960 06/28/24 [id number] Yearly Wellness Exam Chief Complaint Patient presents with Gynecologic Exam Pt presents for yearly and repeat pap test. Pt denies breast,bowel,bladder,toy designer problems. Having varicose vein in right leg , causing her problems. Went to [place] [facility] this weekend due to her legs hurting so badly, was RX tylenol w codeine she is going to start today. Visit Vitals BP 126/80 Wt 157 lb LMP (LMP Unknown) BMI 28.72 kg/m OB Status Postmenopausal Smoking Status Never BSA 1.76 m History of Present Illness Current Outpatient Medications Medication Sig Dispense Refill ALPRAZolam (Xanax) 0.25 MG tablet Take 1 tablet (0.25 mg) by mouth Daily as needed for anxiety (1 tablet as needed PRN for severe anxiety) 30 tablet 0 ARIPiprazole (Abilify) 20 MG tablet Take 1 tablet (20 mg) by mouth Daily 90 tablet 1 Yapnrez-Mibnxakrfc-Jctwvmp D (CALCIUM/D3 ADULT GUMMIES PO) Take 1,000 mg by mouth Daily divalproex (Depakote ER) 500 MG 24 hr tablet Take 1 tablet (500 mg) by mouth Daily 90 tablet 0 fluticasone (Flonase Sensimist) 27.5 MCG/SPRAY nasal spray Administer 2 sprays into each nostril inthe morning. metroNIDAZOLE (Metrogel) 1 % gel apply topically to affected area once a day montelukast (Singulair) 10 MG tablet Take 10 mg by mouth if needed. Multiple Vitamins-Minerals (Multivitamin Gummies Adult) chewable tablet as directed Orally rosuvastatin (Crestor) 20 MG tablet Take 20 mg by mouth Daily No current facility-administered medications for this visit. Allergies Allergen Reactions Fluoxetine Unknown Venlafaxine Hcl Unknown Past Medical History: Diagnosis Date abnormal pap [...] cancer 10/14/2022 benign ([place]) varicose veins bilateral Past Surgical History: Procedure Laterality Date SECTION, LOW TRANSVERSE 1985 COLONOSCOPY 2013 repeat in 10 years EXPLORATORY LAPAROTOMY 1994 Laparotomy 1994 SALPINGOOPHORECTOMY Right 2003 Op Lap/ RSO TUBAL LIGATION OB History Para Term AB Living 2 2 2 2 SAB IAB Ectopic Multiple Live Births 2 # Outcome Date GA Lbr Cr/2nd Weight Sex Type Anes PTL Lv 2 Term CS-LTranv DOMINICK 1 Term 6 lb 10 oz Vag-Spont DOMINICK Obstetric Comments Pap 12/2023- Neg; 06/26/23- LSIL, HPV Neg ; 12/26/22- ASCUS, HPV Neg , COLPO 06/27/22- Neg, bx benign ;06/13/22- LSIL, HPV Neg ; 05/18/2021- Neg, HPV Positive Mammogram 10/21/23- Neg ([place]) Cologuard 07/17/23- Neg ROS General: Denies fevers/chills Eyes: Denies vision changes ENT: Denies neck stiffness, neck mass Endocrine: Denies polydipsia and polyuria Respiratory: Denies shortness of breath Cardiovascular: Denies chest pain and palpitations Gastrointestinal: Denies changes in bowel habits, blood in stool, constipation and diarrhea. Hematology: Denies easy bruising. Women Only: Denies breast masses, skin changes, nipple discharge, abnormal bleeding, pelvic pain and dyspareunia Genitourinary: Denies dysuria, pelvic pain and nocturia Skin: Denies rashes/lesions Neurologic: Denies headaches, dizziness, syncope Psychiatric: Denies hallucinations, suicidal ideas EXAM GENERAL EXAMINATION: Alert, oriented, well developed, well nourished. HEAD: Normocephalic, atraumatic. EYES: PATI, sclera anicteric. EARS: No obvious hearing deficit. NECK/THYROID: Neck supple no cervical lymphadenopathy no thyromegaly. LYMPH NODES: No axillary, supraclavicular or inguinal adenopathy. SKIN: Warm and dry. No rashes HEART: Regular rate and irregular rhythm. No murmur LUNGS: Clear to auscultation bilaterally. CHEST: Axillary nodes grossly normal. BREASTS: No dominant masses palpable bilaterally, no skin changes, nipple discharge, supra-clavicular or axillary adenopathy ABDOMEN: Soft, nontender, nondistended, no hernia or masses palpable. BACK: No obvious scoliosis/kyphosis. FEMALE GENITOURINARY: Food Preparation Supervisor in room-EFG without sores/lesions, mild atrophic vaginal mucosa-no discharge, cervix without lesions, uterus AV, NSSC, no adnexal masses, cul-de-sac negative. EXTREMITIES No edema. NEUROLOGIC: Alert and oriented. PSYCH: Cooperative with exam. ICD-10-CM 1. Encounter for gynecological examination with abnormal finding Z01.411 2. Screening for malignant neoplasm of cervix Z12.4 IGP, APT HPV,RFX 16/18,45 3. LGSIL of cervix of undetermined significance R87.612 IGP, APT HPV,RFX 16/18,45 4. 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 Vaginal atrophy N95.2 6. Encounter for screening mammogram for malignant neoplasm of breast Z12.31 Bilateral screening mammogram with tomosynthesis 7. Screening for HPV (human papillomavirus) Z11.51 IGP, APT HPV,RFX 16/18,45 8. Varicose veins of right lower extremity with inflammation I83.11 Ambulatory referral to VascularSurgery 9. Mitral valve prolapse I34.1 Advised pt to perform monthly self breast exams. Encouraged calcium and Vitamin D intake. She went to ER sat with severe leg pain-varicose veins, no blood clots noted. She does have a hx of blood clot in her leg. Her pain is well managed when she wears her stockings but painful at night. Discussed referral to vascular Dr. Travis Rodríguez, referral sent. Mammogram will be due in October, order sent. Irregular heart rhythm noted on exam, she admits to mitral valve prolapse but denies ever being told AFIB. She has an appt with PCP soon, she is going to notify office of todays findings. She has been using Estradiol vaginal cream once weekly, she will try to increase to twice weekly. Plan to return in 6 months for repeat pap. Entered by Bettina Mena LPN acting as scribe for Dr. Danny La. Signature: Bettina Mena LPN The documentation recorded by the scribe accurately reflects the service(s) I personally performed and the decisions I made. Signature: Danny La, DO Assessment & Plan documented in this encounterAlvin J. Siteman Cancer [id number] History of Present illness Narrative* Shiloh Rouse, FIELD OBSERVER-LANGUAGE ARTS TEACHER - 04/28/2024 1:00 PM EST Images from the original note were not [...] of cervix Anxiety Cyst rt. ankle Depression ([facility]) DVT (deep venous thrombosis) ([facility]) right leg Endometrial cancer ([facility]) Hyperlipidemia ([facility]) Irregular heartbeat Occasional Mental health problem several hospitalization Plantar fasciitis of right foot Schizoaffective disorder ([facility]) Screening mammogram for breast cancer 10/14/2022 benign [...] and Time Memory/Concentration Short term intact and correction intact Insight/Judgement Good OBJECTIVE: Visit Vitals LMP [...] min F/U 3 months documented in this encounterAlvin J. Siteman Cancer [id number] History of Present illness Narrative* ANUPAM Morrison - 02/18/2024 2:00 PM EDT Images from the original note were not [...] visit. 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 SUBJECTIVE: PAST MEDICAL HISTORY: [...] and Time Memory/Concentration Short term intact and correction intact Insight/Judgement Good OBJECTIVE: Visit Vitals BP [...] and documentation, Visit time : 32min F/U /2 months documented in this encounterAlvin J. Siteman Cancer [id number] Evaluation note* Encounter Date Diagnosis Assessment Notes Treatment Notes Treatment Clinical Notes Jul, Medication monitoring encounter (ICD-10 - Z51.81) [employer] Other 01-25-2024 Evaluation note* Encounter Date Diagnosis Assessment Notes Treatment Notes Treatment Clinical Notes Jun, Well adult exam (ICD-10 - [...] patient is sent home pleased, without concerns. [employer] Other 01-24-2023 Evaluation note* Encounter Date Diagnosis Assessment Notes Treatment Notes Treatment Clinical Notes Jun, Wellness examination (ICD-10 - Z00.00) Discussed weight related to possibly her medications. We will check yearly wellness labs. Encouraged exercise for physical and mental health. 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 [employer] Other evaluation + Plan note Future Appointments Appointment Date:08/16/2024 09:30:00 AM Scheduled Provider:Teresa Champagne MD [facility] Appointment Type:Vascular Follow Up ([facility]) Future Scheduled Tests Radiology* US Lower Extremity Venous Duplex Insufficiency Bilat 07/12/24 [facility] evaluation + Plan note Future Appointments Appointment Date:08/19/2024 09:30:00 AM Scheduled Provider:Teresa Champagne MD Location:[facility] Appointment Type:Vascular Follow Up ([facility]) [facility] evaluation noteNo InformationNortExcela Health [facility] Other evaluation note* Diagnosis Schizoaffective disorder, bipolar type (CMS/HCC) Schizoaffective disorder, unspecified condition Generalized anxiety disorder (CMS/HCC) Generalized anxiety disorder [facility] Diagnosis Generalized anxiety disorder (CMS/HCC) Generalized anxiety disorder Schizoaffective disorder, bipolar type (CMS/HCC) Schizoaffective disorder, unspecified condition High risk medication use documented [facility] this [facility]* Diagnosis Encounter for gynecological examination with abnormal finding Screening for malignant neoplasm of cervix Screening for malignant neoplasm of the cervix LGSIL of cervix of undetermined 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 Vaginal atrophy Postmenopausal atrophic vaginitis Encounter for screening mammogram for malignant neoplasm of breast Screening for HPV (human papillomavirus) Special screening examination for human papillomavirus (HPV) Varicose veins of right lower extremity with inflammation Mitral valve prolapse Mitral valve disorders [facility]* Diagnosis Schizoaffective disorder, bipolar type (CMS/HCC) Schizoaffective disorder, unspecified condition [facility]* Diagnosis Bipolar I disorder, moderate, current or most recent episode depressed, in full remission (CMS/HCC) documented [facility]* Diagnosis Schizoaffective disorder, bipolar type (CMS/HCC) Schizoaffective disorder, unspecified condition [facility]* Diagnosis Generalized anxiety disorder (CMS/HCC) Generalized anxiety disorder Schizoaffective disorder, bipolar type (CMS/HCC) Schizoaffective disorder, unspecified condition [facility]* Diagnosis Schizoaffective disorder, bipolar type (HCC) Schizoaffective disorder, unspecified condition Generalized anxiety disorder Generalized anxiety disorder Long-term use of high-risk medication documented [facility]* Diagnosis Bipolar I disorder, moderate, current or most recent episode depressed, in full remission (HCC) Schizoaffective disorder, bipolar type (HCC) Schizoaffective disorder, unspecified condition documented in this encounter [facility] HealthcareHistory general Narrative - Reported* Type Description Date Medical History Bi polar/ Medical History anxiety/depression Surgical History Oopherectomy Lf. 2004 Surgical History 1985 Surgical History Vein surgery 1985 [employer] Other History general Narrative - Reported* Type Description Date Medical History Bi polar/ Medical History anxiety/depression Medical History hyperlipidemia Medical History anxiety Medical History depression Surgical History Oopherectomy Lf. 2004 Surgical History oophorectomy Surgical History 1985 Surgical History cyst removal Surgical History Vein surgery 1985 Surgical History wisdom teeth Hospitalization History see above [employer] Other Hospital course Narrative No data available for this section [facility] Hospital Discharge instructions No data available for this section [facility] Progress note No data available for this section [facility] Reason for referral (narrative)No reason for referral information availableDoctors Hospital Work Phone: Summary Purpose Family History No Family History Records FoundNo Family History Records Found No data available for this section No data available for this section No data available for this section No Family History Records FoundNo Family History Records Found Advance Directives Advance Directive Response Recorded Date/ Time Advance Directives No December 06 11:17am Chief Complaint and Reason for Visit Chief Complaint Admit Date check up after medication October 15, 2024 1:18pm thyroid concerns December 10, 2024 1:53 pm Reason for Visit Admit Date Mixed hyperlipidemia October 15, 2024 1:18p m Fatigue December 10, 2024 1:53 pm Mixed hyperlipidemia December 10, 2024 1:5 3pm Additional Source Comments REASON FOR VISIT (unrecogniz ed section and content) Reason Comments Med Management Follow-up Reason Comments Gynecologic Exam Pt presents for year ly and repeat pap test. Pt denies breast,bowel,bladder,toy designer problems. Having varicose vein in right leg , causing her problems. Went to [facility] this weekend due to her legs hurting so badly, was RX tylenol w codeine she is going to start today. Reason Onset Date Comments Med Refill 12/01/2024 Reason Onset Date Comments Follow-up 12/06/2024 INFORMATION SOURCE (unrecogn ized section and content) DATE CREATED AUTHOR 10/18/2022 [facility] DATE CREATED AUTHOR AUTHOR'S ORGANIZ ATION 05/19/2024 [facility] DATE CREATED AUTHOR AUTHOR'S ORGANIZ ATION 08/18/2024 [facility] DATE CREATED AUTHOR AUTHOR'S ORGANIZ ATION 12/01/2024 [facility] EPIC Care Teams (unrecognized sec tion and content) Technical Project Manager Relationship Specialty Start Date End Date Jessica Oneil MD PCP - General Family Medicine 11/06/22 Technical Project Manager Relationship Specialty Start Date End Date Jessica Oneil MD PCP - General Family Medicine 11/06/22 Technical Project Manager Relationship Specialty Start Date End Date Jessica Oneil MD PCP - General Family Medicine 11/06/22 Technical Project Manager Relationship Specialty Start Date End Date Jessica Oneil MD PCP - General Family Medicine 11/06/22 Technical Project Manager Relationship Specialty Start Date End Date Jessica Oneil MD PCP - General Family Medicine 11/06/22 Technical Project Manager Relationship Specialty Start Date End Date Jessica Oneil MD PCP - General Family Medicine 11/06/22 Shiloh Rouse, FIELD OBSERVER-LANGUAGE ARTS TEACHER [address] [address] Nurse Practitioner Psychiatry 07/01/24 Technical Project Manager Relationship Specialty Start Date End Date Jessica Oneil MD PCP - General Family Medicine 11/06/22 Shiloh Rouse, FIELD OBSERVER-LANGUAGE ARTS TEACHER [address] [facility] [address] [place] [address] Nurse Practitioner Psychiatry 07/01/24 Technical Project Manager Relationship Specialty Start Date End Date Jessica Oneil MD PCP - General Family Medicine 11/06/22 Shiloh Rouse, FIELD OBSERVER-LANGUAGE ARTS TEACHER [address] [facility] [address] [place] [address] Nurse Practitioner Psychiatry 07/01/24 Technical Project Manager Relationship Specialty Start Date End Date Jessica Oneil MD PCP - General Family Medicine 11/06/22 Shiloh Rouse, FIELD OBSERVER-LANGUAGE ARTS TEACHER [address] [facility] [address] [place] [address] Nurse Practitioner Psychiatry 07/01/24 Technical Project Manager Relationship Specialty Start Date End Date Jessica Oneil MD PCP - General Family Medicine 11/06/22 Shiloh Rouse, FIELD OBSERVER-LANGUAGE ARTS TEACHER [address] [facility] [address] [place] [address] Nurse Practitioner Psychiatry 07/01/24 Technical Project Manager Relationship Specialty Start Date End Date Jessica Oneil MD PCP - General Family Medicine 11/06/22 Shiloh Rouse, FIELD OBSERVER-LANGUAGE ARTS TEACHER [address] [facility] [address] [place] [address] Nurse Practitioner Psychiatry 07/01/24 Technical Project Manager Relationship Specialty Start Date End Date Jessica Oneil MD PCP - General Family Medicine 11/06/22 Shiloh Rouse, FIELD OBSERVER-LANGUAGE ARTS TEACHER [address] [place] [address] Nurse Practitioner Psychiatry 07/01/24 Technical Project Manager Relationship Specialty Start Date End Date Jessica Oneil MD PCP - General Family Medicine 11/06/22 Shiloh Rouse, FIELD OBSERVER-LANGUAGE ARTS TEACHER [address] [place] [address] Nurse Practitioner Psychiatry 07/01/24 Technical Project Manager Relationship Specialty Start Date End Date Jessica Oneil MD PCP - General Family Medicine 11/06/22 Shiloh Rouse, FIELD OBSERVER-LANGUAGE ARTS TEACHER [address] [facility] [address] [place] [address] Nurse Practitioner Psychiatry 07/01/24 Technical Project Manager Relationship Specialty Start Date End Date Jessica Oneil MD PCP - General Family Medicine 11/06/22 Shiloh Rouse, FIELD OBSERVER-LANGUAGE ARTS TEACHER [address] [facility] [address] [place] [address] Nurse Practitioner Psychiatry 07/01/24 Technical Project Manager Relationship Specialty Start Date End Date Jessica Oneil MD PCP - General Family Medicine 11/06/22 Shiloh Rouse, FIELD OBSERVER-LANGUAGE ARTS TEACHER [address] [facility] [address] [place] [address] Nurse Practitioner Psychiatry 07/01/24 Team Status: Active Member Role Status Dates Jessica Oneil MD Primary Care Provider Active Team Status: Inactive Member Role Status Dates Jessica Oneil MD Primary Care Provider Active Start: October 15, 2024 End: October 15, 2024 Jessica Oneil MD Attending Provider Active St art: October 15, 2024 End: October 15, 2024 Team Status: Inactive Member Role Status Dates Jessica Oneil MD Primary Care Provider Active Start: December 10, 2024 End: December 10, 2024 Jessica Oneil MD Attending Provider Active St art: December 10, 2024 End: December 10, 2024 Goals (unrecognized section and content) Goals may be documented in a n alternate section FOR RECORDS PERTAINING TO PATIENTS WHO ARE [...] BE BASED ON THE PRIMARY CLINICAL RECORDS. [facility] [employer] provides no warranty or guarantee of the accuracy or completeness of information in this document.
[2024-12-10 15:06] LABS: Basophils Percent Auto 0.7 % (0.2-2.0); Eosinophils Percent Auto 0.7 % (0.9-7.0); Hematocrit 40.9 % (36.0-48.0); Hemoglobin 13.5 g/dL (12.0-16.0); Immature Granulocytes Abs Auto 0.01 10^3/uL (0.00-0.03); Immature Granulocytes Pct Auto 0.2 % (0.0-0.5); Lymphocytes Absolute Auto 2.6 10^3/uL (1.2-3.8); Mean Corpuscular Hemoglobin 29.1 pg (26.7-34.0); Mean Corpuscular Volume 88.1 fL (81.0-99.0); Mean Platelet Volume 10.5 fL (9.5-13.5); Monocytes Absolute Auto 0.4 10^3/uL (0.3-0.8); Monocytes Percent Auto 6.5 % (1.7-12.0); Neutrophils Absolute Auto 2.9 10^3/uL (1.4-6.5); Neutrophils Percent Auto 47.9 % (43.0-75.0); Platelet Count 203 10^3/uL (150-450); Red Blood Count 4.64 10^6/uL (4.20-5.40); Red Cell Distribution Width 13.5 % (11.0-15.0)
[2024-12-10 15:41] LABS: Free T4 0.95 ng/dL (0.76-1.46)
[2024-12-10 15:45] LABS: Alanine Aminotransferase 24 U/L (14-59); Albumin Globulin Ratio 1.1; Albumin Level 3.8 g/dL (3.4-5.0); Alkaline Phosphatase 70 U/L (46-116); Anion Gap 10.1; Aspartate Amino Transferase 15 U/L (15-37); Bilirubin Total 0.9 mg/dL (0.2-1.0); Calcium 9.1 mg/dL (8.5-10.1); Carbon Dioxide 31.7 mmol/L (21.0-32.0); Chloride 104 mmol/L (98-107); Estimated GFR (African America >60 (>=60 mL/min/1.73m^2); Estimated GFR (Non-African Ame >60 (>=60 mL/min/1.73m^2); Globulin 3.4 g/dL; Glucose 68 mg/dL (74-106); Potassium 3.8 mmol/L (3.5-5.1); Sodium 142 mmol/L (136-145); Total Protein 7.2 g/dL (6.4-8.2)
== END 2024-12-10 14:45 | disposition home or self-care (01) ==
PROVIDERS: PCP Family Medicine; Visit Provider Family Medicine
DX: R53.83 Other fatigue (principal); E78.2 Mixed hyperlipidemia
CPT/HCPCS: 36415; 80053; 84439; 84443; 85025